=== PATIENT | female | born 1950 | race Caucasian/White ===

== ENCOUNTER 2016-05-19 14:44 | Emergency (ER) ==
--- NOTE | 2016-05-19 15:25 | EKG Report ---
Test Performed on : 05/19/2016 3:04:49 PM Test Reason : sob Blood Pressure : / mmHG Vent. Rate : 095 BPM Atrial Rate : 095 BPM P-R Int : 140 ms QRS Dur : 106 ms QT Int : 384 ms P-R-T Axes : 069 038 100 degrees QTc Int : 482 ms Normal sinus rhythm. Possible Left atrial enlargement Incomplete left bundle branch block Nonspecific T wave abnormality Prolonged QT Abnormal ECG No previous ECGs available Unconfirmed Result
--- NOTE | 2016-05-19 16:03 | ED EKG INTERP ---
EKG Interpretation - EKG Time of EKG reading by physician:: 15:04 EKG Read and Signed by:: Portillo Castañeda EKG Interpretation (*Must complete 3 of following elements*): Abnormal ( nonspecific T wave abnormality; prolonged QT) Rate: 95 Rhythm: normal sinus rhythm Comments: possible L atrial enlargement; incomplete LBBB; Attestation - Scribe Verification/Attestation Scribe:: Edith Liriano Acting as Scribe for:: Portillo Castañeda Scribe documention review:: This chart was documented by a scribe and accurately reflects the service the provider performed and the decisions made by the provider.
[2016-05-19] MEDS ORDERED: DUONEB (A & A) INH ONE (16:30)
--- NOTE | 2016-05-19 16:43 | PROVIDER DOCUMENTATION ---
HPI-Chest Pain - General Chief Complaint: Shortness of Breath Stated Complaint: PLEURISY Time Seen by Provider: 05/19/16 16:15 Allergies/Adverse Reactions: Patient Allergies Allergy/AdvReac Type Severity Reaction Status Date / Time No Known Allergies Allergy Verified 05/05/16 22:38 Home Medications: Trazodone E.r. [Oleptro ER] 300 mg PO HS 03/24/16 Furosemide [Lasix] 40 mg PO DAILY 03/25/16 Ropinirole [Requip] 1 - 2 mg PO DAILY 03/25/16 Spironolactone 0.5 tab PO DAILY 03/25/16 Ipratropium/Albuterol INH [Combivent Respimat Inhaler] 1 puff INH Q4H 05/04/16 - History of Present Illness-CP Nature of Presenting Problem: A 65 y/o F with PMH of CHF HTN CAD COPD presented with 4 days of cough with sputum production and subjective fevers due prolonged cough started having left rib pain and has moderate distress due topain, denies chest pain, not sure SOB exertional but attributes to possible PNA vs pleurasy Review of Systems - Adult - REVIEW OF SYSTEMS - ADULT Constitutional: reports: no symptoms reported Eyes: reports: no symptoms reported Ears, Nose, Mouth & Throat: reports: no symptoms reported Cardiovascular: reports: see HPI Respiratory: reports: see HPI Gastrointestinal: reports: no symptoms reported Genitourinary: reports: no symptoms reported Musculoskeletal: reports: no symptoms reported Integumentary: reports: no symptoms reported Neurological: reports: no symptoms reported Psychiatric: reports: no symptoms reported Endocrine: reports: no symptoms reported Hematologic/Lymphatic: reports: no symptoms reported Allergic/Immunologic: reports: no symptoms reported All Other Systems: Reviewed and Negative Past History - Adult - PAST MEDICAL HISTORY-ADULT Review of Records: reports: Old Records Reviewed, Nursing Assessment Review, Medications Reviewed, Social history reviewed & non-contributory. Major Childhood Illnesses: reports: denies history Cardiovascular: reports: CHF, HTN Respiratory: reports: COPD, sleep apnea Gastrointestinal: reports: denies history Obstetrical/Gynecological: reports: denies history Genitourinary: reports: denies history Musculoskeletal: reports: intervertebral disc disease Neurological: reports: other (restless leg syndrom) Endocrine/Immune: reports: denies history Other Conditions: reports: denies history - PRIOR SURGERIES/PROCEDURES Surgical/Procedure History: reports: appendectomy, orthopedic (extremity), back/ neck - IMMUNIZATION STATUS Childhood Immunizations: See Nurse Assessment Flu Vaccine: See Nurse Assessment - FAMILY HISTORY Family History: reviewed, not pertinent Physical Exam-General - PHYSICAL EXAM-ADULT Initial Vital Signs Reviewed: Yes - CONSTITUTIONAL General Appearance: appears well, alert, mild distress - EYES Eyes: PERRL/EOMI, pink conjunctivae - HEAD, EARS, NOSE, MOUTH & THROAT HENMT: normocephalic/atraumatic, moist mucous membranes, normal ENT inspection - NECK Neck: non-tender, full range of motion, normal inspection - RESPIRATORY Respiratory: chest non-tender, rales, wheezing - CARDIOVASCULAR Cardiovascular: normal peripheral pulses, regular rate, rhythm, no edema - GASTROINTESTINAL (ABDOMEN) Abdominal Exam: normal bowel sounds, non tender, soft - LYMPHATIC Lymphatic: no adenopathy - MUSCULOSKELETAL Back Exam: normal inspection, no CVA tenderness, no vertebral tenderness, other (left rib tenderness) Extremity: normal range of motion, non-tender, normal gait - SKIN Integumentary: normal color, normal turgor, warm/dry - NEUROLOGIC Neurologic: grossly normal, no motor/sensory deficits - PSYCHIATRIC Psych/Mental Status: normal mood/affect, normal thought content, normal thought process, oriented x 3 Progress - PLAN OF CARE/RESULTS Progress/Plan/Lab Results: Laboratory Tests 05/19/16 05/19/16 05/19/16 18:05 18:05 18:05 WBC 10.51 RBC 3.59 L Hgb 10.3 L Hct 32.7 L MCV 91.1 MCH 28.7 MCHC 31.5 L RDW Std Deviation 15.7 H Plt Count 442 H MPV 10.1 Immature Gran % (Auto) 0.9 H Neut % (Auto) 66.2 Lymph % (Auto) 16.7 L [place] % (Auto) 8.8 Eos % (Auto) 7.0 Baso % (Auto) 0.4 Immature Gran # (Auto) 0.09 H Neut # (Auto) 6.96 H Lymph # (Auto) 1.75 [place] # (Auto) 0.93 H Eos # (Auto) 0.74 H Baso # (Auto) 0.04 PT INR PTT (Actin FS) D-Dimer 1.21 H Sodium 133 L Potassium 4.5 Chloride 97 L Carbon Dioxide 21 L Anion Gap 15 BUN 49 H Creatinine 2.1 H Estimated GFR/1.73 m2 24 BUN/Creatinine Ratio 23 Glucose 87 Calculated Osmolality 279 Calcium 9.8 Magnesium 1.7 Total Bilirubin < 0.10 L AST 9 L ALT 7 L Alkaline Phosphatase 82 Creatine Kinase 101 Troponin T Iqx-W-Bvvsofchkxl Pept Total Protein 6.8 Albumin 3.7 Globulin 3.1 Albumin/Globulin Ratio 1.2 05/19/16 05/19/16 05/19/16 18:05 18:05 18:05 WBC RBC Hgb Hct MCV MCH MCHC RDW Std Deviation Plt Count MPV Immature Gran % (Auto) Neut % (Auto) Lymph % (Auto) [place] % (Auto) Eos % (Auto) Baso % (Auto) Immature Gran # (Auto) Neut # (Auto) Lymph # (Auto) [place] # (Auto) Eos # (Auto) Baso # (Auto) PT 10.0 INR 0.94 PTT (Actin FS) 23.8 D-Dimer Sodium Potassium Chloride Carbon Dioxide Anion Gap BUN Creatinine Estimated GFR/1.73 m2 BUN/Creatinine Ratio Glucose Calculated Osmolality Calcium Magnesium Total Bilirubin AST ALT Alkaline Phosphatase Creatine Kinase Troponin T 0.079 Zep-Y-Fbliyrksrsh Pept 5579 H Total Protein Albumin Globulin Albumin/Globulin Ratio Orders Category Date Time Status Cardiac Monitoring DIRECTED Care 05/19/16 16:29 Active Saline Loc NOW Care 05/19/16 16:29 Active CHEST-2 VIEWS [RAD] Stat Exams 05/19/16 16:29 Draft CBC WITH ELECTRONIC DIFF [HEME] Stat Lab 05/19/16 18:05 Completed CK PROFILE [SP CHEM] Stat Lab 05/19/16 18:05 Completed COMPREHENSIVE METABOLIC PANEL [CHEM] Stat Lab 05/19/16 18:05 Completed D-DIMER [CHEM] Stat Lab 05/19/16 18:05 Completed MAGNESIUM [CHEM] Stat Lab 05/19/16 18:05 Completed PRO B-NATRIURETIC PEPTIDE Stat Lab 05/19/16 18:05 Completed PROTIME WITH INR [COAG] Stat Lab 05/19/16 18:05 Completed PTT [COAG] Stat Lab 05/19/16 18:05 Completed TROPONIN T Stat Lab 05/19/16 18:05 Completed Albuterol 2.5MG/Ipratrop 0.5MG [Duoneb (A & A)] Med 05/19/16 16:30 Discontinued 3 ml INH NOW ONE Hydromorphone [Dilaudid] Med 05/19/16 18:32 Discontinued 0.5 mg IM NOW ONE Aerosol Treatments Routine Oth 05/19/16 16:30 Completed Aerosol Treatments Stat Oth 05/19/16 16:30 Completed EKG [EKG] Stat Ther 05/19/16 14:59 Draft EKG [EKG] Stat Ther 05/19/16 16:29 Ordered Vital Signs Temp Pulse Resp BP Pulse Ox 05/19/16 18:13 89 16 100 05/19/16 14:57 98.6 F 108 H 22 117/78 100 No Known Allergies Allergy (Verified 05/05/16 22:38) Aspirin 81 mg PO DAILY #60 chewtab 10/29/15 Citalopram [Celexa] 40 mg PO QAM #30 tablet 01/28/16 Trazodone E.r. [Oleptro ER] 300 mg PO HS 03/24/16 Furosemide [Lasix] 40 mg PO DAILY 03/25/16 Ropinirole [Requip] 1 - 2 mg PO DAILY 03/25/16 Spironolactone 0.5 tab PO DAILY 03/25/16 Carvedilol [Coreg] 3.125 mg PO BID #60 tablet 03/27/16 LISINOpril [Prinivil] 5 mg PO DAILY #30 tablet 03/27/16 Ipratropium/Albuterol INH [Combivent Respimat Inhaler] 1 puff INH Q4H 05/04/16 Alprazolam [Xanax] 0.25 mg PO Q8H PRN #10 tablet 05/05/16 Hydrocodone/APAP 5 mg/325 mg [[place]-5] 1 tab PO Q12HR PRN #20 tablet 05/05/16 Isosorbide Dinitrate [Isordil] 10 mg PO TID #90 tablet 05/05/16 Omeprazole [Prilosec] 40 mg PO DAILY@0700 #60 capsule 05/05/16 Sennosides/Docusate Sodium [Pericolace] 2 each PO BID #30 tablet 05/05/16 Sodium Bicarbonate 650 mg PO BID #60 tablet 05/05/16 Sucralfate [Carafate Liquid] 1 gm PO Q6H #2 udc 05/05/16 Laboratory 05/19/16 05/19/1617 18:05 18:05 18:05 WBC RBC Hgb Hct MCV MCH MCHC RDW Std Deviation Plt Count MPV Immature Gran % (Auto) Neut % (Auto) Lymph % (Auto) [place] % (Auto) Eos % (Auto) Baso % (Auto) Immature Gran # (Auto) Neut # (Auto) Lymph # (Auto) [place] # (Auto) Eos # (Auto) Baso # (Auto) PT 10.0 INR 0.94 PTT (Actin FS) 23.8 D-Dimer Sodium Potassium Chloride Carbon Dioxide Anion Gap BUN Creatinine Estimated GFR/1.73 m2 BUN/Creatinine Ratio Glucose Calculated Osmolality Calcium Magnesium Total Bilirubin AST ALT Alkaline Phosphatase Creatine Kinase Troponin T 0.079 Jzf-F-Rfuirisnsom Pept 5579 H Total Protein Albumin Globulin Albumin/Globulin Ratio 05/19/16 05/19/16 05/19/16 18:05 18:05 18:05 WBC 10.51 RBC 3.59 L Hgb 10.3 L Hct 32.7 L MCV 91.1 MCH 28.7 MCHC 31.5 L RDW Std Deviation 15.7 H Plt Count 442 H MPV 10.1 Immature Gran % (Auto) 0.9 H Neut % (Auto) 66.2 Lymph % (Auto) 16.7 L [place] % (Auto) 8.8 Eos % (Auto) 7.0 Baso % (Auto) 0.4 Immature Gran # (Auto) 0.09 H Neut # (Auto) 6.96 H Lymph # (Auto) 1.75 [place] # (Auto) 0.93 H Eos # (Auto) 0.74 H Baso # (Auto) 0.04 PT INR PTT (Actin FS) D-Dimer 1.21 H Sodium 133 L Potassium 4.5 Chloride 97 L Carbon Dioxide 21 L Anion Gap 15 BUN 49 H Creatinine 2.1 H Estimated GFR/1.73 m2 24 BUN/Creatinine Ratio 23 Glucose 87 Calculated Osmolality 279 Calcium 9.8 Magnesium 1.7 Total Bilirubin < 0.10 L AST 9 L ALT 7 L Alkaline Phosphatase 82 Creatine Kinase 101 Troponin T Waw-D-Kfetvvvtlpx Pept Total Protein 6.8 Albumin 3.7 Globulin 3.1 Albumin/Globulin Ratio 1.2 - EKG 1 Time of EKG reading by physician:: 19:14 Prior EKG Comparison: unchanged from prior (NSR no acute STEMI) - XRAY 1 XRAY Study: Chest (no acute changes) Impression: See EMR Report 2 XRAY: Bilateral (no obvious fracture noted) XRAY Study: Ribs Departure - Departure Time of Disposition Order: 19:16 DIAGNOSIS: Renal insufficiency, Elevated d-dimer, Rib pain on left side COPD (chronic obstructive pulmonary disease) Qualifiers: COPD type: unspecified COPD Qualified Code(s): J44.9 - Chronic obstructive pulmonary disease, unspecified Disposition: HOME 01 Certified Medical Emergency: Emergent Condition: Good Prescriptions: Amoxicillin/Potassium Clav [Augmentin 875-125 Tablet] 1 each PO BID #14 tablet Hydrocodone/Acetaminophen [[place] 5-325 Tablet] 1 each PO Q4-6H PRN PRN #12 tablet PRN Reason: Pain Prednisone 20 mg PO DAILY #7 tablet Albuterol Sulfate Inhaler [Ventolin Hfa] 2 puff INH Q6H PRN PRN #1 inhaler PRN Reason: Cough - Critical Care Note Comments: A 65 y/o F who presented with cough and left rib pain on evalaution noted to have slight elevated ddimer and renal insufficiency, reviewed records in recent past v/q scan was normal, pts vitals normal not in acute resp distress, has reproduceable left rib tenderness due to coughing less likley to be PE discussed finding with supervising attending Dr Jackson who agrees with plan will d/c home with medications as prescribed
--- NOTE | 2016-05-19 17:18 | Diag Imaging Result Document ---
PROCEDURE NAME: CHEST-2 VIEWS - 05/19/2016 PA AND LATERAL RADIOGRAPH OF THE CHEST: COMPARISON: 05/05/2016. FINDINGS: The lungs are grossly clear. There is no definite pleural fluid collection. There is stable cardiomegaly. Central vasculature is unremarkable. IMPRESSION: Stable cardiomegaly, but no definite acute pathology.
[2016-05-19 18:21] LABS: MANUAL DIFF NEEDED? NO
[2016-05-19 18:30] LABS: BASO% 0.4 % (0.0-0.8); EOS# 0.74 X1000 (0.0-0.7); HEMATOCRIT 32.7 % (37.0-47.0); HEMOGLOBIN 10.3 g/dL (12.0-16.0); IMM GRAN# 0.09 X1000 (0.0-0.04); IMM GRAN% 0.9 % (0.0-0.5); LYMPH# 1.75 X1000 (1.2-3.4); LYMPH% 16.7 % (20.5-51.1); MCH 28.7 PG (27-31); MCHC 31.5 g/dL (33-37); MCV 91.1 FL (81-99); MONO# 0.93 X1000 (0.11-0.59); MONO% 8.8 % (1.7-9.3); MPV 10.1 FL (7.4-10.4); NEUT% 66.2 % (42.2-75.2); PLT 442 X1000 (130-400); RBC 3.59 XMIL (4.2-5.4)
[2016-05-19] MEDS ORDERED: DILAUDID IM ONE (18:32)
[2016-05-19 18:37] LABS: INR 0.94; PTT 23.8 Seconds (22.0-36.0)
[2016-05-19 18:55] LABS: AGAP 15; ALBUMIN 3.7 g/dL (3.5-5.0); ALKALINE PHOSPHATASE 82 U/L (32-104); BUN 49 mg/dL (8-22); CALCIUM 9.8 mg/dL (8.8-10.2); CHLORIDE 97 mmol/L (98-107); CK PROFILE 101 U/L (24-173); COSMO 279; GOT 9 U/L (10-30); GPT 7 U/L (10-36); MAGNESIUM 1.7 mg/dL (1.5-2.7); POTASSIUM 4.5 mmol/L (3.5-5.1); SODIUM 133 mmol/L (136-145); TCO2 21 mmol/L (25-35); TOTAL BILIRUBIN < 0.10 mg/dL (0.20-1.00); TOTAL PROTEIN 6.8 g/dL (6.3-8.3)
[2016-05-19 19:41] VITALS: BP 120/80
--- NOTE | 2016-05-20 08:22 | Diag Imaging Result Document ---
PROCEDURE NAME: RIBS ONLY LEFT - 05/19/2016 LEFT RIB SERIES, FOUR VIEWS: FINDINGS: There are healing fractures anterolaterally in the seventh and eighth ribs on the left. There is no definite evidence of acute fracture. No evidence of pneumothorax or pleural fluid collection is present. IMPRESSION: Old rib fractures.
== END 2016-05-19 20:22 | disposition home or self-care (01) ==
LOC: ED 14:44
DX: J44.9 Chronic obstructive pulmonary disease, unspecified (principal); R79.1 Abnormal coagulation profile; N28.9 Disorder of kidney and ureter, unspecified; R07.81 Pleurodynia; R94.31 Abnormal electrocardiogram [ECG] [EKG]; R06.02 Shortness of breath; R09.1 Pleurisy; R05 Cough; Z79.899 Other long term (current) drug therapy; R09.3 Abnormal sputum; R50.9 Fever, unspecified; R06.2 Wheezing; I50.9 Heart failure, unspecified; I10 Essential (primary) hypertension; I25.10 Atherosclerotic heart disease of native coronary artery without angina pectoris; G25.81 Restless legs syndrome; Z79.82 Long term (current) use of aspirin
CPT/HCPCS: 71020; 71100; 80053; 82550; 83735; 83880; 84484; 85025; 85379; 85610; 85730; 93005; 94640; 96372; J1170

== ENCOUNTER 2016-07-07 19:15 | Emergency (ER) ==
--- NOTE | 2016-07-07 20:16 | PROVIDER DOCUMENTATION ---
HPI-Respiratory General - General Source: patient - History of Present Illness-Resp Quality of Pain: reports: tightness Severity in ED: reports: moderate Onset/Duration: reports: 1 week ago Timing: reports: still present, getting worse Cough Quality/Degree: reports: moderate Modifying Factors: improves with: nothing Associated Symptoms: reports: cough, fever/chills, hurts to breathe, shortness of breath, wheezing. denies: nasal congestion Similar Symptoms Previously?: Yes Recently seen or treated by another doctor?: Yes <Art Burnette - Last Filed: 07/07/16 20:38> - General Source: patient <No Lemus - Last Filed: 07/08/16 22:12> - General Chief Complaint: General Adult Stated Complaint: SOB, CONGESTED, RGT FOOT SWOLLEN Time Seen by Provider: 07/07/16 19:46 Allergies/Adverse Reactions: Patient Allergies Allergy/AdvReac Type Severity Reaction Status Date / Time No Known Allergies Allergy Verified 07/07/16 19:30 Home Medications: Home Medication List Medication Instructions Recorded Confirmed Last Taken Type Citalopram [Celexa] 40 mg PO QAM #30 tablet 01/28/16 07/07/16 06/22/16 Rx Trazodone E.r. [Oleptro ER] 300 mg PO HS 03/24/16 07/07/16 06/22/16 History Ropinirole [Requip] 1 - 2 mg PO QHS 03/25/16 07/07/16 06/22/16 History Carvedilol [Coreg] 3.125 mg PO BID #60 tablet 03/27/16 07/07/16 05/05/16 Rx Omeprazole [Prilosec] 40 mg PO DAILY@0700 #60 capsule 05/05/16 07/07/16 Rx Albuterol [Albuterol Neb] 2.5 mg INH Q4H PRN PRN #1 neb 06/21/16 07/07/16 Rx Aspirin 325 mg PO QAM 06/23/16 07/07/16 Unknown History Acetaminophen/Diphenhydramine 1 each PO Q6H PRN PRN #14 tablet 07/07/16 Unknown Rx [Percogesic Extra Str Caplet] Albuterol [Albuterol Neb] 2.5 mg INH Q4H PRN PRN #30 neb 07/07/16 Unknown Rx Furosemide [Lasix] 20 mg PO DAILY #3 tablet 07/07/16 Unknown Rx - History of Present Illness-Resp Nature of Presenting Problem: 65 y/o F presents to the ED with SOB, cough, chest congestion and tightness that has gradually worsen over the last 4 days. Pt states she does not have a PCP or residential nurse for her CHF just comes to the ED for it. (Art Burnette) Review of Systems - Adult - REVIEW OF SYSTEMS - ADULT Constitutional: reports: fever (reproted 101 at home a couple days ago). denies : chills Eyes: reports: no symptoms reported Ears, Nose, Mouth & Throat: reports: no symptoms reported Cardiovascular: reports: chest pain, edema Respiratory: reports: cough, shortness of breath, wheezing Gastrointestinal: denies: abdominal pain, nausea, vomiting Genitourinary: reports: no symptoms reported Musculoskeletal: reports: no symptoms reported Integumentary: reports: no symptoms reported Neurological: reports: no symptoms reported Psychiatric: reports: no symptoms reported Endocrine: reports: no symptoms reported Hematologic/Lymphatic: reports: no symptoms reported Allergic/Immunologic: reports: no symptoms reported All Other Systems: Reviewed and Negative <Art Burnette - Last Filed: 07/07/16 20:38> Past History - Adult - PAST MEDICAL HISTORY-ADULT Review of Records: reports: Old Records Reviewed, Nursing Assessment Review, Medications Reviewed Cardiovascular: reports: CHF Respiratory: reports: COPD - SOCIAL HISTORY Smoking: cigarettes, less than 1 pack/day Living Situation: family <Art Burnette - Last Filed: 07/07/16 20:38> - PAST MEDICAL HISTORY-ADULT Major Childhood Illnesses: reports: denies history Cardiovascular: reports: CHF, HTN Respiratory: reports: COPD, sleep apnea Gastrointestinal: reports: denies history Obstetrical/Gynecological: reports: denies history Genitourinary: reports: denies history Musculoskeletal: reports: intervertebral disc disease Neurological: reports: other (restless leg syndrom) Endocrine/Immune: reports: denies history Other Conditions: reports: denies history - PRIOR SURGERIES/PROCEDURES Surgical/Procedure History: reports: appendectomy, orthopedic (extremity), back/ neck - IMMUNIZATION STATUS Childhood Immunizations: See Nurse Assessment Flu Vaccine: See Nurse Assessment - FAMILY HISTORY Family History: reviewed, not pertinent <MariahNo sosa - Last Filed: 07/08/16 22:12> Physical Exam-General - CONSTITUTIONAL General Appearance: alert, no apparent distress - EYES Eyes: PERRL/EOMI, pink conjunctivae - HEAD, EARS, NOSE, MOUTH & THROAT HENMT: moist mucous membranes, normal ENT inspection, TMs normal, pharynx normal - NECK Neck: non-tender, full range of motion, supple, normal inspection - RESPIRATORY Respiratory: decreased breath sounds (all lung brasher), crackles (upper lobes), wheezing (upper lobes) - CARDIOVASCULAR Cardiovascular: normal peripheral pulses, regular rate, rhythm - GASTROINTESTINAL (ABDOMEN) Abdominal Exam: normal bowel sounds, non tender, soft - MUSCULOSKELETAL Back Exam: normal inspection, no CVA tenderness, no vertebral tenderness Extremity: normal range of motion, non-tender, normal gait, pedal edema (+1 right foot only and only in the foot) - SKIN Integumentary: normal color, normal turgor, warm/dry - NEUROLOGIC Neurologic: grossly normal, no motor/sensory deficits - PSYCHIATRIC Psych/Mental Status: normal mood/affect, normal thought content, normal thought process, oriented x 3 <Art Burnette - Last Filed: 07/07/16 20:38> Progress - EKG 1 Time of EKG reading by physician:: 20:28 EKG Read and Signed by:: Pepe Walker EKG Interpretation (*Must complete 3 of following elements*): Abnormal Rate: 96 Rhythm: NSR Comments: possible left atrial enlargement, Inferior & Anterior infarcts age undeterm <Art Burnette - Last Filed: 07/07/16 20:38> - XRAY 1 XRAY Study: Chest Comparison with other Films: no changes <MariahNo sosa - Last Filed: 07/08/16 22:12> - PLAN OF CARE/RESULTS Progress/Plan/Lab Results: Laboratory Tests 07/07/16 07/07/16 07/07/16 19:50 19:50 19:50 WBC 9.93 RBC 3.67 L Hgb 10.5 L Hct 32.9 L MCV 89.6 MCH 28.6 MCHC 31.9 L RDW Std Deviation 16.2 H Plt Count 302 MPV 10.4 Immature Gran % (Auto) 0.3 Neut % (Auto) 69.4 Lymph % (Auto) 17.5 L Forrest % (Auto) 8.0 Eos % (Auto) 4.2 Baso % (Auto) 0.6 Immature Gran # (Auto) 0.03 Neut # (Auto) 6.89 H Lymph # (Auto) 1.74 Forrest # (Auto) 0.79 H Eos # (Auto) 0.42 Baso # (Auto) 0.06 PT INR APTT (Factor Assay) Sodium 140 Potassium 4.0 Chloride 111 H Carbon Dioxide 15 L Anion Gap 15 BUN 34 H Creatinine 1.7 H Estimated GFR/1.73 m2 30 BUN/Creatinine Ratio 20 Glucose 146 H Calculated Osmolality 290 Calcium 8.9 Magnesium 1.8 Total Bilirubin < 0.15 L AST 11 ALT 9 L Alkaline Phosphatase 67 Ukz-I-Hkxmhenmoix Pept 22003 H Total Protein 6.0 L Albumin 3.5 Globulin 3.0 Albumin/Globulin Ratio 1.0 07/07/16 19:50 WBC RBC Hgb Hct MCV MCH MCHC RDW Std Deviation Plt Count MPV Immature Gran % (Auto) Neut % (Auto) Lymph % (Auto) Forrest % (Auto) Eos % (Auto) Baso % (Auto) Immature Gran # (Auto) Neut # (Auto) Lymph # (Auto) Forrest # (Auto) Eos # (Auto) Baso # (Auto) PT 12.9 INR 0.94 APTT (Factor Assay) 28.7 Sodium Potassium Chloride Carbon Dioxide Anion Gap BUN Creatinine Estimated GFR/1.73 m2 BUN/Creatinine Ratio Glucose Calculated Osmolality Calcium Magnesium Total Bilirubin AST ALT Alkaline Phosphatase Ejc-B-Iirphrspnix Pept Total Protein Albumin Globulin Albumin/Globulin Ratio Orders Category Date Time Status CHEST-2 VIEWS [RAD] Stat Exams 07/07/16 20:17 Completed CBC WITH ELECTRONIC DIFF [HEME] Stat Lab 07/07/16 19:50 Completed COMPREHENSIVE METABOLIC PANEL [CHEM] Stat Lab 07/07/16 19:50 Completed MAGNESIUM [CHEM] Stat Lab 07/07/16 19:50 Completed PRO B-NATRIURETIC PEPTIDE Stat Lab 07/07/16 19:50 Com[address]IME WITH INR PL [COAG] Stat Lab 07/07/16 19:[address] [COAG] Stat Lab 07/07/16 19:50 Completed Furosemide [Lasix] Med 07/07/16 21:33 Discontinued 40 mg IV NOW ONE Promethazine [Phenergan] Med 07/07/16 20:17 Discontinued 12.5 mg IV NOW ONE Promethazine [Phenergan] Med 07/07/16 22:09 Discontinued 12.5 mg IV NOW ONE Sodium Chloride 0.9% Med 07/07/16 20:17 Discontinued 10 ml INJ NOW ONE Sodium Chloride 0.9% Med 07/07/16 22:09 Discontinued 10 ml INJ NOW ONE EKG [EKG] Stat Ther 07/07/16 20:17 Draft Vital Signs Temp Pulse Resp BP Pulse Ox 07/07/16 22:24 97.4 F L 105 H 20 158/109 99 07/07/16 19:40 99 F 99 H 20 134/91 98 07/07/16 19:21 99.3 F 99 H 20 133/86 99 No Known Allergies Allergy (Verified 07/07/16 19:30) Citalopram [Celexa] 40 mg PO QAM #30 tablet 01/28/16 Trazodone E.r. [Oleptro ER] 300 mg PO HS 03/24/16 Ropinirole [Requip] 1 - 2 mg PO QHS 03/25/16 Carvedilol [Coreg] 3.125 mg PO BID #60 tablet 03/27/16 Omeprazole [Prilosec] 40 mg PO DAILY@0700 #60 capsule 05/05/16 Albuterol [Albuterol Neb] 2.5 mg INH Q4H PRN PRN #1 neb 06/21/16 Aspirin 325 mg PO QAM 06/23/16 Acetaminophen/Diphenhydramine [Percogesic Extra Str Caplet] 1 each PO Q6H PRN PRN #14 tablet 07/07/16 Albuterol [Albuterol Neb] 2.5 mg INH Q4H PRN PRN #30 neb 07/07/16 Furosemide [Lasix] 20 mg PO DAILY #3 tablet 07/07/16 Laboratory 07/07/16 07/07/16 07/07/16 19:50 19:50 19:50 WBC RBC Hgb Hct MCV MCH MCHC RDW Std Deviation Plt Count MPV Immature Gran % (Auto) Neut % (Auto) Lymph % (Auto) Forrest % (Auto) Eos % (Auto) Baso % (Auto) Immature Gran # (Auto) Neut # (Auto) Lymph # (Auto) Forrest # (Auto) Eos # (Auto) Baso # (Auto) PT 12.9 INR 0.94 APTT (Factor Assay) 28.7 Sodium 140 Potassium 4.0 Chloride 111 H Carbon Dioxide 15 L Anion Gap 15 BUN 34 H Creatinine 1.7 H Estimated GFR/1.73 m2 30 BUN/Creatinine Ratio 20 Glucose 146 H Calculated Osmolality 290 Calcium 8.9 Magnesium 1.8 Total Bilirubin < 0.15 L AST 11 ALT 9 L Alkaline Phosphatase 67 Qaa-O-Puotlwdpvqc Pept 82056 H Total Protein 6.0 L Albumin 3.5 Globulin 3.0 Albumin/Globulin Ratio 1.0 07/07/16 19:50 WBC 9.93 RBC 3.67 L Hgb 10.5 L Hct 32.9 L MCV 89.6 MCH 28.6 MCHC 31.9 L RDW Std Deviation 16.2 H Plt Count 302 MPV 10.4 Immature Gran % (Auto) 0.3 Neut % (Auto) 69.4 Lymph % (Auto) 17.5 L Forrest % (Auto) 8.0 Eos % (Auto) 4.2 Baso % (Auto) 0.6 Immature Gran # (Auto) 0.03 Neut # (Auto) 6.89 H Lymph # (Auto) 1.74 Forrest # (Auto) 0.79 H Eos # (Auto) 0.42 Baso # (Auto) 0.06 PT INR APTT (Factor Assay) Sodium Potassium Chloride Carbon Dioxide Anion Gap BUN Creatinine Estimated GFR/1.73 m2 BUN/Creatinine Ratio Glucose Calculated Osmolality Calcium Magnesium Total Bilirubin AST ALT Alkaline Phosphatase Sdc-Y-Ylaowtgiqot Pept Total Protein Albumin Globulin Albumin/Globulin Ratio Reviewed labs and CXR with Dr. Walker; he agreed with d/c plan. Discussed findings and f/u with pt and family. (No Lemus) Departure <Art Burnette - Last Filed: 07/07/16 20:38> - Departure Time of Disposition Order: 21:53 Certified Medical Emergency: Emergent <No Lemus - Last Filed: 07/08/16 22:12> - Departure DIAGNOSIS: Renal insufficiency CHF (congestive heart failure) Qualifiers: Congestive heart failure type: unspecified congestive heart failure type Congestive heart failure chronicity: unspecified congestive heart failure chronicity Qualified Code(s): I50.9 - Heart failure, unspecified COPD (chronic obstructive pulmonary disease) Qualifiers: COPD type: unspecified COPD Qualified Code(s): J44.9 - Chronic obstructive pulmonary disease, unspecified Disposition: HOME 01 Condition: Stable Additional Instructions: Take medications as directed. Follow up with specialist for further management. Elevate legs often. ED Follow Up Instructions: You have been treated by a care provider in the Emergency Department. These instructions are being provided to you so you can have an understanding of how to care for yourself upon discharge. Upon discharge from the Emergency Department, you are responsible for making arrangements for follow-up care by a physician of your choice. Take all prescribed medications as directed. Return to the Emergency Department immediately for any new or worsening symptoms. You may call the Physician Referral phone number at [phone] to obtain a list of Physicians who are taking new patients. Prescriptions: Albuterol [Albuterol Neb] 2.5 mg INH Q4H PRN PRN #30 neb PRN Reason: Wheezing Furosemide [Lasix] 20 mg PO DAILY #3 tablet Acetaminophen/Diphenhydramine [Percogesic Extra Str Caplet] 1 each PO Q6H PRN PRN #14 tablet PRN Reason: Pain Referrals: None,PCP [Primary Care Provider] - Filipe Brooks MD [STAFF PHYSICIAN] - Instructions: Furosemide tablets, Chronic Obstructive Pulmonary Disease, Easy- to-Read, Heart Failure, Yjmq-rl-Shlt Attestation - Scribe Verification/Attestation Scribe:: Art Burnette Acting as Scribe for:: No Lemus Scribe documention review:: This chart was documented by a scribe and accurately reflects the service the provider performed and the decisions made by the provider. <Art Burnette - Last Filed: 07/07/16 20:38> - Physician/ ELODIA Attestation Patient care was provided by Advanced Practice Provider:: Yes Advanced Practice Provider:: No Lemus Advanced Practice Provider documentation review:: The Mid-level provider documentation, treatment plan and medical decision making was reviewed by the physician who agrees with all treatment and medical decision making by the [facility]. <No Lemus - Last Filed: 07/08/16 22:12> Physician Attestation
[2016-07-07] MEDS ORDERED: SODIUM CHLORIDE 0.9% INJ ONE ×2 (20:17→22:09)
[2016-07-07] MEDS ORDERED: PHENERGAN IV ONE ×2 (20:17→22:09)
[2016-07-07 20:48] LABS: MANUAL DIFF NEEDED? NO
[2016-07-07 20:53] LABS: BASO% 0.6 % (0.0-0.8); EOS# 0.42 X1000 (0.0-0.7); EOS% 4.2 % (0.0-10.0); HEMATOCRIT 32.9 % (37.0-47.0); HEMOGLOBIN 10.5 g/dL (12.0-16.0); IMM GRAN# 0.03 X1000 (0.0-0.04); IMM GRAN% 0.3 % (0.0-0.5); LYMPH# 1.74 X1000 (1.2-3.4); LYMPH% 17.5 % (20.5-51.1); MCH 28.6 PG (27-31); MCHC 31.9 g/dL (33-37); MCV 89.6 FL (81-99); MONO# 0.79 X1000 (0.11-0.59); MPV 10.4 FL (7.4-10.4); NEUT% 69.4 % (42.2-75.2); PLT 302 X1000 (130-400); RBC 3.67 XMIL (4.2-5.4)
--- NOTE | 2016-07-07 20:55 | EKG Report ---
Test Performed on : 07/07/2016 8:28:53 PM Test Reason : SOB Blood Pressure : / mmHG Vent. Rate : 096 BPM Atrial Rate : 096 BPM P-R Int : 134 ms QRS Dur : 098 ms QT Int : 384 ms P-R-T Axes : 049 001 095 degrees QTc Int : 485 ms Normal sinus rhythm. Possible Left atrial enlargement Inferior infarct , age undetermined Anterior infarct , age undetermined Abnormal ECG When compared with ECG of 23-JUN-2016 18:54, Inferior infarct is now present Unconfirmed Result
[2016-07-07 21:25] LABS: INR 0.94 (0.86-1.15); PROTIME 12.9 Seconds (12.1-15.5); PTT PL 28.7 Seconds (22.6-43.9)
[2016-07-07 21:26] LABS: AGAP 15; ALBUMIN 3.5 g/dL (3.5-5.0); ALKALINE PHOSPHATASE 67 U/L (32-104); BUN 34 mg/dL (8-22); CALCIUM 8.9 mg/dL (8.8-10.2); CHLORIDE 111 mmol/L (98-107); COSMO 290; GOT 11 U/L (10-30); GPT 9 U/L (10-36); MAGNESIUM 1.8 mg/dL (1.5-2.7); SODIUM 140 mmol/L (136-145); TCO2 15 mmol/L (25-35); TOTAL BILIRUBIN < 0.15 mg/dL (0.20-1.00)
[2016-07-07] MEDS ORDERED: LASIX IV ONE (21:33)
[2016-07-07 22:25] VITALS: BP 158/109
--- NOTE | 2016-07-08 07:54 | Diag Imaging Result Document ---
PROCEDURE NAME: CHEST-2 VIEWS - 07/07/2016 CHEST X-RAY, 2 VIEWS: COMPARISON: 06/21/2016. FINDINGS: There is stable cardiomegaly. No focal infiltrates. No pneumothorax or pleural effusion. Pulmonary vascularity is grossly normal. IMPRESSION: Cardiomegaly but no change from prior.
== END 2016-07-07 22:24 | disposition home or self-care (01) ==
LOC: P.ED 19:15
DX: I50.9 Heart failure, unspecified (principal); J44.9 Chronic obstructive pulmonary disease, unspecified; N28.9 Disorder of kidney and ureter, unspecified; R06.02 Shortness of breath; R05 Cough; R09.89 Other specified symptoms and signs involving the circulatory and respiratory systems; R07.89 Other chest pain; R50.9 Fever, unspecified; Z79.899 Other long term (current) drug therapy; R60.9 Edema, unspecified; R06.2 Wheezing; I10 Essential (primary) hypertension; G25.81 Restless legs syndrome; R94.31 Abnormal electrocardiogram [ECG] [EKG]; Z79.82 Long term (current) use of aspirin
CPT/HCPCS: 71020; 80053; 83735; 83880; 85025; 85610; 85730; 93005; 96374; 96375; 96376; J1940; J2550

== ENCOUNTER 2016-07-15 20:35 | Inpatient (IN) ==
--- NOTE | 2016-07-15 20:38 | PROVIDER DOCUMENTATION ---
HPI-Respiratory General - General Stated Complaint: respirtory distress Time Seen by Provider: 07/15/16 20:37 Source: EMS Allergies/Adverse Reactions: Patient Allergies Allergy/AdvReac Type Severity Reaction Status Date / Time No Known Allergies Allergy Verified 07/15/16 20:41 Home Medications: Home Medication List Medication Instructions Recorded Confirmed Last Taken Type Citalopram [Celexa] 40 mg PO QAM #30 tablet 01/28/16 07/15/16 06/22/16 Rx Trazodone E.r. [Oleptro ER] 300 mg PO HS 03/24/16 07/15/16 07/14/16 History Ropinirole [Requip] 1 - 2 mg PO QHS 03/25/16 07/15/16 07/15/16 History Carvedilol [Coreg] 3.125 mg PO BID #60 tablet 03/27/16 07/15/16 05/05/16 Rx Omeprazole [Prilosec] 40 mg PO DAILY@0700 #60 capsule 05/05/16 07/15/16 Rx Aspirin 81 mg PO QAM 06/23/16 07/15/16 07/15/16 History Albuterol [Albuterol Neb] 2.5 mg INH Q4H PRN PRN #30 neb 07/07/16 07/15/1607/15 Rx Furosemide [Lasix] 20 mg PO DAILY #3 tablet 07/07/16 07/15/16 Unknown Rx - History of Present Illness-Resp Nature of Presenting Problem: 65 year old F presents to the ED with a cc of a sudden onset of shortness of breath with an onset of 5 days ago. PT was seen 8 days ago for the same thing. Pt is on CPAP on arrival to ED. Severity in ED: reports: mild Onset/Duration: reports: 5 days ago Timing: reports: getting worse Associated Symptoms: reports: shortness of breath Similar Symptoms Previously?: Yes Recently seen or treated by another doctor?: Yes Review of Systems - Adult - REVIEW OF SYSTEMS - ADULT Constitutional: denies: chills, fever Eyes: reports: no symptoms reported Ears, Nose, Mouth & Throat: reports: no symptoms reported Cardiovascular: denies: chest pain, palpitations Respiratory: reports: shortness of breath. denies: cough Gastrointestinal: denies: nausea, vomiting Genitourinary: reports: no symptoms reported Musculoskeletal: reports: no symptoms reported Integumentary: reports: no symptoms reported Neurological: reports: no symptoms reported Psychiatric: reports: no symptoms reported Endocrine: reports: no symptoms reported Hematologic/Lymphatic: reports: no symptoms reported Allergic/Immunologic: reports: no symptoms reported All Other Systems: Reviewed and Negative Past History - Adult - PAST MEDICAL HISTORY-ADULT Review of Records: reports: Nursing Assessment Review, Medications Reviewed Major Childhood Illnesses: reports: denies history Cardiovascular: reports: CHF, HTN Respiratory: reports: COPD, sleep apnea Gastrointestinal: reports: denies history Obstetrical/Gynecological: reports: denies history Genitourinary: reports: denies history Musculoskeletal: reports: intervertebral disc disease Neurological: reports: other (restless leg syndrom) Endocrine/Immune: reports: denies history Other Conditions: reports: denies history - PRIOR SURGERIES/PROCEDURES Surgical/Procedure History: reports: appendectomy, orthopedic (extremity), back/ neck - IMMUNIZATION STATUS Childhood Immunizations: See Nurse Assessment Flu Vaccine: See Nurse Assessment - FAMILY HISTORY Family History: reviewed, not pertinent - SOCIAL HISTORY Smoking: cigarettes, greater than 1 pack/day Provider spent 3-5 mins advising pt. on dangers of tobacco.: Discussed manners to quit use, and f/u contacts for add'l counseling. Substance Use: none/never Alcohol Use Frequency: never Physical Exam-General - PHYSICAL EXAM-ADULT Initial Vital Signs Reviewed: Yes - CONSTITUTIONAL General Appearance: alert, severe distress - RESPIRATORY Respiratory: respiratory distress, decreased breath sounds, wheezing - CARDIOVASCULAR Cardiovascular: tachycardia - SKIN Integumentary: normal color, normal turgor, warm/dry - PSYCHIATRIC Psych/Mental Status: normal mood/affect, normal thought content, normal thought process, oriented x 3 Progress - PLAN OF CARE/RESULTS Progress/Plan/Lab Results: plan of care: imaging, labs, medications, EKG Orders Category Date Time Status Cardiac Monitoring DIRECTED Care 07/15/16 20:39 Active Khan Cath Insertion ORDERED Care 07/15/16 21:08 Active Oxygen Therapy- ED Nursing DIRECTED Care 07/15/16 20:39 Active Saline Loc NOW Care 07/15/16 20:39 Active CHEST-2 VIEWS [RAD] Stat Exams 07/15/16 20:39 Taken ABG [RESP] Routine Lab 07/15/16 20:29 Completed CBC WITH ELECTRONIC DIFF [HEME] Stat Lab 07/15/16 20:45 Completed CK PROFILE [SP CHEM] Stat Lab 07/15/16 20:45 Completed COMPREHENSIVE METABOLIC PANEL [CHEM] Stat Lab 07/15/16 20:45 Completed MAGNESIUM [CHEM] Stat Lab 07/15/16 20:45 Completed PRO B-NATRIURETIC PEPTIDE Stat Lab 07/15/16 20:45 Com[address]IME WITH INR [address] [COAG] Stat Lab 07/15/16 20:[address] [COAG] Stat Lab 07/15/16 20:45 Completed TROPONIN T Stat Lab 07/15/16 20:[address] W/POSS RFLX CULT [URINALYSIS] Stat Lab 07/15/16 21:07 Completed Albuterol 2.5MG/Ipratrop 0.5MG [Duoneb (A & A)] Med 07/15/16 20:54 Discontinued 3 ml INH NOW ONE Furosemide [Lasix] Med 07/15/16 20:55 Discontinued 20 mg IV NOW ONE Methylprednisolone Sod Succ [Solu-Medrol] Med 07/15/16 20:55 Discontinued 125 mg IV NOW ONE Morphine Med 07/15/16 21:47 Discontinued 2 mg IV NOW ONE Ondansetron [Zofran] Med 07/15/16 21:47 Discontinued 4 mg IV NOW ONE Aerosol Treatments Routine Oth 07/15/16 20:55 Completed Aerosol Treatments Stat Oth 07/15/16 20:54 Completed Aerosol Treatments Stat Oth 07/15/16 20:55 Completed EKG [EKG] Stat Ther 07/15/16 20:39 Draft Laboratory Tests 07/15/16 07/15/16 07/15/16 20:29 20:45 20:45 WBC RBC Hgb Hct MCV MCH MCHC RDW Std Deviation Plt Count MPV Immature Gran % (Auto) Neut % (Auto) Lymph % (Auto) [place] % (Auto) Eos % (Auto) Baso % (Auto) Immature Gran # (Auto) Neut # (Auto) Lymph # (Auto) [place] # (Auto) Eos # (Auto) Baso # (Auto) PT INR APTT (Factor Assay) Specimen Type ARTERIAL Sample Site L RADIAL pH 7.47 H pCO2 29 L pO2 166 H HCO3 23.6 Base Excess -1.7 Oxyhemoglobin 95.5 ABG O2 Sat (Calculated) 15.5 ABG O2 Saturation 97.9 ABG Carboxyhemoglobin 2.10 ABG Methemoglobin 0.4 Iam Test YES A-a O2 Difference 511.0 Total Hemoglobin 11.3 L Lactate 1.00 Blood Gas Modality BI PAP FiO2 % 100.0 CPAP 5.0 Sodium 138 Potassium 4.1 Chloride 106 Carbon Dioxide 18 L Anion Gap 14 BUN 31 H Creatinine 1.9 H Estimated GFR/1.73 m2 27 BUN/Creatinine Ratio 16 Glucose 118 H Calculated Osmolality 283 Calcium 9.7 Magnesium 1.8 Total Bilirubin 0.20 AST 17 ALT 11 Alkaline Phosphatase 73 Creatine Kinase 193 H Creatine Kinase Index 6.1 H CK-MB (CK-2) 11.74 H Troponin T 0.079 Ved-A-Vudovqemehb Pept Total Protein 5.9 L Albumin 3.9 Globulin 2.0 Albumin/Globulin Ratio 2.0 Urine Source Urine Color Urine Clarity Urine pH Ur Specific [place] Urine Protein Urine Ketones Urine Blood Urine Nitrite Urine Bilirubin Urine Urobilinogen Urine Microscopic RBC Urine WBC Urine Microscopic WBC Ur Epithelial Cells Urine Bacteria Urine Glucose 07/15/16 07/15/16 07/15/16 20:45 20:45 20:45 WBC 9.11 RBC 3.83 L Hgb 10.9 L Hct 33.9 L MCV 88.5 MCH 28.5 MCHC 32.2 L RDW Std Deviation 16.0 H Plt Count 327 MPV 11.0 H Immature Gran % (Auto) 0.2 Neut % (Auto) 66.2 Lymph % (Auto) 17.5 L [place] % (Auto) 10.4 H Eos % (Auto) 5.2 Baso % (Auto) 0.5 Immature Gran # (Auto) 0.02 Neut # (Auto) 6.03 Lymph # (Auto) 1.59 [place] # (Auto) 0.95 H Eos # (Auto) 0.47 Baso # (Auto) 0.05 PT 13.0 INR 0.95 APTT (Factor Assay) 27.5 Specimen Type Sample Site pH pCO2 pO2 HCO3 Base Excess Oxyhemoglobin ABG O2 Sat (Calculated) ABG O2 Saturation ABG Carboxyhemoglobin ABG Methemoglobin Iam Test A-a O2 Difference Total Hemoglobin Lactate Blood Gas Modality FiO2 % CPAP Sodium Potassium Chloride Carbon Dioxide Anion Gap BUN Creatinine Estimated GFR/1.73 m2 BUN/Creatinine Ratio Glucose Calculated Osmolality Calcium Magnesium Total Bilirubin AST ALT Alkaline Phosphatase Creatine Kinase Creatine Kinase Index CK-MB (CK-2) Troponin T Wjn-P-Mmxrvyvncoo Pept 63 Total Protein Albumin Globulin Albumin/Globulin Ratio Urine Source Urine Color Urine Clarity Urine pH Ur Specific [place] Urine Protein Urine Ketones Urine Blood Urine Nitrite Urine Bilirubin Urine Urobilinogen Urine Microscopic RBC Urine WBC Urine Microscopic WBC Ur Epithelial Cells Urine Bacteria Urine Glucose 07/15/16 21:07 WBC RBC Hgb Hct MCV MCH MCHC RDW Std Deviation Plt Count MPV Immature Gran % (Auto) Neut % (Auto) Lymph % (Auto) [place] % (Auto) Eos % (Auto) Baso % (Auto) Immature Gran # (Auto) Neut # (Auto) Lymph # (Auto) [place] # (Auto) Eos # (Auto) Baso # (Auto) PT INR APTT (Factor Assay) Specimen Type Sample Site pH pCO2 pO2 HCO3 Base Excess Oxyhemoglobin ABG O2 Sat (Calculated) ABG O2 Saturation ABG Carboxyhemoglobin ABG Methemoglobin Iam Test A-a O2 Difference Total Hemoglobin Lactate Blood Gas Modality FiO2 % CPAP Sodium Potassium Chloride Carbon Dioxide Anion Gap BUN Creatinine Estimated GFR/1.73 m2 BUN/Creatinine Ratio Glucose Calculated Osmolality Calcium Magnesium Total Bilirubin AST ALT Alkaline Phosphatase Creatine Kinase Creatine Kinase Index CK-MB (CK-2) Troponin T Wrl-H-Sjqqfmvrbvh Pept Total Protein Albumin Globulin Albumin/Globulin Ratio Urine Source CATH Urine Color YELLOW Urine Clarity CLEAR Urine pH 5.0 Ur Specific [place] 1.015 Urine Protein 1+(30 mg/dL) A Urine Ketones NEGATIVE Urine Blood NEGATIVE Urine Nitrite NEGATIVE Urine Bilirubin NEGATIVE Urine Urobilinogen NORMAL Urine Microscopic RBC <10 Urine WBC NEGATIVE Urine Microscopic WBC <10 Ur Epithelial Cells <10 Urine Bacteria NEGATIVE Urine Glucose NEGATIVE Vital Signs - 24 hr 07/15/16 07/15/16 07/15/16 20:38 20:43 21:00 Temperature 98.2 F Pulse Rate 107 H 103 H 106 H Respiratory 29 H 28 H 22 Rate Blood Pressure 153/118 161/115 O2 Sat by Pulse 99 100 100 Oximetry 07/15/16 07/15/16 21:27 21:49 Temperature Pulse Rate 95 H 97 H Respiratory 24 23 Rate Blood Pressure 137/90 139/86 O2 Sat by Pulse 100 100 Oximetry Pt will be admitted to [facility]. Pt in agreement with plan of care. - EKG 1 Time of EKG reading by physician:: 20:36 EKG Read and Signed by:: Rajesh Aguila EKG Interpretation (*Must complete 3 of following elements*): Abnormal Rate: 109 Rhythm: sinus tachycardia ST Wave: non-specific ST changes Comments: possible LAE - XRAY 1 XRAY Study: Chest Impression: Abnormal XRAY Interpretation: COPD, hyperinflation: Dr. Aguila- JUNG GILBERT Attestation - Scribe Verification/Attestation Scribe:: Delfina Love Acting as Scribe for:: Rajesh Aguila Scribe documention review:: This chart was documented by a scribe and accurately reflects the service the provider performed and the decisions made by the provider. Physician Attestation - Physician Attestation I, the provider, attest to the following statement:: Rajesh Aguila Physician documentation Attestation:: This documentation recorded by the scribe accurately reflects the service I personally performed and the decisions made by me.
[2016-07-15 20:46] LABS: BE -1.7 mmoll (-3.0-3.0); BLOOD TYPE ARTERIAL; METHB 0.4 % (0.0-1.5); O2(CT) 15.5 mL/dL (15.0-23.0); PCO2(98.6) 29 mmHg (35-45); PO2(98.6) 166 mmHg (60-100); SAMPLE BLOOD; SAO2 97.9 % (95.0-100.0); THB 11.3 g/dL (11.5-17.4); pH(98.6) 7.47 (7.35-7.45)
[2016-07-15 20:53] LABS: BASO% 0.5 % (0.0-0.8); EOS# 0.47 X1000 (0.0-0.7); EOS% 5.2 % (0.0-10.0); HEMATOCRIT 33.9 % (37.0-47.0); HEMOGLOBIN 10.9 g/dL (12.0-16.0); IMM GRAN# 0.02 X1000 (0.0-0.04); IMM GRAN% 0.2 % (0.0-0.5); LYMPH# 1.59 X1000 (1.2-3.4); LYMPH% 17.5 % (20.5-51.1); MANUAL DIFF NEEDED? NO; MCH 28.5 PG (27-31); MCHC 32.2 g/dL (33-37); MCV 88.5 FL (81-99); MONO# 0.95 X1000 (0.11-0.59); MONO% 10.4 % (1.7-9.3); NEUT% 66.2 % (42.2-75.2); PLT 327 X1000 (130-400); RBC 3.83 XMIL (4.2-5.4)
[2016-07-15 20:54] LABS: DRAW SITE L RADIAL
[2016-07-15] MEDS ORDERED: DUONEB (A & A) INH ONE (20:54)
[2016-07-15 20:55] LABS: ALLEN TEST YES; MODALITY BI PAP
[2016-07-15] MEDS ORDERED: LASIX IV ONE (20:55)
[2016-07-15] MEDS ORDERED: SOLU-MEDROL IV ONE (20:55)
[2016-07-15 21:04] LABS: INR 0.95 (0.86-1.15)
[2016-07-15 21:05] LABS: PTT PL 27.5 Seconds (22.6-43.9)
--- NOTE | 2016-07-15 21:07 | EKG Report ---
Test Performed on : 07/15/2016 8:36:02 PM Test Reason : CHEST PAIN Blood Pressure : / mmHG Vent. Rate : 109 BPM Atrial Rate : 109 BPM P-R Int : 144 ms QRS Dur : 096 ms QT Int : 350 ms P-R-T Axes : 068 043 080 degrees QTc Int : 471 ms Sinus tachycardia. Possible Left atrial enlargement Nonspecific ST and T wave abnormality Abnormal ECG When compared with ECG of 07-JUL-2016 20:28, Criteria for Inferior infarct are no longer present Unconfirmed Result
[2016-07-15 21:19] LABS: URINE CULTURE PL NEEDED? NO; URINE SOURCE CATH
[2016-07-15 21:26] LABS: BILIRUBIN URINE NEGATIVE (NEGATIVE); BLOOD URINE NEGATIVE (NEGATIVE); CLARITY CLEAR (CLEAR); COLOR YELLOW; GLUCOSE URINE NEGATIVE (NEGATIVE); LEUKOCYTES URINE NEGATIVE (NEGATIVE); NITRITE URINE NEGATIVE (NEGATIVE); PROTEIN URINE 1+(30 mg/dL) mg/dL (NEGATIVE); SP GRAVITY URINE 1.015; UROBILINOGEN URINE NORMAL
[2016-07-15 21:29] LABS: ALBUMIN 3.9 g/dL (3.5-5.0); CALCIUM 9.7 mg/dL (8.8-10.2); MAGNESIUM 1.8 mg/dL (1.5-2.7); POTASSIUM 4.1 mmol/L (3.5-5.1); TOTAL BILIRUBIN 0.2 mg/dL (0.20-1.00); TOTAL PROTEIN 5.9 g/dL (6.3-8.3)
[2016-07-15 21:32] LABS: URINE EPITHELIAL CELLS <10 /HPF (<10); URINE RBC <10 /HPF (<10); URINE WBC <10 /HPF (<10)
[2016-07-15] MEDS ORDERED: MORPHINE IV ONE (21:47)
[2016-07-15] MEDS ORDERED: ZOFRAN IV ONE (21:47)
[2016-07-15 22:09] LABS: CK INDEX 6.1 (0.0-2.5); CK-MB 11.74 ng/mL (0.0-5.0)
[2016-07-15] MEDS ORDERED: SOLU CORTEF IV SCH (23:00)
[2016-07-15] MEDS ORDERED: NS IV SCH (23:00)
[2016-07-15] MEDS ORDERED: G.I. COCKTAIL PO ONE (23:19)
[2016-07-15] MEDS: MORPHINE IV PRN (23:50)
[2016-07-16] MEDS: MORPHINE IV PRN ×7 (01:50→20:36)
[2016-07-16] MEDS: SOLU-MEDROL IV SCH ×3 (04:25→20:00)
--- NOTE | 2016-07-16 08:09 | Diag Imaging Result Document ---
PROCEDURE NAME: CHEST-2 VIEWS - 07/15/2016 2 VIEWS OF THE CHEST: FINDINGS: There is cardiomegaly. There are bilateral pleural effusions. There is mild interstitial pulmonary edema. The effusions are worse than on 07/07/2016. IMPRESSION: Worsened pleural effusions.
[2016-07-16] MEDS: ALBUTEROL NEB INH PRN ×3 (11:43→20:08)
[2016-07-16 12:35] LABS: HEMATOCRIT 31.8 % (37.0-47.0); HEMOGLOBIN 10.1 g/dL (12.0-16.0); MCH 28.6 PG (27-31); MCHC 31.8 g/dL (33-37); MCV 90.1 FL (81-99); MPV 10.7 FL (7.4-10.4); RBC 3.53 XMIL (4.2-5.4)
[2016-07-16 13:15] LABS: CK INDEX 4.7 (0.0-2.5); CK-MB 11.75 ng/mL (0.0-5.0)
[2016-07-16 13:40] LABS: ALBUMIN 3.7 g/dL (3.5-5.0); CALCIUM 9.3 mg/dL (8.8-10.2); POTASSIUM 4.7 mmol/L (3.5-5.1); TOTAL BILIRUBIN 0.2 mg/dL (0.20-1.00); TOTAL PROTEIN 5.5 g/dL (6.3-8.3)
--- NOTE | 2016-07-16 14:22 | HISTORY AND PHYSICAL ---
CHIEF COMPLAINT: Shortness of breath, chest tightness. HISTORY OF PRESENT ILLNESS: This is a 65-year-old female with a history of COPD, CHF, and hypertension. She presented to the emergency room complaining of greater than a week of chest tightness and dyspnea on exertion with fever and chills, with a T-max of 101 over the last 4 days. She has had a nonproductive cough and wheezing. The patient does not have a PCP or a time study technologist. She stated that she comes to the ER to have her COPD and her heart failure managed. In review of her past records, she did have an echo in January 2016 that revealed severe reduction in LV systolic function with an estimated EF of 15% to 20% with severe global hypokinesis. At that time, she was evaluated by Cardiology, who optimized her medications. She states that she did feel better until this last week and she feels like she has had the flu are maybe pneumonia, having shortness of breath, fever, chills, and body aches. She did have a T-max of 100.9 degrees in the emergency room. On arrival, she had a blood pressure of 153/118, with respirations in the high 20s to 30s. She was placed on CPAP per EMS. She was on it for a few hours. During this time, she was given Lasix as well as morphine and she did diurese about a liter. She stated that after that she felt much better. Oxygen saturations have maintained at 98% to 100% on nasal cannula at 2L over the last 12 hours. She was then admitted to ICU for further evaluation and treatment. PAST MEDICAL HISTORY: 1. Chronic obstructive pulmonary disease with continued tobacco use. 2. Congestive heart failure with an EF of 15% to 20% in January 2016. 3. CAD status post NV. 4. Chronic kidney disease, stage 3 to 4, with a baseline creatinine of what looks like 1.9. 5. Hyperlipidemia. 6. Hypertension. 7. Restless leg syndrome. PAST SURGICAL HISTORY: 1. Appendectomy. 2. Right tibia surgery. SOCIAL HISTORY: She lives alone. She denies alcohol or drug abuse. She does smoke a pack of cigarettes a day. She declines to want to stop at this time. ALLERGIES: No known drug allergies, although on a previous H and P were listed as codeine, Naprosyn, and caffeine. She states, "Those allergies are gone now." HOME MEDICATION: A list will be obtained by the nursing staff. REVIEW OF SYSTEMS: A 14-point review of systems is discussed with the patient, with pertinent positives stated in the HPI. She denies syncope, dizziness, black or bloody vomitus, black or bloody stools, any nausea, vomiting, diarrhea, constipation, hematuria, dysuria, frequency, or urgency. PHYSICAL EXAMINATION: VITAL SIGNS: Blood pressure is 121/84 with a heart rate of 86. Respirations are 20. Temperature is 97.3 degrees temporal, with oxygen saturation of 97% to 99% on 2L nasal cannula. HEENT: Head is normocephalic, atraumatic. Pupils are equal, round, react to light. EOMs are intact. Sclerae are anicteric. Mucous membranes are moist. NECK: Supple with trachea midline. CARDIOVASCULAR: Regular rate and rhythm. S1 and S2 appreciated. No rubs, murmurs, or gallops. PULMONARY: Breath sounds are diminished with scattered wheezes, decreased throughout, with no increased work of breathing noted. GASTROINTESTINAL: Abdomen is soft, nontender, nondistended, with bowel sounds in all 4 quadrants. EXTREMITIES: No clubbing or cyanosis. She does have bilateral pedal edema, trace. SKIN: Warm and dry. DIAGNOSTIC TESTS: WBC is 9.1 with a hemoglobin 10.9, hematocrit 33.9, and platelets of 327,000. Her INR is 0.95. Sodium is 138, potassium 4.1, BUN 31, creatinine 1.9 with a glucose of 118. CPK is 193. CK index is 6.1 with MB of 11.74 and troponin of 0.079. Urinalysis is essentially negative. Chest x-ray reveals cardiomegaly, bilateral pleural effusions, interstitial pulmonary edema. Effusions are worse than on 07/07/2016. ASSESSMENT AND PLAN: 1. Acute respiratory failure. Causes are multifactorial. This could be secondary to chronic obstructive pulmonary disease and systolic heart failure exacerbation. She did have reported fever as high as 101 at home with a cough. She is off CPAP right now. At present, she is maintaining saturations of 97% to 100% on 3L nasal cannula. We will continue supplemental oxygen and follow. 2. Chronic obstructive pulmonary disease with acute exacerbation. We will add DuoNeb q.4 hours with q.2 hours p.r.n., steroids to taper. We will identify her home medications and continue as appropriate. 3. Acute systolic heart failure secondary to ischemic cardiomyopathy with an ejection fraction of 15% to 20% in January 2016. We will continue with diuresis, identify home medications and continue as appropriate. 4. Hypertension. We will continue her home medications. 5. Coronary artery disease. Aware. 6. Chronic kidney disease, stage 3 to 4. Her baseline creatinine has been 1.7, 2.1, and she is 1.9 now, so she is within her normal range. We will renal dose medications. We will continue to trend laboratories. 7. Bilateral pleural effusions. We will follow with chest x-rays. Continue diuresis. Hopefully, she will require no intervention. 8. DVT prophylaxis. 9. She will be placed on strict I and O. We will have gentle diuresis. Chest x-ray does not show pneumonia, but the patient does state that she had a T-max of 101 degrees with increasing respiratory symptoms. We will give Zithromax and Rocephin. Further treatment is pending hospital course. Dictated by VERONICA Muñoz for Pete Dailey MD
--- NOTE | 2016-07-16 17:18 | CONSULTATION ---
DATE OF CONSULTATION: 07/16/2016 INDICATION FOR CONSULTATION: Shortness of breath. History of congestive heart failure. HISTORY OF PRESENT ILLNESS: Ms Amaya is a pleasant 65-year-old white female with a history of severe ischemic cardiomyopathy. Previously she had an occluded circumflex as well as right coronary artery. EFs have been in the 15-20% range in the past. She has not been following up with a primary care physician nor has she followed with a foreign exchange position clerk. She gets most of her care through the emergency room. She presented for worsening shortness of breath. This has been present for several weeks and she reports that she has got to the point where she could not deal with it anymore. In addition, she has had issues with fevers up to as high as 100.9. She has had increased issues with cough as well. She persistently sleeps upright in a recliner. This has not changed recently. She has had no lower extremity edema. She has not been compliant with her medications. She has discomfort in her chest that is exacerbated by deep breath and cough. PAST MEDICAL HISTORY: Significant for. 1. An ischemic cardiomyopathy with previous ejection fractions in the 15-20% range as well as a known occluded RCA and circumflex. 2. Severe chronic obstructive pulmonary disease. 3. Chronic kidney disease. Baseline creatinine seems to be in the 1.5 to 2.0 range. 4. Hyperlipidemia. 5. Hypertension. 6. Restless legs. SOCIAL HISTORY: She lives alone. She does smoke a pack a day. No current alcohol use. FAMILY HISTORY: Significant for hypertension. REVIEW OF SYSTEMS: A 10-system review of systems is negative except for those things mentioned in the HPI. PHYSICAL EXAMINATION: Vital signs: She had a T-max of a 100.9 degrees on her presentation. She has been afebrile since. Heart rate of 87, blood pressure 138/81. Her I's and O's are negative 1650 although she has poor input recorded. General: She is in no acute distress. She is a thin, chronically ill appearing white female in no acute distress. She is very pleasant. HEENT: Oropharynx is moist. She has poor dentition. Eye examination shows pink conjunctivae, white sclerae. Neck: Examination shows no obvious thyromegaly or thyroid tenderness. Cardiovascular: She is in a regular rate and rhythm. She has no obvious murmurs. She has no S3. She has no lower extremity edema. Chest exam: Has some mild bilateral end-expiratory wheezes. She has a prolonged expiratory phase. She has multiple coughing episodes occurring during the course of the examination. She has no increased work of breathing. Abdomen: Is soft, nontender, nondistended. No obvious organomegaly. Skin Exam: Warm and dry throughout any rashes. Neurological: She is moving all extremities well. Cranial nerves 2-12 are intact without any sensation deficits. Psychiatric: Alert and oriented, pleasant. She has normal mood and affect. PERTINENT DATA: She had a chest x-ray performed on the that demonstrates bilateral pleural effusions, mild interstitial edema. EKG on presentation shows sinus tach, rate of 109 beats per minute. Laboratory data shows a white count of 5.6, hematocrit 31.8, platelet count 261,000. Her sodium is 138, potassium 4.7, her BUN is 32, creatinine is 1.6. She had a magnesium level yesterday of 1.8. Her proBNP was 63 yesterday but I think that is likely not correct as she has had proBNPs anywhere from 5000 to 30,000 over the course of her evaluations since July 2015. ASSESSMENT: 1. Ischemic cardiomyopathy. 2. Chronic obstructive pulmonary disease exacerbation. 3. Likely pneumonia. PLAN: I agree with initiation of steroids. I would consider use of antibiotics in this patient as well. She has been given 1 dose of Lasix and had a reasonable diuresis. I will check a chest x-ray in the morning as well as a proBNP again. I will initiate some lisinopril at 5 mg at bedtime. She has not been compliant with medications upon discharge. I have stressed her need to follow up with a primary care physician as well as a foreign exchange position clerk. At this point, she needs reinstitution of medical therapy.
[2016-07-16] MEDS ORDERED: G.I. COCKTAIL PO ONE (18:20)
[2016-07-16 18:28] LABS: AGAP 13; ALBUMIN 3.7 g/dL (3.5-5.0); ALKALINE PHOSPHATASE 69 U/L (32-104); BUN 38 mg/dL (8-22); CALCIUM 9.4 mg/dL (8.8-10.2); CHLORIDE 107 mmol/L (98-107); COSMO 292; GOT 16 U/L (10-30); GPT 12 U/L (10-36); POTASSIUM 4.5 mmol/L (3.5-5.1); SODIUM 139 mmol/L (136-145); TCO2 19 mmol/L (25-35); TOTAL BILIRUBIN < 0.15 mg/dL (0.20-1.00); TOTAL PROTEIN 5.9 g/dL (6.3-8.3)
[2016-07-16] MEDS: ROCEPHIN 1 GM/NS 50 ML IV SCH (19:58)
[2016-07-16] MEDS: PRINIVIL PO SCH (20:01)
[2016-07-17] MEDS: ALBUTEROL NEB INH PRN ×5 (00:05→20:13)
[2016-07-17] MEDS: MORPHINE IV PRN ×5 (03:15→20:39)
[2016-07-17] MEDS: SOLU-MEDROL IV SCH ×3 (04:45→20:38)
[2016-07-17 06:26] LABS: HEMATOCRIT 34.2 % (37.0-47.0); HEMOGLOBIN 10.5 g/dL (12.0-16.0); MCH 27.9 PG (27-31); MCHC 30.7 g/dL (33-37); MPV 10.7 FL (7.4-10.4); RBC 3.76 XMIL (4.2-5.4)
[2016-07-17 06:51] LABS: AGAP 10; ALBUMIN 3.8 g/dL (3.5-5.0); ALKALINE PHOSPHATASE 74 U/L (32-104); BUN 49 mg/dL (8-22); CALCIUM 9.5 mg/dL (8.8-10.2); CHLORIDE 106 mmol/L (98-107); COSMO 287; GOT 20 U/L (10-30); GPT 19 U/L (10-36); MAGNESIUM 2.6 mg/dL (1.5-2.7); SODIUM 136 mmol/L (136-145); TCO2 21 mmol/L (25-35); TOTAL BILIRUBIN < 0.15 mg/dL (0.20-1.00); TOTAL PROTEIN 5.8 g/dL (6.3-8.3)
--- NOTE | 2016-07-17 08:08 | Diag Imaging Result Document ---
PROCEDURE NAME: CHEST-PORTABLE - 07/17/2016 PORTABLE CHEST: COMPARISON: 07/15/2016. FINDINGS: There is stable cardiomegaly. The lungs appear essentially clear. There is a small right pleural effusion which appears to have decreased. There is no pneumothorax. IMPRESSION: Stable cardiomegaly. Small right pleural effusion which has decreased.
[2016-07-17 09:06] LABS: CK INDEX 3.9 (0.0-2.5); CK-MB 11.11 ng/mL (0.0-5.0)
[2016-07-17] MEDS: ASPIRIN PO SCH (09:51)
[2016-07-17] MEDS: LASIX IV SCH ×2 (09:51→20:37)
[2016-07-17] MEDS: COREG PO SCH ×2 (09:51→20:37)
[2016-07-17] MEDS: CELEXA PO SCH (09:51)
[2016-07-17] MEDS: PEPCID PO SCH ×2 (12:23→20:38)
[2016-07-17] MEDS: CULTURELLE PO SCH ×2 (12:23→20:37)
[2016-07-17] MEDS ORDERED: GAVISCON LIQUID PO SCH (13:00)
[2016-07-17] MEDS: MAALOX PLUS LIQUID PO SCH ×3 (14:46→20:37)
--- NOTE | 2016-07-17 17:11 | PROGRESS NOTE ---
DATE: 07/17/2016 SUBJECTIVE: Ms. Amaya reports she is feeling poorly today. She has a lot of nausea as well as a burning discomfort radiating up into her chest. OBJECTIVE: PHYSICAL EXAMINATION: Vital Signs: She is afebrile. Heart rate of 85, blood pressure 108/68. General: No acute distress. Cardiovascular: Regular rate and rhythm. No murmurs. No S3. Chest: Relatively clear with minimal expiratory wheezes. No increased work of breathing. Abdomen: Soft, nontender. Skin: Warm and dry throughout. PERTINENT DATA: Sodium 136, potassium is 5, BUN 49, creatinine 1.9. Yesterday she was 38 and 1.7. On the she was 31 and 1.9. ProBNP was 34,467, checked on the was 63, suggesting that the one on the was erroneous. ASSESSMENT: Acute systolic heart failure. PLAN: We will continue on current medications. I agree with diuretic dosing. I would likely plan on rechecking a proBNP on Tuesday. I will place a basic metabolic panel to be ordered tomorrow.
--- NOTE | 2016-07-17 17:53 | PROGRESS NOTE ---
DATE: 07/17/2016 SUBJECTIVE: Ms Amaya states that she is feeling poorly today. She continues with nausea as well as burning discomfort radiating up into her chest. OBJECTIVE: Vital Signs: Blood pressure is 108/68 with a heart rate of 85, respirations are 16, temperature is 98.2 degrees with oxygen saturations of 100% on 2 L nasal cannula. Cardiovascular: Regular rate and rhythm. No murmurs. S1 and S2 appreciated. Pulmonary: Breath sounds have some scattered expiratory wheezes with no increased work of breathing noted. Gastrointestinal: Abdomen soft, nontender, nondistended with bowel sounds in all 4 quadrants. Skin: Warm and dry. Extremities: No clubbing, cyanosis, or edema. Calves are nontender. Pulses are palpable x4. PERTINENT DATA: Sodium is 136, potassium 5, BUN 49, creatinine 1.9. Her proBNP is 34,467. Of note on the when was checked it was 63. ASSESSMENT: 1. Acute systolic heart failure. 2. Acute respiratory failure. 3. Chronic obstructive pulmonary disease with acute exacerbation. 4. Hypertension. 5. Coronary artery disease aware. 6. 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 7. Bilateral pleural effusions. 8. Nausea with epigastric burning. In reviewing the patient's records she underwent an EGD in April 2016. 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 At that time it was recommended to treat her medically with medication as well as anti-reflux measures. We have ordered Protonix as well as Pepcid. We have added probiotics twice a day with antacids as needed. She will be placed on a GI soft diet with orders to set up in the bed at all times. She is not to lie flat and she is to be up as straight as she can be either at the bedside or in a chair for all meals and sit up at least an hour after the meal. We will trend labs in the morning. Hopefully she can move to the floor later today. Of note, the patient does state that when she was discharged from the hospital from the April admission that she was given prescriptions for medications although she opted not to fill these along with her cardiac medications as she opted to spend her money on medications that were priority to her being her Requip, . She does state that she does not like taking too many medications. Yesterday as well as today I have counseled her on the importance of sticking to her prescribed regimen as well as smoking cessation and each time she stated that she has no intentions of stopping smoking nor taking extra medications. Dictated by VERONICA Muñoz for Pete Dailey MD
[2016-07-17] MEDS: ROCEPHIN 1 GM/NS 50 ML IV SCH (20:37)
[2016-07-17] MEDS: PRINIVIL PO SCH (20:38)
[2016-07-17] MEDS: REQUIP PO SCH (20:38)
[2016-07-18] MEDS: MORPHINE IV PRN ×8 (00:20→23:44)
[2016-07-18] MEDS: SOLU-MEDROL IV SCH ×2 (05:51→17:17)
[2016-07-18] MEDS: PRILOSEC PO SCH (06:01)
[2016-07-18 07:16] LABS: CALCIUM 9.1 mg/dL (8.8-10.2); POTASSIUM 4.4 mmol/L (3.5-5.1)
[2016-07-18] MEDS: ALBUTEROL NEB INH PRN ×2 (07:45→15:10)
[2016-07-18] MEDS: MAALOX PLUS LIQUID PO SCH ×4 (08:36→20:19)
[2016-07-18] MEDS: CELEXA PO SCH (08:37)
[2016-07-18] MEDS: PEPCID PO SCH ×2 (08:37→20:19)
[2016-07-18] MEDS: LASIX IV SCH ×2 (08:37→20:18)
[2016-07-18] MEDS: COREG PO SCH ×2 (08:37→20:18)
[2016-07-18] MEDS: CULTURELLE PO SCH ×2 (08:37→20:18)
[2016-07-18] MEDS: ASPIRIN PO SCH (08:37)
[2016-07-18] MEDS ORDERED: LASIX IV SCH (12:30)
--- NOTE | 2016-07-18 14:54 | PROGRESS NOTE ---
DATE: 07/18/2016 SUBJECTIVE: Patient without new complaints. She is still complaining of nausea but no vomiting. Still complaining of headache and dizziness similar to yesterday's exam Otherwise she is having no trouble breathing. She is awake, alert. OBJECTIVE: Vital signs: Temp 98 degrees, pulse 75, respiratory 16, BP 125/81. Saturations 100% on 2 L. General: Patient well developed, well nourished. Currently in no respiratory distress. She is awake, alert. Neck: Supple. CV: Regular rate. Chest: Relatively clear. Abdomen: Soft. Extremities: Moves all extremities. Neurologic: No changes. LABS: Reviewed. Creatinine 1.8 which is at her baseline. ASSESSMENT: 1. Chronic renal failure, stable. 2. Chronic systolic heart failure with an acute exacerbation. 3. Nausea. 4. Shortness of breath. PLAN: Will decrease her Solu-Medrol. Will increase her IV Lasix. Will continue to follow. Further orders as needed.
[2016-07-18] MEDS: ROCEPHIN 1 GM/NS 50 ML IV SCH (20:18)
[2016-07-18] MEDS: REQUIP PO SCH (20:19)
[2016-07-18] MEDS: PRINIVIL PO SCH (20:19)
[2016-07-19] MEDS: MORPHINE IV PRN ×6 (02:10→20:47)
[2016-07-19 06:22] LABS: HEMATOCRIT 37.2 % (37.0-47.0); HEMOGLOBIN 11.6 g/dL (12.0-16.0); MCH 27.7 PG (27-31); MCHC 31.2 g/dL (33-37); MCV 88.8 FL (81-99); MPV 10.7 FL (7.4-10.4); RBC 4.19 XMIL (4.2-5.4)
[2016-07-19 06:38] LABS: AGAP 11; ALBUMIN 3.6 g/dL (3.5-5.0); ALKALINE PHOSPHATASE 70 U/L (32-104); BUN 66 mg/dL (8-22); CALCIUM 9.2 mg/dL (8.8-10.2); CHLORIDE 100 mmol/L (98-107); COSMO 295; GOT 15 U/L (10-30); GPT 21 U/L (10-36); HDL 53 mg/dL (45-65); MAGNESIUM 2.7 mg/dL (1.5-2.7); POTASSIUM 3.8 mmol/L (3.5-5.1); SODIUM 138 mmol/L (136-145); TCO2 27 mmol/L (25-35); TOTAL BILIRUBIN < 0.15 mg/dL (0.20-1.00); TOTAL PROTEIN 5.9 g/dL (6.3-8.3); TRIGLYCERIDES 342 mg/dL (35-135); VLDL 68 mg/dL
[2016-07-19 07:03] LABS: LDL 183 mg/dL
[2016-07-19] MEDS: PEPCID PO SCH ×2 (07:59→20:48)
[2016-07-19] MEDS: MAALOX PLUS LIQUID PO SCH ×4 (07:59→20:46)
[2016-07-19] MEDS: COREG PO SCH ×2 (08:00→20:48)
[2016-07-19] MEDS: CELEXA PO SCH (08:00)
[2016-07-19] MEDS: CULTURELLE PO SCH ×2 (08:00→20:48)
[2016-07-19] MEDS: SOLU-MEDROL IV SCH ×2 (08:00→20:46)
[2016-07-19] MEDS: PRILOSEC PO SCH (08:00)
[2016-07-19] MEDS: ASPIRIN PO SCH (08:00)
[2016-07-19] MEDS: LASIX IV SCH ×2 (08:01→20:46)
--- NOTE | 2016-07-19 08:26 | PROGRESS NOTE ---
DATE: 07/19/2016 SUBJECTIVE: Patient complains of nausea. She denies any other complaints. Denies any chest pain, palpitations. Denies any fevers or chills. PHYSICAL: VITAL SIGNS: Temperature 97, pulse 63, respiratory 27, BP 102/70, saturation 97% on room air. General: Patient is a well developed, elderly female, who is in no current respiratory distress. She is awake, alert. Neck: Supple. CV: Regular rate. Chest: Relatively clear. Decreased breath sounds bilaterally. Abdomen: Soft. Extremities: Moves all extremities. Neurologic: No changes. Skin: Warm and dry. No rashes. LABS: CBC, CMP reviewed. Creatinine 1.7, which is her chronic baseline. BUN at 66, which is mildly elevated. BNP at 21,435 which is actually an improvement from her admission BNP at 34,467. Interestingly, there is a BNP at 63 when she was initially admitted and then the next morning had increased to 30,000. Certainly doubt the initial 66 was correct. ASSESSMENT: 1. Acute respiratory failure with chronic systolic congestive heart failure exacerbation. 2. Chronic obstructive pulmonary disease with mild exacerbation. Patient is tolerating decrease in prednisone. 3. Elevated BUN and creatinine. She certainly may be getting a little bit dry with Lasix. We will give her 1 more dose this a.m. and then follow. 4. Hypertension. 5. Known coronary artery disease. PLAN: We will continue Lasix today. We will recheck her labs in the a.m. Appreciate Cardiology's input. We will continue to follow. We will move her out to the floor this morning.
[2016-07-19] MEDS: ALBUTEROL NEB INH PRN (15:11)
[2016-07-19] MEDS: LOVENOX SUBQ SCH (16:18)
[2016-07-19] MEDS ORDERED: PHENERGAN IV PRN (19:43)
[2016-07-19] MEDS ORDERED: SODIUM CHLORIDE 0.9% INJ PRN (19:43)
--- NOTE | 2016-07-19 20:28 | PROGRESS NOTE ---
DATE: 07/19/2016 CHIEF COMPLAINT: Shortness of breath, fatigue. SUBJECTIVE: Ms. Amaya is still feeling weak. She gets nauseous very easily. She has difficulty swallowing. She says that she has "Mcdonald's esophagus." OBJECTIVE: Vital signs: Blood pressure is 109/69. Temperature 98.3. Pulse 61. Respirations 18. General: She is awake. Appears to be chronically ill. She is underweight. She weighs only 84 pounds. She subsequently appears to be chronically ill, pale. HEENT: Slightly prominent jugular veins. Chest: Symmetrical breath sounds. No definite rales. Heart sounds are regular and rhythmic. I do not hear any definite gallop or murmur. Abdomen: Soft. Extremities: Showed decreased pulses, no edema. She has significant muscle wasting. Neurologic: Follows commands. She is awake. LABORATORY DATA: Sodium 138, potassium 3.8, BUN 66, creatinine 1.7. Pro BNP 21,435. Cholesterol 284, triglycerides 342, LDL 183, HDL 53. Hemoglobin 11.6. IMPRESSION: 1. Patient with documented ischemic cardiomyopathy with severe impairment of the ejection fraction. 2. Malnourished. 3. Severe hyperlipidemia. 4. Probable chronic obstructive pulmonary disease. 5. Chronic kidney dysfunction. The patient probably has some sort of cardiorenal syndrome. RECOMMENDATIONS: At this point in time, the patient's predominant symptoms are more of a general nature, like nausea and poor appetite and even some dysphagia. At this point in time, we will recommend some GI management for her current symptoms including Carafate, maybe some Reglan and Phenergan. We will see how she does. Her overall prognosis is really very poor given her malnourishment, very low ejection fraction, and really very limited family support. Will follow her along.
[2016-07-19] MEDS: ROCEPHIN 1 GM/NS 50 ML IV SCH (20:46)
[2016-07-19] MEDS: CARAFATE LIQUID PO SCH (20:46)
[2016-07-19] MEDS: REQUIP PO SCH (20:47)
[2016-07-19] MEDS: PRINIVIL PO SCH (20:48)
[2016-07-19] MEDS: DESYREL PO SCH (20:48)
[2016-07-19] MEDS ORDERED: NS 250 ML ONE (21:02)
[2016-07-20] MEDS ORDERED: NS 250 ML IV ONE ×3 (01:42→12:29)
[2016-07-20] MEDS: CARAFATE LIQUID PO SCH ×4 (02:15→20:32)
[2016-07-20] MEDS: PRILOSEC PO SCH ×2 (05:56→06:22)
[2016-07-20 06:04] LABS: HEMATOCRIT 36.5 % (37.0-47.0); HEMOGLOBIN 11.4 g/dL (12.0-16.0); MCH 27.8 PG (27-31); MCHC 31.2 g/dL (33-37); MPV 10.8 FL (7.4-10.4); RBC 4.1 XMIL (4.2-5.4)
[2016-07-20 06:28] LABS: AGAP 10; ALBUMIN 3.1 g/dL (3.5-5.0); ALKALINE PHOSPHATASE 64 U/L (32-104); BUN 80 mg/dL (8-22); CALCIUM 8.3 mg/dL (8.8-10.2); CHLORIDE 100 mmol/L (98-107); COSMO 302; GOT 9 U/L (10-30); GPT 16 U/L (10-36); MAGNESIUM 3.1 mg/dL (1.5-2.7); POTASSIUM 4.5 mmol/L (3.5-5.1); SODIUM 138 mmol/L (136-145); TCO2 28 mmol/L (25-35); TOTAL BILIRUBIN < 0.15 mg/dL (0.20-1.00); TOTAL PROTEIN 5.1 g/dL (6.3-8.3)
[2016-07-20] MEDS: ALBUTEROL NEB INH PRN ×3 (07:30→15:25)
--- NOTE | 2016-07-20 08:34 | PROGRESS NOTE ---
DATE: 07/20/2016 SUBJECTIVE: Patient had an eventful night last night. She had an apparent episode of hypotension after Phenergan. She became very sleepy and drowsy, was difficult to arouse. Thankfully, this did not require further intervention. It resolved on his own. This morning, the patient still complains of nausea. No real vomiting. Complains of frequent abdominal pain, frequent back pain. Asking for pain medicine. States that the ER usually gives her pain medication when she goes. PHYSICAL EXAMINATION: Vital Signs: Temperature 97, pulse of 57, respiratory rate 18, BP 175/45 to 109/69. General: Patient is a well-developed female who is currently in no respiratory distress. She is awake, alert, oriented. HEENT: Normocephalic and atraumatic. Neck: Supple. CV: Regular rate. Chest: Relatively clear. Abdomen: Soft. Extremities: Moves all extremities. DIAGNOSTIC DATA: CBC and CMP essentially normal. BUN 80 and creatinine 2.2, which are both mildly elevated. ASSESSMENT: 1. Hypotension. We will hold the patient's Lasix this morning. She certainly seems though she could be a little dry. 2. Hypertension. Patient's blood pressure is also a little bit low so we will hold her lisinopril currently. We will also hold her Coreg. 3. Nausea, vomiting. At this point, we will not restart her Phenergan. We will hold that. We will attempt to use Reglan and Carafate if needed. 4. Severe congestive heart failure, stable. 5. Chronic obstructive pulmonary disease, improving. 6. Known coronary artery disease with severe ischemic cardiomyopathy. Continue to follow. PLAN: Discussed with the patient that she cannot have pain medication until her blood pressure elevates. We will get physical therapy involved to keep her ambulatory so that hopefully she can be discharged home instead of rehab. We will continue to follow.
[2016-07-20] MEDS: MAALOX PLUS LIQUID PO SCH ×4 (08:41→20:32)
[2016-07-20] MEDS: ASPIRIN PO SCH (08:42)
[2016-07-20] MEDS: PEPCID PO SCH ×2 (08:42→20:31)
[2016-07-20] MEDS: REGLAN PO SCH ×3 (08:42→15:45)
[2016-07-20] MEDS: CULTURELLE PO SCH ×2 (08:42→20:31)
[2016-07-20] MEDS ORDERED: NS 1,000 ML IV ONE (12:26)
[2016-07-20] MEDS: LOVENOX SUBQ SCH (15:32)
[2016-07-20] MEDS ORDERED: SOLU-MEDROL IV SCH (20:00)
[2016-07-20] MEDS: ROCEPHIN 1 GM/NS 50 ML IV SCH (20:30)
[2016-07-20] MEDS: REQUIP PO SCH (20:31)
[2016-07-21] MEDS: DESYREL PO SCH (00:50)
[2016-07-21] MEDS: CARAFATE LIQUID PO SCH ×3 (01:03→13:09)
[2016-07-21] MEDS: REGLAN PO SCH ×2 (07:09→13:09)
--- NOTE | 2016-07-21 08:08 | PROGRESS NOTE ---
DATE: 07/21/2016 SUBJECTIVE: Patient feels much better this morning. She is having no further symptoms as she did yesterday. PHYSICAL EXAMINATION: Vital Signs: Her blood pressures were stable overnight. HEENT: Normocephalic, atraumatic. Neck: Supple. CV: Regular rate. Chest: Relatively clear. Abdomen: Soft. ASSESSMENT: 1. Hypotension, appears resolved. 2. Known coronary artery disease. 3. Chronic kidney disease. 4. Intentional medical noncompliance. 5. Ischemic cardiomyopathy. PLAN: Hopefully, patient can discharge home either later this afternoon or 1st thing in the morning. We will attempt to get her out of bed. Continue to walk and see how she does.
[2016-07-21] MEDS: CULTURELLE PO SCH (10:02)
[2016-07-21] MEDS: PEPCID PO SCH (10:03)
[2016-07-21] MEDS: MAALOX PLUS LIQUID PO SCH ×2 (10:03→13:10)
[2016-07-21] MEDS: ASPIRIN PO SCH (10:03)
[2016-07-21 11:56] VITALS: BP 134/80
[2016-07-21] MEDS: LOVENOX SUBQ SCH (16:36)
--- NOTE | 2016-07-22 01:27 | DISCHARGE SUMMARY ---
ADMISSION DATE: 07/15/2016 DISCHARGE DATE: 07/21/2016 ADMISSION DIAGNOSES: 1. Acute respiratory failure, multifactorial. 2. COPD with acute exacerbation. 3. Acute systolic heart failure, secondary to ischemic cardiomyopathy with a known ejection fraction of 15 to 20% in January. 4. Hypertension. 5. Coronary artery disease. 6. Chronic kidney disease, stage 3 to 4. 7. Bilateral pleural effusions. DISCHARGE DIAGNOSES: 1. Acute respiratory failure, resolved. 2. Chronic COPD with acute exacerbation. 3. Acute systolic heart failure, secondary to ischemic cardiomyopathy, improved. 4. Hypertension. 5. Coronary artery disease. 6. Chronic kidney disease, stage 3 to 4. SUMMARY OF FINDINGS: This is a 65-year-old female, who presented to the emergency room with a greater than a week of chest tightness and dyspnea on exertion with fever and chills, a temp max of 101 over the last 4 days according to the patient. She has had a nonproductive cough, and wheezing. States that she did not have a primary care physician or a metal weigher. States that she comes to the ER to have her COPD and her heart failure managed. When we did a review of her previous records, she had an echocardiogram in 01/2016, that revealed severe reduction in LV systolic function with an estimated ejection fraction of 15 to 20% with severe global hypokinesis. At that time, she was evaluated by cardiology, who optimized her medications. She stated that she did feel better until approximately 1 week ago, when she felt like she had the flu and maybe pneumonia, having shortness of breath, fever, chills and body aches. Again, she had a temperature of 100.9 in the emergency room, a blood pressure of 153/118 with respirations in the high 20s to 30s. She was placed on CPAP per EMS. She was on it for a few hours. During that time, she was given Lasix, as well as, morphine and diuresed approximately 1 L, and stated that she was feeling better. She was admitted and placed on O2 and admitted to the intensive care unit. Cardiology was consulted. On 07/16/2016, we did a chest x-ray on 07/17/2016, that showed stable cardiomegaly, and that the small right pleural effusion had decreased. She was placed on Lasix 40 mg IV q.12, Rocephin 1 gram IV q.24, Solu-Medrol 60 mg IV q.8. She was weaned off of the steroids. She had a period yesterday when she had been moved out of the unit to the floor yesterday, where she was lethargic. It was felt that maybe she had taken some of her home medications. It is still unclear if she did that or not. Her blood pressure dropped for a little bit to 88/55. She was given a 250 mL bolus of normal saline. She improved, and has had no further issues at this time. She has been up walking in her room, and to the bathroom, and has not had any further shortness of breath. She has remained afebrile for greater than 24 hours, and shows a blood pressure of 134/80 today. White blood cell count has remained within normal limits, and it is felt that she can safely be discharged home today. DISCHARGE MEDICATIONS: She will resume her albuterol 2.5 mg inhalation q.4 hours p.r.n., aspirin 81 mg p.o. q.a.m., Coreg 3.125 mg p.o. b.i.d., Celexa 40 mg p.o. q.a.m., Lasix 20 mg p.o. daily, lisinopril 5 mg p.o. at bedtime, Culturelle 1 p.o. b.i.d., Reglan 10 mg p.o. t.i.d. before meal, Prilosec 40 mg p.o. daily, Requip 1 to 2 mg p.o. at bedtime, Carafate liquid 1 g p.o. q.6 hours, trazodone 300 mg p.o. at bedtime, Omnicef 300 mg p.o. b.i.d. (#14) with no refills and a Medrol Dosepak take as directed. FOLLOWUP: The patient will need to establish with a primary care physician in order to address all of her multisystem disease processes, and patient verbalized understanding. TIME SPENT: This was a 35 minute discharge. Dictated by VERONICA Mcfarlane for Pete Dailey MD
== END 2016-07-21 17:05 | disposition home or self-care (01) | DRG 291 ==
LOC: P.ED 20:35 → P.ICU 22:58 → P.MEDSURG 07-19 10:21
PROVIDERS: ATTEND Family Medicine
DX: I13.0 Hypertensive heart and chronic kidney disease with heart failure and stage 1 through stage 4 chronic kidney disease, or unspecified chronic kidney disease (principal); J96.00 Acute respiratory failure, unspecified whether with hypoxia or hypercapnia; I50.23 Acute on chronic systolic (congestive) heart failure; E46 Unspecified protein-calorie malnutrition; J44.1 Chronic obstructive pulmonary disease with (acute) exacerbation; Z68.1 Body mass index [BMI] 19.9 or less, adult; N18.3 Chronic kidney disease, stage 3 (moderate); I25.10 Atherosclerotic heart disease of native coronary artery without angina pectoris; G47.30 Sleep apnea, unspecified; G25.81 Restless legs syndrome; F17.210 Nicotine dependence, cigarettes, uncomplicated; Z71.6 Tobacco abuse counseling; I25.2 Old myocardial infarction; E78.5 Hyperlipidemia, unspecified; I25.5 Ischemic cardiomyopathy; Z82.49 Family history of ischemic heart disease and other diseases of the circulatory system; Z91.128 Patient's intentional underdosing of medication regimen for other reason
CPT/HCPCS: 36415; 51702; 71010; 71020; 80048; 80053; 80061; 81001; 82550; 82553; 82805; 83735; 83880; 84443; 84484; 85025; 85027; 85610; 85730; 93005; 94640; 94761; 96374; 96375; J0696; J1650; J1940; J2270; J2405; J2550; J2920; J2930; J7040; J7050

== ENCOUNTER 2016-08-05 16:48 | Inpatient (IN) ==
[2016-08-05] MEDS ORDERED: DUONEB (A & A) INH ONE (17:12)
[2016-08-05] MEDS ORDERED: SOLU-MEDROL IV ONE (17:12)
[2016-08-05] MEDS ORDERED: ASPIRIN PO STA (17:12)
--- NOTE | 2016-08-05 17:12 | PROVIDER DOCUMENTATION ---
HPI-Respiratory General - General Source: patient, EMS - History of Present Illness-Resp Onset/Duration: reports: 2 days ago, 3 days ago Timing: reports: still present Cough Quality/Degree: reports: dry cough Current Respiratory Medication Therapy: Initiated see nurses note Similar Symptoms Previously?: Yes Recently seen or treated by another doctor?: No <Deja Briceno - Last Filed: 08/05/16 17:48> <Art Mark - Last Filed: 08/05/16 19:16> <Delfina Love - Last Filed: 08/05/16 19:27> - General Chief Complaint: Shortness of Breath Stated Complaint: shortness of breath Time Seen by Provider: 08/05/16 17:03 Allergies/Adverse Reactions: Patient Allergies Allergy/AdvReac Type Severity Reaction Status Date / Time No Known Allergies Allergy Verified 08/05/16 16:51 Home Medications: Home Medication List Medication Instructions Recorded Confirmed Last Taken Type Citalopram [Celexa] 40 mg PO QAM #30 tablet 01/28/16 07/15/16 06/22/16 Rx Trazodone E.r. [Oleptro ER] 300 mg PO HS 03/24/16 07/15/16 07/14/16 History Ropinirole [Requip] 1 - 2 mg PO QHS 03/25/16 07/15/16 07/15/16 History Carvedilol [Coreg] 3.125 mg PO BID #60 tablet 03/27/16 07/15/16 05/05/16 Rx Omeprazole [Prilosec] 40 mg PO DAILY@0700 #60 capsule 05/05/16 07/15/16 Rx Aspirin 81 mg PO QAM 06/23/16 07/15/16 07/15/16 History Albuterol [Albuterol Neb] 2.5 mg INH Q4H PRN PRN #30 neb 07/07/16 07/15/1607/15 Rx Furosemide [Lasix] 20 mg PO DAILY #3 tablet 07/07/16 07/15/16 Unknown Rx CefDINIR [Omnicef] 300 mg PO BID #14 capsule 07/21/16 Unknown Rx LISINOpril [Prinivil] 5 mg PO HS #30 tablet 07/21/16 Unknown Rx Lactobacillus Rhamnosus GG 1 each PO BID #60 capsule 07/21/16 Unknown Rx [Culturelle] Methylprednisolone [Medrol Dosepak] 4 mg PO DIRECTED #1 package 07/21/16 Unknown Rx Metoclopramide [Reglan] 10 mg PO TID AC #90 tablet 07/21/16 Unknown Rx Sucralfate [Carafate Liquid] 1 gm PO Q6H #28 udc 07/21/16 Unknown Rx - History of Present Illness-Resp Nature of Presenting Problem: Pt is a 65 yof with chf,copd that presents to er with cc of sob,coughing x 2 days ran out of albuterol. EMS reports pt was given 2 nitro enroute to ER and a breathing treatment. Pt also has complaints of chest pain. Pt is not on home o2 , Pt is febrile on arrival. (Deja Briceno) Review of Systems - Adult - REVIEW OF SYSTEMS - ADULT Constitutional: reports: fever. denies: chills, fatique, weight gain, weight loss Eyes: reports: no symptoms reported Ears, Nose, Mouth & Throat: denies: ear discharge, sinus problem, throat pain Cardiovascular: reports: chest pain. denies: irregular heart rate, orthopnea, syncope Respiratory: reports: cough, dyspnea on exertion, shortness of breath. denies: pleurisy, wheezing Gastrointestinal: denies: abdominal pain, diarrhea, nausea, vomiting Genitourinary: reports: no symptoms reported Musculoskeletal: reports: no symptoms reported Integumentary: reports: no symptoms reported Neurological: reports: no symptoms reported Psychiatric: reports: no symptoms reported Endocrine: reports: no symptoms reported Hematologic/Lymphatic: reports: no symptoms reported Allergic/Immunologic: reports: no symptoms reported All Other Systems: Reviewed and Negative <Deja Briceno - Last Filed: 08/05/16 17:48> Past History - Adult - PAST MEDICAL HISTORY-ADULT Review of Records: reports: Nursing Assessment Review Major Childhood Illnesses: reports: denies history Cardiovascular: reports: CHF, HTN Respiratory: reports: COPD, sleep apnea Gastrointestinal: reports: denies history Obstetrical/Gynecological: reports: denies history Genitourinary: reports: denies history Musculoskeletal: reports: intervertebral disc disease Neurological: reports: other (restless leg syndrom) Endocrine/Immune: reports: denies history Other Conditions: reports: denies history - PRIOR SURGERIES/PROCEDURES Surgical/Procedure History: reports: appendectomy, orthopedic (extremity), back/ neck - IMMUNIZATION STATUS Childhood Immunizations: See Nurse Assessment Flu Vaccine: See Nurse Assessment - FAMILY HISTORY Family History: reviewed, not pertinent - SOCIAL HISTORY Smoking: cigarettes, greater than 1 pack/day Provider spent 3-5 mins advising pt. on dangers of tobacco.: Discussed manners to quit use, and f/u contacts for add'l counseling. Substance Use: none/never <Deja Briceno - Last Filed: 08/05/16 17:48> Physical Exam-General - PHYSICAL EXAM-ADULT Initial Vital Signs Reviewed: Yes - CONSTITUTIONAL General Appearance: alert, thin. negative: appears well (ill appearing) - EYES Eyes: PERRL/EOMI - NECK Neck: non-tender, full range of motion, supple, normal inspection - RESPIRATORY Respiratory: chest non-tender, lungs clear, respiratory distress, increased rate . negative: wheezing - CARDIOVASCULAR Cardiovascular: tachycardia - GASTROINTESTINAL (ABDOMEN) Abdominal Exam: non tender, soft, no organomegaly, no pulsatile mass - MUSCULOSKELETAL Extremity: normal range of motion, non-tender - SKIN Integumentary: normal turgor, warm/dry. negative: normal color - NEUROLOGIC Neurologic: grossly normal - PSYCHIATRIC Psych/Mental Status: normal mood/affect, normal thought content, normal thought process, oriented x 3 <Deja Briceno - Last Filed: 08/05/16 17:48> Progress - CHANGE OF SHIFT REPORT (ED Provider) Report Given and Care Transferred to:: Time of Transfer: 18:00 Items Pending: Labs, XRAY Results, Other (disposition) <Deja Briceno - Last Filed: 08/05/16 17:48> <Art Mark - Last Filed: 08/05/16 19:16> - EKG 1 Time of EKG reading by physician:: 17:36 EKG Read and Signed by:: Irma Yañez EKG Interpretation (*Must complete 3 of following elements*): Abnormal Rate: 99 Rhythm: NSR QRS: other (abnormal QRS-T angle) - XRAY 1 XRAY Study: Chest Impression: Abnormal Comparison with other Films: no changes XRAY Interpretation: cardiomegally, pulmonary vascular congestion: radiologist - CT/MRI 1 CT Study: Thorax Impression: Abnormal CT Results: CHF, no pneumonia: Dr. Hassan - CONSULTS/PCP/HOSPITALIST Notification #1 *Consult/PCP/Hospitalist*: Dr. Chilel(hospitalist) Time Discussed: 19:13 Consult Disposition: Admit <Delfina Love - Last Filed: 08/05/16 19:27> - PLAN OF CARE/RESULTS Progress/Plan/Lab Results: Vital Signs - 24 hr 08/05/16 16:49 Temperature 100.8 F H Pulse Rate 117 H Respiratory 40 H Rate Blood Pressure 139/83 O2 Sat by Pulse 98 Oximetry (Deja Briceno) Laboratory Tests 08/05/16 08/05/16 08/05/16 17:17 17:17 17:17 WBC RBC Hgb Hct MCV MCH MCHC RDW Std Deviation Plt Count MPV Immature Gran % (Auto) Neut % (Auto) Lymph % (Auto) [place] % (Auto) Eos % (Auto) Baso % (Auto) Immature Gran # (Auto) Neut # (Auto) Lymph # (Auto) [place] # (Auto) Eos # (Auto) Baso # (Auto) PT INR APTT (Factor Assay) D-Dimer Sodium 143 Potassium 4.6 Chloride 111 H Carbon Dioxide 18 L Anion Gap 15 BUN 28 H Creatinine 1.7 H Estimated GFR/1.73 m2 30 BUN/Creatinine Ratio 16 Glucose 111 H Calculated Osmolality 291 Calcium 9.3 Magnesium 1.8 Total Bilirubin < 0.15 L AST 14 ALT 8 L Alkaline Phosphatase 73 Creatine Kinase 140 Troponin T 0.064 [id number] Pept 87977 H Total Protein 5.9 L Albumin 3.4 L Globulin 3.0 Albumin/Globulin Ratio 1.0 Plasma Lactate 08/05/16 08/05/16 08/05/16 17:17 17:17 17:25 WBC 8.70 RBC 3.34 L Hgb 9.4 L Hct 30.0 L MCV 89.8 MCH 28.1 MCHC 31.3 L RDW Std Deviation 15.3 H Plt Count 309 MPV 10.0 Immature Gran % (Auto) 0.3 Neut % (Auto) 71.3 Lymph % (Auto) 18.2 L [place] % (Auto) 5.6 Eos % (Auto) 3.7 Baso % (Auto) 0.9 H Immature Gran # (Auto) 0.03 Neut # (Auto) 6.20 Lymph # (Auto) 1.58 [place] # (Auto) 0.49 Eos # (Auto) 0.32 Baso # (Auto) 0.08 PT 12.4 INR 0.89 APTT (Factor Assay) 30.0 D-Dimer 0.69 H Sodium Potassium Chloride Carbon Dioxide Anion Gap BUN Creatinine Estimated GFR/1.73 m2 BUN/Creatinine Ratio Glucose Calculated Osmolality Calcium Magnesium Total Bilirubin AST ALT Alkaline Phosphatase Creatine Kinase Troponin T [id number] Pept Total Protein Albumin Globulin Albumin/Globulin Ratio Plasma Lactate 0.9 Orders Category Date Time Status Cardiac Monitoring DIRECTED Care 08/05/16 17:12 Active Saline Loc NOW Care 08/05/16 17:12 Active CHEST-PORTABLE [RAD] Stat Exams 08/05/16 17:[address] THORAX W/O CONTRAST [CT] Stat Exams 08/05/16 18:21 Taken BLOOD CULTURE [BLDCUL] Stat Lab 08/05/16 17:12 Ordered CBC WITH ELECTRONIC DIFF [HEME] Stat Lab 08/05/16 17:17 Completed CK PROFILE [SP CHEM] Stat Lab 08/05/16 17:17 Completed COMPREHENSIVE METABOLIC PANEL [CHEM] Stat Lab 08/05/16 17:[address] D-D[address]ER [address] [COAG] Stat Lab 08/05/16 17:[address] Stat Lab 08/05/16 18:45 Received LACTATE, PLASMA [CHEM] Stat Lab 08/05/16 17:25 Completed MAGNESIUM [CHEM] Stat Lab 08/05/16 17:17 Completed PRO B-NATRIURETIC PEPTIDE Stat Lab 08/05/16 17:[address] Com[address]IME WITH INR PL [COAG] Stat Lab 08/05/16 17:[address] [COAG] Stat Lab 08/05/16 17:17 Completed TROPONIN T Stat Lab 08/05/16 17:[address] W/POSS RFLX CULT [URINALYSIS] Stat Lab 08/05/16 17:12 Uncollected Albuterol 2.5MG/Ipratrop 0.5MG [Duoneb (A & A)] Med 08/05/16 17:12 Discontinued 3 ml INH NOW ONE Aspirin Med 08/05/16 17:12 Discontinued 325 mg PO STAT STA CefTRIAXONE 1 GM/NS [Rocephin 1 gm/Ns] 50 ml Med 08/05/16 19:12 Active IV NOW Lorazepam [Ativan] Med 08/05/16 17:47 Discontinued 1 mg IV NOW ONE Methylprednisolone Sod Succ [Solu-Medrol] Med 08/05/16 17:12 Discontinued 125 mg IV NOW ONE Morphine Med 08/05/16 19:12 Discontinued 4 mg IV NOW ONE Ondansetron [Zofran] Med 08/05/16 19:12 Discontinued 4 mg IV NOW ONE Aerosol Treatments Routine Oth 08/05/16 17:15 Completed Aerosol Treatments Stat Oth 08/05/16 17:15 Completed EKG [EKG] Stat Ther 08/05/16 17:12 Draft (Delfina Love) Departure <Deja Briceno - Last Filed: 08/05/16 17:48> - Departure Time of Disposition Order: 19:16 Certified Medical Emergency: Emergent <Art Mark - Last Filed: 08/05/16 19:16> <Delfina Love - Last Filed: 08/05/16 19:27> - Departure DIAGNOSIS: COPD exacerbation Disposition: ADMITTED INPATIENT 09 Condition: Fair Referrals: None,PCP [Primary Care Provider] - Attestation - Scribe Verification/Attestation Scribe:: Deja Briceno Acting as Scribe for:: Irma Yañez Scribe documention review:: This chart was documented by a scribe and accurately reflects the service the provider performed and the decisions made by the provider. - Scribe Verification/Attestation #2 Shift Change Time: 18:00 Scribe Name: Delfina Love Acting as Scribe for:: Art Mark <Deja Briceno - Last Filed: 08/05/16 17:48> Physician Attestation
[2016-08-05 17:40] LABS: MANUAL DIFF NEEDED? NO
[2016-08-05 17:45] LABS: BASO% 0.9 % (0.0-0.8); EOS# 0.32 X1000 (0.0-0.7); EOS% 3.7 % (0.0-10.0); HEMOGLOBIN 9.4 g/dL (12.0-16.0); IMM GRAN# 0.03 X1000 (0.0-0.04); IMM GRAN% 0.3 % (0.0-0.5); LYMPH# 1.58 X1000 (1.2-3.4); LYMPH% 18.2 % (20.5-51.1); MCH 28.1 PG (27-31); MCHC 31.3 g/dL (33-37); MCV 89.8 FL (81-99); MONO# 0.49 X1000 (0.11-0.59); MONO% 5.6 % (1.7-9.3); NEUT% 71.3 % (42.2-75.2); PLT 309 X1000 (130-400); RBC 3.34 XMIL (4.2-5.4)
--- NOTE | 2016-08-05 17:45 | EKG Report ---
Test Performed on : 08/05/2016 5:36:42 PM Test Reason : CP Blood Pressure : / mmHG Vent. Rate : 099 BPM Atrial Rate : 099 BPM P-R Int : 144 ms QRS Dur : 102 ms QT Int : 364 ms P-R-T Axes : 073 080 141 degrees QTc Int : 467 ms Normal sinus rhythm. Possible Left atrial enlargement Abnormal QRS-T angle, consider primary T wave abnormality Abnormal ECG When compared with ECG of 15-JUL-2016 20:36, Nonspecific T wave abnormality now evident in Inferior leads Nonspecific T wave abnormality, improved in Lateral leads Unconfirmed Result
[2016-08-05] MEDS ORDERED: ATIVAN IV ONE (17:47)
--- NOTE | 2016-08-05 17:58 | Diag Imaging Result Document ---
PROCEDURE NAME: CHEST-PORTABLE - 08/05/2016 PORTABLE CHEST X-RAY: COMPARISON: 07/17/2016. FINDINGS: Stable cardiomegaly and pulmonary vascular congestion. Stable trace right pleural effusion. No new infiltrates or edema. IMPRESSION: No change from prior.
[2016-08-05 18:07] LABS: INR 0.89 (0.86-1.15); PROTIME 12.4 Seconds (12.1-15.5)
[2016-08-05 18:13] LABS: AGAP 15; ALBUMIN 3.4 g/dL (3.5-5.0); ALKALINE PHOSPHATASE 73 U/L (32-104); BUN 28 mg/dL (8-22); CALCIUM 9.3 mg/dL (8.8-10.2); CHLORIDE 111 mmol/L (98-107); CK PROFILE 140 U/L (24-173); COSMO 291; GOT 14 U/L (10-30); GPT 8 U/L (10-36); MAGNESIUM 1.8 mg/dL (1.5-2.7); POTASSIUM 4.6 mmol/L (3.5-5.1); SODIUM 143 mmol/L (136-145); TCO2 18 mmol/L (25-35); TOTAL BILIRUBIN < 0.15 mg/dL (0.20-1.00); TOTAL PROTEIN 5.9 g/dL (6.3-8.3)
[2016-08-05] MEDS ORDERED: MORPHINE IV ONE (19:12)
[2016-08-05] MEDS ORDERED: ZOFRAN IV ONE (19:12)
[2016-08-05] MEDS ORDERED: ROCEPHIN 1 GM/NS 50 ML IV ONE (19:12)
[2016-08-05] MEDS ORDERED: ZITHROMAX 500 MG/NS 250 ML IV ONE (19:15)
[2016-08-05] MEDS ORDERED: TYLENOL PO ONE (19:17)
[2016-08-05 20:18] LABS: BE -7.4 mmoll (-3.0-3.0); BLOOD TYPE ARTERIAL; DRAW SITE L RADIAL; METHB 0.6 % (0.0-1.5); O2(CT) 13.2 mL/dL (15.0-23.0); PCO2(98.6) 29 mmHg (35-45); PO2(98.6) 55 mmHg (60-100); SAMPLE BLOOD; SAO2 91.1 % (95.0-100.0); THB 10.5 g/dL (11.5-17.4); pH(98.6) 7.37 (7.35-7.45)
[2016-08-05 20:26] LABS: ALLEN TEST YES; MODALITY CANNULA
[2016-08-05] MEDS: ALBUTEROL NEB INH PRN (21:03)
[2016-08-05] MEDS: PATIENT'S OWN MED PO SCH (23:08)
[2016-08-05] MEDS: CARAFATE LIQUID PO SCH (23:08)
[2016-08-05] MEDS: COREG PO SCH (23:08)
[2016-08-05] MEDS: DILAUDID IV PRN (23:31)
[2016-08-05] MEDS: PRINIVIL PO SCH (23:31)
[2016-08-05] MEDS: REQUIP PO SCH (23:31)
[2016-08-06 00:38] LABS: URINE CULTURE PL NEEDED? NO; URINE SOURCE CATH
[2016-08-06 01:14] LABS: BILIRUBIN URINE NEGATIVE (NEGATIVE); BLOOD URINE NEGATIVE (NEGATIVE); CLARITY CLEAR (CLEAR); COLOR YELLOW; GLUCOSE URINE NEGATIVE (NEGATIVE); LEUKOCYTES URINE NEGATIVE (NEGATIVE); NITRITE URINE NEGATIVE (NEGATIVE); PROTEIN URINE TRACE mg/dL (NEGATIVE); SP GRAVITY URINE 1.015; URINE EPITHELIAL CELLS <10 /HPF (<10); URINE RBC <10 /HPF (<10); URINE WBC <10 /HPF (<10); UROBILINOGEN URINE NORMAL
[2016-08-06] MEDS: ALBUTEROL NEB INH PRN ×6 (01:52→22:30)
[2016-08-06] MEDS: CARAFATE LIQUID PO SCH ×5 (03:42→23:31)
[2016-08-06] MEDS: DILAUDID IV PRN ×5 (04:18→22:21)
[2016-08-06] MEDS: PRILOSEC PO SCH (06:14)
[2016-08-06] MEDS: COREG PO SCH ×3 (08:36→23:37)
[2016-08-06] MEDS: CELEXA PO SCH (08:36)
[2016-08-06] MEDS: ASPIRIN PO SCH (08:36)
[2016-08-06] MEDS ORDERED: LASIX IV ONE (08:37)
[2016-08-06] MEDS ORDERED: LASIX PO SCH (09:00)
[2016-08-06] MEDS: SOLU-MEDROL IV SCH ×2 (09:07→16:34)
--- NOTE | 2016-08-06 09:07 | Diag Imaging Result Document ---
PROCEDURE NAME: CT THORAX W/O CONTRAST - 08/05/2016 CT SCAN OF THE THORAX WITHOUT CONTRAST: INDICATION: Fever, shortness of breath. COMPARISON: 05/01/2016. FINDINGS: There is a new small pericardial effusion. There are bilateral pleural effusions new from prior study. There is stable marked cardiomegaly. There is a stable ascending aortic aneurysm measuring 4.6 cm. There is atherosclerotic calcification. There his bibasilar atelectasis. There is fluid with in the right major fissure. No focal consolidation is appreciated. There is bilateral nephrolithiasis. IMPRESSION: 1. Marked cardiomegaly with new small pericardial effusion. 2. New bilateral pleural effusions and bibasilar atelectasis. 3. Stable ascending aortic aneurysm.
[2016-08-06] MEDS: DUONEB (A & A) INH PRN ×2 (10:53→16:46)
--- NOTE | 2016-08-06 18:00 | HISTORY AND PHYSICAL ---
CHIEF COMPLAINT: Shortness of breath and dry cough. HISTORY OF PRESENT ILLNESS: This is a 65-year-old female with a history of CHF, COPD, and noncompliance who presented to the ER complaining of coughing, shortness of breath x2 days. She states that she ran out of albuterol at home. She was just discharged from the hospital on July 21. At present, she is not able to tell when she ran out of albuterol so we are really not sure how long she has gone without it. She denied any fever or chills. She did have a CT of the chest which revealed marked cardiomegaly with a small pericardial effusion, bilateral pleural effusions that are new with bibasilar atelectasis, and a stable ascending aortic aneurysm. Her chest x-ray revealed cardiomegaly with pulmonary vascular congestion. She did have a proBNP of 24,445. Over the last month she has ranged 21,000 to 34,000. In the emergency room she was given Ativan, morphine, DuoNeb, as well as Rocephin and azithromycin, and admitted for further evaluation and treatment. PAST MEDICAL HISTORY: 1. Chronic obstructive pulmonary disease with continued tobacco use. 2. Congestive heart failure with an EF of 15%-20% in January 2016. 3. Coronary artery disease status post myocardial infarction. 4. Chronic kidney disease stage 3 to 4 with a baseline creatinine that looks like about 1.9. 5. Hyperlipidemia. 6. Hypertension. 7. Restless legs syndrome. 8. Medical noncompliance. 9. Questionable tobacco use. PAST SURGICAL HISTORY: Appendectomy and right tibia surgery. SOCIAL HISTORY: She lives alone. She denies alcohol or drug abuse. We are not sure if she smokes or not, we get different answers at different times. In past records a few weeks ago she was still smoking a pack a day. ALLERGIES: No known drug allergies. HOME MEDICATIONS: A list will be obtained from her pharmacy. REVIEW OF SYSTEMS: A 14 point review of systems is discussed with patient with pertinent positives being cough, shortness of breath, wheezing. She denied chest pain, syncope, dizziness, nausea, vomiting, diarrhea, constipation, black or bloody vomitus, black or bloody stools, hematuria, dysuria, frequency, or urgency. PHYSICAL EXAMINATION: VITAL SIGNS: Blood pressure is 144/94, with a heart rate of 96, respirations are 20, temperature is 98.8 degrees oral, with oxygen saturations of 95%-97% on 2 L nasal cannula. HEENT: Head is normocephalic, atraumatic. Pupils equal, round, react to light. EOMS are intact. Sclerae anicteric. Mucous membranes are moist. NECK: Supple with trachea midline. CARDIOVASCULAR: Regular rate and rhythm. S1 and S2 appreciated. PULMONARY: Breath sounds are diminished with prolonged expiration. She does have scattered wheezes throughout with no increased work of breathing noted. GASTROINTESTINAL: Abdomen is soft, nontender, nondistended with bowel sounds in all 4 quadrants. EXTREMITIES: No clubbing, cyanosis, or edema. Pulses are palpable. Calves are nontender. SKIN: Warm and dry. DIAGNOSTIC DATA: WBC is 8.7 with hemoglobin 9.4, hematocrit 30 and platelets of 309,000. D-dimer is 0.69. Sodium is 143, potassium 4.6, BUN 28, creatinine 1.7, with a glucose of 111. Her magnesium is 1.8. ProBNP is 24,445 with a troponin of 0.064. Chest x-ray revealed stable cardiomegaly and pulmonary vascular congestion, stable trace right pleural effusion. No infiltrates or edema. A CT of the chest revealed marked cardiomegaly with a new small pericardial effusion, new bilateral pleural effusions with bibasilar atelectasis, and a stable ascending aortic aneurysm. No focal consolidation is appreciated. ASSESSMENT AND PLAN: 1. Chronic obstructive pulmonary disease exacerbation. 2. Systolic heart failure, acute exacerbation. 3. Congestive heart failure, systolic, with an ejection fraction of 15%-20% in January 2016. 4. Chronic kidney disease with a baseline creatinine of 1.9, stage 3-4. 5. Small pericardial effusion. 6. Bilateral pleural effusions with bibasilar atelectasis. HOSPITAL COURSE: She will be admitted to the hospital. She will be placed on telemetry. We will give supplemental oxygen, DuoNeb q.4 hours and q.2 hours p.r.n. We will trend saturations. We will attempt to have the patient do incentive spirometer, although in the past she has not been very cooperative. Steroids to taper. We will give IV Lasix. We will call her pharmacy and identify her home medications and continue as appropriate. Of note, the patient has been hospitalized many times over the last year and a half, and each time she was seen by Cardiology and recommended to take Coreg, although the patient refuses. She does tolerate it well when she is in the hospital. She has a known ejection fraction of 15-20% with a small pericardial effusion. We are unsure of which medications actually that she does fill. We will identify and continue as appropriate. We will place a Khan catheter for accurate I and O. Further treatments pending hospital course. Dictated by VERONICA Muñoz for Pete Dailey MD cc: VERONICA Muñoz MD
[2016-08-06] MEDS: PRINIVIL PO SCH ×2 (22:30→23:37)
[2016-08-06] MEDS: REQUIP PO SCH ×2 (22:31→23:38)
[2016-08-06] MEDS: PATIENT'S OWN MED PO SCH (22:31)
[2016-08-07] MEDS: ALBUTEROL NEB INH PRN ×6 (01:52→22:32)
[2016-08-07] MEDS: CARAFATE LIQUID PO SCH ×4 (05:00→22:15)
[2016-08-07] MEDS: ASPIRIN PO SCH (08:06)
[2016-08-07] MEDS: CELEXA PO SCH (08:07)
[2016-08-07] MEDS: COREG PO SCH ×2 (08:07→22:15)
[2016-08-07] MEDS: SOLU-MEDROL IV SCH ×3 (08:08→16:54)
[2016-08-07] MEDS: DILAUDID IV PRN ×4 (08:08→22:15)
[2016-08-07] MEDS: PRILOSEC PO SCH (08:08)
[2016-08-07] MEDS ORDERED: DULCOLAX ONE (09:54)
[2016-08-07] MEDS ORDERED: MIRALAX ONE (09:54)
[2016-08-07] MEDS ORDERED: DULCOLAX PR ONE (09:54)
[2016-08-07] MEDS: MIRALAX PO SCH ×2 (10:00→22:15)
--- NOTE | 2016-08-07 10:06 | PROGRESS NOTE ---
DATE: 08/07/2016 SUBJECTIVE: The patient complains of abdominal pain and not having a bowel movement since Tuesday. She is passing gas. She denies any nausea or vomiting. She states that she is breathing better. OBJECTIVE: Vital Signs: Blood pressure is 140/86 with a heart rate of 90, respirations are 18, temperature is 97.4 degrees with oxygen saturations of 94% to 97% on 2 L nasal cannula. Cardiovascular: Regular rate and rhythm. S1, S2 appreciated. Pulmonary: Breath sounds are diminished throughout with prolonged expiration. She does have some scattered wheezes with no increased work of breathing. Gastrointestinal: Abdomen is distended. It is soft. There is generalized tenderness with bowel sounds in all 4 quadrants. Extremities: No clubbing, cyanosis, or edema. Pulses are palpable and calves are nontender. LABS: Pending. ASSESSMENT AND PLAN: 1. Chronic obstructive pulmonary disease exacerbation. 2. Systolic heart failure acute exacerbation. 3. Congestive heart failure, systolic with an ejection fraction of 15% to 20% in January 2016. 4. Chronic kidney disease with a baseline creatinine of 1.9 stage III-IV. 5. Small pericardial effusion. 6. Bilateral pleural effusions with bibasilar atelectasis. We will continue with pulmonary toilet. She is improving. We will continue to taper her steroids. Continue with IV diuresis. We will consult cardiology regarding her pericardial effusion. We will continue with her current treatments. Dictated by VERONICA Muñoz for Pete Dailey MD cc: VERONICA Muñoz MD
[2016-08-07] MEDS: LACTULOSE PO SCH ×2 (10:15→22:15)
[2016-08-07] MEDS ORDERED: LACTULOSE ONE (10:19)
[2016-08-07] MEDS: DUONEB (A & A) INH PRN (12:38)
[2016-08-07 18:44] LABS: RBC 3.79 XMIL (4.2-5.4)
[2016-08-07 18:45] LABS: HEMOGLOBIN 10.4 g/dL (12.0-16.0); MCH 27.4 PG (27-31); MCHC 30.6 g/dL (33-37); MCV 89.7 FL (81-99); MPV 9.9 FL (7.4-10.4)
[2016-08-07 21:41] LABS: AGAP 15; ALBUMIN 3.8 g/dL (3.5-5.0); ALKALINE PHOSPHATASE 69 U/L (32-104); BUN 44 mg/dL (8-22); CALCIUM 9.4 mg/dL (8.8-10.2); CHLORIDE 108 mmol/L (98-107); COSMO 296; GOT 13 U/L (10-30); GPT 12 U/L (10-36); POTASSIUM 5.2 mmol/L (3.5-5.1); SODIUM 141 mmol/L (136-145); TCO2 17 mmol/L (25-35); TOTAL BILIRUBIN < 0.15 mg/dL (0.20-1.00); TOTAL PROTEIN 5.8 g/dL (6.3-8.3)
[2016-08-07] MEDS: REQUIP PO SCH (22:15)
[2016-08-07] MEDS: PATIENT'S OWN MED PO SCH (22:15)
[2016-08-07] MEDS: PRINIVIL PO SCH (22:15)
[2016-08-08] MEDS: DILAUDID IV PRN ×5 (00:57→18:03)
[2016-08-08] MEDS: SOLU-MEDROL IV SCH ×3 (01:33→17:10)
[2016-08-08] MEDS: ALBUTEROL NEB INH PRN ×5 (02:19→19:24)
[2016-08-08] MEDS: CARAFATE LIQUID PO SCH ×4 (03:50→15:18)
[2016-08-08] MEDS: PRILOSEC PO SCH (06:01)
[2016-08-08] MEDS: MIRALAX PO SCH (08:05)
[2016-08-08] MEDS: COREG PO SCH (08:06)
[2016-08-08] MEDS: LACTULOSE PO SCH (08:06)
[2016-08-08] MEDS: CELEXA PO SCH (08:07)
[2016-08-08] MEDS: ASPIRIN PO SCH (08:07)
--- NOTE | 2016-08-08 12:09 | PROGRESS NOTE ---
DATE: 08/08/2016 SUBJECTIVE: Patient still complains of abdominal pain. Notes that she has not had a bowel movement. OBJECTIVE: Vital signs: Temperature 97, pulse 85, respiratory rate 18, BP 123/ 89, saturation 98% on room air. General: Patient is well developed, well nourished. She is currently in no respiratory distress. She is awake and alert. Neck: Supple. CV: Regular rate. Chest: Relatively clear. Abdomen: Soft. Appears firm. No bowel sounds. Tender diffusely. NO masses Extremities: Moves all extremities. Neurologic: No changes. LABS: Pending. ASSESSMENT AND PLAN: 1. Acute renal failure. Serum creatinine is slightly elevated but this appears to be chronic. 2. Hyperkalemia, improving. 3. Leukocytosis, unknown etiology. White count certainly has elevated since admission. We will check a CT of her abdomen today. 4. Acute systolic congestive heart failure. 5. Chronic renal disease. 6. Chronic constipation. We will add milk of molasses enema. cc: Pete Dailey MD MTDD
[2016-08-08] MEDS ORDERED: NON-FORMULARY BULK MED PR ONE (14:00)
--- NOTE | 2016-08-08 14:33 | Diag Imaging Result Document ---
PROCEDURE NAME: CT ABD/PELVIS ORAL CONTR ONLY - 08/08/2016 CT OF THE ABDOMEN AND PELVIS WITH ORAL CONTRAST ONLY: FINDINGS: Exam performed with oral contrast only per request of the referring provider. A dose reduction protocol was used. Compared to 05/02/2016. There are tiny right and small left pleural effusions. There is dependent atelectasis at the left base. There is cardiomegaly. There is a large amount of free intraperitoneal air. This is suspicious for a perforated viscus, the specific location of which is not apparent. There is no extravasated oral contrast identified. There is a large amount of retained fecal debris in the colon compatible with constipation. There are no acute changes identified in the liver, spleen or pancreas. There is low density enlargement of the bilateral adrenal glands similar to the previous exam and possibly related to adenomas or hyperplasia. There are nonobstructing stones in the bilateral kidneys. There is no hydronephrosis. There are right renal cysts. There are atherosclerotic calcifications noted. There are lumbar spine postsurgical changes noted. IMPRESSION: 1. Large amount of free intraperitoneal air. This is suspicious for a perforated viscus, the specific location of which is not apparent. 2. Large amount of retained fecal debris in colon, consistent with constipation. 3. Nonobstructing stones in the bilateral kidneys. Verbal results were provided to Dr. Dailey at 2:00 p.m. on 08/08/2016. MTDD
[2016-08-08] MEDS ORDERED: DIFLUCAN 100 MG/NS 100 MG/50 ML IVPB IV SCH (18:30)
[2016-08-08] MEDS ORDERED: NS 500 ML ONE (19:25)
[2016-08-08 19:31] LABS: HEMATOCRIT 32.8 % (37.0-47.0); HEMOGLOBIN 10.3 g/dL (12.0-16.0); MCH 28.7 PG (27-31); MCHC 31.4 g/dL (33-37); MCV 91.4 FL (81-99); MPV 10.7 FL (7.4-10.4); RBC 3.59 XMIL (4.2-5.4)
[2016-08-08 19:53] LABS: AGAP 16; ALBUMIN 3.8 g/dL (3.5-5.0); ALKALINE PHOSPHATASE 67 U/L (32-104); BUN 65 mg/dL (8-22); CALCIUM 9.8 mg/dL (8.8-10.2); CHLORIDE 106 mmol/L (98-107); COSMO 298; GOT 17 U/L (10-30); GPT 21 U/L (10-36); SODIUM 139 mmol/L (136-145); TCO2 17 mmol/L (25-35); TOTAL BILIRUBIN < 0.15 mg/dL (0.20-1.00); TOTAL PROTEIN 6.6 g/dL (6.3-8.3)
[2016-08-08] MEDS: ZOSYN 3.375 GM/NS 3.375 GM/50 ML IVPB IV SCH (20:24)
[2016-08-08] MEDS ORDERED: ALBUMIN 25% ONE (21:54)
--- NOTE | 2016-08-08 21:58 | CONSULTATION ---
DATE OF CONSULTATION: 08/08/2016 REQUESTING PHYSICIAN: Dr. Dailey. CONSULT CONCERNING: Free air in abdomen. HISTORY OF PRESENT ILLNESS: A 65-year-old female with a history of congestive heart failure, COPD, noncompliance, who initially came to the emergency department on 08/05/2016 with complaints of coughing, shortness of breath. She had been recently discharged on July 21 but apparently had not taken her albuterol. Over the course of her admission she did develop some abdominal pain and a leukocytosis. She had a CT scan at that time done that showed free air. There was a lengthy discussion about given her medical comorbidities about transfer to another facility but we were unable to make those arrangements. We therefore transferred to [facility] from [place] where she was admitted. She still complains of abdominal pain, is unable to give much more descriptive characteristics besides that she is hurting. She also reports that she has not had a bowel movement several days. Given the concern for perforated hollow viscus, we did discuss with patient about surgical intervention. Discussed with the patient the overall morbidity associated with it given her multiple medical comorbidities. She voiced understanding and wanted to proceed with the procedure. She does have a history of peptic ulcer disease. PAST MEDICAL HISTORY: Includes. 1. COPD with continued tobacco use. 2. Congestive heart failure with an ejection fraction of 15%. 3. Coronary artery disease status post myocardial infarction. 4. Chronic kidney disease stage 3 to 4 with baseline creatinine greater than 1.5. 5. Hyperlipidemia. 6. Hypertension. 7. Restless legs syndrome. 8. Tobacco abuse. 9. Peptic Ulcer Disease PAST SURGICAL HISTORY: Includes appendectomy and right tibial surgery. SOCIAL HISTORY: Patient lives at home. Denies alcohol or illicit drugs. ALLERGIES: None. MEDICATIONS: She is currently on antibiotics. FAMILY HISTORY: Reviewed with patient but noncontributory. REVIEW OF SYSTEMS: A full 10 point review of systems obtained, negative except as specified in HPI. PHYSICAL EXAMINATION: Vital Signs: The patient is currently afebrile. Temperature 98.4 degrees, pulse was recorded at 101 although by palpation it seems to be in the 120s, blood pressure 145/94, O2 saturation 97% on 2 L nasal cannula. General: No acute distress. female, able to talk and converse and move but does appear slightly uncomfortable. HEENT: Normocephalic, atraumatic. Pupils equal, round, react to light. Mucous membranes moist. Oropharynx benign. Neck: Supple. Trachea midline. Cardiovascular: Regular rate and rhythm. Lungs: Some coarse sounds and wheezes noted. Abdomen: Soft, nondistended. There is some tenderness to palpation diffusely. No real peritoneal signs at this time but does have diffuse tenderness. Extremities: Moves all extremities well. Neurologic: Grossly intact. Skin: No signs of jaundice. Vascular: All extremities perfused. LABORATORY: Current white blood cell 11.5, which is down from 19, hematocrit 32 , platelet count 335,000. BMP reviewed. CT scan independently reviewed and radiology reviewed. She does have significant amount of free air noted intraabdominally. Source of the free air is unknown. She was given p.o. contrast but there is no extravasation of contrast. ASSESSMENT AND PLAN: A 65-year-old female with multiple medical comorbidities and perforated hollow viscus. 1. Perforated hollow viscus. At this time, patient does have a leukocytosis, some abdominal pain and she is mildly tachycardic. This is concerning given her CT scan findings of free air. There was an initial attempt to transfer to another facility given her medical issues and the concern for perioperative care given her congestive heart failure and chronic obstructive pulmonary disease. At the time of this dictation, we are unable to make those arrangements. We did discuss with patient the extensive risk associated with this. I had multiple conversations with Dr. Hernandez, the anesthesiologist networks software consultant today and Dr. Dailey, the hospitalist who saw her at [place]. We all discussed extensively her perioperative risk. We discussed this with the patient. She voiced understanding and wanted to still proceed with the procedure. She has a history of peptic ulcer disease. 2. Multiple medical comorbidities. At this time will have the hospitalist see and evaluate the patient. Depending on clinical picture the postoperative period, we may add pulmonary and cardiology consults if needed. cc: Luis Armando Guillen MD MTDRachel
[2016-08-08 23:27] LABS: URINE MICRO REVIEW NEEDED? NO; URINE SOURCE CATH
[2016-08-08 23:36] LABS: COLOR YELLOW; UR EPITHELIAL CELLS <10 /HPF (<10); URINE BACTERIA NEGATIVE /HPF; URINE RBC <10 /HPF (<10); URINE WBC <10 /HPF (<10)
[2016-08-08 23:37] LABS: BILIRUBIN URINE NEGATIVE (NEGATIVE); BLOOD URINE TRACE (NEGATIVE); GLUCOSE URINE NEGATIVE (NEGATIVE); LEUKOCYTES URINE NEGATIVE (NEGATIVE); NITRITE URINE NEGATIVE (NEGATIVE); PH URINE 5.5; PROTEIN URINE TRACE mg/dL (NEGATIVE); SP GRAVITY URINE 1.025; TURBIDITY URINE CLEAR (CLEAR); UROBILINOGEN URINE NORMAL (NORMAL)
[2016-08-08 23:39] LABS: ALLEN TEST YES; BE -11.8 mmoll (-3.0-3.0); BLOOD TYPE ARTERIAL; DRAW SITE R RADIAL; O2(CT) 14.6 mL/dL (15.0-23.0); PCO2(98.6) 37 mmHg (35-45); PO2(98.6) 177 mmHg (60-100); SAMPLE BLOOD; SAO2 98.4 % (95.0-100.0); THB 10.4 g/dL (11.5-17.4); pH(98.6) 7.22 (7.35-7.45)
[2016-08-08 23:40] LABS: MODALITY NRB
[2016-08-08] MEDS ORDERED: NS 1,000 ML IV SCH (23:43)
[2016-08-08] MEDS ORDERED: NEO-SYNEPHRINE 50 MG in NS 250 ML IV SCH (23:45)
[2016-08-08] MEDS ORDERED: LOPRESSOR IV SCH (23:45)
[2016-08-09] MEDS ORDERED: NS 1,000 ML IV SCH ×3 (00:09→19:39)
[2016-08-09] MEDS: SOLU-MEDROL IV SCH ×3 (00:23→16:13)
[2016-08-09] MEDS: DILAUDID IV PRN ×2 (00:31→17:58)
[2016-08-09] MEDS ORDERED: PROTONIX 80 MG in NS 80 ML IV ONE (00:52)
[2016-08-09] MEDS: LOPRESSOR IV SCH ×4 (00:56→17:39)
[2016-08-09] MEDS ORDERED: NARCAN IV PRN (00:57)
[2016-08-09] MEDS: MORPHINE PCA IV PRN ×3 (01:02→23:53)
[2016-08-09] MEDS: ZOSYN 3.375 GM/NS 3.375 GM/50 ML IVPB IV SCH ×4 (01:30→21:56)
[2016-08-09] MEDS: PROTONIX 80 MG in NS 80 ML IV SCH ×3 (01:31→21:57)
--- NOTE | 2016-08-09 03:39 | OPERATIVE NOTE ---
PROCEDURE DATE: 08/08/2016 PREOPERATIVE DIAGNOSIS: Pneumoperitoneum. POSTOPERATIVE DIAGNOSIS: Perforated gastric ulcer at the greater curvature of the stomach. PROCEDURE: 1. Exploratory laparotomy. 2. Partial gastrectomy (greater curvature). SURGEON: Luis Armando Guillen MD. FACILITY MAINTENANCE MANAGER: None. ANESTHESIA: General endotracheal. INTRAOPERATIVE FINDINGS: The perforation was along the edge of the greater curvature, amenable to a resection. The hole itself was a millimeter or two in diameter. There was not a significant amount of contamination noted. SPECIMENS REMOVED: Portion of the stomach. ESTIMATED BLOOD LOSS: 10 mL. COMPLICATIONS: None at the time of dictation. BRIEF HISTORY: The patient is a 65-year-old, female with multiple medical comorbidities. Initially admitted for shortness of breath. She did develop abdominal pain. Was found to have pneumoperitoneum. She was transferred over to [facility]. Discussed extensively with the patient about the risks of the procedure given her congestive heart failure and COPD. It was felt that given her tachycardia, her abdominal pain, and her pneumoperitoneum, she needed surgery. All questions were answered. DESCRIPTION OF PROCEDURE: After informed consent was obtained, the patient was brought to the operative theatre, transferred to the operative table, and placed in the supine position. General endotracheal anesthesia was then performed without complication. A formal time-out was then performed, confirming patient, date, procedure. All were in agreement. At that time, attention was given to the abdomen. After it was prepped and draped, we made a standard midline incision into the abdomen. We did encounter some release of air. There was not a significant degree of contamination. We did see some smoke coming out from the stomach. We examined the stomach along the greater curvature. There was a small pinpoint perforation. There was no other pathology appreciated. Again, there was not a significant degree of contamination encountered. Given its close proximity to the greater curvature, it made it amenable to a partial gastrectomy. I took down the greater omentum with electrocautery and a ligature, ligating the gastroepiploic arteries. We took a PATRICK stapler across the area. This did not narrow the stomach itself. We oversewed the staple line with interrupted 3-0 silk. We then reexamined the abdomen again. No other pathology was appreciated. No significant succus or contamination, no stool, no abscess. We irrigated out the abdomen copiously. We then closed our fascia with a running loop PDS starting from either side. We placed nusrat to the skin. The patient was transferred to the ICU after a sterile dressing was applied. cc: Luis Armando Guillen MD
--- NOTE | 2016-08-09 06:04 | PROGRESS NOTE ---
DATE: 08/08/2016 ADDENDUM: The patient was re-examined. She had a CT scan earlier today which demonstrated large amounts of free air, still with moderate constipation. General Surgery, Dr. Guillen was consulted. He felt it best that she be transferred to [facility]. We called [facility] who has ultimately declined a transfer at this point feeling as though we should be able to handle her surgical case in the hospital here. Again, discussed with Dr. Guillen. He feels as though she is a very difficult surgical candidate and I agree. He feels as though she would be better served at a major hospital, such as [facility]. He feels as though her surgical case certainly could be performed in [place], but her post surgical care is far the more worrisome given her EF of 15%, and she certainly may need more care than [place] he is able to safely manage. He and I both agree that if transfer were necessary, transferring now while she is currently stable pre-surgery would be much more beneficial to her overall health as opposed to emergently after surgery. OBJECTIVE: Vital signs: Are stable and unchanged. She is afebrile. Abdomen: Her abdomen is still firm, tender diffusely to touch. No appreciable masses. Positive guarding. No bowel sounds. LABORATORY: Pending currently. ASSESSMENT AND PLAN: The patient will either be transferred to [facility] or [facility]. At this point, we are waiting for that decision to be made by the surgeon. She has been started on Zosyn and Diflucan. cc: Pete Dailey MD
[2016-08-09 06:10] LABS: HEMATOCRIT 30.4 % (37.0-47.0); HEMOGLOBIN 9.3 g/dL (12.0-16.0); MCH 28.1 PG (27-31); MCHC 30.6 g/dL (33-37); MCV 91.8 FL (81-99); MPV 10.9 FL (7.4-10.4); RBC 3.31 XMIL (4.2-5.4)
--- NOTE | 2016-08-09 06:22 | PROGRESS NOTE ---
DATE: 08/09/2016 SUBJECTIVE: Patient stable overnight. No major issues reported by the nursing staff. The patient does report some abdominal pain. This sounds appropriate. OBJECTIVE: Vital Signs: Patient is currently afebrile. Her vital signs have been stable. Her most recent temperature is 98.4; most recent pulse 81, respiratory rate 18-14 blood pressure 119/85. General: No acute distress. Resting in bed. Cardiovascular: Regular rate and rhythm. Lungs: Grossly clear but some coarse sounds noted. Abdomen: Soft, appropriately tender. Dressing in place. ASSESSMENT AND PLAN: A 65-year-old female with significant medical comorbidities, now postoperative day 1 from a partial gastrectomy for perforated gastric ulcer. 1. Multiple medical comorbidities. At this time, being managed by the hospitalist service. We will have cardiology see her given her significant congestive heart failure. 2. Postoperative day #1 from a partial gastrectomy. At this time, we will keep the NG tube in place. Keep the patient NPO and will monitor her closely. She is on antibiotics and Diflucan. cc: Luis Armando Guillen MD
[2016-08-09 06:30] LABS: ALBUMIN 3.2 g/dL (3.5-5.0); CALCIUM 8.5 mg/dL (8.8-10.2); POTASSIUM 5.5 mmol/L (3.5-5.1); TOTAL BILIRUBIN 0.3 mg/dL (0.20-1.00); TOTAL PROTEIN 5.3 g/dL (6.3-8.3)
[2016-08-09] MEDS ORDERED: ZEMURON ONE (08:49)
[2016-08-09] MEDS ORDERED: OFIRMEV 1000 MG/ISOTONIC SOLN 1,000 MG/100 ML BOTTLE ONE (08:49)
[2016-08-09] MEDS ORDERED: ROBINUL ONE (08:49)
[2016-08-09] MEDS ORDERED: QUELICIN (DOSE) ONE (08:49)
[2016-08-09] MEDS ORDERED: NEOSTIGMINE ONE (08:49)
[2016-08-09] MEDS ORDERED: XYLOCAINE-MPF 2% ONE (08:49)
[2016-08-09] MEDS ORDERED: DECADRON ONE (08:49)
[2016-08-09] MEDS ORDERED: ANESTHESIA PB SET 88 IN 5742 ONE (08:49)
[2016-08-09] MEDS ORDERED: LR 1,000 ML ONE (08:49)
[2016-08-09] MEDS ORDERED: ZOFRAN ONE (08:49)
--- NOTE | 2016-08-09 10:16 | PROGRESS NOTE ---
DATE: 08/09/2016 HISTORY: Presented with shortness of breath and dry cough. A 65-year-old with history of congestive heart failure, COPD, noncompliance who presents to the emergency room complaining of cough and shortness of breath for 2 days. States she ran out of albuterol at home. Discharged from hospital on 07/21/2016. She was unable to tell when she ran out of albuterol, was really not sure how long she had been without it. Denied any fever or chills. Did have a CT of the chest which revealed marked cardiomegaly, small pericardial effusion, bilateral pleural effusions with new bibasilar atelectasis, stable ascending aortic aneurysm. Her chest x-ray revealed cardiomegaly and pulmonary vascular congestion. She did have a proBNP of 24,445. Over the last month, this ranged from 21 to 34. In the emergency room, she was given Ativan, morphine, DuoNeb, as well as Rocephin and azithromycin. . PAST MEDICAL HISTORY: 1. Chronic obstructive pulmonary disease, continued tobacco use. 2. Congestive heart failure. Ejection fraction 15-20% in January of 2016. 3. Coronary artery disease, status post myocardial infarction. 4. Chronic kidney disease stage III to IV with baseline creatinine that looks like it is 1.9. 5. Hyperlipidemia. 6. Hypertension. 7. Restless legs syndrome. 8. Medical noncompliance. 9. Questionable tobacco use. PHYSICAL EXAMINATION: Vital Signs: Temperature 98.4 degrees, pulse 97, respirations 20, blood pressure 128/91. Lungs: With scattered rhonchi. Decreased breath sounds at both bases. Cardiovascular Examination: Regular rhythm and rate without murmur or S3. Abdomen: Soft. Skin: Warm and dry. Is and Os: Urine output from yesterday was around 1600 mL. LAB: From this morning, white count 9720 which is down from 19,000 on the 1st. Hematocrit was 30, platelet count 262,000. Chemistry: Sodium 143, potassium 5.5, chloride 111, bicarb 17, BUN 72, creatinine 2. Transaminase is unremarkable. Albumin 3.2, lactate was 1.9. ASSESSMENT AND PLAN: 1. Multiple medical comorbidities. This is a 65-year-old. She is postoperative day 1 from partial gastrectomy for perforated gastric ulcer. 2. She has acute renal failure. Serum creatinine elevated. Continue to give fluids. 3. Hyperkalemia, which is improved. 4. Leukocytosis, which is better. 5. History of systolic congestive heart failure. Ejection fraction I think in the 20-25% range so we will watch her volume. 6. Chronic renal disease, acute on chronic. 7. Chronic constipation. Abdominal and pelvic CT done on 08/08/2016 showed large amount of free intraperitoneal air, suspicious for perforated viscus. Specific location was not apparent at that time. Large amount of retained fecal debris consistent with constipation. Dr. Guillen operated yesterday, partial gastrectomy at greater curvature, exploratory laparotomy. 8. Review of her orders. She is on Carafate 1 g by mouth every 6 hours. She is on Requip 1 mg at bedtime, Prinivil 5 mg at bedtime, Lasix 20 mg by mouth daily, Celexa 40 mg every morning, Coreg 3.125 mg twice a day, aspirin 81 mg a day. She is on Zosyn right now at 3.375 mg intravenous every 6, on methylprednisolone 60 mg intravenous every 8. We will see if we can cut that down. Fluconazole 100 mg intravenous daily. cc: Iam Catsillo MD
[2016-08-09] MEDS ORDERED: NS 1,000 ML ONE (11:37)
[2016-08-09] MEDS: CARAFATE LIQUID PO SCH ×3 (11:38→22:26)
[2016-08-09] MEDS: DUONEB (A & A) INH PRN ×2 (12:04→17:07)
--- NOTE | 2016-08-09 12:31 | EKG Report ---
Test Performed on : 08/09/2016 12:20:36 PM Test Reason : cad Blood Pressure : / mmHG Vent. Rate : 084 BPM Atrial Rate : 084 BPM P-R Int : 140 ms QRS Dur : 100 ms QT Int : 396 ms P-R-T Axes : 053 006 096 degrees QTc Int : 467 ms Normal sinus rhythm. Left atrial enlargement Nonspecific T wave abnormality Abnormal ECG When compared with ECG of 05-AUG-2016 17:36, (Unconfirmed) Questionable change in QRS axis Nonspecific T wave abnormality no longer evident in Inferior leads Nonspecific T wave abnormality, worse in Lateral leads Confirmed by Dimas GILBERT, Deion Martinez ([id number]) on 08/11/2016 5:25:29 PM
--- NOTE | 2016-08-09 14:09 | CONSULTATION ---
DATE OF CONSULTATION: 08/09/2016 IMPRESSION: 1. Status post resection of bleeding gastric ulcer. 2. Severe ischemic cardiomyopathy. Left ventricular ejection fraction around 20%. Coronary angiography July 2015 indicated occluded left circumflex coronary and near proximal occlusion of the right coronary. Medical management was advocated. The patient has had multiple admissions for dyspnea. 3. Significant chronic obstructive pulmonary disease. 4. Chronic kidney disease stage IV. RECOMMENDATIONS: 1. Continue medical management. Patient has coronary disease and ischemic cardiomyopathy. 2. At present patient does not appear to manifest signs of congestive heart failure. Will follow with you and assist accordingly. 3. Smoking cessation strongly advised. HISTORY: This 65-year-old white female with past history of ischemic cardiomyopathy, significant COPD, stage 4 chronic kidney disease, hypertension, and hyperlipidemia was admitted for further evaluation and management of progressive dyspnea symptoms as well as abdominal pain. There has been no chest pain. Unfortunately she continues to smoke a pack of cigarettes per day. She was found to have a bleeding gastric ulcer and this has been resected. Cardiology is consulted to assist with perioperative care. PAST MEDICAL HISTORY: 1. Atherosclerotic coronary disease as outlined above. 2. Severe ischemic cardiomyopathy. 3. Chronic kidney disease stage 4. 4. COPD, significant. 5. Hyperlipidemia. 6. Hypertension. 7. Restless legs syndrome. 8. History of medical noncompliance. PAST SURGICAL HISTORY: Includes appendectomy and lumbar spine surgery. ALLERGIES: She has no known drug allergies. MEDICATIONS PRIOR TO ADMISSION: As listed. SOCIAL HISTORY: Unfortunately she continues to smoke 1 pack of cigarettes per day. FAMILY HISTORY: Positive for coronary disease. REVIEW OF SYSTEMS: Pulmonary: Noteworthy for dyspnea but negative for productive cough. Gastrointestinal: Noteworthy for abdominal pain. She has not noted any melena or bright red blood per rectum. Constitutional: Negative. The remainder of review of systems negative/noncontributory with 14 total systems reviewed. PHYSICAL EXAMINATION: General: This is an older white female in no distress. She appears older than her stated age. She appears chronically ill. Vital signs: Blood pressure 128/91, heart rate 97 and regular. HEENT Exam: Extraocular movements appear intact. Mucous membranes moist. Neck: Supple. JV distention cannot be appreciated. Chest: Clear to auscultation. Cardiac: Reveals a regular rate and rhythm without appreciable murmur or gallop. Abdomen: Postsurgical with appropriate tenderness. Extremities: Without edema. Neurologic Exam: Reveals her to be alert, oriented. Speech is fluent. She moves all 4 extremities equally well. Skin: Warm dry. Psychiatric: Reveals mood to be appropriate. LAB DATA: Today remarkable for BUN 73, creatinine 2.0. White blood cell count 9.7, hematocrit 30.4. ECG pending. cc: Arpan Sweeney MD
[2016-08-09] MEDS: ALBUTEROL NEB INH PRN ×2 (18:54→22:33)
[2016-08-09] MEDS ORDERED: DIFLUCAN 100 MG/NS 100 MG/50 ML IVPB IV SCH (20:00)
[2016-08-09] MEDS ORDERED: PRINIVIL PO SCH (21:00)
[2016-08-09] MEDS: COREG PO SCH (21:51)
[2016-08-09] MEDS: REQUIP PO SCH (22:25)
[2016-08-10] MEDS: LOPRESSOR IV SCH ×4 (01:30→17:23)
[2016-08-10] MEDS: ZOSYN 3.375 GM/NS 3.375 GM/50 ML IVPB IV SCH ×4 (02:05→19:43)
[2016-08-10] MEDS: SOLU-MEDROL IV SCH ×2 (02:05→08:20)
[2016-08-10] MEDS: DUONEB (A & A) INH PRN ×6 (03:08→22:45)
[2016-08-10] MEDS: CARAFATE LIQUID PO SCH ×4 (06:01→22:41)
--- NOTE | 2016-08-10 08:05 | PROGRESS NOTE ---
DATE: 08/10/2016 SUBJECTIVE: No major issues through the night. OBJECTIVE: Vital Signs: Patient is currently afebrile. Her vital signs have been stable. General Examination: No acute distress. Resting comfortably. NG tube in place. Cardiovascular: Regular rate and rhythm. Lungs: Grossly clear. Abdomen: Soft, appropriately tender. Nondistended. Laboratory: None as of yet for this morning. ASSESSMENT AND PLAN: A 65-year-old, female, postoperative day #2 from an open partial gastrectomy for a perforated gastric ulcer. 1. Postoperative state. We will keep the nasogastric tube in place. I do not want any oral intake. We will keep her on a Protonix drip. She is on antibiotics and Diflucan. 2. Multiple medical comorbidities at this time being managed by the hospitalist service. Cardiology is being consulted. We will follow up with their recommendations. cc: Luis Armando Guillen MD
[2016-08-10] MEDS: PROTONIX 80 MG in NS 80 ML IV SCH ×3 (08:20→19:08)
[2016-08-10] MEDS: COREG PO SCH (08:20)
[2016-08-10] MEDS ORDERED: LASIX PO SCH (09:00)
[2016-08-10] MEDS ORDERED: ASPIRIN PO SCH (09:00)
[2016-08-10] MEDS ORDERED: CELEXA PO SCH (09:00)
--- NOTE | 2016-08-10 09:35 | PROGRESS NOTE ---
DATE: 08/10/2016 SUBJECTIVE: Patient continues with postsurgical abdominal discomfort not unexpected. She denies any shortness of breath or chest pain. OBJECTIVE: Vital Signs: Blood pressure 130/92, heart rate 85 and regular. Oxygen saturation 100% on 2 L oxygen per nasal cannula. Neck: There is no significant jugular venous distention. Chest: Clear to auscultation. Cardiac: Examination was a regular rate and rhythm without appreciable murmur or gallop. There is no evidence of peripheral edema. IMPRESSION: 1. Status post resection of bleeding gastric ulcer. 2. Severe ischemic cardiomyopathy with left ventricular ejection fraction of 20%. No signs of congestive heart failure. 3. Atherosclerotic coronary disease. Patient continues without angina. 4. Significant chronic obstructive pulmonary disease. 5. Chronic kidney disease. RECOMMENDATIONS: 1. Continue medical management. 2. Continue to monitor volume status. cc: Arpan Sweeney MD
[2016-08-10] MEDS ORDERED: LIPOSYN 20% 250 ML IV SCH (11:22)
[2016-08-10] MEDS: CLINIMIX E 4.25%-5% SOLUTION 1,000 ML IV SCH (11:51)
--- NOTE | 2016-08-10 12:00 | PROGRESS NOTE ---
DATE: 08/10/2016 SUBJECTIVE: Today, Ms. Amaya referred to be doing fine. She did have mild complaints about abdominal discomfort and getting intermittently confused. OBJECTIVE: Vital signs: Blood pressure is 115/89, pulse of 95, respirations 25 , temperature 99.6 degrees. General: Ms. Amaya is a 65-year-old female. She is in bed , does not seem to be in any distress. HEENT: Mucosa is pink, but slightly dry. Anicteric and acyanotic. Neck: Supple. Chest: Good air entry bilateral. Cardiovascular: Regular rate and rhythm. Abdomen: Soft. There is a fresh surgical wound on the anterior abdominal wall which is covered with sterile dressing. Extremities: No pedal edema. LABORATORY DATA: None for today. MEDICATIONS: 1. The patient is currently on morphine pump. 2. Zosyn 3.375 g q.6 hourly. 3. Aspirin 81 mg. 4. Coreg 3.125 b.i.d. 5. Fluconazole. 6. Furosemide 20 mg p.o. daily. SUMMARY OF MEDICAL ISSUE: In general, Ms. Amaya is a 65-year-old female who apparently presented to [place] on 08/06/2016, presumably for shortness of breath and possible CHF exacerbation. During the hospital stay, she was found to have some abdominal discomfort and CT scan was done, which showed pneumoperitoneum. Patient was transferred here and underwent surgery by Dr. Luis Armando Guillen on 08/08/2016, and was found to have perforated gastric ulcer at the greater curvature of the stomach. Exploratory laparotomy was done and a partial gastrectomy was done at the greater curvature. Postoperatively, patient seems to be doing okay. ASSESSMENT: 1. Acute abdomen secondary to perforated peptic ulcer. Patient is status post exploratory laparotomy and a partial gastrectomy. Today is day 3 postoperative. She continues to be n.p.o. and will continue with the IV Protonix for 72 hours total, and subsequently switch it to b.i.d. tomorrow. 2. History of congestive heart failure with ejection fraction of 20%. At this point, patient does not show any remarkable signs of congestive heart failure. We will, however, will be very closely monitoring her intake and output. Cardiology is on board. 3. Pain needs. The patient is currently on [employer] pump. However, I think she is not in that much remarkable pain to be on the pump. We will therefore discontinue the pump and schedule her on p.r.n. Dilaudid. 4. Severe dilated cardiomyopathy secondary to ischemic heart disease noted. 5. Chronic kidney disease, stage 4. The creatinine is at baseline. 6. Clinically dehydrated. The patient looks clinically dry and she has been kept n.p.o. We will therefore start her on very gentle Clinimix at 50 mL/h. 7. Dyslipidemia/hypertension/tobacco abuse. 8. History of chronic obstructive pulmonary disease, currently not in exacerbation. So, in general, I think Ms. Amaya is relatively stable. I will discontinue the pump and schedule her on pain medication. We will put her on Clinimix and lipid infusion for nutritional support, and will be discontinuing all her p.o. medications since she is not getting it anyway. We will be paying strict attention to her intake and output, and her hydration status. cc: Da Uriostegui MD MTDD
[2016-08-10] MEDS: DILAUDID IV PRN ×3 (15:06→23:07)
[2016-08-10] MEDS: REQUIP PO SCH (21:26)
[2016-08-11] MEDS: ZOSYN 3.375 GM/NS 3.375 GM/50 ML IVPB IV SCH ×3 (02:00→15:33)
[2016-08-11] MEDS: LOPRESSOR IV SCH ×4 (02:00→17:48)
[2016-08-11] MEDS: DILAUDID IV PRN ×5 (03:08→20:40)
[2016-08-11] MEDS: CARAFATE LIQUID PO SCH ×2 (04:42→10:40)
[2016-08-11] MEDS: PROTONIX 80 MG in NS 80 ML IV SCH ×2 (05:11→15:33)
[2016-08-11 05:31] LABS: HEMATOCRIT 31.6 % (37.0-47.0); HEMOGLOBIN 9.6 g/dL (12.0-16.0); IMM GRAN# 0.03 X1000 (0.0-0.04); IMM GRAN% 0.3 % (0.0-0.5); LYMPH# 1.07 X1000 (1.2-3.4); MANUAL DIFF NEEDED? YES; MCH 27.9 PG (27-31); MCHC 30.4 g/dL (33-37); MCV 91.9 FL (81-99); MONO# 0.56 X1000 (0.11-0.59); MONO% 5.8 % (1.7-9.3); MPV 11.2 FL (7.4-10.4); NEUT% 82.9 % (42.2-75.2); PLT 286 X1000 (130-400); RBC 3.44 XMIL (4.2-5.4)
[2016-08-11 06:04] LABS: CALCIUM 9.4 mg/dL (8.8-10.2)
[2016-08-11 06:31] LABS: CALCIUM 9.3 mg/dL (8.8-10.2); POTASSIUM 5.2 mmol/L (3.5-5.1)
--- NOTE | 2016-08-11 06:55 | PROGRESS NOTE ---
DATE: 08/11/2016 SUBJECTIVE: No major issues. Patient has been stable overnight. OBJECTIVE: Vital Signs: Patient is currently afebrile. Her vital signs have been stable. General Examination: No acute distress. Resting comfortably. NG tube in place with bilious output. Cardiovascular: Regular rate and rhythm. Lungs: Grossly clear. Abdomen: Soft, appropriately tender. Dressing in place. Laboratory: Reviewed. Hematocrit is stable at 31, platelet count 286,000. Remainder of labs are pending. ASSESSMENT AND PLAN: A 65-year-old, female, postoperative day #3 from an open partial gastrectomy with perforated gastric ulcer. 1. Postoperative state. At this time, we will keep the nasogastric tube in place. I do not want any oral intake. We will keep her a Protonix drip. She is on antibiotics and Diflucan. 2. Multiple medical comorbidities currently being managed by the hospitalist service and cardiology. At this time, I think she is clinically stable to be transferred to the CICU to monitor closely. I do not suspect, given her heart history, that she is quite ready to be going to the regular floor bed yet. cc: Luis Armando Guillen MD
[2016-08-11] MEDS: DUONEB (A & A) INH PRN ×5 (07:33→22:47)
[2016-08-11] MEDS: CLINIMIX E 4.25%-5% SOLUTION 1,000 ML IV SCH (08:24)
[2016-08-11 08:29] LABS: LYMPHS 8 % (21-51); MONO 8 % (1-9)
--- NOTE | 2016-08-11 09:23 | Diag Imaging Result Document ---
PROCEDURE NAME: CHEST-PORTABLE - 08/11/2016 PORTABLE CHEST: TIME: 0855 hours. FINDINGS: There is a perihilar opacity in the left upper lobe, which was not present on 08/05/2016. The heart size remains enlarged. IMPRESSION: Questionable pneumonia, left upper lobe.
--- NOTE | 2016-08-11 09:50 | PROGRESS NOTE ---
DATE: 08/11/2016 SUBJECTIVE: Ms Amaya relates some subjective shortness of breath, but on further questioning it sounds as though she has some increased abdominal discomfort when she takes a breath. She is not wearing oxygen and demonstrates normal oxygen saturation. There has been no chest pain. OBJECTIVE: Vital Signs: Blood pressure of 144/99, heart rate 94 and regular. Neck: Supple without jugular venous distention. Chest: Clear to auscultation. Cardiac exam: Reveals a regular rate and rhythm without appreciable murmur or gallop. Extremities: There is no evidence of peripheral edema. LABORATORY DATA: Lab data includes BUN 80, creatinine 2.2. IMPRESSION: 1. Status post resection of bleeding gastric ulcer. 2. Severe ischemic cardiomyopathy with left ventricular ejection fraction of 20%. No signs of congestive heart failure. 3. Atherosclerotic coronary disease. Patient continues with angina. 4. Chronic obstructive pulmonary disease. 5. Chronic kidney disease. RECOMMENDATION: 1. Continue current cardiovascular regimen with low-dose Coreg and Lasix. 2. Continue to monitor volume status. cc: Arpan Sweeney MD
--- NOTE | 2016-08-11 10:11 | CONSULTATION ---
DATE OF CONSULTATION: 08/11/2016 REASON FOR CONSULTATION: Chronic kidney disease. Worsening renal function. HISTORY OF PRESENT ILLNESS: Ms. Amaya is a 65-year-old, white female, who has known chronic kidney disease with baseline creatinine of approximately 2. She has ischemic heart disease with LVEF in the 15-20% range, as well as COPD, hyperlipidemia, hypertension, restless legs. She was seen by our service in December of last year and we arranged for her to have outpatient follow up, but she did not keep that appointment. She was recently admitted to the hospital here with coughing, shortness of breath. Her syndrome evolved into abdominal pain and pneumoperitoneum that ultimately resulted in an exploratory laparotomy and diagnosis of perforated gastric ulcer that was treated surgically by Dr. Guillen on August 08. In that context, her creatinine was 1.7 on presentation and has risen to 2.2. Chart reviewed. Discloses creatinine ranging between 1.7 and 2.9 within the last 6-8 months. Seems to rise while she is in the hospital. Currently, she complains of abdominal pain and also of thirst. Her recurrent complaint is that she would like something to drink. She has not had a bowel movement or passed gas since her surgery. She did not remember that she had kidney disease. PAST MEDICAL HISTORY: 1. CKD stage 4, as above. 2. Ischemic cardiomyopathy with LVEF of 15-20%. 3. Coronary disease. 4. COPD. 5. Hyperlipidemia. 6. Hypertension. 7. RLS. 8. Medical noncompliance. CURRENT MEDICATIONS: Include Zosyn, sucralfate, ropinirole, pantoprazole, metoprolol, p.r.n. hydromorphone, bicarbonate drip, albuterol, ipratropium. ALLERGIES: None. SOCIAL HISTORY: [facility] [address] [facility]. Still smoking. FAMILY HISTORY/REVIEW OF SYSTEMS: Otherwise noncontributory. OBJECTIVE: Vital Signs: Blood pressure 144/99, heart rate 94, respirations 21, afebrile. Intake cumulative 8.1 L, output 7.1 L. General: No acute distress. Skin: Warm and dry. HEENT: Conjunctivae are pink. Pupils are equal. Oropharynx is dry. Neck: Supple. Trachea is midline. No jugular venous distention. Heart: Irregular. No gallops or rubs. Lungs: Have equal breath sounds. No crackles. Abdomen: Soft and moderately tender diffusely. No guarding. Bowel sounds are not present. Extremities: Have no edema, clubbing, or cyanosis. Neurologic Exam: Grossly nonfocal. LABORATORY DATA: Sodium 147, potassium 5.2, chloride 116. Bicarbonate 15, BUN 80. Creatinine 2.2. Hemoglobin 9.6. IMPRESSION: 1. Chronic kidney disease stage 4. Her creatinine really is within her historical range. Likely, she does have some degree of prerenal azotemia related to her heart and her recent illness. Her fluid balance is acceptable overall and so I will not make any changes to her IV fluid rate. She is developing hypernatremia, but her IV fluids are relatively hypotonic, so I will not make any changes. 2. Metabolic acidosis: Stable on current therapy. 3. I adjusted her Piperacillin dose to q.8 hours. cc: Enmanuel Denney MD
[2016-08-11] MEDS: SODIUM BICARBONATE 8.4% 100 MEQ in D5W 1,000 ML IV SCH (10:40)
[2016-08-11] MEDS ORDERED: ALBUTEROL 0.5% INH CONC FOR HYPERKALEMIA INH ONE (10:56)
[2016-08-11] MEDS ORDERED: CALCIUM GLUCONATE 2 GM in NS 100 ML IV ONE (10:59)
[2016-08-11] MEDS ORDERED: HUMULIN R SUBQ ONE (11:01)
[2016-08-11] MEDS ORDERED: D50W SYRINGE IV ONE (11:01)
--- NOTE | 2016-08-11 11:57 | PROGRESS NOTE ---
DATE: 08/11/2016 SUBJECTIVE: This morning, Ms. Amaya referred to be hurting and she just wants to eat some food, despite the surgeon's recommendation to keep her n.p.o. OBJECTIVE: Vital signs: Blood pressure is 144/99, pulse of 94, respirations 21, and temperature is 97.6 degrees. General: Ms. Amaya is a 65-year-old female. She was in bed in mild painful distress. HEENT: Mucosa is pink and mildly dry. Anicteric. Acyanotic. Neck: Supple. Chest: Good air entry bilaterally. A few bibasilar faint crepitations. Cardiovascular: Regular rate and rhythm. Abdomen: Soft. There is a fresh surgical wound on the anterior abdominal wall which is covered with sterile dressing. Extremities: No pedal edema. Central Nervous System: Patient is alert and oriented x4. LABORATORY DATA: WBC is 9.69, hemoglobin is 9.6, platelet count 286,000. Patient has no bands on the peripheral smear. Chemistry reviewed. Sodium is 147, potassium is 5.2, chloride is 116, bicarbonate is 15, BUN is 80, creatinine is 2.2. PTH is 115. Vitamin D is 7.5. INTERVAL HISTORY: Patient did have a less than 6-second run of ventricular tachycardia on the telemetry monitoring, which I think is probably related to her acid-base as well as the hyperkalemia, so we will aggressively address this. ASSESSMENT: 1. Acute abdomen secondary to perforated gastric peptic ulcer status post exploratory laparotomy and partial gastrectomy. Today is day 4. Patient continues to be n.p.o. and on IV Protonix. 2. History of congestive heart failure. Ejection fraction is 20%. Patient is stable. 3. Acute on chronic kidney disease, stage 4. Creatinine is somewhat baseline. It is a little bit worse, which I think is because patient is looking dry. There might be some prerenal component to this, for which we have added D5 and 100 of bicarbonate for gentle hydration. We will keep a very close eye on her cardiopulmonary status. 4. Dyslipidemia/hypertension/tobacco abuse noted. 5. History of chronic obstructive pulmonary disease, currently not in exacerbation. 6. Secondary hyperparathyroidism likely due to underlying chronic kidney disease. 7. Mild gap metabolic acidosis consistent with the degree of renal disease. 8. Vitamin D deficiency. 9. Hyperphosphatemia, likely due to the underlying renal disease. 10. Short run of ventricular tachycardia. With electrolyte abnormality and acid base abnormality, we would aggressively treat the hyperkalemia with the hyperkalemia protocol and repeat her potassium later this afternoon. In general, Ms. Amaya is relatively stable. She is going to continue with n.p.o., as per the surgeon's orders. Nephrology has been consulted. We are going to add D5 with bicarbonate for hydration. We will keep a very close eye on her cardiopulmonary status, and strict intake and output. We will replace all the other deficiencies once the GI tract is available for use, which will include vitamin D and medication for the secondary hyperparathyroidism. We discussed about her disposition at [facility] today and we plan to discharge her to rehabilitation whenever she is stable, since she has been in hospital for a while and she has generalized physical weakness. cc: Da Uriostegui MD
[2016-08-11 15:25] LABS: CALCIUM 9.9 mg/dL (8.8-10.2); POTASSIUM 4.5 mmol/L (3.5-5.1)
[2016-08-11] MEDS: REQUIP PO SCH (23:39)
[2016-08-12] MEDS: LOPRESSOR IV SCH ×5 (00:18→23:29)
[2016-08-12] MEDS: ZOSYN 3.375 GM/NS 3.375 GM/50 ML IVPB IV SCH ×3 (00:21→16:11)
[2016-08-12] MEDS: DILAUDID IV PRN ×5 (00:22→20:31)
[2016-08-12] MEDS: SODIUM BICARBONATE 8.4% 100 MEQ in D5W 1,000 ML IV SCH ×2 (01:28→15:00)
[2016-08-12] MEDS: PROTONIX IV SCH ×2 (01:29→12:47)
--- NOTE | 2016-08-12 06:37 | PROGRESS NOTE ---
DATE: 08/12/2016 SUBJECTIVE: No major issues. OBJECTIVE: Vital Signs: Patient is currently afebrile. Her vital signs have been stable. General: No acute distress. NG tube in place. Cardiovascular: Regular rate and rhythm. Lungs: Grossly clear. Abdomen: Soft and appropriately tender. Dressing in place. ASSESSMENT AND PLAN: A 65-year-old female postoperative day #4 from open partial gastrectomy with perforated gastric ulcer. 1. Postoperative state. At this time, we will clamp her NG tube. She has had minimal output out of her NG tube and start her on clear liquids. I did not want any carbonated drinks. She is on a Protonix drip. We will keep her on antibiotics and Diflucan. 2. Multiple medical comorbidities currently being managed by the hospitalist service and Cardiology. At this time, I think she is clinically stable enough to be transferred to the CICU but will defer to the other consulting physicians. cc: Luis Armando Guillen MD
[2016-08-12 07:02] LABS: MANUAL DIFF NEEDED? NO
[2016-08-12 07:13] LABS: BASO% 0.1 % (0.0-0.8); EOS# 0.01 X1000 (0.0-0.7); EOS% 0.1 % (0.0-10.0); HEMATOCRIT 34.2 % (37.0-47.0); HEMOGLOBIN 10.9 g/dL (12.0-16.0); IMM GRAN# 0.12 X1000 (0.0-0.04); LYMPH# 0.72 X1000 (1.2-3.4); LYMPH% 6.1 % (20.5-51.1); MCH 27.8 PG (27-31); MCHC 31.9 g/dL (33-37); MCV 87.2 FL (81-99); MONO# 1.01 X1000 (0.11-0.59); MONO% 8.6 % (1.7-9.3); MPV 11.1 FL (7.4-10.4); NEUT% 84.1 % (42.2-75.2); PLT 321 X1000 (130-400); RBC 3.92 XMIL (4.2-5.4)
[2016-08-12] MEDS: DUONEB (A & A) INH PRN ×5 (07:33→22:12)
[2016-08-12 07:47] LABS: ALBUMIN 3.3 g/dL (3.5-5.0); CALCIUM 8.9 mg/dL (8.8-10.2); TOTAL BILIRUBIN 0.48 mg/dL (0.20-1.00); TOTAL PROTEIN 5.7 g/dL (6.3-8.3)
[2016-08-12] MEDS: CLINIMIX E 4.25%-5% SOLUTION 1,000 ML IV SCH (08:02)
[2016-08-12] MEDS ORDERED: CATAPRES-TTS-1 TD SCH (08:45)
--- NOTE | 2016-08-12 09:16 | PROGRESS NOTE ---
DATE: 08/12/2016 SUBJECTIVE: Ms. Amaya continues on NG suction and has some persistent abdominal discomfort. There is no chest pain. She has some perceived dyspnea with normal oxygen saturation on room air. OBJECTIVE: Vital Signs: Blood pressure 142/107, heart rate 106 and regular with ECG monitor showing sinus tachycardia, oxygen saturation 95% to 96% on room air. Neck: There is no significant jugular venous distention. Chest: Clear to auscultation. Cardiac Exam: A regular rate and rhythm without appreciable gallop. Extremities: There is no evidence of peripheral edema. LAB DATA: Lab data includes BUN 80, creatinine 2.2. IMPRESSION: 1. Status post resection of perforated gastric ulcer. 2. Severe ischemic cardiomyopathy with left ventricular ejection fraction 20%. No signs of congestive heart failure. Nonsustained episode of irregular wide complex tachycardia, either nonsustained venous thromboembolism or atrial fibrillation with aberrancy. 3. Atherosclerotic coronary disease. Patient continues to have angina. 4. Chronic obstructive pulmonary disease. 5. Chronic kidney disease. RECOMMENDATIONS: 1. Continue current cardiovascular regimen as permitted. Due to persistent elevated blood pressure, will add low-dose clonidine patch. 2. Continue to monitor volume status. 3. Reasonable for transfer to [facility] from a cardiovascular standpoint. cc: Arpan Sweeney MD
--- NOTE | 2016-08-12 09:46 | PROGRESS NOTE ---
DATE: 08/12/2016 TIME SEEN: 0820. SUBJECTIVE: Ms. Amaya is resting quietly in bed. She is complaining of some chest pain with deep inspiration. Her nurse has just given her some pain medication. OBJECTIVE: Vital signs: Her most recent vital signs, temperature is 98.7 degrees, blood pressure 142/107, heart rate 106, respirations 16. She is currently on room air. Last recorded saturation 95%. She has had 1495 in. She has had 1350 out. She has an NG tube that is in place that had 75 mL of green bile out of that. Labs: Sodium 146, potassium 4.5, chloride 113, CO2 17, BUN 8, creatinine 2.1, glucose 191. Her anion gap is 16, calcium 9.9. Her PTH is 115. White count 11.73, hemoglobin 10.9, hematocrit 34.2, with a platelet count of 321,000. Blood culture came back showing micrococcus species; sensitivity still pending. PHYSICAL EXAMINATION: General: This is a 65-year-old, elderly female who appears older than her stated age. She is in mild acute distress with just recent medication given for pain. Skin: Warm and dry. HEENT: Normocephalic, atraumatic. Conjunctivae pink. She has ZAC. Mucous membranes are moist. NG tube to the left nares with large amounts of bile green material now flowing out of it to intermittent suction. Neck: Supple. Trachea midline. No JVD. Cardiovascular: Regular rate and rhythm. She is having frequent PVCs. No gallops or murmurs. Lungs: Clear to auscultation with faint crackle to the left posterior base. She is currently on room air. Good saturation. Abdomen: Soft. Moderate tenderness. NG tube remains in place. No guarding. Bowel sounds x4 quadrants. Genitourinary: Khan catheter is in place. Extremities: No edema. No clubbing or cyanosis. Integumentary: The patient has different stages of ecchymosis to both upper and lower extremities. She does have some swelling to the right upper arm above an IV site which is to be evaluated by the nurse. Neurological: Alert and oriented x2. ASSESSMENT AND PLAN: 1. Chronic kidney disease stage 4. Her baseline creatinine appears to be 1.8 to 1.9. She is close to this historical range. Her fluid balance is acceptable. She is close to equal in and out. No changes to her IV fluids at this time. 2. Metabolic acidosis. She has a sodium bicarbonate drip in place. 3. Positive blood cultures. Patient has piperacillin dosed to renal dosing. I would like to thank you for allowing us to follow with this patient. Seen, data reviewed, discussed with Scottie Smiley on 08/12/16. I agree with the above assessment and plan of care. rg Dictated by VERONICA Calles for Enmanuel Denney MD cc: VERONICA Calles MD [facility]
[2016-08-12] MEDS ORDERED: SODIUM CHLORIDE 0.9% 10 ML ONE (12:41)
--- NOTE | 2016-08-12 15:10 | PROGRESS NOTE ---
DATE: 08/12/2016 SUBJECTIVE: Today, Ms. Amaya referred to be fine. He continues to have some abdominal discomfort. The patient was evaluated today by Surgery. They plan to clamp the NG tube and hopefully be able to take it out tomorrow. For now, she continues to be n.p.o. OBJECTIVE: Vital signs: Blood pressure is 155/105, pulse is 101, respirations 14, temperature is 98.3 degrees. General: Ms. Amaya is a 65-year-old female. She is in bed, not in any cardiorespiratory distress. HEENT: Mucosa is pink, slightly dry. Anicteric. Acyanotic. Neck: Supple. Chest: Air entry is bilaterally reduced. There are a few bibasilar crepitations, which were not there yesterday. Cardiovascular: Regular rate and rhythm. No murmurs. No rubs. No gallops. Abdomen: Soft. Mildly tender around the surgical wound, which is covered with sterile dressing. Extremities: No pedal edema. Central Nervous System: Patient is alert and oriented x4. Musculoskeletal: There is some fluid retention at the bilateral lower chest wall laterally on both size. LABORATORY AND DIAGNOSTIC IMAGING: WBC is 11.73, hemoglobin is 10.9, platelet count of 325,000. Chemistries are remarkably improved. Sodium is 145, potassium is 4.0, chloride is 106, bicarbonate is 21, creatinine is down to 1.5. Chest x-ray done yesterday shows perihilar opacity in the left upper lobe, which was not present. Questionable pneumonia, left upper lobe. Blood cultures have been 5 days negative and 48 hours also negative on repeat. ASSESSMENT: 1. Acute abdomen secondary to perforated gastric ulcers status post exploratory laparotomy and partial gastrectomy. Today is day 5. 2. History of congestive heart failure. Ejection fraction of 20%. 3. Acute on chronic kidney disease, stage 4. The patient has shown remarkable improvement with IV fluids. I think that was prerenal azotemia on top of his chronic kidney disease. 4. Chronic obstructive pulmonary disease, currently not in exacerbation. 5. Secondary hyperparathyroidism due to underlying chronic kidney disease. 6. Mild gap metabolic acidosis consistent with the degree of renal disease. This is slightly improving with the fluids. 7. Vitamin D deficiency. 8. Hyperphosphatemia. 9. Hyperkalemia, improved. 10. Questionable left upper lobe pneumonia. Patient is, however, on antibiotics and seems to be stable. In general, Ms. Amaya seems to be stable after the surgery. Renal function has significantly improved and she is making very adequate urine with an output today of 2700. Acid base is also gradually improving. She seems to be retaining fluid and, because of her renal disease and poor ejection fraction, I am going to back off on the IV fluids now. I will reduce the rate on the D5 bicarbonate to only 30 mL/h, continue with the Clinimix at 50 mL/h for a total of 80 mL/h of fluids. I will do a chest x-ray to follow up on her lungs and monitor closely her intake and output, and her cardiopulmonary status. Patient is clinically stable, so I think if we are pressed for beds, we can move her to [facility]. cc: Da Uriostegui MD
[2016-08-12] MEDS ORDERED: MORPHINE IV ONE (15:38)
[2016-08-12] MEDS: ATIVAN IV PRN (16:14)
[2016-08-12] MEDS: REQUIP PO SCH (20:31)
[2016-08-13] MEDS: ZOSYN 3.375 GM/NS 3.375 GM/50 ML IVPB IV SCH ×4 (00:23→23:37)
[2016-08-13] MEDS: PROTONIX IV SCH ×2 (00:24→14:00)
[2016-08-13] MEDS: DUONEB (A & A) INH PRN ×5 (02:32→23:31)
[2016-08-13] MEDS: ATIVAN IV PRN ×3 (04:01→20:42)
[2016-08-13] MEDS: CLINIMIX E 4.25%-5% SOLUTION 1,000 ML IV SCH ×2 (04:06→23:37)
[2016-08-13] MEDS: LOPRESSOR IV SCH ×4 (05:07→23:09)
[2016-08-13] MEDS ORDERED: BLISTEX MEDICATED BERRY LIP BALM TOP PRN (06:00)
[2016-08-13] MEDS: DILAUDID IV PRN ×3 (06:07→18:00)
--- NOTE | 2016-08-13 07:57 | PROGRESS NOTE ---
DATE: 08/13/2016 SUBJECTIVE: Patient doing well. Tolerating clear liquid diet. No major issues reported by the nursing staff. OBJECTIVE: Vital Signs: Patient is currently afebrile. Her vital signs have been stable. General: No acute distress. Resting comfortably. Cardiovascular: Regular rate and rhythm. Lungs: Grossly clear. Abdomen: Soft. Appropriately tender to palpation. Nondistended. Incision clean, dry, and intact. LABORATORY DATA: Currently pending. Labs from yesterday reviewed. ASSESSMENT AND PLAN: This is a 65-year-old female, currently postoperative day 5 from a partial gastrectomy for perforated gastric ulcer. 1. Postoperative state at this time. Patient is tolerating clear liquids. We will advance her to full liquid diet and monitor. Will keep her on antibiotics and Diflucan. 2. Multiple medical comorbidities. Currently being managed by the hospitalist service. cc: Luis Armando Guillen MD
--- NOTE | 2016-08-13 08:49 | Diag Imaging Result Document ---
PROCEDURE NAME: CHEST-PORTABLE - 08/13/2016 SINGLE FRONTAL RADIOGRAPH OF THE CHEST: COMPARISON: 08/11/2016. FINDINGS: Left upper lobe consolidation appears to have worsened marginally. There is more questionable developing infiltrate at the left lower lung zone as well. No other new consolidation is identified. Cardiac silhouette is stable. IMPRESSION: Marginal worsening of infiltrate at the left upper lung zone and possible developing infiltrate at the left lung base.
[2016-08-13 09:10] LABS: BASO% 0.2 % (0.0-0.8); EOS# 0.02 X1000 (0.0-0.7); EOS% 0.2 % (0.0-10.0); HEMATOCRIT 32.5 % (37.0-47.0); HEMOGLOBIN 10.3 g/dL (12.0-16.0); IMM GRAN# 0.31 X1000 (0.0-0.04); IMM GRAN% 2.7 % (0.0-0.5); LYMPH# 0.78 X1000 (1.2-3.4); LYMPH% 6.7 % (20.5-51.1); MANUAL DIFF NEEDED? YES; MCH 27.8 PG (27-31); MCHC 31.7 g/dL (33-37); MCV 87.8 FL (81-99); MONO% 10.3 % (1.7-9.3); MPV 10.7 FL (7.4-10.4); NEUT% 79.9 % (42.2-75.2); PLT 246 X1000 (130-400)
[2016-08-13 09:14] LABS: ALBUMIN 2.9 g/dL (3.5-5.0); CALCIUM 8.3 mg/dL (8.8-10.2); POTASSIUM 3.3 mmol/L (3.5-5.1); TOTAL BILIRUBIN 0.28 mg/dL (0.20-1.00); TOTAL PROTEIN 5.7 g/dL (6.3-8.3)
[2016-08-13 09:16] LABS: LYMPHS 6 % (21-51); MONO 10 % (1-9)
[2016-08-13 09:17] LABS: HYPOCHROM 1+
[2016-08-13] MEDS: ZYVOX 600 MG/D5W 600 MG/300 ML IVPB IV SCH ×2 (09:52→22:26)
[2016-08-13] MEDS ORDERED: SODIUM CHLORIDE 0.9% 10 ML ONE (14:41)
[2016-08-13] MEDS: SODIUM BICARBONATE 8.4% 100 MEQ in D5W 1,000 ML IV SCH (14:44)
[2016-08-13] MEDS ORDERED: NS 1,000 ML IV SCH ×2 (14:45→17:07)
--- NOTE | 2016-08-13 15:05 | PROGRESS NOTE ---
DATE: 08/13/2016 SUBJECTIVE: She is awake, but saying she feels bad. Complaining of pain and shortness of breath. OBJECTIVE: Vital Signs: Blood pressure 137/85, heart rate 95, respirations 12, afebrile. General: She is awake and alert. Somewhat irritated. She has Paulie-Cintron breathing. Pupils are equal. Neck: Neck veins are not distended. Heart: Irregular and tachycardic with a murmur. Lungs: Have equal breath sounds with Paulie-Cintron breathing. Abdomen: Soft, nontender. Bowel sounds not appreciated. Extremities: Have no edema, clubbing, or cyanosis. LABORATORY DATA: Sodium 143, potassium 3.3, chloride 102, bicarbonate 34, BUN 50, creatinine 1.2. IMPRESSION: Acute kidney injury. Excellent urine output and her creatinine continues to fall daily. Electrolytes are acceptable. Bicarbonate is rising. I will stop her IV bicarbonate drip and begin normal saline. No other medical changes are required at this time. We will follow as needed. cc: Enmanuel Denney MD
[2016-08-13] MEDS ORDERED: LASIX IV ONE (15:27)
[2016-08-13] MEDS: POTASSIUM CHLORIDE 20 MEQ/SWI 20 MEQ/100 ML IVPB IV SCH ×2 (15:38→17:56)
--- NOTE | 2016-08-13 15:47 | PROGRESS NOTE ---
DATE: 08/13/2016 SUBJECTIVE: Patient relates some shortness of breath. She appears somewhat anxious. There is no chest pain. OBJECTIVE: Vital Signs: Blood pressure 137/85, heart rate 95 and regular. Oxygen saturation 100% on 2 L oxygen per nasal cannula. General: Patient appears anxious. Neck: There is no significant JV distention. Chest: Auscultation reveals inspiratory crackles in the bases bilaterally. Cardiac Exam: Was a regular rate and rhythm without appreciable murmur, gallop. Extremities: There is no evidence of peripheral edema. DIAGNOSTIC DATA: Chest x-ray reports marginal worsening infiltrate in the left upper lung zone and possible developing infiltrate in left lung base. IMPRESSION: 1. Status post resection of perforated gastric ulcer. 2. Severe ischemic cardiomyopathy with left ventricle ejection fraction 20%. Patient may be manifesting some early signs of congestive heart failure. 3. Atherosclerotic coronary disease. Patient continues with angina. 4. Chronic obstructive pulmonary disease. 5. Chronic kidney disease. 6. Dyspnea symptoms. Besides early congestive heart failure, atelectasis and anxiety may be contributing. RECOMMENDATIONS: 1. Gentle diuresis. 2. Continue clonidine for blood pressure while patient is still NPO. 3. Incentive spirometry. cc: Arpan Sweeney MD
--- NOTE | 2016-08-13 17:26 | PROGRESS NOTE ---
DATE: 08/13/2016 Today Ms. Amaya referred to be doing fine. She did not actually have any major complaints. OBJECTIVE: Vital signs: Blood pressure is 121/66, pulse is 70, respirations 18 , temperature is 97.3 degrees. General: Ms. Amaya is a 65-year-old female. She was in bed and did not seem to be in any distress. HEENT: Mucosa is pink and moist. Anicteric. Acyanotic. Neck: Supple. I did not see any JVD. Chest: Air entry is bilaterally reduced. There are a few bibasilar crepitations. Cardiovascular: Regular rate and rhythm. No murmurs, no rubs. No gallops. Abdomen: Soft and mildly tender around the surgical wound. Extremities: No pedal edema. TECHNICAL MAINTENANCE SPECIALIST: Patient is alert and oriented. LABORATORY DATA: WBC is 11.66, hemoglobin is 10.3, platelet count of 246,000. Chemistry is reviewed. Sodium is 143, potassium is 3.3, chloride is 102, bicarb is 24, creatinine is down to 1.5. A chest x-ray which was done early today shows marginal worsening of infiltrate at the left upper zone and possible developing infiltrates at the left lung base. ASSESSMENT: 1. Acute abdomen secondary to perforated gastric ulcer status post exploratory laparotomy and partial gastrectomy. Today is day 5 postop. 2. History of congestive heart failure. Ejection fraction of 20%, stable. 3. Acute on chronic kidney disease stage 4. The patient is getting very adequate urine output and kidney functions have remarkably improved over the course of the hospital stay. 4. History of COPD not in exacerbation. 5. Multifocal infiltrates concerning for pneumonia. We will therefore start the patient on antibiotics especially because her white count is also slightly elevated. 6. Secondary hyperparathyroidism due to underlying chronic kidney disease. 7. Vitamin D deficiency. 8. Hyperphosphatemia. So in general, I think Ms. Amaya is relatively stable. I think she is probably starting to retain some fluid around the abdominal wall and also the chest findings are also consistent with crackles especially in the lower base. The patient is currently having Clinimix at 50 and sodium chloride at 75. We will go ahead and reduce the sodium chloride to 50 so she will get a total of 100 mL/h of fluid and pay very critical attention to her volume status and cardiopulmonary status. cc: Da Uriostegui MD MTDD
[2016-08-13] MEDS: REQUIP PO SCH (20:42)
[2016-08-13] MEDS: PATIENT'S OWN MED PO SCH (20:43)
[2016-08-13] MEDS: DESYREL PO SCH (22:28)
[2016-08-14] MEDS: PROTONIX IV SCH ×2 (01:16→15:03)
[2016-08-14] MEDS: DUONEB (A & A) INH PRN ×5 (03:16→19:24)
[2016-08-14] MEDS: LOPRESSOR IV SCH ×3 (05:04→18:48)
[2016-08-14 05:32] LABS: ALBUMIN 2.4 g/dL (3.5-5.0); CALCIUM 8.4 mg/dL (8.8-10.2); POTASSIUM 3.8 mmol/L (3.5-5.1)
[2016-08-14 06:06] LABS: BASO% 0.3 % (0.0-0.8); EOS# 0.33 X1000 (0.0-0.7); EOS% 2.8 % (0.0-10.0); HEMOGLOBIN 9.9 g/dL (12.0-16.0); IMM GRAN% 2.5 % (0.0-0.5); LYMPH# 1.41 X1000 (1.2-3.4); LYMPH% 11.9 % (20.5-51.1); MANUAL DIFF NEEDED? YES; MCHC 31.9 g/dL (33-37); MCV 87.6 FL (81-99); MONO# 1.28 X1000 (0.11-0.59); MONO% 10.8 % (1.7-9.3); MPV 11.1 FL (7.4-10.4); NEUT% 71.7 % (42.2-75.2); PLT 243 X1000 (130-400); RBC 3.54 XMIL (4.2-5.4)
[2016-08-14 06:14] LABS: BANDS 8 % (0-1); EOS 2 % (1-10); LYMPHS 12 % (21-51); MONO 10 % (1-9)
[2016-08-14] MEDS: ZOSYN 3.375 GM/NS 3.375 GM/50 ML IVPB IV SCH ×2 (07:57→15:10)
[2016-08-14] MEDS: DILAUDID IV PRN ×4 (08:04→21:23)
[2016-08-14] MEDS: VITAMIN D PO SCH (10:07)
--- NOTE | 2016-08-14 10:52 | PROGRESS NOTE ---
DATE: 08/14/2016 SUBJECTIVE: Today, Ms. Amaya referred to be doing fine. According to the nurses, she is tolerating her full liquid diet but she just does not want to eat. OBJECTIVE: Vital signs: Blood pressure is 106/69, pulse of 71, respirations 20 , temperature 98.5. The patient was saturating 100% on 2 L of oxygen. General: Ms. Amaya is a 65-year-old female. She was in bed, did not seem to be in any remarkable distress. HEENT: Mucosa is pink. Anicteric and acyanotic. Neck: Supple. There is 1+ JVD. Chest: Air entry is bilaterally reduced. There are a few bibasilar crepitations. Cardiovascular: Regular rate and rhythm, no murmurs, no gallops. Abdomen: Soft. Mildly tender around the surgical wound. I took a look at the surgical wound on anterior abdominal wall. It is clean in the frontal area with clips, and there are no signs of infection. Bowel sounds were present. SCALE TANK OPERATOR: The patient is alert and oriented x4. Extremities: No pedal edema. LABORATORY DATA: WBC is 11.80, hemoglobin is 9.9, platelet count is 243. There are 8% bands. Chemistries reviewed: Potassium is normal. Creatinine continues to be 1.2. BUN is 43. ASSESSMENT: 1. Acute abdomen secondary to perforated gastric ulcer status post exploratory laparotomy and partial gastrectomy. Today is day 6 postop. NG tube has been removed. The patient is tolerating a full liquid diet. We are going to continue with this. 2. History of congestive heart failure with an ejection fraction of 20%. The patient does have a little bit of JVD and mild congestion in the lung. I will, therefore, discontinue the fluid at this point. 3. Acute on chronic kidney disease, stage 4. Renal function has remarkably improved. The patient is making adequate urine, and I think the creatinine of 1.2 now is her baseline. I do not think we will get any more improvement with even the fluid. I would, therefore, go ahead and discontinue this, since she seems to be retaining fluid now. 4. History of chronic obstructive pulmonary disease, not in exacerbation. 5. Multifocal infiltrates on x-rays of the lungs, concerning for pneumonia. The patient is currently on antibiotics. 6. Secondary hyperparathyroidism due to underlying chronic kidney disease and Vitamin D deficiency. 7. Hyperphosphatemia. 8. Vitamin D deficiency. In general, I think Ms. Amaya is doing better. She is tolerating her full liquid diet. We are going to discontinue the Khan catheter. We will discontinue the IV fluids. We are going to continue with 50 mL of Clinimix for diet supplement. We will move her from the ICU to a regular floor. We will start supplementing her vitamins. cc: Da Uriostegui MD MTDRachel
--- NOTE | 2016-08-14 11:10 | PROGRESS NOTE ---
DATE: 08/14/2016 SUBJECTIVE: No events overnight. She is tolerating p.o. OBJECTIVE: Vital signs: No fevers. Pulse is 78, blood pressure 106/69, oxygen saturation 100% on 2 L nasal cannula. General: She is somewhat agitated this morning. Alert but not really following. Abdomen: Soft, nontender, nondistended. Incision is clean, dry and intact. LABS: I reviewed her labs. White count is 11, hematocrit is stable at 31, creatinine is 1.2. ASSESSMENT AND PLAN: A 65-year-old female with cardiomyopathy who presented with gastric perforation status post partial gastrectomy. She is doing well. She is on full liquids. From a cardiopulmonary standpoint, she is doing okay. Will continue medical management. Will need physical therapy, out of bed as much as tolerated. Will keep her on full liquids for now. cc: Lacho Sanders MD
[2016-08-14] MEDS: ATIVAN IV PRN ×2 (15:03→21:22)
[2016-08-14] MEDS: CLINIMIX E 4.25%-5% SOLUTION 1,000 ML IV SCH (21:21)
[2016-08-14] MEDS: CULTURELLE PO SCH (21:22)
[2016-08-14] MEDS: REQUIP PO SCH (21:23)
[2016-08-14] MEDS: ZYVOX PO SCH (21:23)
[2016-08-14] MEDS: DESYREL PO SCH (21:23)
[2016-08-15] MEDS: PROTONIX IV SCH ×3 (00:05→23:51)
[2016-08-15] MEDS: ZOSYN 3.375 GM/NS 3.375 GM/50 ML IVPB IV SCH ×4 (00:05→23:50)
[2016-08-15] MEDS: LOPRESSOR IV SCH ×5 (00:06→23:55)
[2016-08-15] MEDS: DILAUDID IV PRN ×5 (03:39→23:51)
[2016-08-15 06:15] LABS: MANUAL DIFF NEEDED? NO
[2016-08-15 06:21] LABS: BASO% 0.2 % (0.0-0.8); EOS# 0.52 X1000 (0.0-0.7); EOS% 4.7 % (0.0-10.0); HEMATOCRIT 31.5 % (37.0-47.0); HEMOGLOBIN 9.9 g/dL (12.0-16.0); IMM GRAN# 0.29 X1000 (0.0-0.04); IMM GRAN% 2.6 % (0.0-0.5); LYMPH% 13.5 % (20.5-51.1); MCH 27.7 PG (27-31); MCHC 31.4 g/dL (33-37); MCV 88.2 FL (81-99); MONO# 1.21 X1000 (0.11-0.59); MONO% 10.9 % (1.7-9.3); MPV 11.3 FL (7.4-10.4); NEUT% 68.1 % (42.2-75.2); PLT 274 X1000 (130-400); RBC 3.57 XMIL (4.2-5.4)
[2016-08-15 06:57] LABS: ALBUMIN 2.6 g/dL (3.5-5.0); CALCIUM 8.4 mg/dL (8.8-10.2); POTASSIUM 3.7 mmol/L (3.5-5.1)
[2016-08-15] MEDS: DUONEB (A & A) INH PRN ×2 (07:35→15:53)
[2016-08-15] MEDS: VITAMIN D PO SCH (08:02)
[2016-08-15] MEDS: CULTURELLE PO SCH ×2 (08:02→22:18)
[2016-08-15] MEDS: LASIX PO SCH (08:02)
[2016-08-15] MEDS: ZYVOX PO SCH ×2 (08:02→21:41)
--- NOTE | 2016-08-15 13:03 | Diag Imaging Result Document ---
PROCEDURE NAME: CHEST-PORTABLE - 08/15/2016 PORTABLE CHEST X-RAY 08/15/2016: COMPARISON: 08/13/2016 FINDINGS: There has been resolution of the left upper lobe infiltrate. There is probably some hazy infiltrate in the left lung base similar to prior. Stable significant cardiomegaly. IMPRESSION: Improvement from prior most notably at the left upper lobe.
[2016-08-15] MEDS: ATIVAN IV PRN (14:07)
--- NOTE | 2016-08-15 16:51 | PROGRESS NOTE ---
DATE: 08/15/2016 SUBJECTIVE: Today Ms. Amaya referred to be doing fine. She denies any complaint. She has had a bowel movement and she seems to be tolerating a clear liquid diet. OBJECTIVE: Vital signs: Blood pressure is 134/80, pulse is 89, respirations 20, temperature is 98.2 degrees. General: Ms. Amaya is a 65-year-old female. She was in bed. Did not seem to be in any remarkable distress. HEENT: Mucosa is pink and moist. Anicteric. Acyanotic. Neck: Supple. Chest: Air entry is bilaterally reduced. Just a few bibasilar crepitations. Cardiovascular: Regular rate and rhythm. No murmurs. No rubs. No gallops. Abdomen: Soft, nontender. There is a surgical wound on the anterior abdominal wall which is covered with sterile dressing. Extremities: No pedal edema. PRESIDENT ERGONOMIC CONSULTING: Patient is alert and oriented. LABORATORY DATA: WBC is 11.13, hemoglobin is 9.9, platelet count of 274,000. Chemistry is reviewed. Creatinine is down to 1.2. BUN is 42. A chest x-ray done this morning shows improvement from prior, most notably at the upper left lobe. ASSESSMENT: 1. Acute abdomen secondary to perforated gastric ulcer status post exploratory laparotomy and partial gastrectomy. Today is day 6 postop. The patient is tolerating a full liquid diet. 2. History of congestive heart failure with an ejection fraction of 20%. 3. Acute on chronic kidney disease stage 4. Patient's current creatinine is 1.1 which seems to be a new baseline. 4. History of chronic obstructive pulmonary disease. Currently not in exacerbation. 5. Multifocal infiltrate on x-ray concerning for pneumonia. Patient is currently on antibiotics. 6. Secondary hyperparathyroidism. 7. Vitamin D deficiency. 8. Protein calorie malnutrition. 9. Generalized deconditioning. PLAN: In general Ms. Amaya is stable. We are going to encourage her to start moving around and also get the staff to put her up in a chair at least twice per day. We will order physical therapy. We will continue advancing her diet as per surgery's recommendations. cc: Da Uriostegui MD
[2016-08-15] MEDS: ALBUTEROL NEB INH PRN (19:46)
[2016-08-15] MEDS: CLINIMIX E 4.25%-5% SOLUTION 1,000 ML IV SCH (21:40)
[2016-08-15] MEDS: REQUIP PO SCH (21:41)
[2016-08-15] MEDS: DESYREL PO SCH (21:41)
[2016-08-16] MEDS: ATIVAN IV PRN ×3 (00:54→19:29)
[2016-08-16] MEDS: PROTONIX IV SCH ×2 (01:02→13:57)
--- NOTE | 2016-08-16 02:44 | PROGRESS NOTE ---
DATE: 08/15/2016 SUBJECTIVE: Doing okay, was transferred to the floor, no issues. She is having bowel function and tolerating a modified diet. She does have some delirium type symptoms. OBJECTIVE: Vital signs: No fevers. Pulse 89, blood pressure 134/80. Abdomen: Soft, nontender, nondistended. Incision is clean, dry and intact. Neuro: She is alert but somewhat disoriented. LABS: White count stable at 11, hematocrit 31, reviewed the rest of her labs. ASSESSMENT AND PLAN: A 65-year-old female status post partial gastrectomy. She is overall clinically improving. Will continue monitor. cc: Lacho Sanders MD
[2016-08-16] MEDS: DILAUDID IV PRN ×5 (03:43→20:50)
[2016-08-16 06:13] LABS: MANUAL DIFF NEEDED? NO
[2016-08-16 06:21] LABS: BASO% 0.2 % (0.0-0.8); EOS# 0.47 X1000 (0.0-0.7); EOS% 4.4 % (0.0-10.0); HEMATOCRIT 32.3 % (37.0-47.0); IMM GRAN# 0.34 X1000 (0.0-0.04); IMM GRAN% 3.2 % (0.0-0.5); LYMPH# 1.54 X1000 (1.2-3.4); LYMPH% 14.6 % (20.5-51.1); MCH 27.4 PG (27-31); MCV 88.5 FL (81-99); MONO# 1.13 X1000 (0.11-0.59); MONO% 10.7 % (1.7-9.3); MPV 11.3 FL (7.4-10.4); NEUT% 66.9 % (42.2-75.2); PLT 291 X1000 (130-400); RBC 3.65 XMIL (4.2-5.4)
[2016-08-16 06:33] LABS: ALBUMIN 2.8 g/dL (3.5-5.0); CALCIUM 8.5 mg/dL (8.8-10.2); POTASSIUM 3.7 mmol/L (3.5-5.1)
--- NOTE | 2016-08-16 06:34 | PROGRESS NOTE ---
DATE: 08/16/2016 SUBJECTIVE: Patient doing okay. Reviewed notes from the weekend. OBJECTIVE: Vital Signs: Patient is currently afebrile. Her vital signs have been stable. General: No acute distress. Cardiovascular: Regular rate and rhythm. Lungs: Grossly clear. Abdomen: Soft, nontender, nondistended. ASSESSMENT AND PLAN: A 65-year-old female, status post partial gastrectomy for gastric perforation. Multiple medical comorbidities. 1. Postoperative state at this time- patient is tolerating full liquid diet having bowel movement. We will start her on a GI soft diet. 2. Multiple medical comorbidities currently being managed by the hospitalist service. Anticipate patient will need some degree of rehab facility after all her deconditioning and medical issues in this perioperative state. We will need social service director to evaluate the patient. cc: Luis Armando Guillen MD
[2016-08-16] MEDS: LOPRESSOR IV SCH ×3 (06:37→18:32)
[2016-08-16] MEDS: DUONEB (A & A) INH PRN ×3 (07:58→15:38)
[2016-08-16] MEDS: ZYVOX PO SCH ×2 (08:15→20:50)
[2016-08-16] MEDS: LASIX PO SCH (08:15)
[2016-08-16] MEDS: ZOSYN 3.375 GM/NS 3.375 GM/50 ML IVPB IV SCH ×2 (08:15→16:07)
[2016-08-16] MEDS: CULTURELLE PO SCH ×2 (08:16→20:50)
[2016-08-16] MEDS: VITAMIN D PO SCH (08:16)
--- NOTE | 2016-08-16 10:29 | PROGRESS NOTE ---
DATE: 08/16/2016 SUBJECTIVE: Today Ms. Amaya referred to be doing fine. Denies any major complaints. Still has some soreness on the abdomen from the surgery. OBJECTIVE: Vital signs: Blood pressure is 129/84, pulse is 77, respirations 18 , temperature is 98.5 degrees. General: Ms. Amaya is a 65-year-old female. She is in bed and seems to be in any distress. HEENT: Mucosa is pink and moist. Anicteric. Acyanotic. Neck: Supple. Chest: Good air entry bilateral. There are a few bibasilar crepitations. Cardiovascular: Regular rate and rhythm. There is a 2/6 NH murmur. No gallops no rubs. Abdomen: Soft, nontender. The surgical wound is affronted with clips. It looks clean and there is no sign of infection. Bowel sounds are present and they are normal. Extremities: No pedal edema. INSIDE SALES ACCOUNT MANAGER: Patient is alert and oriented. There is no focal neurological deficit. LABORATORY DATA: WBC is improved to 10.57, hemoglobin is 10.0, platelet count is 291,000. Chemistry is reviewed. BUN is 36 and creatinine is 1.2. ASSESSMENT: 1. Acute abdomen secondary to perforated gastric ulcer status post exploratory laparotomy and partial gastrectomy. Today is day 7 postop. Patient is tolerating a full liquid diet. This has been advanced to GI soft diet. 2. History of congestive heart failure. Ejection fraction is 20%. 3. Acute on chronic kidney disease. Creatinine is I think at baseline now. 4. History of chronic obstructive pulmonary disease, currently not in exacerbation. 5. Multifocal infiltrates on x-ray concerning for pneumonia. Patient is being treated with antibiotics including Zyvox and Zosyn. We are going to change the Zosyn to also p.o. to complete a total of 10 days of pneumonia treatment. Today will be day 6 on antibiotics. 6. Secondary hyperparathyroidism. 7. Vitamin D deficiency. We will start to replace this since patient is tolerating p.o. 8. Protein calorie malnutrition. The patient is getting supplement diets. 9. Generalized deconditioning. We will get physical therapy to start working with the patient. We will also consult school social worker for rehab placement. I think in general Mr. Amaya is doing fine. She is progressively improving after the surgery. We are going to switch most of her medications to p.o. We will discontinue the Clinimix as she tolerates oral diet and we will advance her diet. Patient has a rehab bed in [facility]. Can be discharged tomorrow if she is tolerating her diet and ok with surgery. cc: Da Uriostegui MD MTDD
--- NOTE | 2016-08-16 15:38 | PROGRESS NOTE ---
DATE: 08/16/2016 SUBJECTIVE: Ms Amaya continues without shortness of breath or chest discomfort. Postoperative abdominal discomfort is progressively improving. OBJECTIVE: Vital Signs: Blood pressure 124/70, heart rate 76 and regular. Neck: There is no significant JV distention. Chest: Auscultation chest reveals few bibasilar crackles. Cardiac Exam: A regular rate and rhythm without appreciable murmur or gallop. There is no evidence of peripheral edema. IMPRESSION: 1. Status post partial gastrectomy for perforated gastric ulcer. 2. Ischemic cardiomyopathy with left ejection fraction 20%. 3. Chronic obstructive pulmonary disease. RECOMMENDATIONS: Transition back to usual cardiovascular medications now that patient is taking oral intake. cc: Arpan Sweeney MD
[2016-08-16] MEDS: ALBUTEROL NEB INH PRN (19:20)
[2016-08-16] MEDS: DESYREL PO SCH (20:49)
[2016-08-16] MEDS: REQUIP PO SCH (20:49)
[2016-08-17] MEDS: ZOSYN 3.375 GM/NS 3.375 GM/50 ML IVPB IV SCH ×3 (00:57→16:55)
[2016-08-17] MEDS: PROTONIX IV SCH ×2 (00:57→16:25)
[2016-08-17] MEDS: LOPRESSOR IV SCH ×4 (00:57→18:11)
[2016-08-17] MEDS: ATIVAN IV PRN ×2 (00:57→05:11)
--- NOTE | 2016-08-17 06:02 | PROGRESS NOTE ---
DATE: 08/17/2016 SUBJECTIVE: Patient with continued bowel movements. Tolerating her GI soft diet. Notes reviewed from consulting physicians. OBJECTIVE: Vital Signs: Patient is currently afebrile. Her vital signs have been stable. General Examination: No acute distress. Sitting comfortably in bed. Cardiovascular: Regular rate and rhythm. Lungs: Grossly clear. Abdomen: Soft, appropriately tender. Incision healing. ASSESSMENT/PLAN: A 65-year-old, female, status post partial gastrectomy for gastric perforation with multiple medical comorbidities. 1. Postoperative state. At this time, patient has tolerated a gastrointestinal soft diet. From a surgical point of view, she is having bowel movements and will likely be discharged. 2. Multiple medical comorbidities, currently being managed by the hospitalist service. 3. I anticipate the patient will need some degree of rehabilitation given her deconditioning and other medical issues. Once this can be arranged, I think from a surgical point of view, she can be discharged. cc: Lusi Armando Guillen MD
[2016-08-17] MEDS: DUONEB (A & A) INH PRN ×3 (08:18→15:41)
[2016-08-17] MEDS: DILAUDID IV PRN ×2 (08:26→12:37)
[2016-08-17] MEDS: ZYVOX PO SCH (08:34)
[2016-08-17] MEDS: LASIX PO SCH (08:34)
[2016-08-17] MEDS: CULTURELLE PO SCH (08:34)
[2016-08-17] MEDS: VITAMIN D PO SCH (08:34)
[2016-08-17] MEDS ORDERED: PRINIVIL PO SCH (09:00)
[2016-08-17] MEDS ORDERED: SODIUM CHLORIDE 0.9% 0 ML ONE (09:31)
--- NOTE | 2016-08-17 16:16 | DISCHARGE SUMMARY ---
ADMISSION DATE: 08/05/2016 DISCHARGE DATE: 08/17/2016 CONSULTATIONS: Dr. Luis Armando Guillen with General Surgery. Dr. Arpan Sweeney with Cardiology. Dr. Enmanuel Denney with Nephrology. PERTINENT PROCEDURES: 1. Chest CT showed marked cardiomegaly with a small pericardial effusions and bilateral pleural effusions and no bibasilar atelectasis. Stable ascending aortic aneurysm. 2. Abdominal pelvis CT showed a large amount of free intraperitoneal air suspicion for perforated viscus, large amount of retained fecal debris and colon consistent with constipation, nonobstructing stones in bilateral kidneys. 3. Exploratory laparotomy with partial gastrectomy of the greater curvature performed by Dr. Luis Armando Guillen. DISCHARGE DIAGNOSES: 1. Acute abdomen secondary to perforated gastric ulcer status post exploratory laparotomy and partial gastrectomy. Patient is tolerating a full liquid diet, has been advanced to GI soft and tolerating with oral medications. Will follow up with Dr. Guillen. 2. Congestive heart failure. History with an ejection fracture of 20%. 3. Acute on chronic kidney disease. Creatinine is at baseline. 4. Chronic obstructive pulmonary disease without exacerbation history. 5. Multi focal infiltrates on chest x-ray concerning for pneumonia. Will continue with p.o. antibiotics. 6. Secondary hyperparathyroidism. 7. Vitamin D deficiency. Continue supplementation. 8. Protein calorie malnutrition. Continue with supplements and diet. 9. Generalized deconditioning. Patient worked with Physical Therapy. Will be discharged to rehabilitation today. HOSPITAL COURSE: Briefly, Ms. Amaya is a 65-year-old, female with a history of CHF, COPD, noncompliant, who presented to the ED complaining of cough and shortness of breath x2 days. Stated she ran out of her albuterol at home. She was just discharged from the hospital on July 21. CT of the chest revealed marked cardiomegaly, small pericardial effusions and bilateral effusions with new bibasilar atelectasis, stable ascending aortic aneurysm. Chest x-ray revealed cardiomegaly, pulmonary vascular congestion. ProBNP was over 24,000. She was admitted in the ED at [facility] with the Ativan, morphine, DuoNeb, Rocephin and azithromycin, and aggressive pulmonary toilet. The patient started complaining of abdominal pain and not having bowel movement. They obtained an abdomen and pelvis CT where she was noted to have a large amount of free intraperitoneal air suspicious for a perforated viscus. The patient was transferred to [facility] where she underwent an exploratory laparotomy with partial gastrectomy of the greater curvature with Dr. Guillen. Patient also had an NG tube placed during surgery. She was kept n.p.o. She was started on Clinimix and lipid infusion for her nutritional support. Patient did have some acute on chronic kidney injury. After surgery her renal function has significantly improved. She is making adequate urine output. Acid base gradually improved. The patient was slowly starting to take in fluids, with IV fluids being laying down. She was tolerating her full liquid diet. Her IV fluids were discontinued and she was tolerating her p.o. medication and started supplementing her vitamin deficiencies. Due to the patient's generalized weakness PT evaluated the patient. [employer] was involved. Patient is appropriate for rehab. She again has tolerated a GI soft diet. From surgical standpoint she is having bowel movements and can be discharged to rehab. VITAL SIGNS: Temperature is 98.5 degrees, heart rate 79, respiration 18, blood pressure 105/72, O2 is 100% on room air. DISCHARGE DIET: GI soft with Ensure. DISCHARGE MEDICATION: 1. Albuterol nebulizer 2.5 mg inhaled q.4 hours. 2. Augmentin 875 mg p.o. q.12 hours for 7 days. 3. Aspirin 81 mg p.o. daily. 4. Klonopin 0.5 mg p.o. b.i.d. p.r.n. 5. Lasix 20 mg p.o. daily. 6. Culturelle 1 each p.o. b.i.d. 7. Prinivil 5 mg p.o. at bedtime. 8. 5 mg p.o. 3 times daily. 9. Prilosec 40 mg p.o. daily. 10. Percocet 5 mg 1 p.o. q.4 hours p.r.n. 11. Requip 1 mg p.o. at bedtime. 12. Desyrel 150 mg p.o. at bedtime. FOLLOWUP: Patient is being discharged to [facility]. She can follow up with Dr. Luis Armando Guillen in 2 weeks. The patient can return to the ED for any worsening of symptoms. DISCHARGE TIME: Greater than 30 minutes. Dictated by VERONICA Song for Rigo Yeboah MD cc: Rigo Yeboah MD
[2016-08-17] MEDS ORDERED: PERCOCET-5 PO ONE (16:28)
[2016-08-17 16:31] VITALS: BP 129/71
== END 2016-08-17 18:17 ==
LOC: P.ED 16:48 → P.MEDSURG 16:49 → SUATTDRO 16:49 → ICU 08-08 21:06 → 4N 08-14 11:14
PROVIDERS: ATTEND Internal Medicine

== ENCOUNTER 2016-09-08 17:19 | Observation (INO) ==
--- NOTE | 2016-09-08 18:37 | EKG Report ---
Test Performed on : 09/08/2016 5:16:52 PM Test Reason : Chest pain Blood Pressure : / mmHG Vent. Rate : 113 BPM Atrial Rate : 113 BPM P-R Int : 140 ms QRS Dur : 104 ms QT Int : 346 ms P-R-T Axes : 058 034 112 degrees QTc Int : 474 ms Sinus tachycardia. Possible Left atrial enlargement Left ventricular hypertrophy with repolarization abnormality Abnormal ECG When compared with ECG of 09-AUG-2016 12:20, No significant change was found Unconfirmed Result
[2016-09-08] MEDS ORDERED: NS 1,000 ML IV ONE (18:59)
[2016-09-08 20:18] LABS: MANUAL DIFF NEEDED? NO
[2016-09-08 20:22] LABS: BASO% 0.2 % (0.0-0.8); EOS# 0.21 X1000 (0.0-0.7); EOS% 1.3 % (0.0-10.0); HEMATOCRIT 29.3 % (37.0-47.0); HEMOGLOBIN 9.2 g/dL (12.0-16.0); IMM GRAN# 0.35 X1000 (0.0-0.04); IMM GRAN% 2.2 % (0.0-0.5); LYMPH# 1.59 X1000 (1.2-3.4); LYMPH% 9.8 % (20.5-51.1); MCH 26.8 PG (27-31); MCHC 31.4 g/dL (33-37); MCV 85.4 FL (81-99); MONO# 1.25 X1000 (0.11-0.59); MONO% 7.7 % (1.7-9.3); MPV 9.5 FL (7.4-10.4); NEUT% 78.8 % (42.2-75.2); PLT 476 X1000 (130-400); RBC 3.43 XMIL (4.2-5.4)
[2016-09-08 20:51] LABS: AGAP 11; ALBUMIN 2.5 g/dL (3.5-5.0); ALKALINE PHOSPHATASE 93 U/L (32-104); BUN 27 mg/dL (8-22); CALCIUM 8.4 mg/dL (8.8-10.2); CHLORIDE 99 mmol/L (98-107); COSMO 273; GOT 9 U/L (10-30); GPT 5 U/L (10-36); POTASSIUM 3.8 mmol/L (3.5-5.1); SODIUM 134 mmol/L (136-145); TCO2 24 mmol/L (25-35); TOTAL BILIRUBIN < 0.15 mg/dL (0.20-1.00); TOTAL PROTEIN 4.9 g/dL (6.3-8.3)
[2016-09-08] MEDS ORDERED: TORADOL IV ONE ×2 (23:50)
[2016-09-08] MEDS ORDERED: TORADOL ONE (23:50)
[2016-09-08] MEDS ORDERED: DUONEB (A & A) INH ONE (23:53)
[2016-09-09] MEDS ORDERED: ZOFRAN IV ONE (02:05)
[2016-09-09] MEDS ORDERED: NS 1,000 ML IV ONE (02:05)
[2016-09-09] MEDS: NORCO-5 PO PRN ×2 (03:28→11:12)
--- NOTE | 2016-09-09 07:24 | Diag Imaging Result Document ---
PROCEDURE NAME: FLAT/UPRIGHT ABD/1 VIEW CHEST - 09/08/2016 FLAT AND UPRIGHT WITH CHEST, THREE VIEWS: FINDINGS: The lungs are well expanded. The heart is enlarged. No pneumonia. No free air beneath the diaphragm. Air is found throughout the colon. No obstruction. No organomegaly. There has been extensive surgery to the lower lumbar spine. There are sutures in the mid right abdomen. IMPRESSION: 1. Cardiomegaly. 2. Air throughout the colon but no definite ileus or obstruction.
[2016-09-09] MEDS ORDERED: PERCOCET-5 PO PRN (07:40)
[2016-09-09] MEDS ORDERED: KLONOPIN PO PRN (07:40)
[2016-09-09] MEDS ORDERED: PRILOSEC PO SCH (07:45)
--- NOTE | 2016-09-09 07:45 | Diag Imaging Result Document ---
PROCEDURE NAME: CT ABD/PELVIS ORAL CONTR ONLY - 09/08/2016 CT ABDOMEN AND PELVIS WITHOUT INTRAVENOUS CONTRAST: TECHNIQUE: Oral contrast is given. FINDINGS: There are tiny pleural effusions as well as a small pericardial effusion. The heart is enlarged. Minimal basilar atelectasis. There is thickening to the wall of the stomach although it is incompletely distended. Normal spleen. There is thickening to each adrenal gland. The liver is prominent. No focal abnormality identified on this noncontrasted exam. No calcified stones or adjacent inflammation. Normal noncontrasted pancreas. Severe atherosclerosis. There are multiple bilateral nonobstructing renal stones. No hydronephrosis. There are multiple calcifications in the pelvis which I believe lie near the ureters but not within them. The bowel loops are not distended. There is a large amount of metallic artifact in the lower abdomen and pelvis created from orthopedic hardware in the lower lumbar spine. There is a small amount of ascites. The urinary bladder is somewhat overly distended. Prominent stool in the sigmoid colon and rectum. No free air. No abscess. Likely small cyst within the kidneys and a tiny cyst in the right lobe of the liver. IMPRESSION: 1. Thickening to the wall of the distal esophagus and stomach which could indicate esophagitis and/or gastritis. 2. Nonobstructing renal stones. 3. Severe atherosclerosis. 4. Likely tiny cysts in the liver and kidneys. 5. Small amount of ascites. 6. Distal constipation. Nonspecific bowel gas pattern. 7. Tiny pleural effusions with a small pericardial effusion as well as cardiomegaly and basilar atelectasis. A preliminary report was given at 12:47 a.m.
[2016-09-09 08:05] LABS: BILIRUBIN URINE NEGATIVE (NEGATIVE); BLOOD URINE TRACE (NEGATIVE); CLARITY SL. CLOUDY (CLEAR); COLOR YELLOW; GLUCOSE URINE NEGATIVE (NEGATIVE); LEUKOCYTES URINE 2+ (NEGATIVE); NITRITE URINE NEGATIVE (NEGATIVE); PROTEIN URINE NEGATIVE (NEGATIVE); SP GRAVITY URINE 1.005; UROBILINOGEN URINE NORMAL
[2016-09-09 08:10] LABS: URINE CULTURE PL NEEDED? YES; URINE EPITHELIAL CELLS <10 /HPF (<10); URINE RBC <10 /HPF (<10); URINE SMALL ROUND CELLS TRANSITIONAL PRESENT; URINE SOURCE CLEAN CATCH; URINE WBC <10 /HPF (<10)
[2016-09-09] MEDS ORDERED: FLAGYL ONE (08:36)
--- NOTE | 2016-09-09 08:43 | DISCHARGE SUMMARY ---
ADMISSION DATE: 09/09/2016 DISCHARGE DATE: DISCHARGE DIAGNOSES: 1. Abdominal pain, unchanged. 2. Diarrhea, improved. 3. Congestive heart failure. B-type natriuretic peptide actually is much better than the recent hospitalizations. Actually back to her baseline at 10,000. She has a known ejection fraction of around 20%. 4. Chronic kidney disease. 5. Chronic obstructive pulmonary disease. 6. Vitamin D deficiency. 7. Moderate protein calorie malnutrition. 8. Generalized deconditioning. 9. Chronic anxiety. 10. Chronic pain. 11. Reflux. CONSULTATIONS: None. PROCEDURES: None. BRIEF HOSPITAL COURSE: The patient is a 66-year-old female, who actually was just admitted to the hospital in July and discharged August 17 secondary to a bleeding gastric ulcer. She tolerated surgery very well and was discharged to rehab. She left rehab just recently and started having diarrhea. She came into the ER last night secondary to abdominal pain and diarrhea. This morning she notes the diarrhea is okay. She is not having any blood in her stool and states that she is unwilling to stay in the hospital. DISPOSITION: Thankfully, the patient had an uneventful hospital course. Her white count was noted to be elevated. Uncertain etiology. Likely inflammatory response secondary to her recent surgeries. Certainly would prefer Ms. Amaya to stay in the hospital a few days until her white count improves; however, she declines that opportunity. We will discharge her home with Flagyl and a probiotic to attempt to help with her diarrhea. She will need to follow up with the primary care physician within 1 week, to continue further workup as needed. cc: Pete Dailey MD
[2016-09-09 09:00] LABS: HEMATOCRIT 33.2 % (37.0-47.0); HEMOGLOBIN 10.3 g/dL (12.0-16.0); MCH 26.5 PG (27-31); MCV 85.6 FL (81-99); MPV 9.2 FL (7.4-10.4); RBC 3.88 XMIL (4.2-5.4)
[2016-09-09] MEDS ORDERED: ASPIRIN PO SCH (09:00)
[2016-09-09] MEDS ORDERED: CULTURELLE PO SCH (09:00)
[2016-09-09] MEDS ORDERED: LASIX PO SCH (09:00)
[2016-09-09] MEDS ORDERED: FLAGYL PO SCH ×2 (09:00→10:00)
[2016-09-09] MEDS: ALBUTEROL NEB INH PRN ×2 (09:09→13:13)
[2016-09-09] MEDS ORDERED: DULCOLAX PR ONE (09:39)
[2016-09-09] MEDS ORDERED: FLEET MINERAL OIL ENEMA PR ONE (09:42)
[2016-09-09 09:43] LABS: AGAP 11; ALBUMIN 2.3 g/dL (3.5-5.0); ALKALINE PHOSPHATASE 87 U/L (32-104); BUN 22 mg/dL (8-22); CHLORIDE 104 mmol/L (98-107); COSMO 276; GOT 8 U/L (10-30); GPT 5 U/L (10-36); MAGNESIUM 1.4 mg/dL (1.5-2.7); POTASSIUM 3.8 mmol/L (3.5-5.1); SODIUM 137 mmol/L (136-145); TCO2 22 mmol/L (25-35); TOTAL BILIRUBIN < 0.15 mg/dL (0.20-1.00); TOTAL PROTEIN 4.9 g/dL (6.3-8.3)
--- NOTE | 2016-09-09 10:51 | HISTORY AND PHYSICAL ---
CHIEF COMPLAINT: Abdominal pain, nausea, vomiting, diarrhea and chest pressure. HISTORY OF PRESENT ILLNESS: This is a 66-year-old female who is well known to our service with a history of congestive heart failure, systolic with EF of 15-20%. COPD with continued tobacco use, chronic kidney disease with a baseline creatinine of 1.9 with medical noncompliance. She presented to the emergency room complaining of abdominal pain, nausea, vomiting, diarrhea and chest pressure. Abdominal x-ray revealed air throughout the colon, but no definite ileus or obstruction. Chest x-ray revealed cardiomegaly. No pneumonia. Lungs are well expanded. CT of the abdomen and pelvis revealing thickening to the distal esophagus and stomach which could indicate esophagitis and/or gastritis. Distal constipation with prominent stool in the sigmoid colon and rectum. She was given IV hydration as well as Zofran and Toradol in the emergency room and admitted for further evaluation and treatment. PAST MEDICAL HISTORY: Systolic heart failure with EF of 20% on January 2016. COPD with continued tobacco use. Chronic kidney disease with a baseline creatinine of 1.9. Hyperlipidemia, hypertension, restless legs syndrome, CAD status post IL. Perforated gastric ulcer at the greater curvature of the stomach in July 2016. Medical noncompliance. PAST SURGICAL HISTORY: Exploratory laparoscopy, partial gastrectomy due to perforated gastric ulcer in July 2016. Appendectomy. Right tibia surgery. SOCIAL HISTORY: She lives alone. She denies alcohol or drug abuse. She continues to smoke. ALLERGIES: No known drug allergies. HOME MEDICATIONS: A list will be obtained. REVIEW OF SYSTEMS: A 14-point review of systems is discussed with patient with pertinent positives stated in HPI. She denied chest pain, palpitations, dizziness, syncope, shortness of breath increased from her normal; PND, orthopnea, fever, chills, cough other than normal; any black or bloody vomitus, black or bloody stools, hematuria, dysuria, frequency, urgency. PHYSICAL EXAMINATION: GENERAL: This is a 66-year-old, cachectic female, who is lying in the bed in no distress. VITAL SIGNS: Blood pressure is 119/73 with a heart rate of 90, respirations are 20, temperature is 98.5 with oxygen saturations of 97-99% on room air. HEENT: Head is normocephalic, atraumatic. Pupils equal, round, react to light. EOMs are intact. Sclerae are anicteric. Mucous membranes are moist. NECK: Supple. Trachea midline. CARDIOVASCULAR: Regular rate and rhythm. S1 and S2 appreciated. PULMONARY: Breath sounds are diminished with prolonged expiration and scattered wheezes throughout. GASTROINTESTINAL: Abdomen is soft, nontender, nondistended with bowel sounds in all 4 quadrants. EXTREMITIES: No clubbing, cyanosis, or edema. Calves are nontender. Pulses are palpable x4. SKIN: Warm and dry with no rashes or lesions noted. DIAGNOSTICS: WBC is 16.2, with a hemoglobin of 9.2, hematocrit 29.3, and platelets 476. Sodium is 134, potassium 3.8, BUN 27, creatinine 1.4, with a glucose of 91. AST is 9, ALT 5 with a total bilirubin of less than 0.15. CT scan revealed a large amount of stool in the rectum and sigmoid colon, with distal constipation. Severe atherosclerosis. Nonobstructing renal stones. Thickening to the wall of the distal esophagus and stomach, which could indicate esophagitis and gastritis. Tiny pleural effusions. A small pericardial effusion. ASSESSMENT AND PLAN: 1. Abdominal pain. Unchanged. This is most likely secondary to constipation as she states she has not had a bowel movement in 4 days and this pain is consistent with constipation. We will give a oil enema. 2. Diarrhea. This is improving. This is most likely secondary to #1. 3. Congestive heart failure with ejection fraction of around 20%. Her proBNP is 10,000 today and this is actually her baseline. 4. Chronic kidney disease, aware. 5. Chronic obstructive pulmonary disease. We will identify and continue her home medications. 6. Vitamin D deficiency. 7. Moderate protein calorie malnutrition. 8. General deconditioning. 9. Chronic anxiety. 10. Chronic pain. 11. Reflux. 12. Noncompliance. She will be admitted to the hospital. Placed on telemetry. We will identify and continue her home medications as appropriate. DuoNeb q.4 hours p.r.n. Stools for Clostridium difficile, occult blood and white blood cells. We will repeat labs in the morning. I did discuss with the patient once again, the importance of bowel regimen and not waiting 4 days between bowel movements as she does use chronic narcotics and she does have chronic constipation. Further treatments pending hospital course. Dictated by VERONICA Muñoz for Pete Dailey MD cc: VERONICA Muñoz MD
[2016-09-09] MEDS ORDERED: REGLAN PO SCH (11:00)
--- NOTE | 2016-09-09 14:27 | DISCHARGE SUMMARY ---
ADMISSION DATE: 09/09/2016 DISCHARGE DATE: ADDENDUM: The patient's labs returned with white count increasing to 18.2 from 16.2. I did discuss with Ms. Barreto, these results, and she stated that she did not care, that she felt much better, and that she wanted to go home. Her CT scan showed that she had prominent stool in the sigmoid colon and rectum. She stated that she was aware of this, that she felt like stool was there and just would not come out, that her diarrhea, her abdominal pain, chest pain, and nausea are consistent with constipation, her last bowel movement being 4 to 5 days ago. I did explain that we would give her a Fleets oil enema, and I would give her a prescription for Dulcolax suppositories as well as MiraLAX. She did voice understanding. She once again refused to stay for us to further investigate her white count. She was instructed to return to the hospital for increasing diarrhea, vomiting, temperature greater than 101, chills, recurrence of chest pain, abdominal pain, or any questions or concerns that she may have. Dictated by VERONICA Muñoz for Pete Dailey MD cc: VERONICA Muñoz MD
[2016-09-09 15:22] LABS: OCCULT BLOOD 1 POSITIVE (NEGATIVE)
[2016-09-09 15:39] VITALS: BP 123/61
[2016-09-09] MEDS ORDERED: REQUIP PO SCH (21:00)
[2016-09-09] MEDS ORDERED: DESYREL PO SCH (21:00)
[2016-09-09] MEDS ORDERED: PRINIVIL PO SCH (21:00)
== END 2016-09-09 16:10 | disposition home or self-care (01) ==
LOC: P.ED 17:19 → P.MEDSURG 17:19
PROVIDERS: ATTEND Family Medicine

== ENCOUNTER 2016-10-11 18:40 | Observation (INO) ==
[2016-10-11 20:08] LABS: MANUAL DIFF NEEDED? NO
[2016-10-11 20:16] LABS: BASO% 0.5 % (0.0-0.8); EOS# 0.18 X1000 (0.0-0.7); EOS% 1.4 % (0.0-10.0); HEMATOCRIT 32.3 % (37.0-47.0); IMM GRAN# 0.03 X1000 (0.0-0.04); IMM GRAN% 0.2 % (0.0-0.5); LYMPH# 1.88 X1000 (1.2-3.4); LYMPH% 14.9 % (20.5-51.1); MCH 28.1 PG (27-31); MCV 90.7 FL (81-99); MONO# 1.07 X1000 (0.11-0.59); MONO% 8.5 % (1.7-9.3); MPV 11.3 FL (7.4-10.4); NEUT% 74.5 % (42.2-75.2); PLT 306 X1000 (130-400); RBC 3.56 XMIL (4.2-5.4)
[2016-10-11 20:49] LABS: ALBUMIN 3.4 g/dL (3.5-5.0); CALCIUM 9.9 mg/dL (8.8-10.2); POTASSIUM 4.2 mmol/L (3.5-5.1); TOTAL BILIRUBIN 0.12 mg/dL (0.20-1.00); TOTAL PROTEIN 6.6 g/dL (6.3-8.3)
--- NOTE | 2016-10-11 20:50 | Diag Imaging Result Doc PS360 ---
EXAM: CHEST-2 VIEWS HISTORY: near syncope, pleuritic chest pain TECHNIQUE: COMPARISON: 09/08/2016 FINDINGS: The lungs are hyperexpanded. The heart isn't enlarged. The vessels are not distended. No pleural effusions. No consolidation. IMPRESSION: Cardiomegaly Electronically signed by Andre Nguyễn 10/11/2016 8:48 PM
[2016-10-11 23:23] LABS: URINE CULTURE NEEDED? NO; URINE MICRO REVIEW NEEDED? NO; URINE SOURCE CATH
[2016-10-11 23:32] LABS: BILIRUBIN URINE NEGATIVE (NEGATIVE); BLOOD URINE NEGATIVE (NEGATIVE); COLOR YELLOW; GLUCOSE URINE NEGATIVE (NEGATIVE); LEUKOCYTES URINE NEGATIVE (NEGATIVE); NITRITE URINE NEGATIVE (NEGATIVE); PH URINE 5.5; PROTEIN URINE TRACE mg/dL (NEGATIVE); SP GRAVITY URINE 1.019; TURBIDITY URINE CLEAR (CLEAR); UROBILINOGEN URINE NORMAL (NORMAL)
[2016-10-11 23:34] LABS: UR EPITHELIAL CELLS <10 /HPF (<10); URINE BACTERIA NEGATIVE /HPF; URINE RBC <10 /HPF (<10); URINE WBC <10 /HPF (<10)
[2016-10-12] MEDS ORDERED: ZOSYN 2.25 GM/NS 2.25 GM/50 ML IVPB IV ONE (00:33)
[2016-10-12] MEDS ORDERED: DILAUDID IV ONE (00:37)
[2016-10-12] MEDS ORDERED: NS 1,000 ML IV SCH (00:37)
[2016-10-12] MEDS ORDERED: ZOFRAN IV ONE (00:38)
[2016-10-12] MEDS ORDERED: NS 500 ML IV ONE (02:21)
[2016-10-12] MEDS ORDERED: KLONOPIN PO PRN (03:44)
[2016-10-12] MEDS ORDERED: PROTONIX IV SCH (03:44)
[2016-10-12] MEDS ORDERED: SODIUM CHLORIDE 0.9% INJ SCH (03:44)
[2016-10-12] MEDS ORDERED: ZOFRAN IV PRN (03:44)
[2016-10-12] MEDS ORDERED: TYLENOL PO PRN (03:44)
--- NOTE | 2016-10-12 04:29 | HISTORY AND PHYSICAL ---
TIME: 0230 hours. PRIMARY CARE PROVIDER: The patient does not have a primary care provider at this time. CHIEF COMPLAINT: Shortness of breath, and cough. HISTORY OF PRESENT ILLNESS: Ms. Amaya is a 66-year-old, female, who presented to the ER [facility] with complaints of dizziness, shortness of breath upon exertion with a nonproductive cough. She also reports fever, body aches and chills, as well as dizziness, weakness and fatigued. She reports that her symptoms began 2-3 days ago. She also complains of some intermittent chest pain, which she describes as "a grabbing" pain in nature. She does report some nausea and diarrhea. The patient reports that she has had diarrhea for quite a few weeks, though this did initially slightly improve, she states it has worsened again. On her previous admission in September, she had reports of diarrhea as well. She was discharged on Flagyl at that time. The patient denies any hematochezia or melena. She denies any recent travel or being around anyone that is sick. She does report that she is out of some of her regular prescription medicines. Upon examination in the ER, she was found to have a slightly elevated white blood cell count of 12.58. Her creatinine is slightly elevated from her most recent baseline at 1.7. Given the patient's reported symptoms, as well as her diarrhea and mild leukocytosis, a chest x-ray was performed which was negative for any acute infectious process. CT abdomen and pelvis was performed also, which was negative for any acute findings as well. At this time , we will admit the patient for observation and further evaluation. REVIEW OF SYSTEMS: A 12-point review of systems was conducted with the patient and all were negative except for pertinent positives mentioned above in the HPI. PAST MEDICAL HISTORY: 1. Chronic systolic heart failure with EF of 15% to 20% on January 2016. 2. COPD with continued tobacco use. 3. Chronic kidney disease. 4. Hyperlipidemia. 5. Hypertension. 6. Coronary artery disease, status post [place]. 7. Restless legs syndrome. 8. Recent surgery for perforated gastric ulcer in July 2016. 9. Medical noncompliance. PAST SURGICAL HISTORY: 1. The patient has had an appendectomy. 2. Right tibia surgery. 3. A recent partial gastrectomy due to perforated gastric ulcer in July 2016. SOCIAL HISTORY: Patient lives alone. She denies any alcohol or illicit drug use. Patient does continue to smoke at this time and is still smoking approximately 1-pack of cigarettes per day. FAMILY HISTORY: There is a history of congestive heart failure in her father, though no other known medical problems. ALLERGIES: Patient has no known allergies. HOME MEDICATIONS: 1. Trazodone 300 mg p.o. at bedtime. 2. Requip 3 mg p.o. at bedtime. 3. MiraLAX 1 cap full daily. 4. Percocet 5 mg 1 p.o. q.4 hours p.r.n. 5. Flagyl 500 mg p.o. t.i.d. 6. Lisinopril 5 mg p.o. at bedtime. 7. Klonopin 0.5 mg p.o. b.i.d. 8. Dulcolax 10 mg per rectum daily p.r.n. 9. Aspirin 81 mg p.o. q.a.m. 10. Albuterol nebulizer treatments 2.5 mg inhaled q.4 hours p.r.n. 11. Also the patient does have a history of chronic systolic heart failure with EF of 53%. She does take lisinopril daily, on her last discharge medication list she was taking Lasix 20 mg p.o. as well, though this is not on her current medications. DIAGNOSTIC DATA/LABORATORY RESULTS: White blood cell count 12.58, hemoglobin 10m hematocrit 32.3, platelet count 306,000. Sodium 143, potassium 4.2, chloride 108m bicarb 20, BUN 45, creatinine 1.7 with a GFR of 30, glucose 136, calcium 9.1. Liver function tests within normal limits. Troponin 0.042. TSH 0.89. A urinalysis was obtained via catheter and was positive for trace protein, though was otherwise within normal limits. Chest x-ray shows cardiomegaly; this per Radiology. CT abdomen and pelvis without contrast showed a moderate pericardial effusion. Also an indeterminate subcentimeter right lower lobe pulmonary nodule not previously seen on previous CT. There were nonobstructing bilateral renal calculi no greater than 6 mm. Also noted were bilateral renal hypodensities that were likely cysts. There is also nonspecific thickening of both adrenal glands, which are hypodense suggesting benign adenomatous change. There was also interval resolution of ascites. An EKG has been performed, though is unavailable for viewing at this time. Pending diagnostic studies are stool studies. PHYSICAL EXAMINATION: VITAL SIGNS: Temperature is 100 degrees orally, heart rate 94, respirations 18 , blood pressure is 113/77. Oxygen saturation is 96% on room air. GENERAL: Ms. Amaya is a 66-year-old female, who is frail and chronically ill appearing. She is resting comfortably in the ER stretcher. She is in no acute distress. She was awake, alert and able to answer all questions appropriately. HEENT: Head is atraumatic, normocephalic. Pupils are equal, round, reactive to light, were 3 mm bilaterally and brisk. Oral mucosa is slightly dry. Oropharynx is clear. NECK: Supple. Trachea midline. No JVD noted. CARDIOVASCULAR: Patient has normal S1, S2. No murmurs, gallops, or rubs appreciated with a regular rate and rhythm. PULMONARY: Patient has symmetrical chest expansion bilaterally. Lung sounds are clear to auscultation in bilateral full brasher. ABDOMEN: Soft, nondistended. The patient did report some tenderness in the right lower quadrant upon examination, though no rebound tenderness noted. Bowel sounds were present and all 4 quadrants were slightly hyperactive. EXTREMITIES: No cyanosis, clubbing, or edema noted. Pulse, motor and sensory were intact in all extremities. Pedal pulses were 2+ bilaterally. INTEGUMENTARY: The patient's skin is pink, warm, dry and intact. No lesions or sores noted. NEUROLOGICAL: Patient is alert and oriented to person, place, time, and situation. Cranial nerves 2-12 are grossly intact. ASSESSMENT AND PLAN: 1. Gastroenteritis. For this, we will provide the patient with gentle fluid resuscitation with normal saline at 50 mL/h for a total volume of 500 mL given that she does have a history of systolic heart failure. We will also place her on Zofran for nausea as well as Protonix 40 mg IV q.24 hours. 2. Mild fluid volume depletion. We will continue with the gentle fluid resuscitation as mentioned per #1. 3. Diarrhea. This could likely be the cause of her volume depletion. We have ordered stool studies and will continue to follow. 4. Mild leukocytosis. At this time, this is of uncertain etiology. Patient's chest x-ray was clear. CT abdomen and pelvis did not show any infectious process as well and the patient's urinalysis is within normal limits. We will continue to rule out any other signs of infection and then continue to follow. 5. Chronic systolic heart failure. We will continue the patient's lisinopril. The patient, on previous admissions, did have a discharge home medication of 20 mg of Lasix p.o. daily, though this is not on her current medication list at this time. Though given that the patient is mildly volume depleted, we will hold this at this time and continue to follow closely. 6. Coronary artery disease. Will continue her aspirin. 7. Chronic obstructive pulmonary disease. We will continue with the DuoNeb treatment q. 4-6 hours p.r.n. as needed as well as incentive spirometry. 8. Chronic kidney disease. The patient's creatinine is slightly elevated from her baseline. We are gently fluid resuscitating the patient at this time. We will continue to follow. 9. Restless legs syndrome. Will continue her Requip. 10. Anxiety will continue her Klonopin. 11. Tobacco abuse. We will continue to discuss smoking cessation with the patient given her extensive cardiac history, as well as history of chronic obstructive pulmonary disease during admission and upon discharge. She will be placed on the medical floor with telemetry. She will have vital signs q.6 hours. Will do strict intake and output. DVT Prophylaxis will be provided with SCDs. She will be on a heart healthy diet and we also placed a [employer] consult to help the patient obtain a regular primary care physician. Further orders and recommendations pending hospital course, diagnostic studies and physician evaluation. Dictated by VERONICA Griffiths for Stephanie Cardozo MD Seen and examined pt and discussed plan with CAT[employer]YST OPERATOR CHIEF. cc: MD SHARRI Godfrey
[2016-10-12] MEDS: DUONEB (A & A) INH PRN ×4 (04:35→15:33)
--- NOTE | 2016-10-12 04:50 | PROVIDER DOCUMENTATION ---
This chart was entered by Margot Clarke Scribe, acting as scribe for Tray Freedman MD. HPI-General Adult - General Chief Complaint: Possible Sepsis-D Stated Complaint: "THINK I'VE GOT PNEUMONIA" Time Seen by Provider: 10/11/16 19:22 Source: patient Allergies/Adverse Reactions: Patient Allergies Allergy/AdvReac Type Severity Reaction Status Date / Time No Known Allergies Allergy Verified 10/11/16 18:58 Home Medications: Home Medication List Medication Instructions Recorded Confirmed Last Taken Type Aspirin 81 mg PO QAM 06/23/16 10/11/16 09/08/16 History Albuterol [Albuterol Neb] 2.5 mg INH Q4H PRN PRN #30 neb 07/07/16 10/11/1609/08 Rx LISINOpril [Prinivil] 5 mg PO HS #30 tablet 07/21/16 10/11/16 09/07/16 Rx Bisacodyl [Dulcolax] 10 mg [place] DAILY PRN PRN #30 supp 09/09/16 10/11/16 Unknown Rx Clonazepam [Klonopin] 0.5 mg PO BID PRN PRN #60 tablet 09/09/16 10/11/16 Unknown Rx Metronidazole [Flagyl] 500 mg PO TID #21 tablet 09/09/16 10/11/16 Unknown Rx Oxycodone/APAP 5 mg/325 mg 1 each PO Q4H PRN PRN #30 tablet 09/09/16 10/11/16 Unknown Rx [Percocet-5] Polyethylene Glycol 3350 [Miralax] 1 cap PO DAILY #1 powder 09/09/16 10/11/16 Unknown Rx Ropinirole [Requip] 3 mg PO QHS 09/09/16 10/11/16 09/07/16 History Trazodone [Desyrel] 300 mg PO QHS 09/09/16 10/11/16 09/07/16 History - History of Present Illness -Gen Adult Nature of Presenting Problems: 66 Y/O F presents to ED with General Adult c/o. Pt states for 2-3 days, she just been having painful pain through out her body. States she recently had surgery due to a bleeding ulcer a few months ago which heealed fine and states she has a hx of COPD and CHF. States last couple of days she's been having SOB, dizziness and lightheaded, near syncope and D no v/n. Pt states symptoms worsen when standingup. Pt states chest pain is a grabbing feeling as though she's having pleurisy has a hx of pleurisy in the past. Pt states she had a fever of 101.3, dry cough, tremors. Location of Pain/Injury: reports: generalized Pain Radiation: reports: no radiation Quality of Pain: reports: aching Severity: reports: moderate, severe Onset/Duration: reports: 3 days ago Timing: reports: still present Associated Symptoms: reports: chest pain, cough, diarrhea, dizziness, fever/ chills, muscle aches, shortness of breath, pain with inspiration, syncope (near) , weakness. denies: constipation, diaphoresis, EENT symptoms, headaches, heartburn, loss of appetite, sinus congestion/drainage, nausea, seizure, vomiting Similar Symptoms Previously?: No Recently seen or treated by another doctor?: No Review of Systems - Adult - REVIEW OF SYSTEMS - ADULT Constitutional: reports: fever. denies: chills Eyes: reports: no symptoms reported Ears, Nose, Mouth & Throat: reports: no symptoms reported Cardiovascular: reports: no symptoms reported Respiratory: reports: cough, pleurisy, shortness of breath. denies: wheezing Gastrointestinal: reports: diarrhea. denies: abdominal pain, constipation, nausea, vomiting Genitourinary: reports: no symptoms reported Musculoskeletal: denies: bone pain, back pain Integumentary: reports: no symptoms reported Neurological: reports: dizziness/vertigo, syncope (near), tremors Psychiatric: reports: no symptoms reported Endocrine: reports: no symptoms reported Hematologic/Lymphatic: reports: no symptoms reported Allergic/Immunologic: reports: no symptoms reported All Other Systems: Reviewed and Negative Past History - Adult - PAST MEDICAL HISTORY-ADULT Review of Records: reports: Old Records Reviewed, Nursing Assessment Review, Medications Reviewed, Social history reviewed & non-contributory. Major Childhood Illnesses: reports: denies history Cardiovascular: reports: CHF, HTN Respiratory: reports: COPD, sleep apnea Gastrointestinal: reports: denies history Obstetrical/Gynecological: reports: denies history Genitourinary: reports: denies history Musculoskeletal: reports: intervertebral disc disease Neurological: reports: other (restless leg syndrom) Endocrine/Immune: reports: denies history Other Conditions: reports: denies history - PRIOR SURGERIES/PROCEDURES Surgical/Procedure History: reports: appendectomy, orthopedic (extremity), back/ neck - IMMUNIZATION STATUS Childhood Immunizations: See Nurse Assessment Flu Vaccine: See Nurse Assessment - FAMILY HISTORY Family History: reviewed, not pertinent Physical Exam-General - CONSTITUTIONAL General Appearance: alert, no apparent distress, thin - EYES Eyes: pale conjunctivae - HEAD, EARS, NOSE, MOUTH & THROAT HENMT: moist mucous membranes, normal ENT inspection, TMs normal - NECK Neck: non-tender, full range of motion, supple, normal inspection - RESPIRATORY Respiratory: negative: normal breath sounds (coarse bilateral) - CARDIOVASCULAR Cardiovascular: tachycardia, systolic murmur - GASTROINTESTINAL (ABDOMEN) Abdominal Exam: soft, tenderness (mild to rlq) - LYMPHATIC Lymphatic: no adenopathy - MUSCULOSKELETAL Back Exam: normal inspection Extremity: non-tender, normal gait - SKIN Integumentary: normal turgor, warm/dry - NEUROLOGIC Neurologic: catering barista II-XII nml as tested - PSYCHIATRIC Psych/Mental Status: normal mood/affect, normal thought content, normal thought process, oriented x 3 Progress - PLAN OF CARE/RESULTS Progress/Plan/Lab Results: Vital Signs - 8 hr 10/11/16 18:47 Temperature 98.9 F Pulse Rate 116 H Respiratory Rate 22 Blood Pressure 131/93 O2 Sat by Pulse Oximetry 100 Result Diagrams: 10/11/16 19:30 10/11/16 19:30 - EKG 1 Time of EKG reading by physician:: 21:13 EKG Read and Signed by:: Tray Freedman EKG Interpretation (*Must complete 3 of following elements*): Abnormal Rate: 106 Rhythm: Sinus Tachycardia ST Wave: non-specific ST changes (and t wave abnormality) Comments: Abnormal ECG - XRAY 1 XRAY Study: Chest Impression: Normal XRAY Interpretation: cardiomegaly,lungs are hyperextended - CONSULTS/PCP/HOSPITALIST Notification #1 *Consult/PCP/Hospitalist*: Time Discussed: 00:28 Reason/Comments: Admit Pending Consult Disposition: Admit (depending on CT) Departure - Departure Date of Disposition Decision: 10/12/16 Time of Disposition Decision: 03:00 DIAGNOSIS: Sepsis Disposition: ADMITTED INPATIENT 09 Certified Medical Emergency: Emergent Condition: Fair - Critical Care Note This patient required my direct & personal management of CC.: No This chart was documented by the indicated scribe, (Margot Clarke Scribe) and accurately reflects the services I performed and decisions made by me, Tray Freedman MD, as attested by the provider's signature.
--- NOTE | 2016-10-12 05:55 | EKG Report ---
Test Performed on : 10/11/2016 9:13:39 PM Test Reason : CP Blood Pressure : / mmHG Vent. Rate : 106 BPM Atrial Rate : 106 BPM P-R Int : 140 ms QRS Dur : 102 ms QT Int : 346 ms P-R-T Axes : 070 037 086 degrees QTc Int : 459 ms Sinus tachycardia. Possible Left atrial enlargement Nonspecific ST and T wave abnormality Abnormal ECG When compared with ECG of 08-SEP-2016 17:16, No significant change was found Unconfirmed Result
[2016-10-12 07:14] LABS: MANUAL DIFF NEEDED? NO
[2016-10-12 07:18] LABS: BASO% 0.9 % (0.0-0.8); EOS% 4.4 % (0.0-10.0); HEMATOCRIT 30.3 % (37.0-47.0); HEMOGLOBIN 9.1 g/dL (12.0-16.0); IMM GRAN# 0.03 X1000 (0.0-0.04); IMM GRAN% 0.3 % (0.0-0.5); LYMPH# 2.22 X1000 (1.2-3.4); LYMPH% 24.3 % (20.5-51.1); MCH 27.5 PG (27-31); MCV 91.5 FL (81-99); MONO% 7.7 % (1.7-9.3); MPV 10.9 FL (7.4-10.4); NEUT% 62.4 % (42.2-75.2); PLT 265 X1000 (130-400); RBC 3.31 XMIL (4.2-5.4)
[2016-10-12 07:42] LABS: CALCIUM 9.3 mg/dL (8.8-10.2); POTASSIUM 4.3 mmol/L (3.5-5.1)
[2016-10-12 07:49] VITALS: BP 102/67
--- NOTE | 2016-10-12 08:51 | Diag Imaging Result Doc PS360 ---
EXAM: ABDOMEN/PELVIS W/O CONTRAST INDICATION: fever, nausea COMPARISON: 09/09/2016 FINDINGS: There is stable cardiomegaly. There is a small to moderate amount of pericardial fluid collection similar to the previous study. There are a few small subcentimeter indeterminate nodules in the right lower lobe that have developed, likely small infectious or inflammatory nodules. There is significant metallic beam hardening artifact related to spinal hardware, which somewhat obscures part of the abdomen. The liver is somewhat prominent but stable. There appears to be an incidental hepatic Luan lobe. There are couple tiny stable right hepatic lobe hypodensities that are nonspecific but probably represent tiny cysts. Both adrenal glands are significantly thickened and low dense suggesting hyperplasia or prominent adrenal adenomas, stable. There are stable bilateral renal hypodensities that probably represent cysts. There is stable bilateral nonobstructing nephrolithiasis with the largest stone measuring up to 5.4 mm on the left. There is no hydronephrosis. The urinary bladder is unremarkable. The ascites seen on the previous study has resolved. There is no evidence of bowel obstruction. No focal inflammatory changes, free abdominal gas, or free fluid is appreciated. The remainder of the solid viscera of the abdomen and pelvis and the remainder of the GI tract are essentially unremarkable. IMPRESSION: 1.Interval resolution of ascites. 2.Nonobstructing nephrolithiasis. 3.A few tiny right lower lobe lung nodules that are probably small infectious or inflammatory nodules. 4.Other incidental/nonacute findings detailed above. Electronically signed by Joey Serrato 10/12/2016 8:49 AM
[2016-10-12] MEDS ORDERED: ASPIRIN PO SCH (09:00)
--- NOTE | 2016-10-12 14:14 | PROGRESS NOTE ---
DATE: 10/12/2016 SUBJECTIVE: Ms Amaya was put into observation last night or early this morning concerned. The patient says she is short of breath and coughing. Does not have a primary care provider. A 66- year-old who presented to the ER with complaints of dizziness, shortness of breath on exertion and nonproductive cough. Reports fever, body aches and chills as well as dizziness and weakness and fatigue. She reports symptoms began 2 or 3 days ago. Complains of some intermittent chest pain described as grabbing in nature. She does report some nausea as well as diarrhea. Reports that she has had diarrhea for quite a few weeks. It did slightly improve, but states it has returned. On her previous admission in September she reported diarrhea and was discharged on Flagyl at that time. The patient denies any hematochezia or melena. Denies any recent travel. On examination in the ER was found to have slightly elevated white blood cell count of 12,500. Creatinine was slightly elevated at 1.7 and given her symptoms of diarrhea, leukocytosis and chest x-ray, which were all negative for any acute infectious process, they did a CT of the abdomen and pelvis, which was negative for any findings. PAST MEDICAL HISTORY: 1. Chronic systolic heart failure. Ejection fraction 15-20% last measured in January 2016. 2. COPD with continued tobacco use. 3. Chronic kidney disease. 4. Hyperlipidemia. 5. Hypertension. 6. Coronary artery disease status post [place]. 7. Restless legs syndrome. 8. Recent surgery for perforated gastric ulcer in July 2016. 9. Medical noncompliance. SURGICAL HISTORY: 1. Appendectomy. 2. Right tibia surgery. 3. Recent partial gastrectomy due to perforated gastric ulcer in July 2016. SUMMARY: The patient was observation. Breathing comfortably. Good air and gas exchange. No complaints of abdominal pain. Eating without complication and felt like she could go home. She would like some treatment for a nebulized treatment, so we will see if we can set that up. DISCHARGE MEDICATIONS: Albuterol nebulized treatment 2.5. She has an inhaler, but we will give her some nebulizer treatment. We will try and do the DuoNeb as needed, aspirin 81 mg a day, Dulcolax 10 mg per rectum daily, Klonopin 0.5 mg b.i.d. p.r.n., Prinivil 5 mg at bedtime, Flagyl 500 mg p.o. t.i.d., oxycodone APAP 5/325 one q.4 hours p.r.n., polyethylene glycol or MiraLAX 1 capsule daily, Requip 3 mg p.o. at bedtime, and Desyrel 300 mg at bedtime. We will get her set up to go home. cc: Iam Castillo MD
[2016-10-12] MEDS ORDERED: PRINIVIL PO SCH (21:00)
[2016-10-12] MEDS ORDERED: REQUIP PO SCH (21:00)
--- NOTE | 2016-11-02 14:16 | DISCHARGE SUMMARY ---
ADMISSION DATE: 10/31/2016 DISCHARGE DATE: 11/02/2016 ADMISSION DIAGNOSES: 1. Mild chronic obstructive pulmonary disease exacerbation. 2. Chronic systolic heart failure. 3. Coronary artery disease. 4. Hypertension. 5. Hyperlipidemia. 6. Chronic pain syndrome. 7. Clinical depression. 8. Anemia of chronic inflammation. DISCHARGE DIAGNOSES: 1. Chronic obstructive pulmonary disease exacerbation 2. Generalized weakness and debility. 3. Acute kidney injury on chronic kidney disease stage 3 4. Coronary artery disease with ischemic cardiomyopathy. 5. Anxiety disorder. 6. Iron-deficiency anemia. CONSULTATIONS: None. SURGERIES AND PROCEDURES: None. HOSPITAL COURSE: Ms. Kajal Amaya is a 66-year-old female with a medical history of chronic heart failure, tobacco abuse, CKD stage 4, CAD upper, hyperlipidemia, hypertension, who presented with 2-day history of shortness of breath and diffuse myalgia. Her breathing and shortness of breath had become worse. Prior to the night she came in she tried to get up, missed her footing and fell face forward. She did not hit her head or face. She did not lose consciousness. Once she was able to get up an hour later, neither 1 of her phones were working. She had full body pain and once her landlord was unable to reach her, they called EMS. She was brought in for further evaluation. On her last admit she was unable to be placed in a fpc as she had used up all her days and she refused LTAC due to not being able to smoke. For her mild COPD exacerbation she was started on respiratory treatments. Given her mild YOKO, her Lasix had been held. Her creatinine had gone from 1.6 to 1.9. Tobacco abuse cessation was discussed with her, although I believe there are no immediate plans to quit. There were no new infiltrates from her prior admission on her chest x-ray. She was continued on bronchodilator therapy and supplemental oxygen. Will need to be discharged to a nursing facility as she is too weak to care for herself at this time. instructor ground services followed her for that. For her YOKO on CKD her Lasix had been held and her creatinine is slowly returning to baseline. It is currently 1.5 today. Her CAM inhibitor had actually been placed on hold along with the Lasix. CAD with ischemic cardiomyopathy is stable. Anxiety disorder, she continued on her Xanax as needed. For her iron deficiency anemia she was placed on iron supplementation. She has been accepted to [facility] for long-term residency. DISCHARGE VITAL SIGNS: Temperature 98.4 degrees, heart rate 99, respiratory rate 22, blood pressure 119/75, O2 saturation 100% on 2 L nasal cannula. DISCHARGE MEDICATIONS: 1. Albuterol Atrovent nebs every 4-6 hours p.r.n. 2. Xanax 0.25 mg p.o. t.i.d. p.r.n. 3. Aspirin 81 mg p.o. daily. 4. Dulcolax 10 mg per rectum daily p.r.n. 5. Icar-C 1 tablet p.o. daily. 6. Isordil 5 mg p.o. twice daily. 7. Lactulose 15 mL p.o. daily. 8. Lisinopril 5 mg p.o. daily. 9. Toprol 25 mg p.o. daily. 10. Prilosec 40 mg p.o. twice daily. 11. Percocet 5 mg 1 tablet p.o. every 4 hours p.r.n. 12. MiraLAX p.o. daily. 13. Requip 2 mg p.o. nightly. 14. Senokot 1 tablet p.o. daily. 15. Desyrel (trazodone) 50 mg p.o. nightly. DISCHARGE DIET: Healthy heart and Boost with each meal. DISCHARGE LAB DATA: White blood cells 11,000, hemoglobin 8.6, hematocrit 28.4, platelet count 315,000. Sodium 143, potassium 4.4, BUN 44. Creatinine is 1.5. Glucose 130. Calcium 8.5. DISCHARGE IMAGING: Chest x-ray on admit on 10/31/2016 shows stable right chest port, stable significant cardiomegaly, stable trace infiltrate or scarring at the lateral right upper lobe. No new or focal infiltrate. No pneumothorax or pleural effusion. DISPOSITION: [facility] for long-term care. DISCHARGE INSTRUCTIONS: If symptoms continue, return for medical assistance. Dictated by VERONICA Benedict for No Oconnor MD cc: VERONICA Benedict MD [facility]
== END 2016-10-12 16:50 | disposition home or self-care (01) ==
LOC: 3N 18:40 → ED 18:40 → SUATTDRO 10-12 02:44
PROVIDERS: ATTEND Emergency Medicine

== ENCOUNTER 2016-10-14 07:07 | Inpatient (IN) ==
[2016-10-14] MEDS ORDERED: DUONEB (A & A) INH ONE (07:43)
[2016-10-14] MEDS ORDERED: ATIVAN IV ONE (07:51)
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
[2016-10-14] MEDS ORDERED: LASIX IV ONE (08:17)
[2016-10-14 08:43] LABS: ALLEN TEST YES; BE -16.3 mmoll (-3.0-3.0); BLOOD TYPE ARTERIAL; DRAW SITE R RADIAL; METHB 0.8 % (0.0-1.5); O2(CT) 13.1 mL/dL (15.0-23.0); PCO2(98.6) 22 mmHg (35-45); PO2(98.6) 117 mmHg (60-100); SAMPLE BLOOD; SAO2 98.9 % (95.0-100.0); THB 9.4 g/dL (11.5-17.4); pH(98.6) 7.24 (7.35-7.45)
[2016-10-14 08:44] LABS: MANUAL DIFF NEEDED? NO
[2016-10-14 08:44] LABS: MODALITY CANNULA
[2016-10-14 08:46] LABS: BASO% 0.5 % (0.0-0.8); EOS# 0.28 X1000 (0.0-0.7); EOS% 2.3 % (0.0-10.0); HEMATOCRIT 31.4 % (37.0-47.0); HEMOGLOBIN 9.5 g/dL (12.0-16.0); IMM GRAN# 0.14 X1000 (0.0-0.04); IMM GRAN% 1.1 % (0.0-0.5); LYMPH# 1.92 X1000 (1.2-3.4); LYMPH% 15.7 % (20.5-51.1); MCH 28.3 PG (27-31); MCHC 30.3 g/dL (33-37); MCV 93.5 FL (81-99); MONO# 0.18 X1000 (0.11-0.59); MONO% 1.5 % (1.7-9.3); NEUT% 78.9 % (42.2-75.2); PLT 324 X1000 (130-400); RBC 3.36 XMIL (4.2-5.4)
[2016-10-14 08:52] LABS: INR 0.98; PROTIME 10.3 Seconds (9.2-11.7)
--- NOTE | 2016-10-14 09:15 | Diag Imaging Result Doc PS360 ---
CHEST-PORTABLE - 10/14/2016 INDICATION: dyspnea TECHNIQUE: COMPARISON: 10/13/2016 FINDINGS: Stable cardiomegaly and pulmonary vascular congestion. Opacity in the right midlung is probably a healing or old rib fracture. No overt infiltrates or edema. No pneumothorax or pleural effusion. IMPRESSION: No change from prior. Electronically signed by Froilan Hassan 10/14/2016 9:13 AM
[2016-10-14 09:30] LABS: ALBUMIN 3.6 g/dL (3.5-5.0); TOTAL BILIRUBIN 0.11 mg/dL (0.20-1.00); TOTAL PROTEIN 6.5 g/dL (6.3-8.3)
[2016-10-14 09:33] LABS: POTASSIUM 6.3 mmol/L (3.5-5.1)
[2016-10-14] MEDS ORDERED: D50W SYRINGE IV ONE (09:33)
[2016-10-14] MEDS ORDERED: HUMULIN R IV ONE (09:33)
[2016-10-14 09:57] LABS: URINE CULTURE NEEDED? NO; URINE MICRO REVIEW NEEDED? NO; URINE SOURCE CATH
[2016-10-14 10:02] LABS: BILIRUBIN URINE NEGATIVE (NEGATIVE); BLOOD URINE NEGATIVE (NEGATIVE); COLOR YELLOW; GLUCOSE URINE NEGATIVE (NEGATIVE); LEUKOCYTES URINE NEGATIVE (NEGATIVE); NITRITE URINE NEGATIVE (NEGATIVE); PH URINE 5.5; PROTEIN URINE 100 mg/dL (NEGATIVE); SP GRAVITY URINE 1.017; TURBIDITY URINE HAZY (CLEAR); UR EPITHELIAL CELLS <10 /HPF (<10); URINE BACTERIA NEGATIVE /HPF; URINE RBC <10 /HPF (<10); URINE WBC <10 /HPF (<10); UROBILINOGEN URINE NORMAL (NORMAL)
[2016-10-14] MEDS ORDERED: ZOSYN 3.375 GM/NS 3.375 GM/50 ML IVPB IV SCH (11:15)
[2016-10-14] MEDS ORDERED: VANCOMYCIN IV PER PHARMACY MISC SCH (11:15)
--- NOTE | 2016-10-14 11:45 | Diag Imaging Result Doc PS360 ---
THORAX/ABDOMEN/PELVIS W/O CONT - 10/14/2016 INDICATION: lactic acidosis; hx of free air; sob TECHNIQUE: A CT dose reduction protocol was used. COMPARISON: 10/12/2016, 08/05/2016 FINDINGS: CHEST: Stable marked cardiomegaly. Stable small pericardial effusion. There is a trace left pleural effusion. There are some scattered nodules in the right upper lobe and minor fissure. These have increased since the prior chest CT of 08/05/2016. The pulmonary edema appears to have resolved. No adenopathy. There is a stable chronic right posterior lateral rib fracture with remodeling but no bony bridging. Abdomen pelvis: There are stable bilateral renal stones. No hydronephrosis or hydroureter. Stable surgical fusion hardware of the spine. There is significant constipation. No definite bowel obstruction or free air. Khan catheter in the urinary bladder. Rectum is grossly normal. No acute bony lesions. IMPRESSION: 1. Persistent cardiomegaly and pericardial effusion. Trace left pleural effusion. No overt pulmonary edema. 2. Slightly increasing scattered nodules in the right upper lobe. This may be infectious or inflammatory. Consider atypical mycobacteria. 3. Significant constipation with rectal stool impaction. 4. Bilateral nephrolithiasis. Electronically signed by Froilan Hassan 10/14/2016 11:43 AM
[2016-10-14] MEDS ORDERED: ZOFRAN IV ONE (11:48)
[2016-10-14] MEDS ORDERED: MORPHINE IV ONE (11:48)
[2016-10-14] MEDS ORDERED: TYLENOL PO PRN ×2 (12:06→16:14)
[2016-10-14] MEDS: XOPENEX NEB INH SCH ×4 (12:06→23:06)
[2016-10-14] MEDS ORDERED: NS 1,000 ML IV SCH (12:06)
[2016-10-14] MEDS: ATROVENT NEB INH SCH ×4 (12:06→23:06)
[2016-10-14] MEDS ORDERED: DULCOLAX PR PRN (12:06)
--- NOTE | 2016-10-14 12:19 | EKG Report ---
Test Performed on : 10/14/2016 07:10:36 AM Test Reason : ED. Not ordered in [place] Blood Pressure : / mmHG Vent. Rate : 123 BPM Atrial Rate : 123 BPM P-R Int : 138 ms QRS Dur : 108 ms QT Int : 318 ms P-R-T Axes : 052 -02 096 degrees QTc Int : 455 ms Sinus tachycardia. Possible Left atrial enlargement Possible Inferior infarct , age undetermined Abnormal ECG When compared with ECG of 14-OCT-2016 00:43, Inverted T waves have replaced nonspecific T wave abnormality in Lateral leads Unconfirmed Result
--- NOTE | 2016-10-14 12:19 | EKG Report ---
Test Performed on : 10/14/2016 07:11:36 AM Test Reason : ED. Not ordered in [place] Blood Pressure : / mmHG Vent. Rate : 144 BPM Atrial Rate : 144 BPM P-R Int : 140 ms QRS Dur : 106 ms QT Int : 322 ms P-R-T Axes : 060 000 094 degrees QTc Int : 498 ms Sinus tachycardia. with frequent and consecutive premature ventricular complexes. Incomplete left bundle branch block ST \T\ T wave abnormality, consider lateral ischemia Abnormal ECG When compared with ECG of 14-OCT-2016 07:10, (Unconfirmed) premature ventricular complexes. are now present Unconfirmed Result
--- NOTE | 2016-10-14 13:06 | HISTORY AND PHYSICAL ---
PRIMARY CARE PROVIDER: None. CHIEF COMPLAINT: Shortness of breath. HISTORY OF PRESENT ILLNESS: Ms. Amaya is a 66-year-old ill-appearing female. She is in no acute distress, but comes in complaining of shortness of breath for 2 days. She has a past medical history of chronic systolic congestive heart failure with an ejection fraction of 15% to 20%, COPD with continued smoking, CKD stage 4, hypertension, and recent surgery for perforated gastric ulcer in July 2016. She states she still has diarrhea with some abdominal pain throughout. Her original presentation was yesterday at [facility] ER, and labs were stable there. She was discharged. Her shortness of breath became worse throughout the night and she re- presented to our ER. She also complains of a subjective fever of 101.3, chills. She has a nonproductive cough. There is no phlegm with this. She complains of body aches. Upon presentation, she was found in sinus tachycardia in the 130s to 140s. She was tachypneic with 20s to 30s on respiratory rate. Her lactic acid was 6.6. She had a white count of 12,000. Chest x- ray is clear of any type of infiltrates. Her urinalysis is negative. Blood cultures have been obtained. She will be started on broad-spectrum antibiotics. We will order a CT of the chest, abdomen, and pelvis to rule out any abdominal cause for her elevated lactate. Will give IV fluid hydration and consult Nephrology. We will also admit to ICU overnight for close monitoring. PAST MEDICAL HISTORY: 1. Chronic systolic congestive heart failure with EF of 15% to 20%. 2. COPD. 3. Chronic kidney disease, stage 4. 4. Hyperlipidemia. 5. Hypertension. 6. Coronary artery disease, status post myocardial infarction. 7. Restless legs syndrome. 8. Peptic ulcer disease with most recent gastric ulcer perforation in July 2016. 9. Medical noncompliance. SURGICAL HISTORY: Appendectomy, right tibia surgery, and partial gastrectomy in July 2016 secondary to perforated gastric ulcer. SOCIAL HISTORY: She lives alone with her cat. She denies alcohol or illicit drug use. She smokes 1 pack per day of cigarettes. FAMILY HISTORY: Grandmother positive for congestive heart failure. ALLERGIES: No known drug allergies. HOME MEDICATIONS: Albuterol every 4 hours p.r.n. Aspirin 81 mg p.o. daily. Bisacodyl 10 mg per rectum daily p.r.n. Klonopin 0.5 mg p.o. twice daily p.r.n. Lisinopril 5 mg p.o. nightly. Flagyl 500 mg p.o. t.i.d. Percocet 5 one tablet p.o. every 4 hours p.r.n. MiraLAX 17 g p.o. daily. Requip 2 mg p.o. nightly. Trazodone 150 mg p.o. nightly. REVIEW OF SYSTEMS: Fourteen-point review of systems was completed and all was negative except for those mentioned in the above HPI. PHYSICAL EXAMINATION: VITAL SIGNS: Temperature 97.4 degrees, heart rate 132, respiratory rate 36, blood pressure 182/87 O2 saturation 100% on non-rebreather. Has much improved and now is 98.1, heart rate 96, respiratory rate 14, blood pressure 140/95, with 96% saturation on 2L nasal cannula. She is 5 feet 5 inches tall, 84 pounds, BMI 14. GENERAL: Ms. Kajal Amaya is a 66-year-old, ill-appearing, female who is cachectic. She is able answer questions appropriately. She is not in any acute distress. HEENT: Atraumatic, normocephalic. Pupils equal, round, reactive to light. Extraocular movements intact. Mucous membranes dry. NECK: Mild JVD at 45-degree angle. Negative for carotid bruits. Trachea is midline. CARDIOVASCULAR: S1 and S2. Tachycardic rate and rhythm. No rubs, gallops, murmurs. PULMONARY: Decreased breath sounds in the bases with poor inspiratory effort, but no accessory muscle use or work of breathing noted. She does have a congested cough. She is currently on 2L nasal cannula. GASTROINTESTINAL: Soft, but tender in all 4 quadrants to palpation. She had positive bowel sounds x4. EXTREMITIES: No edema noted. Dorsalis pedal pulses +1, radial pulses +2. Bilateral feet were cool to touch. SKIN: Warm, dry, intact. LABORATORY DATA: White blood cells 12,000, hemoglobin 9, hematocrit 31, platelet count 324,000. INR 0.98. D-dimer 1.49. pH 7.24, pCO2 of 22, PO2 of 117, bicarbonate 12, base excess -16. Lactate 6.2. Sodium 140, potassium 6.3, BUN 53, creatinine 1.9, and glucose 223. Total bilirubin 0.11, AST 39, ALT 20. Troponin 0.062. proBNP greater than 35,000. Urinalysis: 100 protein, otherwise negative. IMAGING: Chest, abdomen, pelvic CT is pending. Chest x-ray: Stable cardiomegaly and pulmonary vascular congestion. There is an opacity in the right mid lung, which is probably a healing or old rib fracture. No infiltrates or edema. No pneumothorax or pleural effusion. ASSESSMENT AND PLAN: 1. Systemic inflammatory response syndrome. The patient presented with a heart rate greater than 90. It ranged anywhere from 130s to 140s. Her respiratory rate was in the 30s. Her pCO2 was 22 and her white count was 12,000. There is suspected infection, but urinalysis is negative. Chest x-ray does not show any evidence of pneumonia. Blood cultures have been obtained. There are some complaints of abdominal pain and she has a history of peptic ulcer disease. We will have to follow up on her chest, abdomen, pelvic CT. She has a lactate of 6.2, where yesterday at [place] it was normal. She has received Lasix, but will go ahead and do IV fluids instead. We will use normal saline at 50 an hour for 2 L. She will be in ICU for close monitoring of congestive heart failure symptoms and will be starting on broad-spectrum antibiotics, vancomycin and Zosyn. 2. Shortness of breath with chronic obstructive pulmonary disease exacerbation. Although on ABGs she has a CO2 of 22, she is trying to compensate for the metabolic acidosis. We will go ahead and do Xopenex and Atrovent nebulizations secondary to high heart rate, budesonide and acetylcysteine nebulizations. Turn, cough, deep breathe. She will be on antibiotics already. Will go ahead and start her on IV steroids. 3. Chronic kidney disease, stage 4, now with metabolic acidosis. Will consult Dr. Denney for further recommendations. She will be on IV fluid hydration. Her baseline creatinine is anywhere from as low as 1.6 to as high as 2.2, and today she presents with a 1.9 creatinine. 4. Hyperkalemia. She has received D50, insulin, and albuterol. Will repeat a potassium level later today and treat as necessary. 5. Chronic systolic congestive heart failure, possibly acute on chronic. There is no pulmonary edema on the chest x-ray. She did receive 40 of Lasix in the ER IV. Her proBNP is greater than 35,000. Will consider getting a Cardiology consult. We will also repeat her echocardiogram, as her last one was in January 2016, which showed a left ejection fraction of 15% to 20%. 6. Hyperglycemia. Patient comes in with a 223 glucose level. She states that she is not diabetic. Her last hemoglobin A1c was drawn in April 2016, which was 5.2%. Will continue to trend. If it stays elevated, will likely have to start on pattern blood glucoses and sliding scale insulin to decrease risk of more infections. She had the 223 prior to receiving D50 for her hyperkalemia. 7. History of peptic ulcer disease. Again, she does have abdominal tenderness. Her lactate is up. She has history of a perforated gastric ulcer and gastrectomy in July. We will have to follow up on her abdominal CT. 8. Anemia with a baseline 29 to 32, and today she is 31.4 on her hematocrit. It appears she does have iron deficiency anemia. 9. Hypertension. We will continue antihypertensives as able. 10. Hyperlipidemia. Continue statins as able. 11. Tobacco abuse. Cessation discussed. 12. Anorexia. Patient states that she does not eat well. We will add a diet once her abdominal CT has ruled out any sort of perforation. 13. Deep venous thrombosis prophylaxis with SCDs. 14. Gastrointestinal prophylaxis. Proton pump inhibitor. 15. Elevated D-dimer. It appears that it stays elevated. Today, it is 1.49. Consider V/Q scan. Dictated by VERONICA Benedict for Rigo Yeboah MD cc: VERONICA Benedict MD
[2016-10-14] MEDS ORDERED: VANCOMYCIN 1 GM/NS 1 GM/250 ML IVPB IV ONE (14:00)
[2016-10-14] MEDS ORDERED: DOBUTAMINE 500/D5W 500 MG/250 ML IV.SOLN IV SCH (15:28)
--- NOTE | 2016-10-14 15:40 | EKG Report ---
Test Performed on : 10/14/2016 1:06:46 PM Test Reason : chest pain Blood Pressure : / mmHG Vent. Rate : 106 BPM Atrial Rate : 106 BPM P-R Int : 124 ms QRS Dur : 096 ms QT Int : 354 ms P-R-T Axes : 005 037 014 degrees QTc Int : 470 ms Sinus tachycardia. Possible Left atrial enlargement Nonspecific ST and T wave abnormality Abnormal ECG When compared with ECG of 14-OCT-2016 07:11, (Unconfirmed) premature ventricular complexes. are no longer present Nonspecific T wave abnormality now evident in Inferior leads T wave inversion no longer evident in Lateral leads Unconfirmed Result
--- NOTE | 2016-10-14 15:44 | Diag Imaging Result Doc PS360 ---
US RENAL 2 (RETROPER) COMPLETE - 10/14/2016 INDICATION: elevated creatinine TECHNIQUE: COMPARISON: CT from earlier today FINDINGS: Background renal echotexture is hyperechoic compatible with chronic medical renal disease. No hydronephrosis or hydroureter. There are bilateral renal cysts. These measure up to 2.3 cm on the right and 1.6 cm on the left. There is a Khan catheter in the urinary bladder which otherwise appears normal. Renal sizes are a bit small. The right kidney measures 9.1 x 4.5 x 3.8 cm. Cortex measures 9 mm. The left kidney measures 7.5 x 4.9 x 4.5 cm. Cortex measures 10 mm. IMPRESSION: 1. Hyperechoic kidneys compatible with chronic medical renal disease. Minor renal atrophy. 2. Bilateral renal cysts. 3. No obstruction. Electronically signed by Froilan Hassan 10/14/2016 3:42 PM
[2016-10-14 16:04] LABS: UR CREAT RANDOM 25.5 mg/dL (11-20)
--- NOTE | 2016-10-14 16:15 | CONSULTATION ---
DATE OF CONSULTATION: 10/14/2016 INDICATION: Shortness of breath, congestive heart failure. HISTORY OF PRESENT ILLNESS: Ms. Amaya is a 66-year-old white female with a long history of medication noncompliance as well as noncompliance with followup with physicians. She presented to the ER with one of her continued complaints of shortness of breath. Notably she has not been taking her medications as prescribed at home. She reports good oral intake at home. Not aware of any fevers presently. She has a history of severe COPD and continues to smoke. She has developed some issues with diarrhea as well as abdominal pain. She was apparently at [place] yesterday and labs were relatively stable, and she was subsequently discharged. She subsequently per re- presented to the ER this morning. Lactate was noted to be 6.6. She was started on antibiotics. CT of the chest was ordered. PAST MEDICAL HISTORY: 1. She has ischemic cardiomyopathy with most recent ejection fraction around 15-20. 2. COPD. 3. CKD stage 4. 4. Hyperlipidemia. 5. Hypertension. 6. History of coronary artery disease with an essentially severe lesion in the circumflex as well as a severe occlusion in the right coronary. 7. Restless leg. 8. Peptic ulcer disease. 9. Long history of noncompliance with multiple therapies. SOCIAL HISTORY: She lives alone. No alcohol or illicit drugs. She continues to smoke. FAMILY HISTORY: Significant for hypertension and possible congestive heart failure in her grandmother. REVIEW OF SYSTEMS: A 10 system review of systems is negative except for those things mentioned in HPI. PHYSICAL EXAMINATION: Vital Signs: Thus far here she has been afebrile. Her heart rate has been in the 100s, blood pressure 119/77 and here on the her blood pressures have been anywhere from the 120s to 140s diastolic it seems. There was 182/87 at 7:21 this morning but that was an outlier. General: She is in no acute distress. She is ill-appearing, somewhat cachectic. HEENT: Oropharynx is moist. Poor dentition. Eye examination with pink conjunctivae, white sclerae. Neck: Examination shows no obvious thyromegaly or thyroid tenderness. Cardiovascular: She sounds to be in a mildly tachycardic rate. No obvious murmurs. She has no S3. She has no lower extremity edema. She does seem to have mildly cool distal lower extremities. In addition, she has what appears to be an elevated JVP. Chest: Examination her coarse bilateral breath sounds. No obvious increased work of breathing. Somewhat reduced breath sounds diffusely. Abdomen: Soft, nontender, nondistended. Bowel sounds are present. Skin: Examination is warm and dry throughout. Neurological: She is moving all extremities well. Cranial nerves 2-12 are intact without any sensation deficits. Psychiatric: She is alert, oriented, pleasant. PERTINENT DATA: 1. She had a CT scan showing persisting cardiomegaly with small pericardial effusion, trace left pleural effusion. No pulmonary edema. She had slightly increased nodules in the right upper lobe. Possible atypical mycobacteria. Constipation was noted. Bilateral nephrolithiasis. 2. She had an EKG performed on October 14 at 7:11 a.m. demonstrating sinus rhythm. She had what appeared to be a run of ventricular tachycardia that was captured on EKG 8 beats in duration. The rest of the EKG appears to be sinus rhythm. No evidence of ischemia. The proceeding EKG shows sinus rhythm, rate of 123 beats per minute. LABORATORY DATA: White count of 12.2, hematocrit 31.4, platelet count 324,000. D-dimer is 1.49, INR 0.98. ABG shows pH of 7.24, pCO2 of 22, PO2 was 117. Lactate was 6.2 on that study. Sodium 140, potassium 6.3, BUN 53, creatinine 1.9 which is up from 1.6 on the . Her proBNP was greater than 35,000. Plasma lactate was 4. Urinalysis was reviewed and looked unremarkable. ASSESSMENT: 1. Likely systolic heart failure. 2. Chronic kidney disease roughly around her previous baseline. 3. Hyperkalemia. 4. Possible sepsis with acidosis noted. 5. Long history of medical noncompliance. 6. Scant pericardial effusion noted on CT today and noted previously on echocardiograms in January 2016. PLAN: Patient is certainly a difficult patient considering her noncompliance and issues with taking medications at home. She does appear to be volume overloaded based on elevated JVP and a markedly elevated proBNP. She does have mildly cool distal lower extremities. Given her episode of ventricular tachycardia that was noted on her EKG I would not recommend inotrope. In addition, she seems to have an adequate blood pressure so I would not recommend inotrope presently. I will start her on a low dose of hydralazine at 12.5 mg b.i.d. She was given a dose of diuretics in the ER. We will try to observe that for now. Nephrology is evaluating the patient as well as Pulmonology. I would make a consideration for hospice in this patient given the patient's frequent and repetitive display of noncompliance with medical therapy as well as lack of following up with outpatient physicians. She repetitively receives her care through the ER and does not seem to have a willingness to perform simple tasks like taking medications for treatment of her heart failure. I would not recommend an invasive evaluation in this patient. She has a heart catheterization from 2016 demonstrating severe right coronary and circumflex disease that was elected to treat medically. I do not believe she is a candidate for a PCI based on those lesions. In addition, she is not a suitable candidate for anticoagulants. She has too many core morbidities to be considered for coronary bypass. In addition, with right coronary and circumflex disease those would likely not be vessels managed routinely with coronary bypass. We will continue to adjust medications. The patient is on antibiotics presently. cc: Antolin Song MD
[2016-10-14 16:18] LABS: ALLEN TEST YES; BLOOD TYPE ARTERIAL; DRAW SITE R RADIAL; METHB 1.1 % (0.0-1.5); O2(CT) 11.9 mL/dL (15.0-23.0); PCO2(98.6) 26 mmHg (35-45); PO2(98.6) 84 mmHg (60-100); SAMPLE BLOOD; SAO2 98.5 % (95.0-100.0); THB 8.7 g/dL (11.5-17.4); pH(98.6) 7.45 (7.35-7.45)
[2016-10-14 16:20] LABS: MODALITY ROOM AIR
[2016-10-14 16:20] LABS: MAGNESIUM 1.8 mg/dL (1.5-2.7); POTASSIUM 4.5 mmol/L (3.5-5.1)
[2016-10-14] MEDS: NORCO-7.5 PO PRN (16:47)
[2016-10-14] MEDS: ZOFRAN IV PRN (17:58)
--- NOTE | 2016-10-14 17:59 | CONSULTATION ---
DATE OF CONSULTATION: 10/14/2016 REASON FOR ADMISSION: Severe shortness of breath. REASON FOR CONSULT: Acute kidney injury on chronic kidney disease stage 4. CONSULTING PHYSICIAN: Rigo Yeboah MD HISTORY OF PRESENT ILLNESS: Ms. Amaya is a 66-year-old white female who appears chronically ill whom we had performed an initial consult at [facility] in August 2016 for acute kidney injury. It was noted at that time that her creatinine range was 1.2-2.9 and she had not seen us in follow up. She is in no acute distress, but she does come complaining of increased work of breathing with productive cough x several days. She states that she had gone to [facility] yesterday with increased work of breathing and not feeling well with a productive cough and she stated she had a temperature of at least 101.3. She stated she had fever, chills and had a decreased appetite, but no nausea or vomiting. Patient was evaluated, had labs drawn and then it appears she was discharged home. Her shortness of breath became worse during the night and she presented to [facility] ER with the same type of complaints with a subjective fever of again 101.3. She continues to have fever and chills, nonproductive cough. She is unable to produce phlegm, though she states that it does choke her. She complains of body aches. She was found to be in tachycardia. She was tachypneic in the 20s. Her lactic acid level was 6.6 where was negative at [facility]. Her chest x-ray is clear with no infiltrates noted, though her BNP is slightly elevated. Her urinalysis is negative. Blood cultures have been obtained. She was placed on broad-spectrum antibiotics. She had a CT of the chest indicating some nodular affect. Subsequently, patient was admitted upstairs to ICU. Her labs indicate a white count of 12.26. Her hemoglobin was initially low. Her potassium was initially elevated at 6.3 with an elevated plasma lactate of 6.2, now down to 1. She has an elevated D-dimer. She has a positive anion gap of 24 with a metabolic acidosis of 12. Subsequently, patient is currently in the ICU. Her vital signs are stable. She has been started on vancomycin and a Zithromax. She remains on nebulizer treatments. She was given Lasix initially in the emergency room. Cardiology has seen her and is agreeable for IV fluids to continue of normal saline at 50 mL an hour. She denies any nausea, vomiting, or diarrhea at this time. No chest pain. No palpitations. Positive cough, positive weakness, no swelling. PAST MEDICAL HISTORY: Chronic systolic congestive heart failure with a previous ejection fraction of 15-20% on her last hospitalization. Chronic kidney disease stage IV with a baseline creatinine of 1.7-2.2 since 2016. She has hyperlipidemia, hypertension, coronary artery disease, status post myocardial infarction, restless legs syndrome, peptic ulcer disease with a recent gastric ulcer perforation in July 2016. She was also noted on 2 occasions during this hospitalization of medical noncompliance. PREVIOUS SURGICAL HISTORY: She has had an appendectomy, right tibia surgery, partial gastrectomy in July 2016 secondary to perforated gastric. SOCIAL HISTORY: She lives alone with her cat. She denies any alcohol or illicit drug use. She states that she has used illicit drugs in the past. She continues to smoke 1 pack per day, though she states that she has cut down. She has smoked for greater than 45 years. FAMILY HISTORY: Mother has heart disease. Grandmother was positive for congestive heart failure. ALLERGIES: Listed as no known drug allergies. MEDICATIONS: Albuterol, aspirin, bisacodyl, Klonopin, lisinopril, Flagyl, Percocet, MiraLAX, Requip, and trazodone. REVIEW OF SYSTEMS: Review of systems x 10 with pertinent positives listed above in the HPI. PHYSICAL EXAMINATION: Vital signs: Temperature 99.9 degrees, blood pressure 115/74, heart rate 98, respirations 20. She is on 2 L nasal cannula. Last recorded saturation is 97%. She has had 100 void out. She has a Khan catheter in at this time. She has greater than 300 to her Khan bag. General: This is a 66-year-old white female. She appears chronically ill. She is in no acute distress. Skin: Warm and dry. HEENT: Normocephalic, atraumatic. Conjunctivae pale. She has ZAC. Mucous membranes are dry. Neck: Supple. Trachea midline. She has no JVD. Cardiovascular: Regular rate and rhythm. She is tachycardic on the monitor. No murmur or gallop appreciated. Lungs: Diminished breath sounds. Clear to auscultation anterior on O2. Abdomen: Soft, nontender. Positive bowel sounds. Genitourinary: Khan catheter is in place. Extremities: No edema. No clubbing or cyanosis. LABORATORY AND IMAGING: Sodium 140, potassium 6.3, repeated and new results of 4.5 at 04 p.m. chloride is 104, CO2 12, BUN 53, creatinine 1.9, glucose 223. Calcium 10, magnesium of 1.8. Albumin 3.6. She has a BNP greater than 35,000. Plasma lactate is back elevated again at 4. Her troponin remains normal at this time. Her initial white count 12.26, hemoglobin 9.5, hematocrit 31.4 with a platelet count of 324,000. She has a PT of 10.3, INR of 0.98, her D-dimer was 1.49. Her last arterial blood gases, pH 7.45, CO2 26, PO2 84, bicarb 21. Her oxyhemoglobin is 96.3. She has a lactate of 1 at 1610. She remains on room air for these arterial blood gases. Urinalysis: Urine is hazy, negative for hematuria, positive for trace proteinuria. Urine electrolytes indicate a fractional excreted urea of 53% indicating more than likely ATN. Patient has had a chest, abdominal and pelvis CT without contrast indicating persistent cardiomegaly, pericardial effusions, trace left pleural effusions. No overt pulmonary edema noted on CT. She has increased scattered nodules to the right upper lobe with infectious inflammatory process indicating possible atypical mycobacteria. She indicates on her renal that she has bilateral nephrolithiasis. She is significant for constipation. Renal ultrasound: Right kidney measures 9.1, left measures 7.5, bilateral renal cysts. No obstruction. ASSESSMENT AND PLAN: 1. Acute kidney injury. Patient appears to be at her baseline of chronic kidney disease stage She is making adequate urine out. She does appear to be in acute tubular necrosis. We will continue to monitor. She has no nephrotoxic medications infusing at this time. 2. Electrolytes. Patient had hyperkalemia. This has been corrected. Her potassium is now down to 4.5. 3. Acid-base balance. She remains in metabolic and lactic acidosis. These are slowly correcting. She has had a history of gastrointestinal difficulties. Abdomen is negative. We will check occult stools and correct her sodium bicarbonate. 4. Anemia. This has been corrected. 5. Increased work of breathing. Patient appears to have an inflammatory process taking place. She is on renal dosed antibiotics. I would to thank you for allowing us to follow with this patient. Dictated by VERONICA Calles for Enmanuel Denney MD cc: VERONICA Calles MD
[2016-10-14] MEDS: PULMICORT INH SCH (18:54)
[2016-10-14] MEDS: MUCOMYST 20% INH SCH (18:54)
[2016-10-14] MEDS: ZOSYN 2.25 GM/NS 2.25 GM/50 ML IVPB IV SCH (19:38)
[2016-10-14] MEDS: KLONOPIN PO PRN (19:38)
[2016-10-14] MEDS: SODIUM BICARBONATE PO SCH (20:02)
[2016-10-14] MEDS: PRILOSEC PO SCH (20:02)
[2016-10-14] MEDS: DESYREL PO SCH (20:02)
[2016-10-14] MEDS: APRESOLINE PO SCH (20:02)
[2016-10-14] MEDS: REQUIP PO SCH (20:02)
--- NOTE | 2016-10-14 20:06 | CONSULTATION ---
DATE OF CONSULTATION: 10/14/2016 CONCLUSION: The patient was admitted to the hospital with dyspnea and fever. She also had diarrhea and abdominal pain. I am uncertain as to the cause of this acute illness. It is noted on her CT scan that she has some nodules in her lung. It would seem to me unlikely that these nodules are responsible for the patient's acute illness. Exactly what these nodules are again is unclear to me at this time. I think that they could be from a noninfectious cause, possibly even a metastatic tumor would be a consideration as well. RECOMMENDATIONS: Since the patient is febrile, complaining of dyspnea and has tachycardia, I think it is reasonable to assume she has an infection and I agree with broad-spectrum coverage with vancomycin and Zosyn. DISCUSSION: The patient tells me that in the past 2 days she has had dyspnea, fever, chills, pleuritic chest pain, vomiting, diarrhea and abdominal pain with swelling of the abdomen. She is not coughing. She does not have dysuria. She has not had any skin rashes. She has not been around anybody ill recently. Laboratory studies thus far show a CBC with a white count of 12,290, hemoglobin 9.5, and platelet count 324,000. Blood gases show a pH of 7.45, PO2 of 84, pCO2 of 26. Creatinine is 1.9, GFR is 26. Urinalysis showed no white cells or bacteria. CT scan of the chest, abdomen and pelvis show right upper lobe nodules that were bilateral renal calculi. There was no abscess seen. PAST MEDICAL HISTORY/REVIEW OF SYSTEMS: Eyes and Ears: She has decreased hearing but her vision is okay. Neck: No stiffness. Respiratory: See present illness. Cardiovascular: The patient is having chest pain, however, it is pleuritic in nature and I do not think it is related to the heart. She has not noticed any palpitations. Gastrointestinal: See above present illness. Genitourinary: No dysuria or flank pain. Endocrine: No history of diabetes or thyroid disease. Neurologic: No headaches or syncopal episodes. Integument: No rash is noted. [employer] HISTORY: She has never been . PREVIOUS HOSPITALIZATIONS AND OPERATIONS: She had an appendectomy, right tibial surgery, partial gastrectomy in July 2016 secondary to perforated gastric ulcer. She has also had a laminectomy in the lumbar spine. MEDICAL DISEASES: Positive for hypertension, myocardial infarction, congestive heart failure, COPD, chronic kidney disease, hyperlipidemia, coronary artery disease, restless legs syndrome, peptic ulcers, medical noncompliance. INFECTIOUS DISEASE HISTORY: Positive for pneumonia and UTI. FAMILY HISTORY: Positive for congestive heart failure. The patient states that she has had very little contact with her family and really did not know what illnesses were in the family. SOCIAL HISTORY: The patient lives alone. She has cats. She does not drink alcoholic beverages or abuse drugs. She does smoke cigarettes. She is retired from working for [employer]. ALLERGIES: No known drug allergies. HOME MEDICATIONS: Albuterol inhaler, aspirin, bisacodyl, Klonopin, lisinopril, Flagyl, Percocet, MiraLAX, Requip and trazodone. PHYSICAL EXAMINATION: Vital Signs: Temperature 99.9 degrees, pulse 103, respirations 19, blood pressure 115/74. Patient weighs 84 pounds. General: This is a very small, elderly female who is in no acute distress at this time. Head eyes ears, nose, throat: No drainage noted from the nose or ears. There is no white coating to the tongue. Neck: No meningismus. Thorax: There is an increased AP diameter to the chest. Lungs: Clear to auscultation. Cardiovascular: Regular. Rapid heart rate. Abdomen: Soft. It seems somewhat protuberant. I did not feel any organomegaly. Neurologic: Patient is awake. She can move her extremities. There is no tremor. Her sensation is intact to touch. Her memory was slightly diminished as regarding her medical history. Integument: I did not see any rashes. Bones, joints, muscles: muscle wasting. No joint swelling. Thank you for the consultation. cc: Juancarlos Rangel MD
[2016-10-15] MEDS: ZOFRAN IV PRN ×4 (00:31→18:48)
[2016-10-15] MEDS: NORCO-7.5 PO PRN (00:43)
[2016-10-15] MEDS: ATROVENT NEB INH SCH ×6 (02:52→23:05)
[2016-10-15] MEDS: XOPENEX NEB INH SCH ×6 (02:52→23:06)
[2016-10-15] MEDS: ZOSYN 2.25 GM/NS 2.25 GM/50 ML IVPB IV SCH ×3 (04:33→20:37)
[2016-10-15 05:13] LABS: MANUAL DIFF NEEDED? NO
[2016-10-15 05:45] LABS: HEMOGLOBIN A1C 5.5 % (4.8-6.0)
[2016-10-15 05:49] LABS: ALBUMIN 3.3 g/dL (3.5-5.0); CALCIUM 9.6 mg/dL (8.8-10.2); MAGNESIUM 1.8 mg/dL (1.5-2.7); POTASSIUM 4.8 mmol/L (3.5-5.1); TOTAL BILIRUBIN 0.14 mg/dL (0.20-1.00)
[2016-10-15 05:50] LABS: INR 0.98; PROTIME 10.3 Seconds (9.2-11.7); PTT 23.6 Seconds (22.0-36.0)
[2016-10-15 06:14] LABS: BASO% 0.3 % (0.0-0.8); EOS# 0.14 X1000 (0.0-0.7); EOS% 1.1 % (0.0-10.0); HEMATOCRIT 27.7 % (37.0-47.0); HEMOGLOBIN 8.8 g/dL (12.0-16.0); IMM GRAN# 0.03 X1000 (0.0-0.04); IMM GRAN% 0.2 % (0.0-0.5); LYMPH# 1.78 X1000 (1.2-3.4); LYMPH% 13.8 % (20.5-51.1); MCH 28.1 PG (27-31); MCHC 31.8 g/dL (33-37); MCV 88.5 FL (81-99); MONO# 1.06 X1000 (0.11-0.59); MONO% 8.2 % (1.7-9.3); MPV 11.4 FL (7.4-10.4); NEUT% 76.4 % (42.2-75.2); PLT 287 X1000 (130-400); RBC 3.13 XMIL (4.2-5.4)
--- NOTE | 2016-10-15 06:34 | EKG Report ---
Test Performed on : 10/15/2016 05:49:31 AM Test Reason : chest pain Blood Pressure : / mmHG Vent. Rate : 109 BPM Atrial Rate : 109 BPM P-R Int : 124 ms QRS Dur : 102 ms QT Int : 354 ms P-R-T Axes : 058 032 071 degrees QTc Int : 476 ms Sinus tachycardia. Minimal voltage criteria for LVH, may be normal variant Nonspecific T wave abnormality Abnormal ECG When compared with ECG of 14-OCT-2016 13:06, Nonspecific T wave abnormality no longer evident in Inferior leads Confirmed by Edward GILBERT, Chilo Ordoñez ([id number]) on 10/17/2016 12:39:19 PM
--- NOTE | 2016-10-15 07:16 | Diag Imaging Result Doc PS360 ---
CHEST-PORTABLE - 10/15/2016 INDICATION: sob TECHNIQUE: COMPARISON: 10/14/2016 FINDINGS: Stable cardiomegaly. Pulmonary vascularity is grossly normal. No infiltrates or edema. IMPRESSION: Cardiomegaly. Electronically signed by Froilan Hassan 10/15/2016 7:13 AM
[2016-10-15] MEDS: MUCOMYST 20% INH SCH ×2 (07:35→19:55)
[2016-10-15] MEDS: PULMICORT INH SCH ×2 (07:35→19:55)
[2016-10-15 08:33] LABS: ALLEN TEST YES; BE -1.4 mmoll (-3.0-3.0); BLOOD TYPE ARTERIAL; DRAW SITE R RADIAL; METHB 0.8 % (0.0-1.5); O2(CT) 11.2 mL/dL (15.0-23.0); PCO2(98.6) 34 mmHg (35-45); PO2(98.6) 86 mmHg (60-100); SAMPLE BLOOD; SAO2 99.2 % (95.0-100.0); THB 8.1 g/dL (11.5-17.4); pH(98.6) 7.43 (7.35-7.45)
[2016-10-15 08:35] LABS: MODALITY ROOM AIR
--- NOTE | 2016-10-15 08:48 | CONSULTATION ---
DATE OF CONSULTATION: 10/15/2016 REFERRING PHYSICIAN: Dr. Patel. CHIEF COMPLAINT: Shortness of breath. HISTORY OF PRESENT ILLNESS: This is a 66-year-old, female with past medical history of chronic systolic congestive heart failure, COPD, CKD, hyperlipidemia, hypertension, CAD, restless leg syndrome, peptic ulcer disease and medical noncompliance that presented to the hospital with complaints of shortness of breath. She was initially seen at [facility] where she was then discharged. She arrived at our ER complaining of fever and chills. Subjective fever of 101.3. Nonproductive cough. Body aches. She was also tachycardic with an intermittent rate of 130s to 140s. She has been placed in ICU for close monitoring. REVIEW OF SYSTEMS: A 10-point review of systems was conducted. Pertinent on HPI, otherwise noncontributory. PAST MEDICAL HISTORY: As mentioned in HPI, otherwise noncontributory. PAST SURGICAL HISTORY: Appendectomy, right tibia surgery, partial gastrectomy. SOCIAL HISTORY: The patient lives at home alone. Denies the use of alcohol or illicit drugs. Smokes 1 pack per day of cigarettes. FAMILY HISTORY: Notable for congestive heart failure. ALLERGIES: No known drug allergies. ACTIVE MEDICATIONS: 1. Tylenol. 2. [place]. 3. Mucomyst. 4. Aspirin. 5. Dulcolax. 6. Pulmicort. 7. Klonopin. 8. Apresoline. 9. Atrovent. 10. Xopenex. 11. Vancomycin. 12. NicoDerm. 13. Prilosec. 14. Zofran. 15. Zosyn. 16. MiraLAX. 17. Requip. 18. Desyrel. PHYSICAL EXAMINATION: Vital Signs: Temperature 98.3, heart rate 106, respiratory rate 24, blood pressure 127/87, oxygen saturation 100%. General: Awake, alert, chronically ill appearing, no acute distress noted. HEENT: Normocephalic and atraumatic. PERRL. Cardiovascular: S1, S2 present. Tachycardic rate. Chest: Reduced entry with decreased breath sounds. Abdomen: Soft, but diffusely tender. Positive bowel sounds in all 4 quadrants. Extremities: No edema noted. Distal pulses palpable. Skin: Warm, dry and intact. LABS AND INVESTIGATIONS: WBC 12.9, RBC is 3.13, hemoglobin 8.8, hematocrit 27.7 , platelet count 287. Sodium 139, potassium 4.8, chloride 102, CO2 20, anion gap 17. BUN 74, creatinine 2.4, glucose 123. Chest x-ray performed on 10/15/2016 shows cardiomegaly. ASSESSMENT AND PLAN: This is a 66-year-old, chronically ill-appearing, female with past medical history mentioned in the history of present illness. Pulmonary noules are non-specific and can be observed. May represent DINH. was discussed with ID. She is admitted to the hospital with tachycardic heart rate, shortness of breath, fever and chills. Nephrology has been consulted for the patient's chronic kidney disease. Continue Xopenex, Atrovent, budesonide and acetylcysteine nebulizations for chronic obstructive pulmonary disease exacerbation. Also, intravenous antibiotics. She did receive Lasix in the emergency room for chronic systolic congestive heart failure. Also, continue Prilosec for gastrointestinal prophylaxis and sequential compression devices for deep vein thrombosis prophylaxis. Further recommendations pending diagnostic studies. Dictated by VERONICA Weir for Lay Soler MD cc: VERONICA Weir MD MTDD
[2016-10-15] MEDS ORDERED: MIRALAX PO SCH (09:00)
[2016-10-15] MEDS: APRESOLINE PO SCH ×2 (09:52→20:50)
[2016-10-15] MEDS: SODIUM BICARBONATE PO SCH ×2 (09:52→20:35)
[2016-10-15] MEDS: ASPIRIN PO SCH (09:52)
[2016-10-15] MEDS: TUMS PO SCH ×4 (09:52→20:36)
[2016-10-15] MEDS: PRILOSEC PO SCH ×2 (09:52→20:36)
[2016-10-15] MEDS: MORPHINE IV PRN ×3 (09:53→18:48)
[2016-10-15] MEDS: NICODERM PATCH TD SCH (09:53)
--- NOTE | 2016-10-15 10:11 | PROGRESS NOTE ---
DATE: 10/15/2016 SUBJECTIVE: Patient is sitting up in bed. She is complaining of some acid indigestion, otherwise her breathing is much better. OBJECTIVE: Vital Signs: Temperature 98.3 degrees, pulse 106, respiratory rate 22, blood pressure 127/87, 2 L nasal cannula. Intake 1.4 L. Output 1.6 L via Khan. PHYSICAL EXAMINATION: General: This is a middle-aged female, sitting up in bed. She is awake and alert. No acute distress. HEENT: Normocephalic, atraumatic. Conjunctivae are pale. ZAC, oral mucosa moist. Tongue is midline. Neck: Supple. There is no JVD noted. Trachea midline. Cardiovascular: Mildly tachycardic on the monitor. Regular. No murmur or gallop appreciated. Pulmonary: She has equal excursion. She remains on 2 L nasal cannula. She has no increased work of breathing. There is no adventitious breath sounds. Abdomen: Soft with positive bowel sounds. : Kahn catheter noted clear yellow urine. Extremities: No clubbing, cyanosis or edema. He is moving all extremities. Integumentary: Skin is warm and dry without rash or lesion. LAB DATA: WBC of 12.9, hemoglobin 8.8. Sodium 139, potassium 4.8, CO2 20, BUN 74, creatinine 2.4, calcium 9.6, albumin 3.3. ASSESSMENT AND PLAN: 1. Tdzvo-jy-aheultl kidney disease. Her urine output has remained adequate. Her renal function with a mild increase in creatinine overnight. She has no absolute indications for dialysis at this time. Medications have been adjusted Accordingly to her renal function. We will make no changes. Continue to follow. 2. Electrolytes, acid-base balance. Her hyperkalemia is resolved. Acidosis is improved with a CO2 noted today at 20. 3. Anemia. Fairly stable although patient does have an apparent history of a gastrointestinal bleed in the past. 4. Increased work of breathing/inflammatory process. On appropriately dosed antibiotics in no distress today. Thank you for allowing us to follow with the patient. Dictated by VERONICA Stone for Enmanuel Denney MD cc: Enmanuel Denney MD
[2016-10-15 10:22] LABS: HEMOGLOBIN A1C 5.3 % (4.8-6.0)
--- NOTE | 2016-10-15 10:24 | ECHO REPORT ---
ORDER DATE: 10/14/2016 INTERPRETING PHYSICIAN: Dr. Brooks. CLINICAL INDICATIONS: A 66-year-old female with shortness of breath, history of congestive heart failure. M-MODE MEASUREMENTS: Right ventricle: 3.1 cm. Left ventricle end diastole: 6.9 cm. Left ventricle end systole: 6.6 cm. Posterior wall: 0.5 cm. Interventricular septum: 1.0 cm. Left atrium: 4.0 cm. Aortic root: 3.2 cm. SUMMARY OF 2-DIMENSIONAL IMAGIN. The global left ventricular systolic function is significantly impaired, is estimated to be somewhere in the range of 25% to 30%. 2. The left ventricular chamber is markedly dilated. 3. There is suggestion of wall motion abnormality involving the inferior and the posterior wall of the left ventricle raising concern for coronary heart disease as the etiology of this patient's cardiomyopathy. 4. The right ventricle is mildly enlarged, shows slightly decreased function. 5. The tricuspid valve shows a moderate degree of regurgitation. The inferior vena cava is not dilated. However, it shows decreased respiratory variation. The pulmonary systolic pressure is markedly elevated somewhere in the range of 94 mmHg. 6. The left atrium appears to be moderately dilated. 7. The mitral valve shows a mild degree of thickening of the leaflets. Color flow mapping indicates a moderately severe degree of regurgitation. Pulsed wave Doppler of mitral inflow shows a "normal" E/A ratio. However, the deceleration time is short. This probably represents a pseudonormal pattern. 8. The tissue Doppler of septal and lateral mitral annulus averages 9 cm. 9. The E/e' ratio is about 10. 10.The pulmonary venous flow shows predominance of a diastolic component. I suspect that there is, indeed, diastolic dysfunction in this case. 11.The aortic valve opens normally. Color flow mapping indicates a mild degree of regurgitation. There is no aortic stenosis. The cardiac output is decreased. 12.The pulmonic valve appears to be grossly normal. 13.There is no pericardial effusion, masses, nor thrombus. CONCLUSIONS: In summary, this study shows: 1. Significantly dilated left ventricle with significantly impaired function, ejection fraction of 25% to 30% with segmental wall motion abnormality involving the posterior and the inferior wall raising concern for coronary heart disease as the etiology of this patient's cardiomyopathy. 2. A moderately severe degree of mitral regurgitation. 3. Suspect diastolic dysfunction. 4. A moderate degree of tricuspid regurgitation with significant pulmonary hypertension estimated at 94 mmHg. 5. This study is consistent with a decompensated cardiomyopathy from chronic systolic heart failure. cc: MD Ju Benites CRNP
--- NOTE | 2016-10-15 11:13 | PROGRESS NOTE ---
DATE: 10/15/2016 SUBJECTIVE: Patient reports she is still feeling severe sensation of heartburn every time she tried to eat, and she is vomiting because of that. She denies any shortness of breath right now. She denies any fever or chills. OBJECTIVE: Vital Signs: Temperature 98.3 degrees, heart rate 106, respiratory rate 24, blood pressure 127/87. O2 saturation 100% on 2 L nasal cannula. General: This is a chronically ill- looking and frail female, looking older than her age. She is a 66 year old female lying in bed in no acute distress. HEENT: Normocephalic and atraumatic. Anicteric sclerae and pale conjunctivae. Mucous membranes are moist. Neck supple. Mild JVD noted 6-7 cm. No lymphadenopathy. No thyromegaly. No carotid bruits. Cardiovascular: S1, S2 heard. Tachycardic. No murmurs, gallops, or rubs. Regular rate and rhythm. Respiratory: Decreased breath sounds globally. No wheezing noted. No crackles noted. Patient is not using any accessory muscles or having work of breathing. Abdomen is soft, a little bit distended in all 4 quadrants. Bowel sounds present. Extremities: No clubbing, cyanosis, or edema. Peripheral pulses present in both legs. Neurologic: Patient alert and oriented x3. Able to move 4 extremities. Cranial nerves 2- 12 grossly normal. LABORATORY DATA: White cell count 12.9, hemoglobin 8.8, hematocrit 27.7, platelets 287,000. ABG shows pH 7.43 with pCO2 of 34 and PO2 of 86. Lactate 0.5. ABG was drawn on room air. BMP unremarkable except glucose 2.4 and creatinine . ASSESSMENT AND PLAN: 1. Right upper lobe pneumonia. Although the CT of the chest did not show exactly a pneumonia, the fact that this patient had lower temperature plus patient was coping more than she used to and white cell count is still elevated. We prefer to keep this patient on vancomycin and Zosyn. Dr. Rangel has also evaluated this patient. CT of the chest, abdomen, and pelvis confirmed this finding. 2. Systolic congestive heart failure. She had ischemic cardiomyopathy with ejection fraction of 15%-20%. Dr. Song was consulted. He thinks that because of this patient's poor compliance, they are not going to pursue with any invasive testing at this point. We will follow their recommendations. 3. Chronic kidney disease, stage 4. Now, the patient has metabolic acidosis. Dr. Denney has been consulted. We will see what they have to say. 4. Hyperkalemia, resolved. 5. Hyperglycemia, stable. Just in case, we are going to check hemoglobin A1c. 6. History of peptic ulcer disease. Patient complained of severe heartburn even though she is on Protonix. Will provide Tums to control those symptoms. 7. Anemia of chronic disease. The hemoglobin at admission was 9.5 and, today, it is 8.8. 8. Hypertension. Blood pressure is actually normal. We will continue checking vital signs every 6 hours. 9. Hyperlipidemia. We will continue with the statin. 10. Tobacco abuse. Patient has been counseled to stop smoking. 11. Deep vein thrombosis prophylaxis with SCDs. 12. Gastrointestinal prophylaxis with Protonix. cc: Rigo Yeboah MD
[2016-10-15] MEDS: KLONOPIN PO PRN ×2 (12:21→18:49)
--- NOTE | 2016-10-15 15:02 | PROGRESS NOTE ---
DATE: 10/15/2016 SUBJECTIVE: Ms. Amaya reports she is doing somewhat better today. She is tolerating oral intake although she has some very mild nausea. OBJECTIVE: Vital signs: She is afebrile. Her heart rates seem to be in the 100s-110s. Blood pressure 129/73. Her I's and O's for the course of the hospitalization have been positive 165. Notably she did get some IV fluids as well some IV Lasix yesterday. General: She is in no acute distress. Cardiovascular: She sounds to be in a regular rate and rhythm. No obvious murmurs. No S3. She has no lower extremity edema, and warm and well perfused lower extremities. Chest: Clear bilaterally. She has no increased work of breathing. Abdomen: Soft, nontender. PERTINENT DATA: Her white count is 12.9, hematocrit 27.7, platelet count 287,000. Her sodium is 139, potassium 4.8, BUN 74, creatinine 2.4 which is up from 53 and 1.9. ASSESSMENT: 1. Renal insufficiency. 2. Congestive heart failure. 3. Possible systemic inflammatory response syndrome. PLAN: Patient's creatinine is somewhat elevated but is not far off her baseline which is as high as 2.2. She got diuretics as well as fluids yesterday so I am unclear exactly what the etiology of her elevated creatinine is, but could possibly be due to ATN based on a FENa that was checked yesterday. Presently, we will add in some ISDN just to improve afterload reduction. She is not able to take an CAM inhibitor due to her renal disease, so we are using hydralazine and nitrates. Labs will be checked in the morning. We will continue to follow. cc: Antolin Song MD
[2016-10-15] MEDS ORDERED: ISORDIL PO SCH (17:00)
[2016-10-15] MEDS: REQUIP PO SCH (20:35)
[2016-10-15] MEDS: DESYREL PO SCH (20:35)
[2016-10-15] MEDS: MIRALAX PO SCH (20:41)
[2016-10-16] MEDS: ATROVENT NEB INH SCH ×6 (03:04→23:17)
[2016-10-16] MEDS: XOPENEX NEB INH SCH ×6 (03:04→23:17)
[2016-10-16] MEDS: KLONOPIN PO PRN (03:27)
[2016-10-16] MEDS: ZOFRAN IV PRN ×2 (03:27→17:32)
[2016-10-16] MEDS: MORPHINE IV PRN ×2 (03:28→10:22)
[2016-10-16] MEDS: ZOSYN 2.25 GM/NS 2.25 GM/50 ML IVPB IV SCH (04:42)
[2016-10-16 06:33] LABS: ALBUMIN 2.8 g/dL (3.5-5.0); CALCIUM 8.7 mg/dL (8.8-10.2); POTASSIUM 4.5 mmol/L (3.5-5.1)
[2016-10-16] MEDS: PULMICORT INH SCH ×2 (07:35→20:15)
[2016-10-16] MEDS: MUCOMYST 20% INH SCH ×2 (07:35→20:16)
[2016-10-16] MEDS: APRESOLINE PO SCH ×2 (10:08→20:41)
[2016-10-16] MEDS: SODIUM BICARBONATE PO SCH ×3 (10:24→20:36)
[2016-10-16] MEDS: NICODERM PATCH TD SCH ×2 (10:24→10:52)
[2016-10-16] MEDS: MIRALAX PO SCH ×3 (10:24→20:37)
[2016-10-16] MEDS: ASPIRIN PO SCH ×2 (10:25→10:51)
[2016-10-16] MEDS: PRILOSEC PO SCH ×3 (10:25→20:36)
[2016-10-16] MEDS: TUMS PO SCH ×5 (10:25→20:54)
--- NOTE | 2016-10-16 11:26 | PROGRESS NOTE ---
DATE: 10/16/2016 SUBJECTIVE: Patient resting in bed. Denies any issues with breathing. PHYSICAL EXAMINATION: Vital Signs: Temperature 98.4 degrees, pulse 80, respiratory rate 16, blood pressure 84/54. Intake 2.1 L. Output 1.5 L. General: This is a middle-aged female, resting in bed, in no acute distress. HEENT: Normocephalic, atraumatic. ZAC, conjunctivae remain pale. Oral mucosa is moist. Neck is supple. No JVD. Cardiovascular: Regular rate and rhythm. There is no murmur or gallop appreciated. Pulmonary: She has equal excursion. She has a nonproductive cough this morning. No increased work of breathing. She remains on O2 supplementation via nasal cannula. Abdomen is soft with positive bowel sounds. : Not inspected. She has a Khan catheter with significant clear yellow urine noted in the urometer. Extremities: No clubbing, cyanosis or edema. She is moving all extremities. Integumentary: Skin is warm and dry. LABORATORY DATA: Sodium 142, potassium 4.5, CO2 of 21. BUN 49, creatinine 2.0. Calcium 8.0. Albumin 2.8. ASSESSMENT AND PLAN: 1. Jxlww-[id number]-tcmarnn kidney disease. Renal function with mild improvement overnight remains at her historical baseline. 2. There is no indication for intervention at this time. We will continue to follow and check labs in the morning. 3. Electrolytes, acid-base balance, acceptable. 4. Anemia, stable. 5. Increased work of breathing. Inflammatory process. Her breathing is better today. She is on appropriately dosed medications. No changes are noted. Dictated by VERONICA Stone for Enmanuel Denney MD cc: Enmanuel Denney MD
[2016-10-16] MEDS: DILAUDID IV PRN ×3 (12:28→20:41)
--- NOTE | 2016-10-16 13:02 | PROGRESS NOTE ---
DATE: 10/16/2016 PRESENT ILLNESS: The patient has become afebrile but she still has a leukocytosis. On plain x-ray it did not have any pulmonary infiltrates but on CAT scan, had pulmonary nodules which could be infectious in nature and causing the patient to have a type of pneumonia. MEDICATIONS: The patient currently is receiving a combination of vancomycin and Zosyn. PHYSICAL EXAMINATION: Vital Signs: Temperature is 98.4 degrees, pulse 75, respirations 16, blood pressure 84/54. General: This is a chronically ill-appearing, elderly female. She is in no acute distress. Lungs: Clear to auscultation. Cardiovascular: Heart rate was regular. Abdomen: Soft and nontender. Integument: No rash noted. Neurologic: The patient was arousable. She can move her extremities. There is no tremor. LAB AND X-RAY: Chest x-ray shows no infiltrates. It did show cardiomegaly. Patient has a blood culture, 1 of 2 blood cultures grew a coagulase-negative Staph. Patient's blood gases show a pH of 7.43, a PO2 of 86, a pCO2 of 34. [place] [address], hemoglobin 8.8, and platelet count 287,000. Creatinine is 2. The GFR is 25. ASSESSMENT AND PLAN: Patient has leukocytosis. I believe she has some type of infection. As of this time I think it is involving the lung with nodules causing a type of pneumonia. A mycobacterial or fungal infection as well as bacterial infection could be the etiology. My plan is for right now to continue her antibiotics. Possibly she may need some type of invasive culturing of her lungs such as a bronchoscopy or fine needle aspirate. Patient's comorbidities: Patient is elderly. She has COPD and chronic kidney disease. Another comorbidity would be cigarette smoking. cc: Juancarlos Rangel MD
--- NOTE | 2016-10-16 14:25 | PROGRESS NOTE ---
DATE: 10/15/2016 SUBJECTIVE: Patient complaining of pain around the left side of the neck, where she had a central line. Also reports that heartburn is better. Denies any fever, but she is still having persistent cough. OBJECTIVE: Vital Signs: Temperature is 98.4 degrees, heart rate 92, respiratory rate 18, blood pressure 84/54, O2 saturation 98% on room air. General: This is a chronically ill-looking and frail, looking older than her age, 66-year-old female lying in bed in no acute distress. HEENT: Head is normocephalic and atraumatic. Anicteric sclerae and pale conjunctivae. Mucous membranes moist. Neck: Supple. There is a central line noted in the left side of the neck. Cardiovascular: No murmurs, gallops, or rubs. Regular rate and rhythm. Respiratory: Decreased breath sounds globally. There is no wheezing noted and no crackles noted. Patient is not using any accessory muscles or having work of breathing. Abdomen: Soft, a little bit distended. Bowel sounds present. Extremities: No clubbing, cyanosis, or edema. Peripheral pulses present in both legs. Neurological: Patient is alert and oriented x3. Able to move all 4 extremities. Cranial nerves 2-12 grossly normal. LABORATORY DATA: There are no labs from today except the BMP, which shows creatinine 2.0 and BUN 49. ASSESSMENT AND PLAN: 1. Right upper lobe pneumonia. CT did not show exactly a big pneumonia, just some nodules that could be infectious in origin because this patient is having fever, is having cough, has history of chronic obstructive pulmonary disease, and also white cell count is still high. At this point, we will continue with vancomycin and Zosyn. Dr. Rangel from Infectious Disease is following this patient. There is a suspicion also for mycobacterial infection. We will follow his recommendations in case he recommends to have a bronchoscopy for recollecting samples. We will see what he has to say. 2. Acute systolic congestive heart failure. Patient has ischemic cardiomyopathy with ejection fraction of 20%. Cardiology is following this patient and they think the patient is not a candidate for any invasive procedure. She is going to be managed medically. 3. Chronic kidney disease, stage 4. Patient has mild metabolic acidosis. Nephrology has been consulted. 4. Hyperkalemia, resolved. 5. Hyperglycemia, stable. 6. History of peptic ulcer disease. Patient is on Protonix and Tums, and now the sensation of heartburn has resolved. 7. Anemia of chronic disease. Hemoglobin is stable so far. We will keep checking CBC daily. 8. Hypertension. Actually, the blood pressure is a little bit low. Dr. Song from Cardiology is adjusting the dosage of medications, and she was started recently on hydralazine 2 times per day. that could impact blood pressure. We will leave that medication right now. 9. Hyperlipidemia. Aware of that. 10. Deep vein thrombosis prophylaxis with SCDs. 11. Gastrointestinal prophylaxis with Protonix. cc: Rigo Yeboah MD
[2016-10-16] MEDS: REQUIP PO SCH (20:36)
[2016-10-16] MEDS: DESYREL PO SCH (20:41)
[2016-10-16] MEDS: KLONOPIN PO SCH (20:42)
[2016-10-17] MEDS: DILAUDID IV PRN ×5 (01:05→18:27)
[2016-10-17] MEDS ORDERED: VANCOMYCIN 750 MG in NS 250 ML IV SCH (02:00)
[2016-10-17 06:37] LABS: ALBUMIN 3.4 g/dL (3.5-5.0); CALCIUM 9.2 mg/dL (8.8-10.2); POTASSIUM 4.9 mmol/L (3.5-5.1)
[2016-10-17] MEDS: ATROVENT NEB INH SCH ×5 (07:43→23:49)
[2016-10-17] MEDS: MUCOMYST 20% INH SCH ×2 (07:44→20:20)
[2016-10-17] MEDS: XOPENEX NEB INH SCH ×5 (07:44→23:49)
[2016-10-17] MEDS: PULMICORT INH SCH ×2 (07:44→19:45)
[2016-10-17] MEDS: APRESOLINE PO SCH ×2 (10:05→11:10)
[2016-10-17] MEDS: TUMS PO SCH ×4 (10:06→18:26)
[2016-10-17] MEDS: PRILOSEC PO SCH ×2 (10:06→11:10)
[2016-10-17] MEDS: NICODERM PATCH TD SCH ×2 (10:06→11:11)
[2016-10-17] MEDS: SODIUM BICARBONATE PO SCH ×2 (10:06→11:11)
[2016-10-17] MEDS: MIRALAX PO SCH ×2 (10:07→11:11)
[2016-10-17] MEDS: ASPIRIN PO SCH ×2 (10:07→11:11)
[2016-10-17] MEDS: KLONOPIN PO SCH ×2 (10:07→11:10)
[2016-10-17 10:51] LABS: MANUAL DIFF NEEDED? NO
[2016-10-17 10:58] LABS: BASO% 0.4 % (0.0-0.8); EOS# 0.55 X1000 (0.0-0.7); EOS% 4.2 % (0.0-10.0); HEMATOCRIT 30.9 % (37.0-47.0); HEMOGLOBIN 9.3 g/dL (12.0-16.0); IMM GRAN# 0.04 X1000 (0.0-0.04); IMM GRAN% 0.3 % (0.0-0.5); LYMPH# 1.32 X1000 (1.2-3.4); LYMPH% 10.2 % (20.5-51.1); MCH 27.8 PG (27-31); MCHC 30.1 g/dL (33-37); MCV 92.2 FL (81-99); MONO# 1.27 X1000 (0.11-0.59); MONO% 9.8 % (1.7-9.3); MPV 11.3 FL (7.4-10.4); NEUT% 75.1 % (42.2-75.2); PLT 294 X1000 (130-400); RBC 3.35 XMIL (4.2-5.4)
--- NOTE | 2016-10-17 14:41 | PROGRESS NOTE ---
DATE: 10/17/2016 SUBJECTIVE: Patient reports feeling pain all over her body and mild grade fever this morning. The patient reported that central line placed in the left side of her neck is hurting but better than yesterday. OBJECTIVE: Vital Signs: Temperature 100.1 degrees, heart rate 98, respiratory rate 16, blood pressure 121/78, O2 saturation 100% on 2 L nasal cannula. General Examination: This is a chronically ill-looking frail and looking older than her age 66-year-old female lying in bed in no acute distress. HEENT: Head is normocephalic, atraumatic. Anicteric sclerae and pale conjunctivae. Mucous membranes moist. Neck: Supple. No JVD. There is a central line noted in the left side of her neck. No signs of infection around it, no thyromegaly noted. No carotid bruits. Cardiovascular: S1, S2 heard. No murmurs, gallops, or rubs. Respiratory: Decreased breath sounds globally. There is no wheezing or crackles noted. Patient is not using any accessory muscles or having work of breathing. Abdomen: Soft, a little bit distended. Bowel sounds present. No organomegaly. Extremities: No clubbing, cyanosis, or edema. Peripheral pulses present in both legs. Neurological: Patient alert oriented x3. Able to move her extremities. Cranial nerves 2-12 grossly normal. LABORATORY DATA: White cell count 12.97, hemoglobin 9.3, hematocrit 30.9, platelets 294,000 with creatinine 1.5 and BUN 37. ASSESSMENT/PLAN: 1. Right upper lobe pneumonia. Patient on vancomycin and Zosyn. Dr. Rangel from infectious disease is following this patient. As we mentioned before there was a suspicion for mycobacterium infection but the likelihood is really low. At this time we are going to continue with medications and following recommendations from Dr. Rangel. 2. Acute systolic congestive heart failure. Patient is well known to have ischemic cardiomyopathy with ejection fraction of 15-20%. She does not have any defibrillator noted and telemetry has noted some episodes of nonsustained ventricular tachycardia. Cardiology is following this patient and they think this patient not a candidate for any invasive procedure. She is going to be manage it medically. 3. Chronic kidney disease stage 4. 4. Patient has mild metabolic acidosis. Nephrology has been consulted. 5. Hyperkalemia resolved. 6. Hyperglycemia resolved. 7. History of peptic ulcer disease. Patient is on Protonix and Tums and will continue with same management. 8. Hypertension. Blood pressure is now better controlled. Patient has been started on twice daily. Will continue with same management. 9. Hyperlipidemia aware. Patient is on home medication. 10. Deep vein thrombosis prophylaxis with SCDs. 11. Gastrointestinal prophylax. cc: Rigo Yeboah MD
[2016-10-17] MEDS: ZOSYN 3.375 GM/NS 3.375 GM/50 ML IVPB IV SCH (14:51)
[2016-10-18] MEDS: TUMS PO SCH ×5 (00:03→21:56)
[2016-10-18] MEDS: MIRALAX PO SCH ×3 (00:03→23:49)
[2016-10-18] MEDS: ZOSYN 3.375 GM/NS 3.375 GM/50 ML IVPB IV SCH ×5 (00:03→23:08)
[2016-10-18] MEDS: PRILOSEC PO SCH ×3 (00:04→21:55)
[2016-10-18] MEDS: KLONOPIN PO SCH ×3 (00:04→23:08)
[2016-10-18] MEDS: REQUIP PO SCH ×2 (00:04→23:09)
[2016-10-18] MEDS: DESYREL PO SCH ×2 (00:04→23:08)
[2016-10-18] MEDS: APRESOLINE PO SCH ×3 (00:04→21:56)
[2016-10-18] MEDS: SODIUM BICARBONATE PO SCH ×3 (00:04→21:55)
[2016-10-18] MEDS: ATROVENT NEB INH SCH ×6 (03:25→23:01)
[2016-10-18] MEDS: XOPENEX NEB INH SCH ×6 (03:26→23:01)
[2016-10-18 06:00] LABS: BASO% 0.5 % (0.0-0.8); EOS# 0.78 X1000 (0.0-0.7); EOS% 7.1 % (0.0-10.0); HEMOGLOBIN 8.8 g/dL (12.0-16.0); IMM GRAN# 0.03 X1000 (0.0-0.04); IMM GRAN% 0.3 % (0.0-0.5); LYMPH# 1.74 X1000 (1.2-3.4); LYMPH% 15.8 % (20.5-51.1); MANUAL DIFF NEEDED? NO; MCH 28.1 PG (27-31); MCHC 30.3 g/dL (33-37); MCV 92.7 FL (81-99); MONO# 1.18 X1000 (0.11-0.59); MONO% 10.7 % (1.7-9.3); NEUT% 65.6 % (42.2-75.2); PLT 264 X1000 (130-400); RBC 3.13 XMIL (4.2-5.4)
[2016-10-18 06:17] LABS: ALBUMIN 2.9 g/dL (3.5-5.0); CALCIUM 8.8 mg/dL (8.8-10.2); POTASSIUM 4.6 mmol/L (3.5-5.1)
[2016-10-18] MEDS: DILAUDID IV PRN ×4 (06:34→23:08)
[2016-10-18] MEDS ORDERED: ZOSYN 3.375 GM/NS 3.375 GM/50 ML IVPB IV SCH (07:00)
[2016-10-18] MEDS: PULMICORT INH SCH ×2 (07:28→19:26)
[2016-10-18] MEDS: MUCOMYST 20% INH SCH ×2 (07:28→19:25)
--- NOTE | 2016-10-18 07:46 | PROGRESS NOTE ---
DATE: 10/18/2016 PRESENT ILLNESS: The patient had a fever and leukocytosis. About the only explanation I can find for it are her pulmonary nodules which have become more prominent. She seems to be responding well to Zosyn. MEDICATIONS: Patient has been on Zosyn. PHYSICAL EXAMINATION: Vital Signs: Temperature is 97.8 degrees, pulse 106, respirations 16, blood pressure 132/77. Generally: This is an ill-appearing, elderly female. She is in no acute distress. Lungs: Clear to auscultation. Cardiovascular: Regular heart rate. Thorax: Patient has an increased AP diameter of her chest. In general, the patient appears malnourished and chronically ill. LAB AND X-RAY: The CBC today shows a white count of 10,990, hemoglobin 8.8, and platelet count 264,000. The creatinine is 1.3. The GFR is 41. The CT scan showed more nodules as mentioned above. ASSESSMENT AND PLAN: The patient has a pulmonary process. It looks like it has responded to Zosyn. What I would like to do is get a Port-A-Cath in the patient. She does come in the hospital several times and it is almost impossible to get a peripheral intravenous access and she does not want a peripherally inserted central catheter so I think a Port-A-Cath would be ideal and then try to send the patient to a long-term acute care so she can get Zosyn for about 3- 4 weeks. COMORBIDITIES: She is elderly, she has COPD, chronic kidney disease, and cigarette smoking. cc: Juancarlos Rangel MD MTDD
[2016-10-18] MEDS ORDERED: MAXIPIME 1 GM/NS 1 GM/50 ML IVPB IV SCH ×3 (08:00)
[2016-10-18] MEDS ORDERED: DILAUDID IM ONE (10:27)
--- NOTE | 2016-10-18 10:49 | PROGRESS NOTE ---
DATE: 10/18/2016 SUBJECTIVE: Patient reports feeling pain, is still hurting all over her body. Denies any difficulty in breathing. Denies any chest pain. OBJECTIVE: Vital Signs: Temperature 99.6 degrees, heart rate 101, respiratory rate 16, blood pressure 116/73, O2 saturation 100% on 2 L nasal cannula. General Examination: This is a chronically ill-looking, frail-looking, older than her age, 66-year-old, female lying in bed, in no acute distress. HEENT: Head is normocephalic and atraumatic. Anicteric sclerae and pale conjunctivae. Mucous membranes moist. Pupils equal, round, reactive to light and accommodation. Neck: Supple. No JVD noted. No carotid bruits. No lymphadenopathy. No thyromegaly. Cardiovascular Examination: S1 and S2 heard. No murmurs, gallops, or rubs. Regular rate and rhythm. Respiratory Examination: Decreased breath sounds globally. There is no wheezing or crackles noted. Patient is not using any accessory muscles or having work of breathing. Abdomen: Soft, a little bit distended. Bowel sounds present. No organomegaly. Extremities: No clubbing, cyanosis, or edema. Peripheral pulses present in both legs. Neurological Examination: Patient is alert and oriented x3. Able to move 4 extremities. Cranial nerves 2-12 grossly normal. Laboratory Data: White cell count 10.99, hemoglobin 8.8, hematocrit 29, platelets 264,000. BMP is remarkable for creatinine of 1.3. ASSESSMENT AND PLAN: 1. Right upper lobe pneumonia. Patient is on Zosyn. Dr. Rangel from Infectious Disease is following this patient. He is planning to place a Port-A-Cath because this patient is really extremely hard to speak and she is not comfortable using central line. He already consulted general surgery senior functional analyst to have this port placed. We will follow his recommendations. 2. Acute systolic congestive heart failure. The patient is well known to our service to have this ischemic cardiomyopathy with ejection fraction to 15-20%. It is important to remark that she does not have any defibrillator. Now she is on telemetry, has noted some episodes of nonsustained ventricular tachycardia couple days ago. Cardiology is following this patient. They think this patient is not a candidate for any intervention. At this time, we are going to continue with medical management. 3. Chronic kidney disease stage III. Actually, the creatinine is getting better as well as the GFR. The patient has mild metabolic acidosis. Nephrology has been following this patient. 4. Hyperkalemia, resolved. 5. Hyperglycemia, resolved. 6. History of peptic ulcer disease. Patient is on Protonix and Tums. We will continue with the same management. 7. Hypertension. Blood pressure is better controlled. We will continue with the same management. 8. Hyperlipidemia. Aware. Patient is on home medications. 9. Deep vein thrombosis prophylaxis with sequential compression devices. 10. Gastrointestinal prophylaxis with Protonix. cc: Rigo Yeboah MD
--- NOTE | 2016-10-18 11:46 | PROGRESS NOTE ---
DATE: 10/18/2016 SUBJECTIVE: Ms. Amaya is resting quietly in bed. She denies any pain. No increased work of breathing. States that she is due to have a procedure performed for a port placed for IV antibiotics. OBJECTIVE: Her most recent vital signs, her temperature 99.6 degrees, blood pressure 116/73, heart rate 102. Respirations 18. She is on 2 L nasal cannula. Last recorded saturation 100%. She has had 45 in, she had 975 out. She is n.p.o. since midnight for procedure. Physical. LABORATORY DATA: Her sodium is 141, potassium 4.6, chloride 108, CO2 22, BUN 24 , creatinine is 1.3, glucose 98. Her anion gap is 11, calcium 8.8, phosphorus 2.1, albumin 2.9. White count 10.99, hemoglobin 8.8, hematocrit 29, platelet count 264,000. PHYSICAL EXAMINATION: General: This is a 66-year-old white female. She is in no acute distress. Skin: Warm and dry. HEENT: Normocephalic, atraumatic. Conjunctiva is pale. She has ZAC. Mucous membranes moist. Neck: Supple. Trachea midline. No JVD. Cardiovascular: Regular rate and rhythm. She is without murmur or gallop. Lungs: Clear to auscultation anteriorly. Equal excursion on room air. Abdomen: Soft, nontender. Positive bowel sounds. Extremities: Have no edema. No clubbing or cyanosis. Neurological: Alert and oriented x3. ASSESSMENT AND PLAN: 1. Acute kidney injury on chronic kidney disease stage 3. Patient's creatinine has continued to improve. She is close to her baseline. No indications for further intervention. 2. Electrolytes and acid-base balance. These continue to correct. 3. Anemia. This remains low but stable. 4. Positive blood cultures. The patient is to have a port placed for IV antibiotics followed by primary care team. 5. We will sign off at this time. We will be available as needed with no further follow up indicated after discharge. I would like to thank you for allowing us to follow with this patient. Seen, data reviewed, discussed with Scottie Smiley on 10/18/16. I agree with the above assessment and plan of care. rg Dictated by VERONICA Calles for Enmanuel Denney MD cc: VERONICA Calles MD MTDD
--- NOTE | 2016-10-18 14:51 | CONSULTATION ---
DATE OF CONSULTATION: 10/18/2016 REASON FOR CONSULTATION: Placement of Kzvb-G-Glzeqftt. HISTORY OF PRESENT ILLNESS: This is a 66-year-old female who presented to the hospital with shortness of breath and found to be in some degree of heart failure and possibly COPD exacerbation. In addition, she is thought to have a right upper lobe pulmonary infection. She needs long-term IV antibiotics. She has very poor peripheral IV access and we are asked to place a Yfpw-R-Fyqkfuxx. A PICC line was refused by the patient as she has had previous attempts in the past which were unsuccessful. PAST MEDICAL HISTORY: 1. Congestive heart failure systolic in nature with EF of 15-20%. 2. Chronic kidney disease stage 4. 3. COPD/ 4. Hypertension. 5. Coronary artery disease, with a history of myocardial infarction. 6. Restless legs syndrome. 7. History of perforated gastric ulcer. 8. History of medical noncompliance. PAST SURGICAL HISTORY: 1. Open appendectomy for perforated appendicitis. 2. Partial gastrectomy July 2016 for perforated gastric ulcer by Dr. Guillen. 3. Right tibial surgery. SOCIAL HISTORY: She denies alcohol or illicit drug use. She does smoke a pack of cigarettes per day. FAMILY HISTORY: Positive for congestive heart failure. ALLERGIES: No known drug allergies. HOME MEDICATIONS: Albuterol. Aspirin. Bisacodyl. Klonopin. Lisinopril. Flagyl. Percocet. Requip. Trazodone. REVIEW OF SYSTEMS: Ten systems reviewed and negative except as noted above. PHYSICAL EXAMINATION: Vital Signs: Temperature 99.6 degrees, pulse 101, respirations 16, blood pressure 116/73, O2 saturation 100%. General: Thin, malnourished-appearing female in no acute distress. She looks her stated age. HEENT: Normocephalic, atraumatic. Extraocular muscles intact. Pupils equal, round, reactive to light. CARDIOVASCULAR: Supple. No thyromegaly. Respiratory: No work of breathing. She has bilateral breath sounds. CARDIOVASCULAR: Tachycardic and regular. Gastrointestinal: Soft, nontender, nondistended. Skin: Warm and dry. No rash. LABORATORY: White blood cell count 11,000, hemoglobin 8.8, platelet count 264,000. BUN 24, creatinine 1.3. Microbiology: She has 1 out of 2 blood cultures positive for coagulase-negative Staphylococcus. This may be a contaminant. IMAGING: CT of the chest shows right upper lobe pulmonary nodules, possibly infectious or inflammatory in nature. ASSESSMENT/PLAN: A 66-year-old female with possible right upper lobe pneumonia. She is planned for several weeks of IV Zosyn by Dr. Rangel. She has poor peripheral venous access. She will need a Pjwm-M-Ueqwsyud placed. I discussed the risks, benefits with her including bleeding, infection, Aefl-D-Goeoflhq malfunction, DVT, pneumothorax and other imponderables. She understands and agrees to proceed. cc: Feroz Ovalle MD
--- NOTE | 2016-10-18 14:51 | PROGRESS NOTE ---
DATE: 10/18/2016 SUBJECTIVE: Ms. Amaya is doing well. She has no complaints today. PHYSICAL EXAMINATION: Vital signs: She is afebrile. Last T-max was 100.1 degrees October 17 at 7 a.m. in the morning. Heart rates seem to be in the 90s to low 100s. Blood pressure 129/87. Generally: No acute distress. Cardiovascular: She sounds to be in a regular rate and rhythm. No obvious murmurs. She has no S3. She has no lower extremity edema. Chest: Exam sounds clear bilaterally. She has no increased work of breathing. Abdomen: Soft, nontender. PERTINENT DATA: White count is 10.9, hematocrit 29, platelet count 264,000. Sodium 141, potassium 4.6, BUN 24, creatinine 1.3. ASSESSMENT: 1. Systolic heart failure. 2. Renal insufficiency. PLAN: Patient's kidney function appears better. I will add in some ISDN at 5 mg b.i.d. to try to improve afterload reduction since the patient is not a great candidate for CAM inhibitors or ARBs given her recent renal issues. She is already on hydralazine. cc: Antolin Song MD
[2016-10-18] MEDS ORDERED: XYLOCAINE 1% ONE (16:39)
[2016-10-18] MEDS ORDERED: HEPARIN ONE (16:39)
[2016-10-18] MEDS ORDERED: NS 250 ML ONE (16:39)
[2016-10-18] MEDS ORDERED: SENSORCAINE 0.25%/EPI 1:200,000 ONE (16:40)
[2016-10-18] MEDS ORDERED: DIPRIVAN 1% ONE (18:24)
[2016-10-18] MEDS ORDERED: VERSED ONE (18:24)
[2016-10-18] MEDS: MORPHINE ONE ×2 (18:36→20:37)
[2016-10-18] MEDS: ASPIRIN PO SCH (19:26)
[2016-10-18] MEDS: NICODERM PATCH TD SCH (19:27)
--- NOTE | 2016-10-18 19:35 | Diag Imaging Result Doc PS360 ---
EXAM: CHEST-PORTABLE INDICATION: status post port placement TECHNIQUE: One view COMPARISON: 10/15/2016 FINDINGS: There has been interval placement of a right chest port. The tip projects over the lower SVC just superior to the atriocaval junction in the expected position. The lungs are grossly clear. There is no discrete pleural fluid collection or pneumothorax. There is stable cardiomegaly. The central vasculature is unremarkable. IMPRESSION: Interval placement of right chest port as described with no evidence of pneumothorax postplacement. Electronically signed by Joey Serrato 10/18/2016 7:32 PM
[2016-10-18] MEDS: ZOFRAN IV PRN (19:54)
[2016-10-18] MEDS: ISORDIL PO SCH (21:56)
--- NOTE | 2016-10-18 22:49 | OPERATIVE NOTE ---
PROCEDURE DATE: 10/18/2016 PREOPERATIVE DIAGNOSES: 1. Poor peripheral venous access. 2. Presumed pulmonary infection. POSTOP DIAGNOSES: 1. Poor peripheral venous access. 2. Presumed pulmonary infection. PROCEDURE: Insertion of Port-A-Cath with fluoroscopic and ultrasound guidance. SURGEON: Feroz Ovalle MD. ANESTHESIA: Local MAC. ESTIMATED BLOOD LOSS: 5 mL. COMPLICATIONS: None apparent. SPECIMENS: None. FINDINGS: The right internal jugular vein was visualized with the ultrasound and found to be compressible and patent and without thrombus. The wire and subsequently catheter were visualized in the right atrium and then positioned to the junction of the superior vena cava right atrium with fluoroscopy. TECHNIQUE: She was brought to the operating room and placed supine on the table. IV sedation was induced. She was prepped and draped in sterile fashion. 1% lidocaine and 0.25 % Marcaine were used to anesthetize our incisions. Incision was made below the right clavicle and carried down through the subcutaneous tissues with cautery. A pocket was created anterior to the chest fascia with blunt finger dissection and cautery. She has placed in Trendelenburg. The right internal jugular vein was visualized with the ultrasound. The skin over the vein was anesthetized with the local anesthetic. An incision was made in the skin with an 11 blade. The vein was accessed under ultrasound guidance with 1 stick drawing back dark, nonpulsatile blood. The wire passed through the needle easily and was confirmed to be in the right atrium with fluoroscopy. The wire was fixed to the drape. The catheter was then tunneled subcutaneously from the lower incision out through the neck incision. The sheath and dilator were passed over the wire. The wire and dilator were removed. The catheter was passed into the sheath. The sheath was removed. The catheter was positioned to the appropriate junction with fluoroscopic guidance. The catheter was cut to size and fixed to the port. The port was anchored to the fascia with 2- 0 Surgipro at 2 o'clock, 6 o'clock, and 10 o'clock. The port was accessed. It fernando back blood easily. It was flushed with heparin saline easily. The incisions were closed with interrupted subcutaneous 3-0 Polysorb and a running 4-0 subcuticular Monocryl and Steri-Strips. There were no apparent complications. She was awakened in stable condition and transferred to the recovery room. cc: Feroz Ovalle MD MTDD
[2016-10-19] MEDS: PERIDEX MT SCH ×3 (02:33→21:07)
[2016-10-19] MEDS: ATROVENT NEB INH SCH ×6 (03:01→23:09)
[2016-10-19] MEDS: XOPENEX NEB INH SCH ×6 (03:02→23:09)
[2016-10-19] MEDS: DILAUDID IV PRN ×6 (04:03→20:35)
[2016-10-19 06:28] LABS: MANUAL DIFF NEEDED? NO
[2016-10-19 06:42] LABS: BASO% 0.5 % (0.0-0.8); EOS# 0.84 X1000 (0.0-0.7); EOS% 8.1 % (0.0-10.0); HEMATOCRIT 27.9 % (37.0-47.0); HEMOGLOBIN 8.3 g/dL (12.0-16.0); IMM GRAN# 0.04 X1000 (0.0-0.04); IMM GRAN% 0.4 % (0.0-0.5); LYMPH# 1.76 X1000 (1.2-3.4); LYMPH% 16.9 % (20.5-51.1); MCH 27.6 PG (27-31); MCHC 29.7 g/dL (33-37); MCV 92.7 FL (81-99); MONO# 0.89 X1000 (0.11-0.59); MONO% 8.6 % (1.7-9.3); MPV 10.8 FL (7.4-10.4); NEUT% 65.5 % (42.2-75.2); PLT 298 X1000 (130-400); RBC 3.01 XMIL (4.2-5.4)
[2016-10-19] MEDS: ZOSYN 3.375 GM/NS 3.375 GM/50 ML IVPB IV SCH ×3 (06:45→23:28)
[2016-10-19 07:16] LABS: ALBUMIN 3.2 g/dL (3.5-5.0); CALCIUM 8.6 mg/dL (8.8-10.2); POTASSIUM 4.8 mmol/L (3.5-5.1)
[2016-10-19] MEDS: MUCOMYST 20% INH SCH ×2 (07:24→19:23)
[2016-10-19] MEDS: PULMICORT INH SCH ×2 (07:24→19:23)
--- NOTE | 2016-10-19 08:24 | PROGRESS NOTE ---
DATE: 10/19/2016 PRESENT ILLNESS: The patient is being treated for pulmonary nodules, which I believe are causing the patient to have an infection, and her leukocytosis. The patient is out of peripheral IV access. Fortunately, yesterday Dr. Ovalle placed a Port-A-Cath. She also appears to have an internal jugular catheter in place also. MEDICATIONS: The patient is on Zosyn as a single agent. PHYSICAL EXAMINATION: Vital Signs: Temperature is 97.8 degrees, pulse 100, respirations 20, blood pressure 122/93. General: This is a chronically ill-appearing, elderly female. She is in no acute distress. Lungs: Clear to auscultation. Cardiovascular: Regular heart rate. Thorax: Patient has an increased AP diameter of the chest. She also has a Port-A-Cath present in the right upper part of the chest. The site is slightly tender because she just had surgery yesterday, but there is no swelling and there is no bleeding. LAB AND X-RAY: Chest x-ray shows clear lung brasher and presence of a catheter in the superior vena cava. Creatinine is 1.5. GFR is 35. CBC shows a white count 10,390, hemoglobin 8.3 and platelet count 298,000. ASSESSMENT AND PLAN: The patient has a pulmonary process which I believe was the cause of her fever and leukocytosis when she came in. The plan is to continue Zosyn for at least a total of 3 weeks and then repeat the CAT scan as the pulmonary nodules do not show up well on the chest x- ray. Hopefully, the antibiotic will clear up the nodules. COMORBIDITIES: The patient's comorbidities include being elderly, COPD, chronic kidney disease and cigarette smoking. cc: Juancarlos Rangel MD
[2016-10-19] MEDS ORDERED: STERILE WATER INJ. ONE (08:49)
[2016-10-19] MEDS ORDERED: NEO-SYNEPHRINE ONE (08:49)
[2016-10-19] MEDS: MIRALAX PO SCH ×2 (08:55→21:09)
[2016-10-19] MEDS: ISORDIL PO SCH ×2 (08:56→21:08)
[2016-10-19] MEDS: PRILOSEC PO SCH ×2 (08:56→21:08)
[2016-10-19] MEDS: SODIUM BICARBONATE PO SCH ×2 (08:56→21:08)
[2016-10-19] MEDS: TUMS PO SCH ×4 (08:57→21:08)
[2016-10-19] MEDS: APRESOLINE PO SCH ×2 (08:57→21:08)
[2016-10-19] MEDS: ASPIRIN PO SCH (08:58)
[2016-10-19] MEDS: KLONOPIN PO SCH ×2 (08:58→21:08)
[2016-10-19] MEDS: NICODERM PATCH TD SCH (08:59)
--- NOTE | 2016-10-19 14:58 | PROGRESS NOTE ---
DATE: 10/19/2016 SUBJECTIVE: The patient states that she has severe pain at the site of her Joy catheter port. She asked for more pain medication. No fever. No chills. No nausea, vomiting, or diarrhea. OBJECTIVE: Vital Signs: Blood pressure 129/83, pulse 103, respiration 18, temperature 98.7 degrees, saturation 100% in room air. General appearance: Thin, white female in moderate distress due to severe pain. HEENT: Anicteric sclerae and conjunctivae. Neck: Supple. No JVD. No bruit. Cardiovascular: S1, S2. Normal rate and rhythm. No murmur, rubs, or gallops. Pulmonary: Occasion crackles bilaterally. GI: Soft, nontender, nondistended. Normoactive bowel sounds. Musculoskeletal: No clubbing, cyanosis, or edema. LABORATORY: White count of 10.39, hemoglobin 8.3, hematocrit of 27.9, platelets of 298,000. Sodium 142, potassium 4.8, chloride 107, bicarb 22, BUN 23, creatinine 1.3, glucose 134. ASSESSMENT AND PLAN: This is a 66-year-old admitted to the hospital for a pulmonary nodule. 1. Pulmonary nodules concerning for infection. Infectious Disease is following. Dr. Rangel wanted to put her on Zosyn and re-scan the patient. The patient is a smoker, concerning for malignancy. 2. Severe pain. We will get her pain under control before we discharge the patient home. We will resume her [place], keep the patient on p.r.n. Dilaudid for now. 3. Acute on chronic kidney injury. She is improving. Her baseline function is about 1.3-1.5 creatinine for stage 3 chronic kidney disease. 4. Hypertension. The patient is on Imdur. We will hold her lisinopril because of the kidney function. 5. Restless legs syndrome. We will continue her on Requip. 6. Tobacco abuse. We will continue nebulizer treatment and Pulmicort as well as Xopenex. CODE STATUS: Patient is a full code.
[2016-10-19] MEDS: PERCOCET-5 PO PRN (16:01)
--- NOTE | 2016-10-19 17:18 | PROGRESS NOTE ---
DATE: 10/19/2016 SUBJECTIVE: Ms. Amaya reports she is doing okay today. She has no complaints. OBJECTIVE: Vital Signs: She is afebrile. Heart rates have been predominantly in the low 100s to 90s. Her blood pressure is 126/57. General: No acute distress. Cardiovascular: She is in a regular rate and rhythm. She has no murmurs. She has no S3. She has no lower extremity edema. Chest: Exam is relatively clear to auscultation bilaterally. No increased work of breathing. Abdomen: Soft, nontender. PERTINENT DATA: Sodium is 142, potassium is 4.8, BUN 23, creatinine 1.5. White count is 10.4, hematocrit 27.9. ASSESSMENT: 1. Systolic heart failure. 2. Noncompliance with medical therapy. PLAN: We have continued to add back medications. I will start Toprol 25 mg daily to be initiated in the morning. She is on hydralazine and ISDN as well. Blood pressure seems well controlled. She may be discharged from a cardiovascular standpoint when stable from a medicine standpoint. cc: Antolin Song MD
[2016-10-19] MEDS: DESYREL PO SCH (21:08)
[2016-10-19] MEDS: REQUIP PO SCH (21:08)
[2016-10-20] MEDS: DILAUDID IV PRN ×5 (00:37→15:59)
[2016-10-20] MEDS: PERCOCET-5 PO PRN ×4 (02:55→17:07)
[2016-10-20] MEDS: ATROVENT NEB INH SCH ×5 (02:58→18:11)
[2016-10-20] MEDS: XOPENEX NEB INH SCH ×5 (02:58→18:11)
[2016-10-20 05:59] LABS: MANUAL DIFF NEEDED? NO
[2016-10-20 06:04] LABS: BASO% 0.6 % (0.0-0.8); EOS% 11.4 % (0.0-10.0); HEMATOCRIT 29.4 % (37.0-47.0); HEMOGLOBIN 8.8 g/dL (12.0-16.0); IMM GRAN# 0.03 X1000 (0.0-0.04); IMM GRAN% 0.3 % (0.0-0.5); LYMPH# 2.29 X1000 (1.2-3.4); LYMPH% 21.7 % (20.5-51.1); MCH 27.6 PG (27-31); MCHC 29.9 g/dL (33-37); MCV 92.2 FL (81-99); MONO# 0.88 X1000 (0.11-0.59); MONO% 8.4 % (1.7-9.3); MPV 10.2 FL (7.4-10.4); NEUT% 57.6 % (42.2-75.2); PLT 319 X1000 (130-400); RBC 3.19 XMIL (4.2-5.4)
[2016-10-20 06:28] LABS: ALBUMIN 3.1 g/dL (3.5-5.0); CALCIUM 8.5 mg/dL (8.8-10.2); POTASSIUM 4.7 mmol/L (3.5-5.1)
[2016-10-20] MEDS: PULMICORT INH SCH (07:24)
[2016-10-20] MEDS: MUCOMYST 20% INH SCH (07:25)
--- NOTE | 2016-10-20 07:39 | PROGRESS NOTE ---
DATE: 10/20/2016 PRESENT ILLNESS: The patient is being treated for a pulmonary infection manifested by nodules in the pulmonary parenchyma. The patient is receiving Zosyn as a single agent. The patient has been treated now for a total of 6 days with Zosyn. Overall, she is feeling better. MEDICATION: This is day 6 of Zosyn treatment. PHYSICAL EXAMINATION: Vital Signs: Temperature is 98.6 degrees, pulse 99, respirations 17, blood pressure 129/73. Generally, this is a chronically ill-appearing, elderly female. She is in no acute distress. Lungs clear to auscultation. Cardiovascular: Regular heart rate. Neck: Patient has an internal jugular catheter in place. Chest: The patient has a Port-A- Cath in place on the right side. There is no erythema at the Port-A-Cath site. LAB AND X-RAY: CBC-WBC 10.54, hgb 8.8, platelets 319K. Creatinine-1.7. GFR-30. No new radiographic studies. ASSESSMENT AND PLAN: I think the patient's pulmonary nodules may be infectious in etiology. My plan is to continue her on Zosyn. If the nodules do not clear up with Zosyn, then I think consideration should be given to somehow get tissue of one of the nodules and send it for pathology as well as culture. The patient's comorbidities include the following: She is elderly. She has COPD and chronic kidney disease. She also is a cigarette smoker. cc: Juancarlos Rangel MD MTDD
[2016-10-20] MEDS: ZOSYN 3.375 GM/NS 3.375 GM/50 ML IVPB IV SCH ×2 (07:45→15:53)
[2016-10-20] MEDS: MIRALAX PO SCH (08:21)
[2016-10-20] MEDS: TUMS PO SCH ×3 (08:22→19:25)
[2016-10-20] MEDS: PRILOSEC PO SCH (08:22)
[2016-10-20] MEDS: APRESOLINE PO SCH (08:22)
[2016-10-20] MEDS: ISORDIL PO SCH (08:23)
[2016-10-20] MEDS: SODIUM BICARBONATE PO SCH (08:23)
[2016-10-20] MEDS: ASPIRIN PO SCH (08:23)
[2016-10-20] MEDS: NICODERM PATCH TD SCH (08:23)
[2016-10-20] MEDS: PERIDEX MT SCH (08:23)
[2016-10-20] MEDS: KLONOPIN PO SCH (08:39)
[2016-10-20] MEDS ORDERED: TOPROL XL PO SCH (09:00)
--- NOTE | 2016-10-20 14:12 | DISCHARGE SUMMARY ---
ADMISSION DATE: 10/14/2016 DISCHARGE DATE: 10/20/2016 CONSULTATIONS: 1. Dr. Antolin Song with Cardiology. 2. Dr. Enmanuel Denney with Nephrology. 3. Dr. Juancarlos Rangel with Infectious Disease. PERTINENT PROCEDURES: 1. Chest, abdomen, and pelvis CT showed persistent cardiomegaly and pleural effusion, trace left pleural effusion. No overt pulmonary edema. Slightly increased scattered nodules in the right upper lobe may be infectious or inflammatory. Significant constipation with rectal stool impaction. Bilateral nephrolithiasis. 2. Echocardiogram showed significantly dilated left ventricle with significantly impaired function. Ejection fraction of 25%-30% with segmental wall motion abnormality involving the posterior and inferior wall raising concern for coronary artery disease. Diastolic dysfunction. 3. Renal ultrasound showed hyperechoic kidneys compatible with chronic medical renal disease. Mild renal atrophy. Bilateral renal cysts. No obstruction. 4. Port-A-Cath insertion by Dr. Feroz Ovalle on 10/18/2016. DISCHARGE DIAGNOSES: 1. Pulmonary nodules concerning for infection followed by Dr. Juancarlos Rangel of Infectious Disease. Patient did receive a Port-A-Cath. She will come continue on IV medications in rehabilitation. 2. Cirtg-nb-tdewjtl kidney injury, improving. 3. Hypertension. The patient is on Will continue to hold lisinopril secondary to renal function. 4. Restless leg syndrome. Continue on Requip. 5. Tobacco abuse. The patient has been educated again about smoking cessation as well as the means to quit. Continue on nebulizer treatments as well as Pulmicort and Xopenex. 6. Systolic heart failure. Noncompliance with medical therapy. Cardiology has added back medications and started her on Toprol 25 as well as hydralazine and ISTN as well. 7. Systemic Inflammatory Response Syndrome, improved. 8. Chronic obstructive pulmonary disease exacerbation, improved. 9. Hyperkalemia, resolved. HOSPITAL COURSE: Briefly, Ms. Amaya is a 66-year-old, ill-appearing female who carries a past medical history of chronic systolic congestive heart failure with an EF of 15%- 20%, COPD, chronic kidney disease stage 4, hyperlipidemia, hypertension, coronary artery disease, status post NH, restless leg syndrome, peptic ulcer disease. Most recent gastric ulcer perforation in 07/2016. Medical noncompliance. Reported to the ED with complaints of shortness of breath for 2 days prior to her admission. Still having diarrhea and some abdominal pain throughout. She had presented to [facility] the day before her admission. Her labs were stable there. She was discharged. She states her shortness of breath became worse throughout the night and she presented to [facility]. She complained of subjective fevers, chills, as well as a nonproductive cough with phlegm as well as body aches. Upon presentation, she was found to be in sinus tachycardia at 130s- 140s. She was tachypneic with respirations in the 20s and 30s. Her lactic acid was 6.6. Her white count was 12,000. Chest x-ray was clear of any type of infiltrates. Her urinalysis were negative. Her blood cultures have been obtained. She was started on broad- spectrum antibiotics as well as ordered a CT of the chest, abdomen, and pelvis to rule out any abdominal calls for her elevated lactate. She was started on aggressive IV hydration and consult for Nephrology. She was admitted to the ICU overnight for close monitoring as well as a consult for Cardiology and Dr. Juancarlos Rangel of Infectious Disease as well as pulmonology. CT of the chest, abdomen, and pelvis showed persistent cardiomegaly and pericardial effusion with trace left pleural effusion. No overt pulmonary edema. A slightly increased scattered nodules in the right upper lobe that could be infectious or inflammatory. Nephrology was also on board. They have to slowly correct her acid base balance as well as assist in medication given her renal disease. Throughout the course of her hospital stay, her creatinine continued to improve. She was close to her baseline. She had no indication for intervention. Her electrolytes, acid-base, and anemia have all remained stable. Cardiology has slowly added back medications. Clinically, the patient has improved. She did undergo port placement by Dr. Ovalle on 10/18/2016. [employer] was consulted for rehab placement. She is being discharged to [facility] to continue with IV antibiotics as per Dr. Juancarlos Rangel. VITAL SIGNS: Temperature is 98.4 degrees, heart rate 89, respirations 16, blood pressure 107/68, O2 is 99% on room air. DISCHARGE MEDICATIONS: Per Dr. Hills. 1. Albuterol nebulizer 2.5 mg inhaled q.4 hours p.r.n. 2. DuoNeb 3 mL inhaled q. 6 hours p.r.n. 3. Aspirin 81 mg p.o. daily. 4. Dulcolax suppositories 10 mg daily p.r.n. Hold for diarrhea. 5. Klonopin 0.5 mg p.o. b.i.d. p.r.n. 6. Isordil 5 mg p.o. b.i.d. 7. Xopenex 1.25 mg inhaled RT q.4 hours. 8. Prinivil 5 mg p.o. at bedtime. 9. Toprol 25 mg p.o. daily. 10. Prilosec 40 mg p.o. b.i.d. 11. Percocet 5/325, one each p.o. q.4 hours p.r.n. 12. Zosyn 3.375 g. IV q. 8 hours. 13. MiraLAX, one cap p.o. daily. 14. Requip 2 mg p.o. at bedtime. 15. Restoril 50 mg p.o. at bedtime. FOLLOWUP: The patient is being discharged to [facility]. There is no office followup indicated. She can follow her labs with her PCP. The patient can return to the ED for any worsening of symptoms. Discharge time was greater than 35 minutes. Dictated by VERONICA Song for Bernabe Hills MD Addendum: I personally evaluated and examined the patient in conjunction to the [employer] and agreed with her disposition. See my PN for exam MTDD
--- NOTE | 2016-10-20 16:24 | DISCHARGE SUMMARY ---
ADMISSION DATE: 10/14/2016 DISCHARGE DATE: 10/20/2016 ADDENDUM REPORT The patient was being discharged to rehabilitation, however, she is out of rehabilitation days. We were getting her set for LTAC, however, the patient refused because she will not be allowed to go outside and smoke, so she has chosen to go home with home health and IV antibiotics with [facility]. Dr. Rangel has been made aware. Those arrangements have been set up. Dictated by VERONICA Song for Bernabe Hills MD
[2016-10-20 17:22] VITALS: BP 128/79
== END 2016-10-20 19:26 | disposition home health service (06) ==
LOC: ED 07:07 → SUATTDRO 13:42 → ICU 13:42 → 4N 10-15 15:07
PROVIDERS: ATTEND Internal Medicine

== ENCOUNTER 2016-10-31 17:06 | Inpatient (IN) ==
[2016-10-31 19:20] LABS: MANUAL DIFF NEEDED? NO
[2016-10-31 19:25] LABS: BASO% 0.2 % (0.0-0.8); EOS# 0.05 X1000 (0.0-0.7); EOS% 0.5 % (0.0-10.0); HEMATOCRIT 28.5 % (37.0-47.0); HEMOGLOBIN 8.9 g/dL (12.0-16.0); IMM GRAN# 0.02 X1000 (0.0-0.04); IMM GRAN% 0.2 % (0.0-0.5); LYMPH# 1.61 X1000 (1.2-3.4); LYMPH% 14.8 % (20.5-51.1); MCH 27.1 PG (27-31); MCHC 31.2 g/dL (33-37); MCV 86.9 FL (81-99); MONO# 0.82 X1000 (0.11-0.59); MONO% 7.5 % (1.7-9.3); NEUT% 76.8 % (42.2-75.2); PLT 403 X1000 (130-400); RBC 3.28 XMIL (4.2-5.4)
[2016-10-31 19:34] LABS: INR 1.02; PROTIME 10.7 Seconds (9.2-11.7); PTT 24.5 Seconds (22.0-36.0)
[2016-10-31 19:54] LABS: ALBUMIN 3.2 g/dL (3.5-5.0); CALCIUM 8.4 mg/dL (8.8-10.2); MAGNESIUM 2.1 mg/dL (1.5-2.7); POTASSIUM 4.3 mmol/L (3.5-5.1); TOTAL BILIRUBIN 0.14 mg/dL (0.20-1.00); TOTAL PROTEIN 5.5 g/dL (6.3-8.3)
--- NOTE | 2016-10-31 20:06 | Diag Imaging Result Doc PS360 ---
CHEST-PORTABLE - 10/31/2016 INDICATION: SOB TECHNIQUE: COMPARISON: 10/29/2016 FINDINGS: Stable right chest port. Stable significant cardiomegaly. Stable trace infiltrate or scarring in the lateral right upper lobe. No new or focal infiltrates. No pneumothorax or pleural effusion. IMPRESSION: No change from prior. Electronically signed by Froilan Hassan 10/31/2016 8:04 PM
[2016-10-31 20:18] LABS: URINE SOURCE CLEAN CATCH
[2016-10-31 20:24] LABS: BILIRUBIN URINE NEGATIVE (NEGATIVE); BLOOD URINE NEGATIVE (NEGATIVE); COLOR YELLOW; GLUCOSE URINE NEGATIVE (NEGATIVE); LEUKOCYTES URINE SMALL (NEGATIVE); NITRITE URINE NEGATIVE (NEGATIVE); PH URINE 5.5; PROTEIN URINE TRACE mg/dL (NEGATIVE); SP GRAVITY URINE 1.018; TURBIDITY URINE CLEAR (CLEAR); URINE MICRO REVIEW NEEDED? YES; UROBILINOGEN URINE NORMAL (NORMAL)
[2016-10-31 20:29] LABS: UR EPITHELIAL CELLS <10 /HPF (<10); URINE BACTERIA 1+ /HPF; URINE CULTURE NEEDED? YES; URINE WBC <10 /HPF (<10)
[2016-10-31] MEDS ORDERED: MORPHINE IV ONE (20:44)
[2016-10-31 21:20] LABS: MAGNESIUM 2.1 mg/dL (1.5-2.7)
[2016-10-31] MEDS ORDERED: NICODERM PATCH TD ONE (22:30)
[2016-10-31] MEDS ORDERED: ZOFRAN IV PRN (22:30)
--- NOTE | 2016-10-31 23:11 | HISTORY AND PHYSICAL ---
REASON FOR ADMISSION: A 2-day history of shortness of breath and diffuse myalgia. HISTORY OF PRESENT ILLNESS: Ms. Kajal Barreto is a 66-year-old lady with longstanding history of chronic systolic heart failure, continues to smoke, ejection fraction 20-25% , CKD stage 4, coronary artery disease, hyperlipidemia, hypertension, peptic ulcer disease, restless legs syndrome. Comes in today complaining of a 2-3 day history of progressively worsening shortness of breath which got worse late last night. She reports that she tried to get up and she called for help but missed her footing and fell face forward, did not hit her head nor lose consciousness. About an hour later she managed to get up and noticed that neither of her phones were working. She says she was unable to then move around in her house because of severe pain all over her body and fortunately for her, her landlord tried to reach her and could not contact her and then called EMS to come to her house. It was then they found her unable to get up and they brought her in for further evaluation. It had been planned on her last admission to get her placed in a custodial but she had used up all her custodial days and they tried to see if she could get LTAC but the patient declined because she would not be able to smoke. REVIEW OF SYSTEMS: Patient denies any chest pain or anginal type symptoms. She reports her leg and abdominal swelling have improved over the last several weeks. No GI or complaints at this time. No fever or chills. Other than an occasional dry cough, she has no other complaints. Twelve system review is negative. Positive findings per HPI. No localized arthralgias and no rash. ALLERGIES: None. HOME MEDICATIONS: This has yet to be put into the computer. However, per her old list she was on albuterol, aspirin, bisacodyl, Klonopin, lisinopril, Percocet, MiraLAX, Requip, trazodone, and lactulose and omeprazole. FAMILY HISTORY: She says she is estranged from her family. She notes that her grandmother had heart disease. SOCIAL HISTORY: She lives alone with her cat. She smokes about a pack a day. No immediate plans to quit. No alcohol or illicit drug use. PAST SURGICAL HISTORY: She has had appendectomy, right tibial surgery, partial gastrectomy following a perforated gastric ulcer. LAB WORK: Her chest x-ray shows borderline cardiomegaly with no infiltrates or increased vascular markings. White count 11,000, hemoglobin and hematocrit 9 and 28, platelets 403 ,000 with 76% neutrophils. BUN 69, creatinine 1.9. ProBNP 3500. Glucose 105, calcium 8.4, albumin 3.2. Troponin 0.052. EKG showed normal sinus rhythm with nonspecific ST-wave changes. D-dimer was 1.95. Urinalysis: She has 10-20 RBCs, 1+ bacteria. She has some yeastlike cells in her urine. PHYSICAL EXAMINATION: GENERAL: Thin, anorexic, chronically ill, middle-aged woman who is in moderate distress from her pain. When I got into the room she was crying because of her pain. She is alert and oriented to person, place, and time with flat affect and depressed mood but no suicidal ideations. VITAL SIGNS: Blood pressure 111/85, heart rate 92, respirations 15, temperature is 98.3. She 99% on room air. HEENT: Head normocephalic, atraumatic. Eyes, ZAC. EOMI. Conjunctivae are pale. ENT and oropharynx exam is grossly normal. No central cyanosis. NECK: Supple. No visible JVD and positive hepatojugular reflux. No bruit. No thyromegaly. CHEST: Decreased entry in both lung brasher with few scattered wheezes noted. CARDIOVASCULAR: First and sounds heard, 2-3/6 systolicmurmur. Rhythm is regular. ABDOMEN: Full, soft with tenderness confined to the right upper quadrant area. No rebound or guarding. Questionable hepatomegaly noted. Bowel sounds are normal. RECTAL: Deferred at this time. EXTREMITIES: The patient has 1+ pitting edema just above her ankles. Pulses distally in lower extremities are diminished but symmetrical. No clubbing or peripheral cyanosis. SKIN: Intact. No breakdown or erythema. MUSCULOSKELETAL: Exam is grossly normal. ASSESSMENT: 1. Mild chronic obstructive pulmonary disease exacerbation. 2. Chronic systolic heart failure. 3. Chronic obstructive pulmonary disease. 4. Coronary artery disease. 5. Hypertension. 6. Hyperlipidemia. 7. Chronic pain syndrome. 8. Probable clinical depression. 9. Anemia of chronic inflammation. PLAN: At this time, we will start patient on scheduled breathing treatments. I note this patient was on a diuretic but if she was I would recommend holding this for a day or 2 since her creatinine has gone up from 1.6 to 1.9 suggesting decreased intravascular volume. Otherwise, we will continue her CAM inhibitor and beta blockers. Continue the aspirin although together with a PPI to prevent recurrent peptic ulcer disease. This patient's biggest issue is she has no social support and I do suspect that she will benefit from being placed in a structured environment. Counseled patient on smoking. As I stated earlier, no immediate plans to quit and I explained to her that part of her difficulty breathing is strongly related to her smoking and spoke to her that she quit as soon as she can. We will order an anemia workup and she has iron-deficiency anemia. This could probably explain in part or whole why she has restless legs syndrome and this needs to be corrected. cc: Stephanie Cardozo MD MTDD
[2016-10-31] MEDS: LOVENOX SUBQ SCH (23:12)
[2016-10-31] MEDS: PERCOCET-5 PO PRN (23:12)
[2016-10-31] MEDS: XANAX PO PRN (23:12)
[2016-10-31] MEDS: DUONEB (A & A) INH SCH (23:25)
[2016-11-01] MEDS: DUONEB (A & A) INH SCH ×6 (03:19→22:30)
[2016-11-01] MEDS: PERCOCET-5 PO PRN ×3 (03:40→23:15)
--- NOTE | 2016-11-01 05:43 | EKG Report ---
Test Performed on : 10/31/2016 5:20:38 PM Test Reason : CP/Re-Ordered Blood Pressure : / mmHG Vent. Rate : 092 BPM Atrial Rate : 092 BPM P-R Int : 128 ms QRS Dur : 102 ms QT Int : 374 ms P-R-T Axes : 058 004 087 degrees QTc Int : 462 ms Normal sinus rhythm. Possible Left atrial enlargement Nonspecific T wave abnormality Abnormal ECG When compared with ECG of 29-OCT-2016 05:35, (Unconfirmed) Nonspecific T wave abnormality no longer evident in Inferior leads Nonspecific T wave abnormality, worse in Lateral leads Unconfirmed Result
[2016-11-01 07:21] LABS: HEMATOCRIT 28.8 % (37.0-47.0); HEMOGLOBIN 8.8 g/dL (12.0-16.0); MCH 26.8 PG (27-31); MCHC 30.6 g/dL (33-37); MCV 87.8 FL (81-99); MPV 10.9 FL (7.4-10.4); RBC 3.28 XMIL (4.2-5.4)
[2016-11-01 07:45] LABS: CALCIUM 8.7 mg/dL (8.8-10.2); POTASSIUM 4.5 mmol/L (3.5-5.1)
[2016-11-01] MEDS: LACTULOSE PO SCH (09:51)
[2016-11-01] MEDS ORDERED: ATIVAN IV ONE ×2 (10:34→15:35)
--- NOTE | 2016-11-01 14:25 | PROGRESS NOTE ---
DATE: 11/01/2016 SUBJECTIVE: The patient is resting comfortably in bed. She does complain of a headache but otherwise has no other complaints. OBJECTIVE: Vital Signs: Temperature 97.8 degrees, blood pressure 124/90, heart rate 90, respirations 20, O2 saturation is 100% on 2 L nasal cannula. General: This is an elderly female, lying in bed, in no acute distress. Head: Normocephalic, atraumatic. Heart: S1, S2. Normal. Regular rate and rhythm. Lungs: Equal air entry bilaterally. No crackles. No rales. Abdomen: Positive bowel sounds. Soft, nontender, nondistended. Extremities: No edema. No cyanosis. No calf tenderness. LABS: White blood cell count 9.9, hemoglobin 8.8, hematocrit 28, platelets 383,000. Sodium 141, potassium 4.5, chloride 109, CO2 16, BUN 61, creatinine 1.8, glucose 119, calcium 8.7. ASSESSMENT AND PLAN: 1. Chronic obstructive pulmonary disease. We will continue with bronchodilator therapy plus supplemental oxygen. The patient continues to smoke. She has been counseled about cessation. 2. Generalized weakness and debility. The patient will need to be placed in a nursing since she is unable to care for herself at home. 911 emergency services dispatcher has been consulted. 3. Acute kidney injury on chronic kidney disease stage 3. Slightly improved today. We will continue to monitor this closely and avoid nephrotoxic agents. 4. Coronary artery disease with ischemic cardiomyopathy. Aware. The patient's CAM inhibitor is on hold due to her change in renal function. We will restart this when able. 5. Anxiety disorder. Continue on Xanax p.r.n. 6. Iron deficiency anemia. We will place the patient on iron supplementation. 7. Deep vein thrombosis prophylaxis. Continue on Lovenox. cc: No Oconnor MD
[2016-11-01] MEDS: XANAX PO PRN (21:23)
[2016-11-01] MEDS: LOVENOX SUBQ SCH ×2 (21:23→23:17)
[2016-11-02] MEDS: DUONEB (A & A) INH SCH ×4 (03:59→15:04)
[2016-11-02] MEDS: PERCOCET-5 PO PRN ×2 (05:36→10:17)
[2016-11-02 07:57] LABS: HEMATOCRIT 28.4 % (37.0-47.0); HEMOGLOBIN 8.6 g/dL (12.0-16.0); MCH 27.1 PG (27-31); MCHC 30.3 g/dL (33-37); MCV 89.6 FL (81-99); MPV 10.9 FL (7.4-10.4); RBC 3.17 XMIL (4.2-5.4)
[2016-11-02 08:06] LABS: CALCIUM 8.5 mg/dL (8.8-10.2); POTASSIUM 4.4 mmol/L (3.5-5.1)
[2016-11-02] MEDS ORDERED: ICAR-C PO SCH (09:00)
[2016-11-02] MEDS: LACTULOSE PO SCH (10:18)
[2016-11-02] MEDS: XANAX PO PRN (10:18)
[2016-11-02 12:25] VITALS: BP 119/75
[2016-11-02] MEDS ORDERED: HEPARIN ONE ×2 (14:46→17:30)
--- NOTE | 2016-11-04 15:51 | PROVIDER DOCUMENTATION ---
This chart was entered by Uche Seo Scribe, acting as scribe for Kolby Turner MD. HPI-Respiratory General - General Chief Complaint: Shortness of Breath Stated Complaint: SOB Time Seen by Provider: 10/31/16 18:19 Source: patient, old records Allergies/Adverse Reactions: Patient Allergies Allergy/AdvReac Type Severity Reaction Status Date / Time No Known Allergies Allergy Verified 10/31/16 18:54 Home Medications: Home Medication List Medication Instructions Recorded Confirmed Last Taken Type Aspirin 81 mg PO QAM 06/23/16 10/31/16 09/08/16 History LISINOpril [Prinivil] 5 mg PO HS #30 tablet 07/21/16 10/31/16 09/07/16 Rx Bisacodyl [Dulcolax] 10 mg CA DAILY PRN PRN #30 supp 09/09/16 10/31/16 Unknown Rx Polyethylene Glycol 3350 [Miralax] 1 cap PO DAILY #1 powder 09/09/16 10/31/16 Unknown Rx Ropinirole [Requip] 2 mg PO QHS 09/09/16 10/31/16 09/07/16 History Albuterol 2.5MG/Ipratrop 0.5MG 3 ml INH Q4-6H PRN PRN #120 neb 10/12/16 Unknown Rx [Duoneb (A & A)] Isosorbide Dinitrate [Isordil] 5 mg PO BID tablet 10/20/16 10/31/16 Unknown Rx Metoprolol Succinate E.r. [Toprol 25 mg PO DAILY tablet 10/20/16 10/31/16 Unknown Rx Xl] Omeprazole [Prilosec] 40 mg PO BID capsule 10/20/16 10/31/16 Unknown Rx Trazodone [Desyrel] 50 mg PO QHS #30 tablet 10/20/16 10/31/16 Unknown Rx Lactulose [Constulose] 15 ml PO DAILY 10/31/16 10/31/16 Unknown History Lisinopril 5 mg PO DAILY 10/31/16 10/31/16 Unknown History Sennosides/Docusate Sodium [Senna 1 tab PO DAILY 10/31/16 10/31/16 Unknown History Plus Tablet] Alprazolam [Xanax] 0.25 mg PO TID PRN #30 tablet 11/02/16 Unknown Rx Iron Carbonyl/Ascorbic Acid 1 each PO DAILY tablet 11/02/16 Unknown Rx [Icar-C] Oxycodone/APAP 5 mg/325 mg 1 each PO Q4H PRN PRN #0 tablet 11/02/16 Unknown Rx [Percocet-5] - History of Present Illness-Resp Nature of Presenting Problem: Pt is a 66 yowf who presents to ER after a wellness check. Pt is a poor historian and records indicate EMS has transported pt to ER x6 times this month and was admitted one of those times. Pt reports that today, someone did a wellness check on her, states that she was difficult to arouse, and was brought to ER. Pt currently has a port placed because "they thought I was septic." Pt complains of left sided chest pain that radiates to her scapula (laterality unspecified), RUQ pain, sob, bilateral lower extremity edema, and a subjective fever. No further complaints. Quality of Pain: reports: dull Severity in ED: reports: mild, moderate Onset/Duration: reports: unsure Timing: reports: still present Associated Symptoms: reports: chest pain/soreness, fever/chills, shortness of breath, short of breath. denies: cough, dizziness, earache, flu-like symptoms, headache, hurts to breathe, muscle/bodyaches, nasal congestion, nasal drainage, sinus pain, sore throat, sweaty, wheezing Similar Symptoms Previously?: Yes Recently seen or treated by another doctor?: Yes Review of Systems - Adult - REVIEW OF SYSTEMS - ADULT Constitutional: reports: fever, fatique. denies: chills, night sweats, weight gain, weight loss Eyes: reports: no symptoms reported Ears, Nose, Mouth & Throat: reports: no symptoms reported Cardiovascular: reports: chest pain, edema. denies: irregular heart rate, palpitations, poor circulation, syncope Respiratory: reports: shortness of breath. denies: cough, dyspnea on exertion, excessive sputum production, hemoptysis, pleurisy, wheezing Gastrointestinal: reports: abdominal pain (RUQ), nausea, vomiting. denies: constipation, diarrhea Genitourinary: reports: no symptoms reported Musculoskeletal: reports: no symptoms reported Integumentary: reports: no symptoms reported Neurological: reports: no symptoms reported Psychiatric: reports: no symptoms reported Endocrine: reports: no symptoms reported Hematologic/Lymphatic: reports: no symptoms reported Allergic/Immunologic: reports: no symptoms reported All Other Systems: Reviewed and Negative Past History - Adult - PAST MEDICAL HISTORY-ADULT Review of Records: reports: Nursing Assessment Review, Medications Reviewed Cardiovascular: reports: CHF, HTN Respiratory: reports: COPD, sleep apnea Musculoskeletal: reports: intervertebral disc disease Neurological: reports: other (restless leg syndrom) - PRIOR SURGERIES/PROCEDURES Surgical/Procedure History: reports: appendectomy, orthopedic (extremity), back/ neck - IMMUNIZATION STATUS Childhood Immunizations: See Nurse Assessment Flu Vaccine: See Nurse Assessment - FAMILY HISTORY Family History: reviewed, not pertinent - SOCIAL HISTORY Smoking: cigarettes, less than 1 pack/day Provider spent 3-5 mins advising pt. on dangers of tobacco.: Discussed manners to quit use, and f/u contacts for add'l counseling. Physical Exam-General - PHYSICAL EXAM-ADULT Initial Vital Signs Reviewed: Yes - CONSTITUTIONAL General Appearance: appears well, alert, moderate distress, thin - EYES Eyes: PERRL/EOMI, pink conjunctivae - HEAD, EARS, NOSE, MOUTH & THROAT HENMT: moist mucous membranes, pharynx normal - RESPIRATORY Respiratory: chest non-tender, lungs clear, normal breath sounds, no pleuratic chest pain, no respiratory distress, no accessory muscle use. negative: respiratory distress, decreased breath sounds, accessory muscle use, wheezing - CARDIOVASCULAR Cardiovascular: normal peripheral pulses, tachycardia. negative: regular rate, rhythm, bradycardia, irregularly irregular - MUSCULOSKELETAL Extremity: pedal edema (3+ pitting edema in RLE, no edema in LLE). negative: deformity, erythema, inflammation, swelling, tenderness - PSYCHIATRIC Psych/Mental Status: normal thought content, normal thought process, oriented x 3, disheveled, depressed affect. negative: normal mood/affect Progress - PLAN OF CARE/RESULTS Progress/Plan/Lab Results: Orders Category Date Time Status Admit - [facility] Routine AdmDCTranf 10/31/16 22:30 Ordered Activity - Up with Assistance ORDERED Care 10/31/16 22:30 Active Cardiac Monitoring DIRECTED Care 10/31/16 17:34 Completed Intake and Output-Strict ORDERED Care 10/31/16 22:30 Active Nursing- Assist w/ IS as order ORDERED Care 10/31/16 22:30 Active Saline Loc DIRECTED Care 10/31/16 22:30 Active Saline Loc NOW Care 10/31/16 17:34 Completed Turn, Cough and Deep Breathe Q4HR.AWAKE Care 10/31/16 22:30 Active Vital Signs Order Q 4-HR ASSESS Care 10/31/16 22:30 Active Social Service Consult Routine Cons 10/31/16 22:30 Active Heart Healthy Diet Diet 10/31/16 20:42 Completed CHEST-PORTABLE [RAD] Stat Exams 10/31/16 18:28 Completed BASIC METABOLIC PANEL [CHEM] Routine Lab 11/01/16 06:48 Completed CBC WITH ELECTRONIC DIFF [HEME] Stat Lab 10/31/16 18:50 Completed CBC WITH NO DIFF [HEME] Routine Lab 11/01/16 06:48 Completed CK PROFILE [SP CHEM] Stat Lab 10/31/16 18:50 Completed COMPREHENSIVE METABOLIC PANEL [CHEM] Stat Lab 10/31/16 18:50 Completed D-DIMER [CHEM] Stat Lab 10/31/16 18:50 Completed FERRITIN Stat Lab 10/31/16 18:50 Completed FOLATE Stat Lab 10/31/16 18:50 Completed MAGNESIUM [CHEM] Stat Lab 10/31/16 18:50 Completed MAGNESIUM [CHEM] Stat Lab 10/31/16 18:50 Completed PRO B-NATRIURETIC PEPTIDE Stat Lab 10/31/16 18:50 Completed PROTIME WITH INR [COAG] Stat Lab 10/31/16 18:50 Completed PTT [COAG] Stat Lab 10/31/16 18:50 Completed TOTAL IRON [CHEM] Stat Lab 10/31/16 18:50 Completed TROPONIN T Stat Lab 10/31/16 18:50 Completed TSH Stat Lab 10/31/16 18:50 Completed UR SODIUM [URCHEM] Stat Lab 10/31/16 19:10 Completed URINALYSIS W/POSS RFLX CULT [URINALYSIS] Stat Lab 10/31/16 19:10 Completed URINE CULTURE [RM] Routine Lab 10/31/16 20:29 Completed URINE MANUAL MICROSCOPIC [URINALYSIS] Stat Lab 10/31/16 19:10 Completed VITAMIN B12 Stat Lab 10/31/16 18:50 Completed Albuterol 2.5MG/Ipratrop 0.5MG [Duoneb (A & A)] Med 10/31/16 23:30 Discontinued 3 ml INH RTQ4H Alprazolam [Xanax] Med 10/31/16 22:30 Discontinued 0.25 mg PO BID PRN PRN Enoxaparin [Lovenox] Med 10/31/16 22:30 Discontinued 40 mg SUBQ Q24H Lactulose Med 11/01/16 09:00 Discontinued 15 ml PO DAILY Morphine Med 10/31/16 20:44 Discontinued 2 mg IV NOW ONE Nicotine Patch [Nicoderm Patch] Med 10/31/16 22:30 Discontinued 21 mg TD NOW ONE Ondansetron [Zofran] Med 10/31/16 22:30 Discontinued 4 mg IV Q4H PRN PRN Oxycodone/APAP 5 mg/325 mg [Percocet-5] Med 10/31/16 22:30 Discontinued 1 each PO Q4H PRN PRN Aerosol Treatments Routine Ot 10/31/16 22:30 Completed Aerosol Treatments Stat [facility] 10/31/16 22:30 Completed Incentive Spirometer Q4HR.AWAKE [facility] 11/01/16 01:00 Completed Incentive Spirometer Q4HR.AWAKE [facility] 11/01/16 05:00 Completed Incentive Spirometer Q4HR.AWAKE [facility] 11/01/16 09:00 Completed Incentive Spirometer Q4HR.AWAKE [facility] 11/01/16 13:00 Completed Incentive Spirometer Q4HR.AWAKE Ot 11/01/16 17:00 Completed Incentive Spirometer Q4HR.AWAKE [facility] 11/01/16 21:00 Completed Oxygen Device Routine [facility] 10/31/16 22:30 Completed Peak Flow BID Ot 11/01/16 09:00 Completed Peak Flow BID [facility] 11/01/16 21:00 Completed Transfer/Admit Order [TRANSFER] Routine Transfer 10/31/16 20:40 Completed Result Diagrams: 11/02/16 07:20 11/02/16 07:20 - XRAY 1 XRAY: Bilateral XRAY Study: Chest Impression: See EMR Report XRAY Interpretation: Cardiomegaly, otherwise normal - Dr. Turner - CONSULTS/PCP/HOSPITALIST Notification #1 *Consult/PCP/Hospitalist*: Dr. Cardozo (Hospitalist) Time Discussed: 20:00 Consult Disposition: Admit Departure - Departure Date of Disposition Decision: 10/31/16 Time of Disposition Decision: 20:00 DIAGNOSIS: Weakness generalized, COPD exacerbation, Tobacco abuse Failure to thrive Qualifiers: Failure to thrive age range: in adult Qualified Code(s): R62.7 - Adult failure to thrive Disposition: ADMITTED INPATIENT 09 Certified Medical Emergency: Emergent Condition: Stable - Critical Care Note This patient required my direct & personal management of CC.: No This chart was documented by the indicated scribe, (Uche Seo Scribe) and accurately reflects the services I performed and decisions made by me, Kolby Turner MD, as attested by the provider's signature.
== END 2016-11-02 17:52 ==
LOC: ED 17:06 → SUATTDRO 21:29 → 3N 21:29
PROVIDERS: ATTEND Internal Medicine

== ENCOUNTER 2016-12-03 19:57 | Inpatient (IN) ==
[2016-12-03] MEDS ORDERED: BUMEX ONE (20:01)
[2016-12-03] MEDS ORDERED: NITROGLYCERIN ONE (20:03)
[2016-12-03] MEDS ORDERED: NITROGLYCERIN SL PRN (20:07)
[2016-12-03] MEDS ORDERED: ALBUTEROL NEB INH ONE (20:08)
[2016-12-03] MEDS ORDERED: DUONEB (A & A) INH ONE (20:08)
[2016-12-03] MEDS ORDERED: BUMEX IV ONE (20:08)
[2016-12-03 20:36] LABS: MANUAL DIFF NEEDED? NO
[2016-12-03 20:44] LABS: BASO% 1.6 % (0.0-0.8); EOS% 3.6 % (0.0-10.0); HEMATOCRIT 32.1 % (37.0-47.0); HEMOGLOBIN 9.6 g/dL (12.0-16.0); IMM GRAN# 0.23 X1000 (0.0-0.04); IMM GRAN% 1.4 % (0.0-0.5); LYMPH% 29.3 % (20.5-51.1); MCH 27.3 PG (27-31); MCHC 29.9 g/dL (33-37); MCV 91.2 FL (81-99); MONO% 6.6 % (1.7-9.3); MPV 10.6 FL (7.4-10.4); NEUT% 57.5 % (42.2-75.2); PLT 401 X1000 (130-400); RBC 3.52 XMIL (4.2-5.4)
[2016-12-03 20:45] LABS: ALLEN TEST YES; BE -9.7 mmoll (-3.0-3.0); BLOOD TYPE ARTERIAL; DRAW SITE R RADIAL; METHB 0.9 % (0.0-1.5); O2(CT) 14.8 mL/dL (15.0-23.0); PCO2(98.6) 32 mmHg (35-45); PO2(98.6) 436 mmHg (60-100); SAMPLE BLOOD; SAO2 99.3 % (95.0-100.0); THB 9.9 g/dL (11.5-17.4)
[2016-12-03 20:46] LABS: MODALITY BI PAP
[2016-12-03 20:53] LABS: URINE CULTURE NEEDED? NO; URINE MICRO REVIEW NEEDED? NO; URINE SOURCE CATH
[2016-12-03 20:59] LABS: BILIRUBIN URINE NEGATIVE (NEGATIVE); BLOOD URINE NEGATIVE (NEGATIVE); COLOR STRAW; GLUCOSE URINE NEGATIVE (NEGATIVE); LEUKOCYTES URINE NEGATIVE (NEGATIVE); NITRITE URINE NEGATIVE (NEGATIVE); PH URINE 6.5; PROTEIN URINE 100 mg/dL (NEGATIVE); SP GRAVITY URINE 1.013; TURBIDITY URINE CLEAR (CLEAR); UR EPITHELIAL CELLS <10 /HPF (<10); URINE BACTERIA NEGATIVE /HPF; URINE RBC <10 /HPF (<10); URINE WBC <10 /HPF (<10); UROBILINOGEN URINE NORMAL (NORMAL)
[2016-12-03 21:09] LABS: ALBUMIN 3.2 g/dL (3.5-5.0); CALCIUM 8.4 mg/dL (8.8-10.2); POTASSIUM 5.3 mmol/L (3.5-5.1); TOTAL BILIRUBIN 0.13 mg/dL (0.20-1.00); TOTAL PROTEIN 5.9 g/dL (6.3-8.3)
[2016-12-03] MEDS ORDERED: MORPHINE IV ONE (21:17)
[2016-12-03] MEDS ORDERED: ZOFRAN IV ONE (21:17)
--- NOTE | 2016-12-03 21:21 | Diag Imaging Result Doc PS360 ---
EXAM: CHEST-PORTABLE INDICATION: sob TECHNIQUE: One view COMPARISON: 10/31/2016 FINDINGS: The right chest port is stable. There is suggestion of mild scarring in the right upper lung zone. This is stable. The lungs are grossly clear, otherwise. There is no discrete pleural fluid collection or pneumothorax. There is stable cardiomegaly. Central vasculature is unremarkable. Her couple old rib fractures on the left that are stable. IMPRESSION: Stable cardiomegaly and right upper lung zone scarring. No definite acute pathology by plain radiograph. Electronically signed by Joey Serrato 12/03/2016 9:19 PM
--- NOTE | 2016-12-03 21:28 | PROVIDER DOCUMENTATION ---
This chart was entered by Uche Seo Scribe, acting as scribe for Art Mark MD. HPI-Respiratory General - General Stated Complaint: respiratory distress Time Seen by Provider: 12/03/16 20:05 Source: patient, EMS Allergies/Adverse Reactions: Patient Allergies Allergy/AdvReac Type Severity Reaction Status Date / Time No Known Allergies Allergy Verified 12/03/16 21:05 Home Medications: Home Medication List Medication Instructions Recorded Confirmed Last Taken Type Aspirin 81 mg PO QAM 06/23/16 10/31/16 09/08/16 History LISINOpril [Prinivil] 5 mg PO HS #30 tablet 07/21/16 10/31/16 09/07/16 Rx Bisacodyl [Dulcolax] [address] DAILY PRN PRN #30 supp 09/09/16 10/31/16 Unknown Rx Polyethylene Glycol 3350 [Miralax] 1 cap PO DAILY #1 powder 09/09/16 10/31/16 Unknown Rx Ropinirole [Requip] 2 mg PO QHS 09/09/16 10/31/16 09/07/16 History Albuterol 2.5MG/Ipratrop 0.5MG 3 ml INH Q4-6H PRN PRN #120 neb 10/12/16 Unknown Rx [Duoneb (A & A)] Isosorbide Dinitrate [Isordil] 5 mg PO BID tablet 10/20/16 10/31/16 Unknown Rx Metoprolol Succinate E.r. [Toprol 25 mg PO DAILY tablet 10/20/16 10/31/16 Unknown Rx Xl] Omeprazole [Prilosec] 40 mg PO BID capsule 10/20/16 10/31/16 Unknown Rx Trazodone [Desyrel] 50 mg PO QHS #30 tablet 10/20/16 10/31/16 Unknown Rx Lactulose [Constulose] 15 ml PO DAILY 10/31/16 10/31/16 Unknown History Lisinopril 5 mg PO DAILY 10/31/16 10/31/16 Unknown History Sennosides/Docusate Sodium [Senna 1 tab PO DAILY 10/31/16 10/31/16 Unknown History Plus Tablet] Alprazolam [Xanax] 0.25 mg PO TID PRN #30 tablet 11/02/16 Unknown Rx Iron Carbonyl/Ascorbic Acid 1 each PO DAILY tablet 11/02/16 Unknown Rx [Icar-C] Oxycodone/APAP 5 mg/325 mg 1 each PO Q4H PRN PRN #0 tablet 11/02/16 Unknown Rx [Percocet-5] - History of Present Illness-Resp Nature of Presenting Problem: Pt is a 66 yof who [facility] CC of respiratory distress. EMS reports that the [facility] gave pt a duo-neb/xanax/ and percocet, stating "that usually helps her relax." EMS also reports that [facility] staff reports pt has been complaining of "gas" all day, has been pale, diaphoretic, and C/O dyspnea with CP (pt was given duo-neb/xanax/percocet when she complained of SOB and CP). Pt has hx of COPD. Quality of Pain: reports: other (respiratory distress) Severity in ED: reports: severe Onset/Duration: reports: unsure Timing: reports: still present Associated Symptoms: reports: chest pain/soreness, shortness of breath, short of breath, wheezing, other (pallor; diaphoresis). denies: cough, dizziness, fever/chills, sinus pain, sore throat, sweaty Similar Symptoms Previously?: Yes Recently seen or treated by another doctor?: Yes Review of Systems - Adult - REVIEW OF SYSTEMS - ADULT Constitutional: denies: chills, fever, fatique, night sweats, weight gain, weight loss Eyes: reports: no symptoms reported Ears, Nose, Mouth & Throat: reports: no symptoms reported Cardiovascular: reports: chest pain. denies: edema, heart murmur, irregular heart rate, orthopnea, palpitations, poor circulation, PND, syncope Respiratory: reports: shortness of breath. denies: dyspnea on exertion, excessive sputum production, hemoptysis, pleurisy, wheezing Gastrointestinal: reports: no symptoms reported Genitourinary: reports: no symptoms reported Musculoskeletal: reports: no symptoms reported Integumentary: reports: other (pale and diaphoretic). denies: hives, hair loss , itching, mole changes, nail changes, rash, skin sores/ulcer, skin thickening Neurological: reports: no symptoms reported Psychiatric: reports: no symptoms reported Endocrine: reports: no symptoms reported Hematologic/Lymphatic: reports: no symptoms reported Allergic/Immunologic: reports: no symptoms reported All Other Systems: Reviewed and Negative Past History - Adult - PAST MEDICAL HISTORY-ADULT Review of Records: reports: Nursing Assessment Review, Medications Reviewed Cardiovascular: reports: CHF, HTN Respiratory: reports: COPD, sleep apnea Musculoskeletal: reports: intervertebral disc disease Neurological: reports: other (restless leg syndrom) - PRIOR SURGERIES/PROCEDURES Surgical/Procedure History: reports: appendectomy, orthopedic (extremity), back/ neck - IMMUNIZATION STATUS Childhood Immunizations: See Nurse Assessment Flu Vaccine: See Nurse Assessment - FAMILY HISTORY Family History: reviewed, not pertinent Physical Exam-General - PHYSICAL EXAM-ADULT Initial Vital Signs Reviewed: Yes - CONSTITUTIONAL General Appearance: appears well, alert, severe distress, cachetic - NECK Neck: non-tender, full range of motion, supple, normal inspection. negative: C- spine tenderness, limited range of motion, lymphadenopathy - RESPIRATORY Respiratory: chest non-tender, lungs clear, no pleuratic chest pain, respiratory distress (severe), wheezing (mild). negative: normal breath sounds , no respiratory distress - CARDIOVASCULAR Cardiovascular: normal peripheral pulses, tachycardia, other (HTN (177/123)). negative: regular rate, rhythm, bradycardia, irregularly irregular - GASTROINTESTINAL (ABDOMEN) Abdominal Exam: normal bowel sounds, non tender, soft, no organomegaly, no pulsatile mass. negative: guarding, rebound, tenderness - MUSCULOSKELETAL Extremity: normal range of motion, non-tender, normal gait, normal inspection, no calf tenderness, normal capillary refill, pelvis stable, pedal edema, swelling (4+ pitting). negative: no pedal edema, deformity, erythema, inflammation, tenderness - SKIN Integumentary: normal color, normal turgor, diaphoresis. negative: warm/dry, tenderness, warm - PSYCHIATRIC Psych/Mental Status: normal thought content, normal thought process, oriented x 3, anxious, disheveled. negative: normal mood/affect Progress - PLAN OF CARE/RESULTS Progress/Plan/Lab Results: Vital Signs - 8 hr 12/03/16 20:01 12/03/16 20:10 12/03/16 20:15 Temperature 97.7 F Pulse Rate 133 H 120 H 112 H Respiratory Rate 41 H 33 H 31 H Blood Pressure 177/123 150/99 145/101 O2 Sat by Pulse Oximetry 98 99 99 07/28/17 20:48 12/03/16 21:04 Temperature Pulse Rate 119 H 100 H Respiratory Rate 29 H 24 Blood Pressure 143/107 132/97 O2 Sat by Pulse Oximetry 99 100 Laboratory Results - last 24 hr 12/03/16 12/03/16 12/03/16 20:20 20:20 20:20 WBC 16.71 H RBC 3.52 L Hgb 9.6 L Hct 32.1 L MCV 91.2 MCH 27.3 MCHC 29.9 L RDW Std Deviation 18.3 H Plt Count 401 H MPV 10.6 H Immature Gran % (Auto) 1.4 H Neut % (Auto) 57.5 Lymph % (Auto) 29.3 Madison % (Auto) 6.6 Eos % (Auto) 3.6 Baso % (Auto) 1.6 H Immature Gran # (Auto) 0.23 H Neut # (Auto) 9.61 H Lymph # (Auto) 4.90 H Madison # (Auto) 1.10 H Eos # (Auto) 0.60 Baso # (Auto) 0.27 H Specimen Type Sample Site pH pCO2 pO2 HCO3 Base Excess Oxyhemoglobin ABG O2 Sat (Calculated) ABG O2 Saturation ABG Carboxyhemoglobin ABG Methemoglobin Iam Test A-a O2 Difference Total Hemoglobin Lactate Blood Gas Modality FiO2 % Inspiratory BiPAP Expiratory BiPAP Sodium 141 Potassium 5.3 H D Chloride 105 Carbon Dioxide 15 L Anion Gap 21 BUN 37 H Creatinine 1.9 H Estimated GFR/1.73 m2 26 BUN/Creatinine Ratio 19 Glucose 280 H D Calculated Osmolality 300 Calcium 8.4 L Total Bilirubin 0.13 L AST 33 H ALT 20 Alkaline Phosphatase 118 H Creatine Kinase 99 Troponin T Xvt-V-Spymttesneh Pept Total Protein 5.9 L Albumin 3.2 L Globulin 2.7 Albumin/Globulin Ratio 1.2 Plasma Lactate 7.3 H Urine Source Urine Color Urine Turbidity Urine pH Ur Specific Giltner Urine Protein Ur Glucose (Stick) Ur Ketones (Stick) Urine Blood Urine Nitrite Urine Bilirubin Urobilinogen Dipstick Urine Leukocytes Urine WBC (Auto) Urine RBC (Auto) U Epithel Cells (Auto) Urine Bacteria (Auto) 12/03/16 12/03/16 12/03/16 20:20 20:20 20:40 WBC RBC Hgb Hct MCV MCH MCHC RDW Std Deviation Plt Count MPV Immature Gran % (Auto) Neut % (Auto) Lymph % (Auto) Madison % (Auto) Eos % (Auto) Baso % (Auto) Immature Gran # (Auto) Neut # (Auto) Lymph # (Auto) Madison # (Auto) Eos # (Auto) Baso # (Auto) Specimen Type ARTERIAL Sample Site R RADIAL pH 7.30 L pCO2 32 L pO2 436 H HCO3 17.4 L Base Excess -9.7 L Oxyhemoglobin 97.5 ABG O2 Sat (Calculated) 14.8 L ABG O2 Saturation 99.3 ABG Carboxyhemoglobin 0.90 ABG Methemoglobin 0.9 Iam Test YES A-a O2 Difference 237.0 Total Hemoglobin 9.9 L Lactate 4.50 H Blood Gas Modality BI PAP FiO2 % 100.0 Inspiratory BiPAP 16.0 Expiratory BiPAP 5.0 Sodium Potassium Chloride Carbon Dioxide Anion Gap BUN Creatinine Estimated GFR/1.73 m2 BUN/Creatinine Ratio Glucose Calculated Osmolality Calcium Total Bilirubin AST ALT Alkaline Phosphatase Creatine Kinase Troponin T 0.048 Hor-L-Kbfjmyaneng Pept > 69668 H Total Protein Albumin Globulin Albumin/Globulin Ratio Plasma Lactate Urine Source Urine Color Urine Turbidity Urine pH Ur Specific G[place]ner Urine Protein Ur Glucose (Stick) Ur Ketones (Stick) Urine Blood Urine Nitrite Urine Bilirubin Urobilinogen Dipstick Urine Leukocytes Urine WBC (Auto) Urine RBC (Auto) U Epithel Cells (Auto) Urine Bacteria (Auto) 12/03/16 20:43 WBC RBC Hgb Hct MCV MCH MCHC RDW Std Deviation Plt Count MPV Immature Gran % (Auto) Neut % (Auto) Lymph % (Auto) Madison % (Auto) Eos % (Auto) Baso % (Auto) Immature Gran # (Auto) Neut # (Auto) Lymph # (Auto) Madison # (Auto) Eos # (Auto) Baso # (Auto) Specimen Type Sample Site pH pCO2 pO2 HCO3 Base Excess Oxyhemoglobin ABG O2 Sat (Calculated) ABG O2 Saturation ABG Carboxyhemoglobin ABG Methemoglobin Iam Test A-a O2 Difference Total Hemoglobin Lactate Blood Gas Modality FiO2 % Inspiratory BiPAP Expiratory BiPAP Sodium Potassium Chloride Carbon Dioxide Anion Gap BUN Creatinine Estimated GFR/1.73 m2 BUN/Creatinine Ratio Glucose Calculated Osmolality Calcium Total Bilirubin AST ALT Alkaline Phosphatase Creatine Kinase Troponin T Zhu-P-Ddmicpyahwx Pept Total Protein Albumin Globulin Albumin/Globulin Ratio Plasma Lactate Urine Source CATH Urine Color STRAW Urine Turbidity CLEAR Urine pH 6.5 Ur Specific G[place]ner 1.013 Urine Protein 100 A Ur Glucose (Stick) NEGATIVE Ur Ketones (Stick) NEGATIVE Urine Blood NEGATIVE Urine Nitrite NEGATIVE Urine Bilirubin NEGATIVE Urobilinogen Dipstick NORMAL Urine Leukocytes NEGATIVE Urine WBC (Auto) <10 Urine RBC (Auto) <10 U Epithel Cells (Auto) <10 Urine Bacteria (Auto) NEGATIVE Orders Category Date Time Status Khan Cath Insertion ORDERED Care 12/03/16 20:11 Active CHEST-PORTABLE [RAD] Stat Exams 12/03/16 20:05 Completed ABG [RESP] Routine Lab 12/03/16 20:40 Completed CBC WITH ELECTRONIC DIFF [HEME] Stat Lab 12/03/16 20:20 Completed CK PROFILE [SP CHEM] Stat Lab 12/03/16 20:20 Completed CMP [COMPREHENSIVE METABOLIC PANEL] [CHEM] Stat Lab 12/03/16 20:20 Completed LACTATE, PLASMA [CHEM] Stat Lab 12/03/16 20:20 Completed TROPONIN T Stat Lab 12/03/16 20:20 Completed UA NIMS W/REFLEX CULT [URINALYSIS] Stat Lab 12/03/16 20:43 Completed pro-bnp [PRO B-NATRIURETIC PEPTIDE] Stat Lab 12/03/16 20:20 Completed Albuterol 2.5MG/Ipratrop 0.5MG [Duoneb (A & A)] Med 12/03/16 20:08 Discontinued 3 ml INH NOW ONE Albuterol [Albuterol Neb] Med 12/03/16 20:08 Discontinued 5 mg INH NOW ONE Bumetanide [Bumex] Med 12/03/16 20:01 Discontinued 1 mg .ROUTE .STK-MED ONE Bumetanide [Bumex] Med 12/03/16 20:08 Discontinued 4 mg IV NOW ONE Morphine Med 12/03/16 21:17 Discontinued 4 mg IV NOW ONE Nitroglycerin Sl [Nitroglycerin] Med 12/03/16 20:03 Discontinued 0.4 mg .ROUTE .STK-MED ONE Nitroglycerin Sl [Nitroglycerin] Med 12/03/16 20:07 Active 0.4 mg SL Q5M PRN PRN Ondansetron [Zofran] Med 12/03/16 21:17 Discontinued 4 mg IV NOW ONE Aerosol Treatments Routine Oth 12/03/16 20:08 Completed Aerosol Treatments Stat Oth 12/03/16 20:08 Completed BIPAP Stat Oth 12/03/16 20:07 Active BIPAP Stat Oth 12/03/16 20:48 Active EKG [EKG] Stat Ther 12/03/16 19:57 Ordered Result Diagrams: 12/03/16 20:20 12/03/16 20:20 - EKG 1 Time of EKG reading by physician:: 20:04 EKG Read and Signed by:: Art Mark EKG Interpretation (*Must complete 3 of following elements*): Abnormal ( Possible left atrial enlargement; Cannot rule out Anterior infarct, age undetermined; ST & T wave abnormality, consider lateral ischemia) Rate: 129 Rhythm: Sinus tachycardia - XRAY 1 XRAY: Bilateral XRAY Study: Chest Impression: See EMR Report XRAY Interpretation: COPD, severe cardiomegaly - Dr. Mark - CONSULTS/PCP/HOSPITALIST Notification Time Discussed: 21:23 Reason/Comments: Dr. Patel (Hospitalist) Consult Disposition: Admit Departure - Departure Date of Disposition Decision: 12/03/16 Time of Disposition Decision: 21:26 DIAGNOSIS: CHF exacerbation Respiratory failure Qualifiers: Chronicity: acute on chronic Respiratory failure complication: unspecified whether with hypoxia or hypercapnia Qualified Code(s): J96.20 - Acute and chronic respiratory failure, unspecified whether with hypoxia or hypercapnia Disposition: ADMITTED INPATIENT 09 Certified Medical Emergency: Emergent Condition: Fair Referrals and Follow-Ups: None,PCP [Primary Care Provider] - - Critical Care Note This patient required my direct & personal management of CC.: Yes Total Time (mins): 90 Critical Care Statement: This patient required my direct personal management to treat or rule out processes, the absence of which, could potentiallly result in sudden, clinically significant life or limb threatening deterioration. This chart was documented by the indicated scribe, (Uche Seo, Scrbro) and accurately reflects the services I performed and decisions made by me, Art Benavidez MD, as attested by the provider's signature.
[2016-12-03] MEDS ORDERED: LASIX IV ONE (22:00)
[2016-12-03] MEDS: LOVENOX SUBQ SCH (22:38)
[2016-12-03] MEDS ORDERED: DULCOLAX PR PRN (22:46)
[2016-12-03] MEDS: DUONEB (A & A) INH SCH (23:44)
--- NOTE | 2016-12-03 23:57 | HISTORY AND PHYSICAL ---
CHIEF COMPLAINT: Shortness of breath and chest pain. HISTORY OF PRESENT ILLNESS: This is a 66-year-old female, very well known to our service, with a past medical history of chronic systolic heart failure, COPD, chronic kidney disease, stage 3, coronary artery disease, who was brought to the emergency department because of shortness of breath. She reports that she was at [facility], where late afternoon she noted progressive shortness of breath and chest pain located in the substernal area that lasted probably 30 minutes to an hour. Apparently, this is still going on, but definitely much better. She reports that the pain was initially 6/10 to 7/10 in intensity, and now is 2-3, but is still present. She reports that she had shortness of breath that started this afternoon, but no more cough than she usually has, because of COPD. She denies any fever or chills. She reports that she was taking all her medications she is supposed to. Here upon ER evaluation, she was found to be hypertensive, with systolic blood pressure 180, and also low O2 saturation, so she was placed on BiPAP. The white cell count here was higher at 16,000, so we were called in for admission. PAST MEDICAL HISTORY: 1. Systolic congestive heart failure, with an ejection fraction of 20-25%. 2. Chronic kidney disease, stage 4. 3. Coronary artery disease. 4. Hyperlipidemia. 5. Hypertension. 6. Peptic ulcer disease. 7. COPD. The patient is still smoking. 8. Restless legs syndrome. PAST SURGICAL HISTORY: She had an appendectomy, right tibial surgery, partial gastrectomy following a perforated gastric ulcer. SOCIAL HISTORY: She lives alone with her cat. She still is smoking about half a pack per day. No immediate plans to quit, but she denies drinking alcohol or using illicit drugs. REVIEW OF SYSTEMS: Eleven systems were reviewed, and all symptoms are related to H P. PHYSICAL EXAMINATION: VITAL SIGNS: Temperature 97.7, heart rate 112, respiratory rate 31, blood pressure at initial evaluation was 180/123, now is 132/97. O2 saturation 100% on BiPAP machine. GENERAL: This is a chronically ill-looking, anorexic, looking older than her age, 66-year-old female lying in bed, in no acute distress. HEENT: Head is normocephalic, atraumatic. Anicteric sclerae and pale conjunctivae. Mucous membranes moist. NECK: Supple. No JVD noted. No carotid bruits. No lymphadenopathy. No thyromegaly. CARDIOVASCULAR: S1 and S2 heard, with a 3/6 systolic murmur in the aortic area, with local radiation to the neck. RESPIRATORY: Decreased air entry in both lung brasher, with a few scattered crackles in both bases. The patient is not using any accessory muscles or having work of breathing. ABDOMEN: Soft, nontender to palpation. Bowel sounds present. No organomegaly. EXTREMITIES: 3+ pitting edema in both lower extremities up to both knees. Peripheral pulses present, but faint. NEUROLOGICAL: Patient alert, oriented x3. Moves 4 extremities. Cranial nerves 2-12 grossly normal. LABORATORY DATA: White cell count 16.71, with hemoglobin 9.6, hematocrit 32.1, platelets 401. ABG shows pH 7.30, with pCO2 32. Potassium 5.3 and creatinine 1.9. ASSESSMENT: 1. Mild chronic obstructive pulmonary disease exacerbation. 2. Chronic systolic heart failure. 3. Chronic obstructive pulmonary disease. 4. Coronary artery disease. 5. Hypertension. 6. Hyperlipidemia. 7. Chronic pain syndrome. 8. Anemia of chronic disease. PLAN: The patient is being admitted to the hospital because of an episode of progressive shortness of breath and chest pain. Those symptoms could be explained by multiple conditions. The physical examination disclosed some crackles in both extremities and also the chest x-ray did not show really pulmonary edema. The fact that both legs are really swelling and were getting worse the last 2 weeks, makes me think that this is worsening systolic congestive heart failure. We know that she had an ejection fraction of 20-25%. I prefer to have re-evaluation of the heart with an echocardiogram in limited views to see what it shows. We will consult Cardiology for this. For the shortness of breath, although this could be mild chronic obstructive pulmonary disease exacerbation, the fact that she is not mobile enough makes me think about a bout of pulmonary embolism. We are going to do a V/Q scan, considering her renal function is not okay. For chest pain, also we are going to check troponins x3 and make sure that she is not having any acute coronary artery syndrome. For hypertension, that condition has been controlled. We are going to restart home medications. For hyperlipidemia, we will continue home medications. For chronic pain, we are going to continue with morphine and Percocet, but we are going to be very cautious because those medication can depress respiratory function. For anemia of chronic disease, we are going to keep an eye on this, and also check CBC daily. Further recommendations to follow according to the clinical situation of the patient. cc: Rigo Yeboah MD
[2016-12-04] MEDS: REQUIP PO SCH ×2 (00:11→22:11)
[2016-12-04] MEDS: ZOSYN 2.25 GM/NS 2.25 GM/50 ML IVPB IV SCH ×5 (00:11→22:11)
[2016-12-04] MEDS: DESYREL PO SCH ×2 (00:11→22:12)
[2016-12-04] MEDS: XANAX PO PRN ×4 (00:11→21:22)
[2016-12-04] MEDS: ZOFRAN IV PRN (00:43)
[2016-12-04] MEDS: DILAUDID IV PRN ×6 (00:43→22:11)
[2016-12-04] MEDS ORDERED: MYLICON PO PRN (01:29)
[2016-12-04] MEDS: DUONEB (A & A) INH SCH ×6 (03:13→23:15)
[2016-12-04 05:23] LABS: MANUAL DIFF NEEDED? NO
[2016-12-04 06:06] LABS: CALCIUM 8.8 mg/dL (8.8-10.2); POTASSIUM 4.3 mmol/L (3.5-5.1)
[2016-12-04 06:20] LABS: BASO% 0.5 % (0.0-0.8); EOS# 0.07 X1000 (0.0-0.7); EOS% 0.5 % (0.0-10.0); HEMOGLOBIN 9.1 g/dL (12.0-16.0); IMM GRAN# 0.09 X1000 (0.0-0.04); IMM GRAN% 0.6 % (0.0-0.5); LYMPH# 1.34 X1000 (1.2-3.4); LYMPH% 8.8 % (20.5-51.1); MCHC 30.3 g/dL (33-37); MONO# 1.26 X1000 (0.11-0.59); MONO% 8.2 % (1.7-9.3); NEUT% 81.4 % (42.2-75.2); PLT 322 X1000 (130-400); RBC 3.37 XMIL (4.2-5.4)
[2016-12-04] MEDS: ASPIRIN PO SCH (08:22)
[2016-12-04] MEDS: ICAR-C PO SCH (08:22)
[2016-12-04] MEDS: PERICOLACE PO SCH (08:22)
[2016-12-04] MEDS: PRILOSEC PO SCH ×2 (08:22→22:11)
[2016-12-04] MEDS: TOPROL XL PO SCH (08:22)
[2016-12-04] MEDS: LACTULOSE PO SCH (08:23)
[2016-12-04] MEDS: MIRALAX PO SCH (08:23)
[2016-12-04] MEDS ORDERED: LASIX IV SCH (09:00)
--- NOTE | 2016-12-04 09:06 | Diag Imaging Result Doc PS360 ---
EXAM: CT THORAX W/O CONTRAST INDICATION: suspected PNA TECHNIQUE: Dose reduction protocol was used. COMPARISON: 10/14/2016 FINDINGS: There are increased interstitial markings throughout both lungs suggesting mild interstitial edema. The nodular infiltrate throughout the right lung, mainly in the right upper lobe has worsened suggesting worsening atypical infectious or inflammatory pneumonia. There are small bilateral pleural effusions with bibasilar atelectasis. There is no pneumothorax. There is stable marked cardiomegaly. A small pericardial effusion is similar to the previous study. There is stable aneurysmal dilation of the ascending aorta measuring up to 4.6 cm. There is a fluid-filled distended esophagus suggesting gastroesophageal reflux. There are coronary artery and aortic calcifications. There are stable indeterminate thyroid nodules, likely multinodular goiter. Review of the upper abdomen reveals bilateral prominent adrenal adenomas. IMPRESSION: 1.Worsening nodular infiltrates throughout the right lung but mainly in the right upper lobe. This probably represents a worsening atypical infectious process or inflammatory process. 2.Suggestion of mild interstitial edema. 3.Bilateral small pleural effusions and bibasilar atelectasis. 4.Marked cardiomegaly and small pericardial effusion that is stable. 5.Fluid-filled distended esophagus suggesting gastroesophageal reflux. 6.Other incidental/nonacute findings detailed above. Electronically signed by Joey Serrato 12/04/2016 9:03 AM
--- NOTE | 2016-12-04 10:12 | Diag Imaging Result Doc PS360 ---
EXAM: LUNG SCAN / VQ INDICATION: sob, suspected PE TECHNIQUE: 40.2 mCi of aerosolized technetium 99 DTPA was administered for the ventilation portion of the scan. 6.1 mCi of IV technetium 99 MAA was administered for the perfusion portion of the scan. COMPARISON: 12/29/2015 FINDINGS: No matched or unmatched perfusion defects are appreciated. The ventilation portion of the scan is essentially unremarkable as well. There is a small amount of swallowed radiotracer in the lumen of the stomach. IMPRESSION: Negative VQ scan. Electronically signed by Joey Serrato 12/04/2016 10:09 AM
--- NOTE | 2016-12-04 12:12 | CONSULTATION ---
DATE OF CONSULTATION: 12/04/2016 SUBJECTIVE: A 66-year-old female with history of known COPD, systolic heart failure and chronic kidney disease. She came to the emergency room with shortness of breath and some chest discomfort as well. She describes her chest pain as substernal. She has chronic back pain and has had back surgery and she has lower back pain also. Since admission to the hospital, she was ruled out for pulmonary embolism. Chest CT was done which revealed infiltrate versus heart failure and she was started on IV Lasix and antibiotics. Since then she has significantly improved. Her white counts were elevated at 16,071. She was started on antibiotics. At the time of my examination, patient did not complain of any chest pain. REVIEW OF SYSTEMS: A 14-point review of systems was done:Gastrointestinal: There is no history of nausea, vomiting, or diarrhea. There is no history of hematemesis or melena. Central nervous system: No focal weakness to suggest a CVA or TIA. Genitourinary: There is no dysuria or hematuria. Cardiovascular: Patient reports pain at the chest, when she came in 10/16, and lower back pain was worse requiring Dilaudid. PAST MEDICAL HISTORY: 1. Systolic heart failure. Ejection fraction of 20-25%. 2. Chronic kidney disease. 3. Coronary artery disease. Last cardiac catheterization 07/20/2025; left main artery was normal. Left anterior descending artery luminal irregularities with 20% stenosis. Circumflex artery with proximal occlusion with collateralization right coronary artery. There is a near proximal occlusion with collaterals and severe LV dysfunction. Medical management recommended. 4. 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 5. Partial gastrectomy following gastric ulcer perforation in the past. PAST SURGICAL HISTORY: 1. Appendectomy. 2. Right tibial surgery. PHYSICAL EXAMINATION: Vital Signs: Blood pressure when she came 130/81. Cardiovascular: Normal jugular venous pressure. First and second heart sounds heard. There is no S3 gallop. Respiratory: Normal air entry. There are no crepitations. A few scattered wheezes. Abdomen: Soft, nontender. There was no guarding or rigidity. Bowel sounds were heard. Central Nervous System: Alert, was moving all 4 extremities. Detailed central nervous system examination not performed. INVESTIGATIVE REPORTS: Lung V/Q scan was negative for PE, CT scan of her chest revealed nodular infiltrates. Right lung mainly in the right upper lobe atypical process versus inflammatory. In addition there is bilateral interstitial edema with bilateral small pleural effusion. White count was elevated. WBC 16.7, hemoglobin 9.6, hematocrit 32, platelet count of 401,000. Sodium 146, potassium 4.3, BUN 41, creatinine 1.8, troponins were negative. ASSESSMENT AND PLAN: 1. Ms. Kajal Amaya is a 66-year-old lady with history of systolic heart failure. Severe LV dysfunction, severe coronary artery disease, occluded right and circumflex artery with collateralization by cardiac catheterization 2016. She is admitted with chest discomfort and worsening shortness of breath. Cardiac enzymes were negative. She has renal insufficiency as well. From a cardiac standpoint, she has severe LV dysfunction, history of systolic heart failure. I will discontinue her lisinopril today and start her on Entresto from Tuesday. 2. We will decrease the Lasix to 40 mg daily. Continue with her aspirin and nitroglycerin paste. 3. She has elevated white count and nodular infiltrates in the upper lobe low with elevated WBCs likely to represent an infection. She has been started on antibiotics. 4. I would recommend continuing antibiotics. Thank your for the consult. We will follow hospital course. cc: Devonte Braden MD
[2016-12-04] MEDS: LEVAQUIN 500 MG/D5W 500 MG/100 ML IVPB IV SCH (13:50)
--- NOTE | 2016-12-04 14:37 | PROGRESS NOTE ---
DATE: 12/04/2016 SUBJECTIVE: Today Ms. Amaya referred to be doing a little better. Actually when I went in there, she was lying supine and breathing normal. As soon as she noticed my presence, she sat up and said she needed her pain medications, yet she was just sleeping comfortably. OBJECTIVE: Vital signs: Blood pressure is 109/68, pulse of 82, respirations 18 and temperature 99.1 degrees. General: On exam, Ms. Amaya is a 66-year-old female. She is in bed, not seemingly distressed. HEENT: Mucosa is pink and moist. Anicteric. Neck: Supple. There is positive JVD. Chest: Air entry is bilaterally reduced. There are bilateral posterior crepitations. Cardiovascular: Regular rate and rhythm. No murmurs. There is a port on the right upper chest wall. Extremities: About 2+ pedal edema. PATIENT REGISTRATION REPRESENTATIVE: Patient is awake, alert and oriented x4. There is no focal neurological deficit. Abdomen: Soft and nontender. LABORATORY DATA: WBC is 15.30, hemoglobin is 9.1, platelet count of 332. Chemistry is reviewed: Sodium is 146, potassium is 4.3, chloride is 105, bicarbonate is 26, BUN 41 and creatinine is 1.8 which is not new. IMAGING STUDIES: 1. Chest x-ray which was done on presentation shows stable cardiomegaly and right upper lobe zone scarring. 2. A CT scan of the chest was done which shows worsening nodular infiltrates throughout the right lung, but mainly in the right upper lobe which represented typical infectious process or inflammatory process. There is also mild cardiomegaly, small pericardial effusion that is stable. Bilateral small pleural effusions. 3. There was a V/Q scan which was ordered and is negative. CURRENT MEDICATIONS: 1. Alprazolam. 2. Aspirin 81. 3. Lovenox 30 mg subcutaneously. 4. Lasix 40 IV daily. 5. Dilaudid 0.5 q. 3 hours p.r.n. 6. Zosyn. 7. Levofloxacin 500 mg q. 24 hours has been ordered by Dr. Seymour. The patient has already been seen by cardiology. ASSESSMENT: 1. Respiratory distress likely due to pulmonary edema and pneumonia. 2. Right upper lobe infiltrates secondary to atypical pneumonia. 3. Acute on chronic congestive heart failure. Ejection fraction of 20% to 25%. 4. History of coronary artery disease. The patient has been recommended medical therapy. 5. Anasarca secondary to congestive heart failure. 6. History of chronic obstructive pulmonary disease. 7. Chronic kidney disease stage IV. 8. Abnormal thyroid stimulating thyroid stimulating hormone. We will repeat this. 9. Chronic pain syndrome noted. PLAN: In general I think Ms. Amaya is doing fine. Lisinopril has been discontinued. The patient has been started on Entresto by cardiology. Levofloxacin has also been added to her antibiotics. We are going to continue with the current management and review the patient's labs tomorrow. cc: Da Uriostegui MD
--- NOTE | 2016-12-04 16:45 | CONSULTATION ---
DATE OF CONSULTATION: 12/04/2016 DIAGNOSES: 1. Combined dyspnea likely to be a combination of chronic obstructive pulmonary disease with some tracheobronchitis and pulmonary edema, ejection fraction of 25%. 2. History of coronary artery disease. 3. Chronic obstructive pulmonary disease with current use and abuse. 4. Acute on chronic hypoxemic respiratory failure. RECOMMENDATIONS: Will give her broad-spectrum antibiotics, inhaled beta agonist, single dose of Lasix, as well as DVT prophylaxis with Lovenox. Monitor gas exchange because the infiltrate in the right upper lung I believe and some antibiotics are probably necessary. Will follow closely along with you. HISTORY: This is a very pleasant, 66-year-old female. She presented with a known history of congestive heart failure. Underwent cardiac catheterization demonstrating no critical coronary artery disease. She was working at a [employer]ci when she developed acute shortness of breath, cough and some wheezing. She subsequently presented to our emergency room where a CT of the chest showed an infiltrate in the right upper lung ,and a V/Q scan did not show any perfusion defects. There was air trapping. REVIEW OF SYSTEMS: Except for the features mentioned above are negative for weight loss, night sweats, weakness or anorexia. No ENT symptoms of odynophagia, dysphagia, epistaxis or painful swallowing. No eye symptoms of blindness, blurring or diplopia. No other cardiac or pulmonary symptoms as mentioned. No nausea, vomiting, constipation, diarrhea. No hematuria, polyuria, nocturia, dysuria. No joint or muscle pain, stiffness, swelling. No skin rashes, itching, bruises. No seizures, loss of consciousness or paralysis. Except featured or mentioned above all other symptoms are negative. SOCIAL HISTORY: She lives at home alone. She is a current smoker accumulating nearly a 50-pack- year history. Continues to smoke. She does not drink. PAST MEDICAL HISTORY: Positive for LV dysfunction. Ejection fraction 20%. Chronic renal insufficiency. History of ischemic heart disease, COPD, restless leg syndrome. FAMILY HISTORY: Noncontributory. PHYSICAL EXAM: Vital Signs: She has a blood pressure of 109/63, with a pulse of 91, respirations 18, temperature 98.6 degrees. General: Generally she is an asthenic female, white and in no acute distress. HEENT: Exam reveals no thyromegaly or adenopathy. Pupils are equal and reactive. Extraocular muscles are intact. Neck: Supple. No bruits. No thyromegaly. No JVD. Chest: The chest reveals tympanitic percussion notes with some prolongation expiratory phase and forced expiratory wheezes. Cardiac Exam: Reveals a regular rhythm without an appreciable murmur. Abdomen: Soft, nontender. No hepatosplenomegaly. Extremities: Reveals no evidence of cyanosis, clubbing. Skin: Warm and dry. Neurological: She is nonfocal and awake. Moves all 4. Cranial nerves, motor and sensory are intact. LABS AND IMAGING: The CT of the chest is reviewed. There is bilateral dependent posterior effusions, moderate bullous changes. There is some nodular infiltrate in the right upper lobe. No hilar adenopathy. There are overt calcifications in the aorta. Sodium is 146, potassium 4.3, chloride 105, CO2 26, BUN 41, creatinine 0.8, glucose 164. ABG shows 7.30 pH with 32 CO2 and a 436 O2. The white count is 5300 with a hemoglobin 9.1, hematocrit 32.0, and platelets of 322,000.
[2016-12-04] MEDS ORDERED: PRINIVIL PO SCH (21:00)
[2016-12-04] MEDS: LOVENOX SUBQ SCH (22:11)
[2016-12-05] MEDS: DUONEB (A & A) INH SCH ×4 (03:20→20:00)
[2016-12-05] MEDS: DILAUDID IV PRN ×5 (03:41→19:58)
[2016-12-05] MEDS: ZOSYN 2.25 GM/NS 2.25 GM/50 ML IVPB IV SCH ×2 (03:42→09:02)
[2016-12-05 05:44] LABS: MANUAL DIFF NEEDED? NO
[2016-12-05 05:54] LABS: BASO% 0.9 % (0.0-0.8); EOS# 0.53 X1000 (0.0-0.7); EOS% 5.7 % (0.0-10.0); HEMATOCRIT 27.5 % (37.0-47.0); HEMOGLOBIN 8.3 g/dL (12.0-16.0); IMM GRAN# 0.04 X1000 (0.0-0.04); IMM GRAN% 0.4 % (0.0-0.5); LYMPH# 1.59 X1000 (1.2-3.4); LYMPH% 17.1 % (20.5-51.1); MCH 26.9 PG (27-31); MCHC 30.2 g/dL (33-37); MONO% 10.8 % (1.7-9.3); MPV 10.6 FL (7.4-10.4); NEUT% 65.1 % (42.2-75.2); PLT 280 X1000 (130-400); RBC 3.09 XMIL (4.2-5.4)
[2016-12-05 06:16] LABS: CALCIUM 8.3 mg/dL (8.8-10.2)
--- NOTE | 2016-12-05 08:23 | Diag Imaging Result Doc PS360 ---
EXAM: CHEST-1 VIEW INDICATION: COPD TECHNIQUE: One view COMPARISON: 12/03/2016 FINDINGS: Right chest port is in stable position. Scarring in the right upper lung zone is unchanged. No new consolidations appreciated. There is stable cardiomegaly IMPRESSION: Stable chest. Electronically signed by Joey Serrato 12/05/2016 8:21 AM
[2016-12-05] MEDS: ASPIRIN PO SCH (09:02)
[2016-12-05] MEDS: TOPROL XL PO SCH (09:02)
[2016-12-05] MEDS: PERICOLACE PO SCH (09:02)
[2016-12-05] MEDS: XANAX PO PRN ×3 (09:02→21:55)
[2016-12-05] MEDS: PRILOSEC PO SCH ×2 (09:02→21:56)
[2016-12-05] MEDS: LASIX IV SCH (09:02)
[2016-12-05] MEDS: ICAR-C PO SCH (09:02)
[2016-12-05] MEDS: ENTRESTO 24 MG-26 MG TABLET PO SCH ×2 (09:02→23:12)
[2016-12-05] MEDS: MIRALAX PO SCH (09:03)
[2016-12-05] MEDS: LACTULOSE PO SCH (09:03)
[2016-12-05] MEDS ORDERED: PERCOCET-5 PO PRN (09:29)
[2016-12-05] MEDS ORDERED: DULCOLAX PR PRN (09:29)
[2016-12-05] MEDS ORDERED: VANCOMYCIN IV PER PHARMACY MISC SCH (09:30)
--- NOTE | 2016-12-05 09:59 | PROGRESS NOTE ---
DATE: 12/05/2016 SUBJECTIVE: Today, Ms. Amaya referred to be doing a lot better. He said the swelling in the lower extremities improved and she is not having any more shortness of breath. OBJECTIVE: Vital Signs: Her blood pressure is 117/72, pulse of 84, respirations are 18, temperature is 98.6 degrees. General Examination: Ms. Amaya is a 66-year-old , female. She is in bed, not in any distress. HEENT: Mucosa is pink and moist. Anicteric and acyanotic. Neck: Supple. Chest: Air entry is bilaterally reduced. There are a few bibasilar crepitations. Cardiovascular: Regular rate and rhythm. There are no murmurs no rubs, no gallops. There is a port on the right upper chest wall. Extremities: Maybe trace of pedal edema and ankle. AUTOMATION CONTROL TECHNICIAN: Patient is awake, alert, and oriented x4. There is no focal neurological deficit. Abdomen: Soft, nontender. There is no hepatosplenomegaly. Laboratory Data: WBC is 9.29, hemoglobin is 8.3, platelet count of 280,000. Chemistry is also reviewed. Sodium is 141, potassium is 4.4, chloride is 103, bicarb is 26, creatinine is 1.6 which is improving. ASSESSMENT: 1. Respiratory distress on presentation, likely due to pulmonary edema and pneumonia. 2. Right upper lobe infiltrates secondary to atypical pneumonia. 3. Acute on chronic congestive heart failure. Ejection fraction of 20-25%. 4. Bacillus bacteremia. The patient continues to be on antibiotics. 5. Chronic kidney disease stage IV. 6. History of chronic obstructive pulmonary disease. 7. Chronic pain syndrome. PLAN: In general, Ms. Amaya seems to be doing a lot better. We are going to continue with the current diuretic therapy and the antibiotics. We will repeat the blood cultures to follow up on the bacillus bacteremia. We will also consult ID to evaluate the patient. I have discontinued the zosyn and started her on Vancomycin. cc: Da Uriostegui MD [facility]
[2016-12-05] MEDS ORDERED: VANCOMYCIN 1 GM/NS 1 GM/250 ML IVPB IV SCH (11:00)
[2016-12-05] MEDS: TYLENOL PO PRN ×2 (13:13→17:11)
[2016-12-05] MEDS: LEVAQUIN 500 MG/D5W 500 MG/100 ML IVPB IV SCH (13:14)
[2016-12-05] MEDS: ZOFRAN IV PRN (14:25)
--- NOTE | 2016-12-05 16:23 | CONSULTATION ---
DATE OF CONSULTATION: 12/05/2016 CONCLUSION: The patient has a bacillus bacteremia and both blood cultures are growing bacillus. The species has not been identified at this time. The patient relates to me that she had severe diarrhea about 7 days ago. I think most likely she had diarrhea due to bacillus cereus and now we are seeing a bacteremia secondary to that. Another possibility would be that the bacillus bacteremia from the patient's Port-A-Cath, but I think it is more likely that it came from bacillus diarrhea. RECOMMENDATIONS: Both of the antibiotics the patient is on started by Da Uriostegui MD have excellent activity against bacillus. I think it would be reasonable just go with vancomycin in the hospital and when she goes home, send her home on Levaquin and treat her for a total of 14 days or more. If the bacteremia should recur, then I think we would have to consider seriously that the Port-A-Cath is infected and needs to come out. Dr. Uriostegui has ordered blood cultures for tomorrow, and if they are negative, then I think we can send her home on oral Levaquin. DISCUSSION: The patient was admitted to the hospital. She said she about a week ago had diarrhea which cleared up and she developed fever and malaise approximately 3 days ago. Both the patient's blood cultures are growing bacillus, the species of which has not been determined. Chest x-ray shows scarring, but no infiltrates. Creatinine is 1.6. GFR is 32. Liver function studies are normal. Urinalysis showed no white cells or bacteria. PAST MEDICAL HISTORY: She has never been . REVIEW OF SYSTEMS: Eyes and ears: She has decreased hearing, but her vision is okay. Neck: No stiffness. Respiratory: No cough or shortness of breath. GI: As mentioned above, the patient about a week ago had diarrhea which has cleared. Genitourinary: No dysuria or flank pain. Endocrine: Patient does not have diabetes or thyroid disease. Bones, joints, muscles: She is not complaining of any joint swelling or muscle pain, but she does have generalized weakness. Neurologic: No seizures or loss of motor or sensory function. Integument: No rash is noted. Hematologic: Patient is anemic, but she does not have a bleeding tendency. PREVIOUS HOSPITALIZATIONS AND OPERATIONS: She has had an appendectomy, gastrectomy because of bleeding ulcers and she has also been hospitalized many times for congestive heart failure. MEDICAL DISEASES: Positive for hypertension, congestive heart failure, hyperlipidemia and chronic kidney disease. Infectious disease history positive for pneumonia, UTI and pleurisy. FAMILY HISTORY: Positive for congestive heart failure. The patient said she really does not keep up with her family and did not know any other illnesses in the rest of the family. SOCIAL HISTORY: The patient has been moved to [facility]. She says she is very happy there. She smoke cigarettes. She does not drink alcoholic beverages or abuse drugs. She is single. She had cats for pets but she had to give them when she went to [facility]. ALLERGIES: She has no known drug allergies. MEDICATIONS AT HOME: Desyrel. Mylicon. Docusate. Requip. MiraLAX. Oxycodone. Prilosec. Metoprolol. Melatonin. Lisinopril. Lactulose. Isordil. Iron. Hydrochlorothiazide. Furosemide. Bumex. Dulcolax. Aspirin. Alprazolam. PHYSICAL EXAMINATION: Vital Signs: Temperature is 100.3 degrees, pulse 88. Respirations 20, blood pressure 115/70. Patient's weight is listed as 89 pounds. General: This is an ill- appearing, elderly female. She is in no acute distress at this time. Head, eyes, ears, nose, and throat: She can hear my spoken words and see near objects. No drainage noted from the nose or ears. Neck: No meningismus. Thorax: The patient has a Port-A-Cath present on the right side. The site is not erythematous or tender. Lungs: Clear to auscultation. Patient has a Port- A-Cath present on the right side. The site is not erythematous or swollen. Cardiovascular: Heart rate is regular. There were diminished peripheral pulses. Abdomen: Seemed protuberant, but soft and nontender. Neurologic: Patient is awake. She has generalized weakness. She can move her extremities. There is no tremor. Thank you for the consult. cc: Juancarlos Rangel MD
[2016-12-05] MEDS ORDERED: DESYREL PO SCH (21:00)
[2016-12-05] MEDS ORDERED: PRINIVIL PO SCH (21:00)
[2016-12-05] MEDS ORDERED: NON-FORMULARY MED (Ropinirole Hcl [Requip] 2 MG) PO SCH (21:00)
[2016-12-05] MEDS ORDERED: NON-FORMULARY MED (Omeprazole [Prilosec] 40 MG) PO SCH (21:00)
[2016-12-05] MEDS ORDERED: ASPIRIN EC PO SCH (21:00)
[2016-12-05] MEDS: MELATONIN PO SCH (21:55)
[2016-12-05] MEDS: DESYREL PO SCH (21:55)
[2016-12-05] MEDS: REQUIP PO SCH (21:55)
[2016-12-05] MEDS: LOVENOX SUBQ SCH (21:56)
[2016-12-05] MEDS: ISORDIL PO SCH (21:56)
[2016-12-06] MEDS: DILAUDID IV PRN ×6 (01:11→21:32)
[2016-12-06] MEDS: DUONEB (A & A) INH SCH ×4 (03:27→20:05)
--- NOTE | 2016-12-06 06:13 | EKG Report ---
Test Performed on : 12/04/2016 06:49:17 AM Test Reason : chest pain Blood Pressure : / mmHG Vent. Rate : 096 BPM Atrial Rate : 096 BPM P-R Int : 138 ms QRS Dur : 098 ms QT Int : 376 ms P-R-T Axes : 064 017 076 degrees QTc Int : 475 ms Normal sinus rhythm. Possible Left atrial enlargement Left ventricular hypertrophy Abnormal ECG When compared with ECG of 03-DEC-2016 20:04, (Unconfirmed) Minimal criteria for Inferior infarct are no longer present Non-specific change in ST segment in Anterior leads Nonspecific T wave abnormality no longer evident in Inferior leads T wave inversion no longer evident in Lateral leads Confirmed by Wilfredo GILBERT, Greg Torres ([id number]) on 12/07/2016 6:02:20 AM
[2016-12-06] MEDS: XANAX PO PRN ×3 (07:29→21:39)
[2016-12-06 07:31] LABS: MANUAL DIFF NEEDED? NO
[2016-12-06 07:59] LABS: CALCIUM 8.4 mg/dL (8.8-10.2); POTASSIUM 4.2 mmol/L (3.5-5.1)
--- NOTE | 2016-12-06 08:10 | EKG Report ---
Test Performed on : 12/03/2016 8:04:30 PM Test Reason : No Order in [facility] Blood Pressure : / mmHG Vent. Rate : 129 BPM Atrial Rate : 129 BPM P-R Int : 124 ms QRS Dur : 098 ms QT Int : 300 ms P-R-T Axes : 071 005 -42 degrees QTc Int : 439 ms Sinus tachycardia. Possible Left atrial enlargement Cannot rule out Inferior infarct , age undetermined ST \T\ T wave abnormality, consider lateral ischemia Abnormal ECG When compared with ECG of 31-OCT-2016 17:20, Non-specific change in ST segment in Anterior leads Nonspecific T wave abnormality now evident in Inferior leads Inverted T waves have replaced nonspecific T wave abnormality in Lateral leads Unconfirmed Result
[2016-12-06 08:14] LABS: BASO% 0.7 % (0.0-0.8); EOS# 0.67 X1000 (0.0-0.7); EOS% 7.3 % (0.0-10.0); HEMATOCRIT 30.7 % (37.0-47.0); HEMOGLOBIN 9.3 g/dL (12.0-16.0); LYMPH# 1.61 X1000 (1.2-3.4); LYMPH% 17.5 % (20.5-51.1); MCH 27.8 PG (27-31); MCHC 30.3 g/dL (33-37); MCV 91.9 FL (81-99); MONO# 0.95 X1000 (0.11-0.59); MONO% 10.3 % (1.7-9.3); MPV 10.6 FL (7.4-10.4); NEUT% 64.2 % (42.2-75.2); PLT 319 X1000 (130-400); RBC 3.34 XMIL (4.2-5.4)
[2016-12-06 09:00] LABS: FREE T4 0.84 ng/dL (0.93-1.70)
[2016-12-06] MEDS ORDERED: BUMEX PO SCH (09:00)
[2016-12-06] MEDS ORDERED: ICAR-C PO SCH (09:00)
[2016-12-06] MEDS ORDERED: LACTULOSE PO SCH (09:00)
[2016-12-06] MEDS ORDERED: TOPROL XL PO SCH (09:00)
[2016-12-06] MEDS ORDERED: PERICOLACE PO SCH (09:00)
[2016-12-06] MEDS: LASIX IV SCH (09:15)
[2016-12-06] MEDS: LACTULOSE PO SCH (09:15)
[2016-12-06] MEDS: ISORDIL PO SCH ×2 (09:16→22:26)
[2016-12-06] MEDS: ICAR-C PO SCH (09:16)
[2016-12-06] MEDS: ENTRESTO 24 MG-26 MG TABLET PO SCH ×2 (09:16→22:25)
[2016-12-06] MEDS: TOPROL XL PO SCH (09:16)
[2016-12-06] MEDS: PRILOSEC PO SCH ×2 (09:16→22:26)
[2016-12-06] MEDS: PERICOLACE PO SCH (09:17)
[2016-12-06] MEDS: MIRALAX PO SCH (09:18)
[2016-12-06] MEDS: ASPIRIN PO SCH (09:30)
[2016-12-06] MEDS ORDERED: BUMEX PO ONE (16:15)
--- NOTE | 2016-12-06 16:42 | PROGRESS NOTE ---
DATE: 12/06/2016 SUBJECTIVE: Today Ms. Amaya referred to be doing a lot better. Denies any complaints. OBJECTIVE: Vital signs: Blood pressure is 119/85, pulse of 87, respirations 20 , temperature 98.4 degrees. General: Ms. Amaya is a 66-year-old female. She is in bed , not in any distress. HEENT: Mucosa is pink and moist. Anicteric. Acyanotic. Neck: Supple. I did not appreciate any JVD today. Chest: Good air entry bilaterally. Few bibasilar crepitations. Cardiovascular: Regular rate and rhythm. There is no murmurs, no rub, no gallop. There is a port on the right upper chest wall. Extremities: No pedal edema. DIGITAL RESEARCH ANALYST: Patient is awake and alert. Abdomen: Soft, nontender. There is no hepatosplenomegaly. I'S AND O'S: Patient had a total urine output of 2400 for a total negative balance of -4940. Patient weight is 89, admitting weight is 91, this is a net 2 pounds weight loss. LABORATORY DATA: Hemoglobin is 9.3, platelet count of 318,000. Chemistries reviewed. Creatinine is down to 1.4. Thyroid function tests have been unremarkable. ASSESSMENT: 1. Respiratory distress on presentation likely due to pulmonary edema and pneumonia. 2. Right upper lobe infiltrate secondary to atypical pneumonia. 3. Bacillus cereus bacteremia likely due to gastroenteritis. This has resolved. 4. Acute on chronic congestive heart failure. Ejection fraction 20-25%. 5. History of chronic obstructive pulmonary disease currently not in exacerbation. 6. Chronic kidney disease stage 4 stable. 7. Chronic pain syndrome noted. PLAN: Ms. Amaya is doing much better today. We are going to discontinue the Khan catheter and we are going to switch the Lasix to p.o. meds. clinically she seems to be euvolemic at this point. Will continue with the current antibiotics and await the 2nd blood cultures. If the blood cultures are negative we can discharge the patient home tomorrow. Will be pending final antibiotic recommendations from ID before we discharge her. Patient is a resident of [facility] so we can let her go tomorrow to [facility]. cc: Da Uriostegui MD [facility]ITALRachel
[2016-12-06] MEDS ORDERED: LASIX PO SCH (21:00)
[2016-12-06] MEDS: DESYREL PO SCH (22:26)
[2016-12-06] MEDS: REQUIP PO SCH (22:26)
[2016-12-06] MEDS: MELATONIN PO SCH (22:26)
[2016-12-06] MEDS: LOVENOX SUBQ SCH (22:26)
[2016-12-07] MEDS: DILAUDID IV PRN ×7 (02:02→21:12)
[2016-12-07] MEDS: DUONEB (A & A) INH SCH ×4 (03:23→21:33)
[2016-12-07] MEDS: XANAX PO PRN ×3 (06:20→21:13)
[2016-12-07 06:51] LABS: MANUAL DIFF NEEDED? NO
--- NOTE | 2016-12-07 07:02 | PROGRESS NOTE ---
DATE: 12/07/2016 PRESENT ILLNESS: The patient has a bacillus bacteremia. I think it originated from about 8 or 9 days ago. She had severe diarrhea. I suspect she had bacillus as the cause of her diarrhea, and it was severe enough that she became bacteremic from it. An alternative explanation would be that the infection arose from the patient's Port-A-Cath. MEDICATIONS: The patient is on vancomycin, and even though her creatinine was elevated, since starting vancomycin, the creatinine has come down. This is day 2 of treatment with vancomycin. PHYSICAL EXAMINATION: Vital Signs: Temperature is 98.4 degrees, pulse 98, respirations 21, blood pressure 28/86. General: This is a chronically ill-appearing, elderly female. She is in no acute distress at this time. Thorax: The patient has a Port-A-Cath present on the right side. The site is not erythematous or swollen. Lungs: Clear to auscultation. Cardiovascular: Regular heart rate. Abdomen: Slightly distended, but soft and nontender. LABORATORY DATA: The patient's repeat blood cultures are sterile at 48 hours. CBC shows a white count of 9200, hemoglobin 9.3, and platelet count 319,000. Creatinine is 1.4. The GFR is 38. ASSESSMENT AND PLAN: As mentioned above, the patient has a bacillus bacteremia. I think it is more likely that it originated from her diarrhea that she had 7 to 8 days ago, rather than from her Port-A-Cath. My plan would be to treat the patient with vancomycin for a total of 2 to 3 weeks. After stopping the antibiotic, if the patient becomes febrile and has a recurrence of her bacteremia, then I think the patient should be restarted on vancomycin, and the Port-A-Cath should be removed. COMORBIDITIES: She has chronic kidney disease, congestive heart failure, and necessity to have a Port-A-Cath present. cc: Juancarlos Rangel MD
[2016-12-07 07:07] LABS: EOS# 0.58 X1000 (0.0-0.7); EOS% 6.4 % (0.0-10.0); HEMATOCRIT 32.9 % (37.0-47.0); IMM GRAN# 0.05 X1000 (0.0-0.04); IMM GRAN% 0.6 % (0.0-0.5); LYMPH# 2.15 X1000 (1.2-3.4); LYMPH% 23.7 % (20.5-51.1); MCH 27.1 PG (27-31); MCHC 30.4 g/dL (33-37); MCV 89.2 FL (81-99); MONO# 0.94 X1000 (0.11-0.59); MONO% 10.4 % (1.7-9.3); MPV 10.5 FL (7.4-10.4); NEUT% 57.9 % (42.2-75.2); PLT 369 X1000 (130-400); RBC 3.69 XMIL (4.2-5.4)
[2016-12-07 07:16] LABS: CALCIUM 9.1 mg/dL (8.8-10.2); POTASSIUM 4.7 mmol/L (3.5-5.1)
--- NOTE | 2016-12-07 07:34 | Diag Imaging Result Doc PS360 ---
CHEST-1 VIEW - 12/07/2016 INDICATION: SOB TECHNIQUE: COMPARISON: 12/05/2016 FINDINGS: Stable right chest port. Stable cardiomegaly and moderate pulmonary vascular congestion. Stable opacity in the right midlung field that is probably a rib deformity. No focal infiltrates. No pneumothorax or pleural effusion. IMPRESSION: Cardiomegaly and pulmonary vascular congestion. No change from prior. Electronically signed by Froilan Hassan 12/07/2016 7:32 AM
[2016-12-07] MEDS: MIRALAX PO SCH ×2 (08:35→13:09)
[2016-12-07] MEDS: BUMEX PO SCH (08:35)
[2016-12-07] MEDS: LACTULOSE PO SCH (08:36)
[2016-12-07] MEDS: PRILOSEC PO SCH ×2 (08:36→21:30)
[2016-12-07] MEDS: ASPIRIN PO SCH (08:36)
[2016-12-07] MEDS: PERICOLACE PO SCH (08:36)
[2016-12-07] MEDS: ZAROXOLYN PO SCH (08:36)
[2016-12-07] MEDS: TOPROL XL PO SCH (08:36)
[2016-12-07] MEDS: ENTRESTO 24 MG-26 MG TABLET PO SCH ×2 (08:37→21:30)
[2016-12-07] MEDS: ISORDIL PO SCH ×2 (08:37→21:30)
[2016-12-07] MEDS: ICAR-C PO SCH (08:37)
[2016-12-07] MEDS ORDERED: VANCOMYCIN 1 GM/NS 1 GM/250 ML IVPB IV SCH (11:00)
[2016-12-07] MEDS: ZOFRAN IV PRN (12:39)
--- NOTE | 2016-12-07 13:20 | PROGRESS NOTE ---
DATE: 12/07/2016 SUBJECTIVE: Today Ms. Amaya refers to be doing fine but she feels slightly lousy and she wants to be observed overnight before she can be discharged tomorrow. OBJECTIVE: Vital signs: Blood pressure is 111/83, pulse of 90, respirations 16, temperature 98.6 degrees. General: Ms. Amaya is a 66-year-old female. She is in bed, not seemingly distressed. HEENT: Mucosa is pink and moist. Anicteric. Acyanotic. Neck: Supple. Chest: Good air entry bilaterally. Just a few bibasilar crepitations. Cardiovascular: Regular rate and rhythm. There is no murmur. There is no rubs. No gallops. There is a port on the right upper chest wall. Extremities: No pedal edema. Abdomen: Soft, nontender. There is no hepatosplenomegaly. 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 There is no focal neurological deficit. Intake and output: Urine output is 2650. The patient has a total negative balance of 7560. Weight is 89. CURRENT MEDICATIONS: 1. Xanax p.r.n. 2. Aspirin 81 mg. 3. Dulcolax. 4. Bumex 2 mg daily. 5. Lovenox 30 subcutaneous. 6. Isordil 5 mg b.i.d. 7. Lactulose 15 mL. 8. Metolazone 2.5 daily. 9. Metoprolol 25 mg daily. 10. Vancomycin. 11. Entresto 24 mg/26 mg daily. 12. Trazodone. LABORATORY DATA: WBC is 9.09, hemoglobin is 10.0, platelet count is 369,000. Chemistry is reviewed. Creatinine is 1.4. ProBNP is down to 13,991 from more than 35,000. Subsequent blood cultures have been 24 hours negative. ASSESSMENT: 1. Respiratory distress on presentation due to pulmonary edema and pneumonia. 2. Right upper lobe infiltrate secondary to atypical pneumonia. 3. Bacillus cereus bacteremia, likely due to gastroenteritis. This has resolved. Subsequent blood cultures have also been negative. 4. Acute on chronic congestive heart failure. Ejection fraction is 20 to 25%. This is noted. The patient is currently euvolemic. Has been evaluated by cardiology. She is currently on Entresto and diuretics. 5. Chronic obstructive pulmonary disease. Currently not in exacerbation. 6. Chronic kidney disease stage 3B to 4. 7. Chronic pain syndrome, noted. PLAN: So in genera I think Ms. Amaya is doing fine today. She prefers to be observed 1 day because she just feels lousy. I think by tomorrow morning if she is relatively stable we can discharge her. I have already discussed this with her. I have also spoken with Dr. Rangel and Dr. Rangel will continue the vancomycin therapy for a total of 2-3 weeks, which she can do that in the half-way. cc: Da Uriostegui MD
--- NOTE | 2016-12-07 15:22 | PROGRESS NOTE ---
DATE: 12/07/2016 ADDENDUM: The plan now for the patient is that [facility] will [facility] where [facility] and I have written the following orders. Vancomycin 1 g IV every 48 hours. A CBC, creatinine, and vancomycin level to be drawn every Tuesday and a creatinine level every is to be drawn also. I have requested that these labs and the duration of the antibiotic therapy should be for 16 days. I am going to request that the patient see me in my office in 3 weeks. The patient will be given her medicine through her Port-A-Cath. cc: Juancarlos Rangel MD
[2016-12-07] MEDS: REQUIP PO SCH (21:29)
[2016-12-07] MEDS: LOVENOX SUBQ SCH (21:30)
[2016-12-07] MEDS: MELATONIN PO SCH (21:30)
[2016-12-07] MEDS: DESYREL PO SCH (21:30)
[2016-12-08] MEDS: DILAUDID IV PRN ×5 (01:03→13:40)
[2016-12-08] MEDS: DUONEB (A & A) INH SCH ×2 (03:20→08:14)
[2016-12-08] MEDS: XANAX PO PRN ×2 (04:59→10:28)
[2016-12-08 08:08] VITALS: BP 105/54
[2016-12-08] MEDS: TOPROL XL PO SCH (10:32)
[2016-12-08] MEDS: ISORDIL PO SCH (10:33)
[2016-12-08] MEDS: PRILOSEC PO SCH (10:33)
[2016-12-08] MEDS: ICAR-C PO SCH (10:34)
[2016-12-08] MEDS: ZAROXOLYN PO SCH (10:34)
[2016-12-08] MEDS: ASPIRIN PO SCH (10:34)
[2016-12-08] MEDS: ENTRESTO 24 MG-26 MG TABLET PO SCH (10:36)
[2016-12-08] MEDS: PERICOLACE PO SCH (10:37)
[2016-12-08] MEDS: BUMEX PO SCH (10:38)
[2016-12-08] MEDS: MIRALAX PO SCH (10:38)
[2016-12-08] MEDS: LACTULOSE PO SCH (10:38)
--- NOTE | 2016-12-08 11:36 | DISCHARGE SUMMARY ---
ADMISSION DATE: 12/03/2016 DISCHARGE DATE: 12/08/2016 CONSULTATIONS: 1. Dr. Serafin Seymour with Pulmonology. 2. Dr. Braden with Cardiology. 3. Dr. Juancarlos Rangel with infectious disease. PERTINENT PROCEDURES: 1. Chest CT showed worsening nodular infiltrates throughout the right lung but mainly in the right upper lobe. It probably represents worsening atypical infectious or inflammatory process suggesting mild interstitial edema, bilateral pleural effusion and bibasilar atelectasis, marked cardiomegaly and small pericardial effusion that is stable. Fluid found in eustachian esophagus suggesting GERD. 2. V/Q scan. DISCHARGE DIAGNOSES: 2. Respiratory failure on presentation secondary to pulmonary edema and pneumonia. 3. Right upper lobe infiltrate secondary to atypical pneumonia. The patient going home or going to rehab on IV antibiotics. 4. Bacillus cereus bacteremia likely due to gastroenteritis. This has resolved. Subsequent blood cultures have been negative. 5. Acute on chronic congestive heart failure. EF 20-25%. The patient currently euvolemic. Evaluated by cardiology will continue on meds 6. Chronic obstructive pulmonary disease exacerbation resolved. 7. Chronic kidney disease stage IIIB to 4 stable. 8. Chronic pain syndrome noted. HOSPITAL COURSE: Ms. Amaya is a 66-year-old female, very well known to our service. She carries a past medical history of chronic systolic heart failure, COPD, chronic kidney disease stage 3B 4, coronary artery disease, was brought to the emergency department because of shortness of breath. She was at [facility] where late in the afternoon she was noted to have progressive shortness of breath and chest pain that was located in the substernal area that lasted 30 minutes to 1 hour. In the ED, she was found to be hypotensive with systolic blood pressure of 180 and low O2 saturation. She was placed on BiPAP. [place] white count was 81200. Initial chest x- ray showed no definite acute pathology. Stable cardiomegaly. A chest CT showed worsening nodular infiltrates throughout the right lung but mainly in the right upper lobe. Mild interstitial edema. Bilateral small pleural effusions and bibasilar atelectasis. Cardiomegaly and pericardial effusions and fluid filled distended esophagus suggesting GERD. She underwent a V/Q scan that was negative. Cardiology was consulted. They discontinued her lisinopril and started her on Entresto, decreased her Lasix to 40 mg daily. Continued her on her aspirin and nitropaste, and with the CT results she was started on antibiotics, as well as continued on bronchodilators and aggressive pulmonary toilet. Her blood cultures grew out a Paxil as bacteremia from both her cultures. She related that she had severe diarrhea 7 days prior. They feel it was most likely due to bacillus cereus and now seeing bacteremia secondary to that. Repeat blood cultures were negative so the patient will be able to keep her [id number]. Her white count has trended down. The patient has been diuresed to a euvolemic state. She is appropriate for discharge to rehab today. VITAL SIGNS: Temperature is 98.6 degrees, heart rate 91, respirations 16, blood pressure 111/83 O2 is 97% on 2 L nasal cannula. DISCHARGE DIET: Healthy heart. DISCHARGE MEDICATIONS: As per Dr. Uriostegui. Please see JUL. FOLLOWUP: Ms. Amaya is being discharged back to [facility] rehab. She will continue on vancomycin 1 g IV every 48 hours. She will need a CBC and creatinine and vancomycin level to be drawn every Tuesday and a creatinine level every to be drawn also, and these labs will need to be drawn the duration of the antibiotic therapy which should be for 16 days. Then will follow up with Dr. Rangel in 3 weeks. Her vancomycin will be given through her Port-A-Cath. Ms. Amaya can return to the ED for any worsening of symptoms. DISCHARGE TIME: 35 minutes. Dictated by VREONICA Song for Da Uriostegui MD cc: MD SHARRI Kruger
== END 2016-12-08 13:54 ==
LOC: ED 19:57 → SUATTDRO 22:27 → 3S 22:27 → 3N 12-05 17:33
PROVIDERS: ATTEND Internal Medicine